=== PATIENT | female | born 1975 | race Caucasian/White ===

== ENCOUNTER 2019-06-13 17:25 | Emergency (ER) | payer OTHER, SELFPAY ==
[2019-06-13 17:30] VITALS: BP 161/95; PULSE 93; RESP 16; TEMP 36.6; O2SAT 95; BMI 75.2
--- NOTE | 2019-06-13 17:52 | EKG12_ITS ---
Test Reason : NEURO Blood Pressure : / mmHG Vent. Rate : 089 BPM Atrial Rate : 089 BPM P-R Int : 146 ms QRS Dur : 092 ms QT Int : 360 ms P-R-T Axes : 035 -11 030 degrees QTc Int : 438 ms Normal sinus rhythm Normal ECG Confirmed by TRISTIAN TOUSSAINT, KARLA ([id number]), sound editor NICKOLAS KIRKPATRICK ([id number]) on 06/18/2019 10:22:35 AM Referred By: SANDRA Confirmed By:KARLA LUBIN MD
--- NOTE | 2019-06-13 17:52 | CT_ITS ---
STUDY: CT BRAIN WITHOUT CONTRAST REASON FOR EXAM: Female, 43 years old. Stroke like symptoms. Dilated pupils. Unable to speak. RADIATION DOSAGE (If Supplied By Facility): CTDIvol = ( 44.99 ) mGy, DLP = ( 779.24 ) mGycm TECHNIQUE: Transaxial CT imaging of the brain was performed without administration of intravenous contrast material. Individualized dose optimization techniques were used for this CT. COMPARISON: No relevant priors. FINDINGS: Normal soft tissue structures. Normal calvarium. Normal size ventricles and extra-axial spaces for the patient's age. Normal white matter tracts of the cerebral hemispheres. Normal basal ganglia and thalami. Normal brainstem. Normal cerebellum. There is no intracranial hemorrhage. There are no findings of an acute ischemic infarction. Normal visualized paranasal sinuses. CT/Brain/Head without Contrast IMPRESSION: Normal unenhanced CT scan of the brain. N.B. : The above information has been verbally conveyed by Lefty Puga DO to Collin Bueno MD, on 06/13/2019 18:09:50 (ET). Electronically Signed: Lefty Puga DO at 18:12 EDT Tel [phone], Service support ,
[2019-06-13 17:56] LABS: Bedside Glucose 84 mg/dL (70-110)
[2019-06-13 18:04] VITALS: BP 157/92; PULSE 93; RESP 18; O2SAT 99
[2019-06-13 18:06] VITALS: BP 157/92; PULSE 91
[2019-06-13 18:07] LABS: Absolute Lymphocyte Count 2.39 X10^3/uL (0.83-4.51); Absolute Neutrophil Count 7.7 X10^3/uL (2.0-7.7); Basophil# 0.02 X10^3/uL; Basophil% 0.2 % (0-1); Eosinophil# 0.09 X10^3/uL; Eosinophils% 0.8 % (0-5); Hematocrit 40.9 % (37-47); Hemoglobin 13.2 g/dL (12.0-15.0); Lymphocyte # 2.39 X10^3/ul (4.0); Lymphocyte % 21.4 % (19-41); Mean Corp Hgb Conc 32.3 g/dL (32-36); Monocyte# 0.98 X10^3/uL; Monocyte% 8.8 % (0-10); NRBC Flagged by Analyzer 0 % (0-5); Neutrophil # 7.65 X10^3/uL (2.7-7.7); Neutrophil % 68.4 % (47-70); Platelet Count 394 K/mm3 (150-450); RBC Distribution Width CV 15.1 % (11.6-14.6); White Blood Count 11.2 K/mm3 (4.4-11.0)
[2019-06-13 18:08] VITALS: BMI 77.3
--- NOTE | 2019-06-13 18:26 | ED.RN ---
1815 call received from [facility] that there is na
--- NOTE | 2019-06-13 18:27 | ED.RN ---
181 [facility] phone to inform us that there is an
--- NOTE | 2019-06-13 18:28 | ED.RN ---
1815 [facility] phoned to inform staff that neurologist is on with another pt and will be delayed with this pt for approx. 15min.
[2019-06-13 18:30] VITALS: BP 156/97; PULSE 79; RESP 24; O2SAT 98
[2019-06-13] MEDS: 0.9% Normal Saline 1,000 ML 999 ML IV (18:39)
[2019-06-13 18:45] LABS: Partial Thromboplast Time 28.6 Seconds (24.1-36.2); Prothrombin Time (Protime)PT. 12.8 SECONDS (11.7-14.9)
--- NOTE | 2019-06-13 18:45 | NURSING ---
continue to wait at pt bs for [facility] md to beam in
--- NOTE | 2019-06-13 18:47 | NURSING ---
[facility] on video conference with pt
[2019-06-13 18:55] VITALS: BP 147/108; PULSE 88; RESP 20; O2SAT 99
--- NOTE | 2019-06-13 18:57 | ED.RN ---
1850 pt had an approx 60sec long episode with studdering attempting to get words out, but unable to while [facility] md on video doing nih exam. afterwords pt reports being able to hear everything and denies loss of vision.
[2019-06-13 18:59] LABS: Anion Gap 7 (5-15); BUN 12 mg/dL (7-18); BUN/Creat Ratio 16.2 RATIO (10-20); Calcium,Total 8.3 mg/dL (8.5-10.1); Chloride 107 mmol/L (98-107); Creatinine, Serum 0.74 mg/dL (0.55-1.02); EST Glomerular Filtration Rate 90 mL/min (>60); Est Glom Filt Rate - Afr Amer 109 mL/min (>60); Estimated Creatinine Clearance 94.34 ml/min; Glucose 106 mg/dL (74-106); Potassium 3.8 mmol/L (3.5-5.1); Sodium Level 140 mmol/L (136-145)
[2019-06-13 19:00] VITALS: BP 127/72; PULSE 85; RESP 18; O2SAT 97
--- NOTE | 2019-06-13 19:03 | ED.VISSUMM ---
- ER Visit Summary Date of Service: 06/13/19 Chief Complaint: Speech difficulties History of Present Illness: The patient is a 43 F with no primary care physician. She reports that she has had 3 episodes in the past 2 hours where she is unable to express herself. She states that this consists of stuttering, eyes twitching, and pupils dilating. Each of these has lasted approximately 10 seconds. She denies any other neurologic symptoms. No facial droop. No numbness or weakness. No change in her vision. No vertigo. She has never had anything like this before. No history of seizures. Physical Examination: Vitals: Stable. Afebrile. General: Well-nourished and well-developed. Head: Normocephalic atraumatic. Neck: Supple, no lymphadenopathy. No JVD. Nontender. Cardiovascular: Regular rate and rhythm. No murmurs. Respiratory: No respiratory distress. Clear to auscultation bilaterally. Abdominal: Soft, nontender, nondistended, normal bowel sounds. No guarding, rebound, or peritoneal signs. Back: Nontender. Extremities: Nontender, no edema. Skin: Normal color, no rash. Neurologic: Alert and oriented ?3. Cranial nerves II through XII are intact. Normal strength and sensation. NIH score is 0. Psych: Normal affect. Test Results: EKG is sinus at 89 with no acute changes. Troponin is negative. Coags are normal. Chem-7 shows a calcium of 8.3. CBC shows a white count 11.2. Clinical Impression(s) from Imaging Studies Brain CT 06/13/19 17:52 IMPRESSION: Normal unenhanced CT scan of the brain. N.B. : The above information has been verbally conveyed by Lefty Puga DO to Collin Bueno MD, on 06/13/2019 18:09:50 (ET). Electronically Signed: Lefty Puga DO at 18:12 EDT Tel [phone], Service support , ADDENDUM: 06/13/19 2052 IMPRESSION: Normal unenhanced CT scan of the brain. N.B. : The above information has been verbally conveyed by Lefty Puga DO to Collin Bueno MD, on 06/13/2019 18:09:50 (ET). Electronically Signed: Lefty Puga DO at 18:12 EDT Tel [phone], Service support , Emergency Department Course and Treatment: While speaking with the neurologist from [facility] the patient had 1 of these episodes. I discussed this with the neurologist afterwards. He states that it is consistent with a nonepileptic seizure. He feels that this is not from a stroke. That she can have outpatient seizure work-up including MRI and EEG. 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 The patient will be discharged with Dr. Hector's phone number. Instructed to follow-up with him as soon as possible. She does understand that she cannot drive until cleared by him. Return to the emergency department for any worsening symptoms. Disposition: To home in improved and stable condition. Impression: 1. Seizures, new onset. This note was generated with [employer] software. It may contain incorrect words, spelling, and punctuation that were not noted in review of the chart prior to signing ED Disposition - Plan for ED Patient: Disposition: Home or Assisted Living Instructions: ED, Migraine (Classical) Referrals: Yaya Hector MD [STAFF PHYSICIAN] - As soon as possible Additional Instructions: No driving until cleared by Neurology.
--- NOTE | 2019-06-13 19:20 | ED.RN ---
CALLED [facility] AT THE REQUEST OF DR FLORES, THEY WILL NOT ACCEPT THE CALL TILL FRIDAY @ [phone]
== END 2019-06-13 20:21 | disposition home or self-care (01) ==
LOC: ED 17:53
PROVIDERS: Emergency Provider Emergency Medicine
DX: R56.9 Unspecified convulsions (principal)
CPT/HCPCS: 36415; 70450; 80048; 82962; 84484; 85025; 85610; 85730; 93005; 96360; 96361; 99283; J7030; A4216

== ENCOUNTER 2019-06-14 12:10 | Emergency (ER) | payer OTHER, SELFPAY ==
[2019-06-13 18:08] VITALS: BMI 77.3
[2019-06-14 12:10] VITALS: BP 163/84; PULSE 90; RESP 16; TEMP 36.8; O2SAT 98; BMI 75.9
[2019-06-14 13:57] LABS: ALB/GLOB Ratio 0.8 RATIO (0.9-2.4); AST(SGOT) 17 U/L (15-37); Alanine Aminotransfer ALT/SGPT 26 U/L (13-56); Albumin, Serum 3.4 g/dL (3.2-5.0); Alkaline Phosphatase 80 U/L (45-117); Anion Gap 5 (5-15); BUN 8 mg/dL (7-18); BUN/Creat Ratio 10.5 RATIO (10-20); Calcium,Total 8.7 mg/dL (8.5-10.1); Chloride 106 mmol/L (98-107); Creatinine, Serum 0.76 mg/dL (0.55-1.02); EST Glomerular Filtration Rate 88 mL/min (>60); Est Glom Filt Rate - Afr Amer 106 mL/min (>60); Estimated Creatinine Clearance 91.86 ml/min; Globulin 4.5 g/dL (2.2-4.2); Glucose 84 mg/dL (74-106); Potassium 3.8 mmol/L (3.5-5.1); Protein, Total 7.9 g/dL (6.4-8.2); Sodium Level 138 mmol/L (136-145)
--- NOTE | 2019-06-14 14:58 | ED.DCSUM_ITS ---
History of Present Illness Chief Complaint: Confusion Detail of Chief Complaint: 10 seconds of inability to speak Informant: Patient Onset: Today - 899 Context: Sudden Onset Timing: Intermittent - 10 seconds of inability to speak Current Severity: - - Resolved Maximum Severity: - - Unable to quantify Worsened by: Nothing Relieved by: Nothing Associated Symptoms: No other symptoms Narrative: Patient is a 43-year-old woman who was seen yesterday. Her report was reviewed. She was evaluated by the neurologist at [facility]. She was informed that her symptoms are not consistent with a stroke. She has an appointment to be seen by a local neurologist on . This morning she had episode where she was unable to speak for 10 seconds. She has no other symptoms. Denies headache. Denies visual, ocular auditory symptoms. She denies chest pain, dyspnea, dyspnea on exertion. Denies orthopnea or PND. She denies nausea vomiting. She denies problems with swallowing. She denies problems with balance. Prior similar symptoms: Yes Recent Illness/Hospitalization: Yes - Past Medical History (1) No significant past medical history Status: Acute Past Medical History - Allergies and Home Meds Allergies/Adverse Reactions: Allergies No Known Allergies Allergy (Verified 06/14/19 12:12) Primary Care Physician: Care Physician,No Primary [Primary Care Provider] - Prior records reviewed: Yes Surgical History: noncontributory Lives: With Family Smoking Status: Never smoker Alcohol: None Drugs: None Review of Systems General: Denies: Chills, Fever, Sweats Eyes: Denies: Visual changes - bilaterally, Blurred Vision - bilaterally, Dipl opia ENT: Reports: - - States had trouble speaking.. Denies: Bilateral ear pain - Denied tinnitus, decreased hearing or ear pain, Rhinorrhea, Sore throat Cardiovascular: Denies: Chest pain, Palpitations Respiratory: Denies: Dyspnea, Cough, Dyspnea on exertion, Orthopnea, Paroxysmal nocturnal dyspnea Gastrointestinal: Denies: Abdominal pain, Nausea, Vomiting, Diarrhea, Melena, Hematochezia Genitourinary: Denies: Dysuria, Hematuria, Frequency Musculoskeletal: Denies: Myalgias, Arthralgias, Neck pain, Back pain, Swelling, Extremity Pain Skin: Denies: Rash, Wounds Neurological: Denies: Headache, Weakness, Numbness Hematologic: Denies: Easy bruising, Easy bleeding Allergy: Denies: Uticaria, Swelling of the mouth Physical Exam Vital Signs/Narrative: Vital Signs Temp Pulse Resp BP Pulse Ox 06/14/19 12:10 98.2 F 90 16 163/84 H 98 Inital Vital Signs reviewed: Yes General: Well nourished, Well developed, Obese - BMI is 75.9, No Acute Distress Head: Normocephalic, Atraumatic Eyes: Perrl, EOMI. Negative for: Pale conjunctiva, Scleral icterus ENT: Moist mucous membranes, No rhinorrhea, TM's clear, - - Funduscopic exam reveals normal cup-to-disc ratio. There is no papilledema. Neck: Supple, Nontender Cardiovascular: Regular rate, Regular rhythm, No murmurs, Normal S1, Normal S2 Respiratory: No distress, CTA bilaterally, Chest nontender Abdomen: Soft, Nontender, Nondistended, Normal bowel sounds Back: Nontender, Normal Inspection Extremities: Nontender, No edema Skin: Normal color, No rash, No Trauma. Negative for: Cyanosis, Diaphoresis, Jaundice Neurological: Alert, Oriented x3, Cranial nerves II-XII grossly intact, Normal Strength, Normal Sensation, Normal DTR, Normal Gait Psychological: Normal affect, Normal Mood Diagnostic/Tx/Re-eval Laboratory Results 06/14/19 13:30 Sodium 138 Potassium 3.8 Chloride 106 Carbon Dioxide 27.0 Anion Gap 5 BUN 8 Creatinine 0.76 Estim Creat Clear Calc 91.86 Est GFR (MDRD) Af Amer 106 Est GFR (MDRD) Non-Af 88 BUN/Creatinine Ratio 10.5 Glucose 84 Calcium 8.7 Total Bilirubin 0.50 AST 17 ALT 26 Alkaline Phosphatase 80 Total Protein 7.9 Albumin 3.4 Globulin 4.5 H Albumin/Globulin Ratio 0.8 L - Medical Decision Making Electronic panel was obtained and is unremarkable. Since patient's symptoms lasted 10 seconds she was evaluated by neurologist last evening work-up was negative no other testing was done. She was instructed to keep appointment with neurologist scheduled for . ED Disposition - Plan for ED Patient: Diagnosis: Aphasia Instructions: Confusion Referrals: Care Physician,No Primary [Primary Care Provider] -
== END 2019-06-14 15:10 | disposition home or self-care (01) ==
PROVIDERS: Emergency Provider Emergency Medicine
DX: R47.01 Aphasia (principal); E66.9 Obesity, unspecified; Z68.45 Body mass index [BMI] 70 or greater, adult
CPT/HCPCS: 80053; 99282

== ENCOUNTER 2022-06-22 10:51 | Emergency (ER) | payer OTHER, SELFPAY ==
[2022-06-22 10:51] VITALS: BP 159/92; PULSE 89; RESP 16; TEMP 36.6; O2SAT 97; BMI 77.4
--- NOTE | 2022-06-22 11:05 | EDS_ITS ---
HPI History of Present Illness Chief Complaint: Abd Pain Narrative Narrative: Patient presents with right upper quadrant abdominal pain nausea and vomiting for a few days. She was recently diagnosed with gallbladder disease on outpatient ultrasound. She has recent blood work which did not show any obstruction. I was able to review this on my chart with the patient in the room. The ultrasound showed gallbladder neck stone. She has no fever chills the pain does not radiate into her back. She has the same pain she has had in the past is just not going away. PFSH PFSH Medical History no medical history Home Medications oxycodone-acetaminophen 5 mg-325 mg tablet (Endocet) 1 tab PO Q6H PRN pain 3 days #12 tabs 06/22/22 [Rx Last Taken Unknown] Allergy/AdvReac Type Severity Reaction Status Date / Time No Known Allergies Allergy Verified 06/22/22 10:54 Social History (System 04/14/19 @ 14:34 by Claire Fay) Smoking Status: Never smoker ROS ROS ED ROS Narrative Past medical history: Recent diagnosis of gallbladder disease otherwise no other medical problems Medications: Reviewed Social history: Noncontributory Review of systems: All systems negative except as indicated General: No fever Eyes: No visual changes ENT: No upper airway congestion, normal voice Neck: No neck pain Cardiovascular: No chest pain Respiratory: No shortness of breath or cough Gastrointestinal: As in HPI Genitourinary: No dysuria Musculoskeletal: Denies myalgias no difficulty with ambulation Skin: No rash Neurological: No memory loss, confusion or any focal weakness Psych: No recent behavioral changes Hematologic: No easy bleeding or easy bruising EXAM Physical Exam Narrative Exam Narrative: Physical exam General: Patient appears relatively comfortable as I walk into the room. Head: Normocephalic, Atraumatic Eyes: Conjunctiva not pale ENT: Moist mucous membranes, I do not see any signs of dehydration Neck: Supple, Nontender, No lymphadenopathy Cardiovascular: Regular rate, Regular rhythm Respiratory: No distress, CTA bilaterally Abdomen: Soft, there is right upper quadrant tenderness to palpation. She has a negative Gauthier's. No lower abdominal pain no left-sided abdominal pain. No guarding or rebound. No pain at McBurney's Back: Nontender, Normal Inspection. Negative for: CVA tenderness Extremities: Nontender, No edema Skin: Normal color, No rash Neurological: Alert, Normal Strength, Normal Sensation Psychological: Normal affect Const Vital Signs: 06/22/22 10:51 Temperature 97.8 F Temperature Source Temporal Pulse Rate 89 Respiratory Rate 16 Blood Pressure 159/92 H Blood Pressure Mean 114 Pulse Ox 97 Oxygen Delivery Method Room Air MDM MDM MDM Narrative Medical decision making narrative: Patient has an unremarkable work-up she does have a gallbladder stone however at this time there is no white count no obstruction and she improved with analgesia. I will discharge her with analgesia she has an appointment with surgery in 2 days. If any changes she has fever chills or worsening symptoms she is to return. Lab Data Labs: Laboratory Results - last 24 hr 06/22/22 06/22/22 11:18 11:18 WBC 7.8 RBC 4.40 Hgb 13.4 Hct 41.4 MCV 94.1 MCH 30.5 MCHC 32.4 RDW Std Deviation 45.8 H RDW Coeff of Chavez 13.3 Plt Count 328 MPV 10.3 Immature Gran % (Auto) 0.300 Neut % (Auto) 71.1 H Lymph % (Auto) 19.5 Coryell % (Auto) 8.0 Eos % (Auto) 0.8 Baso % (Auto) 0.3 Absolute Neuts (auto) 5.5 Absolute Lymphs (auto) 1.51 Nucleated RBC % 0 Sodium 138 Potassium 3.8 Chloride 104 Carbon Dioxide 29.0 Anion Gap 5 BUN 9 Creatinine 0.79 Estim Creat Clear Calc 82.41 Est GFR (MDRD) Af Amer 100 Est GFR (MDRD) Non-Af 83 BUN/Creatinine Ratio 11.4 Glucose 106 Calcium 8.8 Total Bilirubin 0.50 Direct Bilirubin 0.14 AST 15 ALT 24 Alkaline Phosphatase 85 Total Protein 7.6 Albumin 3.3 Globulin 4.3 H Lipase 92 Discharge Plan Triage Chief Complaint: Abd Pain ED Provider: Aime Duval Dx/Rx/DC Orders Clinical Impression: Gallstone, Abdominal pain Instructions: What Are Gallstones, Treating Gallstones Prescriptions: New oxycodone-acetaminophen [Endocet] 5-325 mg tablet 1 tab PO Q6H PRN (Reason: pain) 3 Days Qty: 12 0RF Primary Care Provider: Arron Peralta Referrals: Zulema Abernathy MD [Med Staff - Active Staff] - (On Friday as scheduled) Arron Peralta MD [Primary Care Provider] - Disposition Disposition: Home, Self Care
[2022-06-22] MEDS: HYDROmorphone 1 MG/ML Syringe 0.5 MG IV (11:17)
[2022-06-22] MEDS: Ondansetron 4 MG/2 ML Vial IV (11:17)
[2022-06-22] MEDS: 0.9% Normal Saline 1,000 ML 1000 ML IV (11:17)
[2022-06-22 11:33] LABS: Absolute Lymphocyte Count 1.51 X10^3/uL (0.83-4.51); Absolute Neutrophil Count 5.5 X10^3/uL (2.0-7.7); Basophil# 0.02 X10^3/uL; Basophil% 0.3 % (0-1); Eosinophil# 0.06 X10^3/uL; Eosinophils% 0.8 % (0-5); Hematocrit 41.4 % (37-47); Hemoglobin 13.4 g/dL (12.0-15.0); Lymphocyte # 1.51 X10^3/ul (0.83-4.51); Lymphocyte % 19.5 % (19-41); Mean Corp Hgb Conc 32.4 g/dL (32-36); Mean Corpuscular Hgb 30.5 pg (27.0-32.0); Mean Corpuscular Volume 94.1 fL (81-99); Mean Platelet Vol. 10.3 fl (6.2-12.0); Monocyte# 0.62 X10^3/uL; NRBC Flagged by Analyzer 0 % (0-5); Neutrophil # 5.52 X10^3/uL (2.7-7.7); Neutrophil % 71.1 % (47-70); Platelet Count 328 K/mm3 (150-450); RBC Distribution Width CV 13.3 % (11.6-14.6); RBC Distribution Width SD 45.8 fl (35.1-43.9); White Blood Count 7.8 K/mm3 (4.4-11.0)
[2022-06-22 11:49] LABS: AST(SGOT) 15 U/L (15-37); Alanine Aminotransfer ALT/SGPT 24 U/L (13-56); Albumin, Serum 3.3 g/dL (3.2-5.0); Alkaline Phosphatase 85 U/L (45-117); Anion Gap 5 (5-15); BUN 9 mg/dL (7-18); BUN/Creat Ratio 11.4 RATIO (10-20); Bilirubin, Direct 0.14 mg/dL (0.00-0.30); Calcium,Total 8.8 mg/dL (8.5-10.1); Chloride 104 mmol/L (98-107); Creatinine, Serum 0.79 mg/dL (0.55-1.02); EST Glomerular Filtration Rate 83 mL/min (>60); Est Glom Filt Rate - Afr Amer 100 mL/min (>60); Estimated Creatinine Clearance 82.41 ml/min; Globulin 4.3 g/dL (2.2-4.2); Glucose 106 mg/dL (74-106); Lipase 92 U/L (73-393); Potassium 3.8 mmol/L (3.5-5.1); Protein, Total 7.6 g/dL (6.4-8.2); Sodium Level 138 mmol/L (136-145)
[2022-06-22 12:30] VITALS: BP 134/69; PULSE 72; RESP 15; O2SAT 98
== END 2022-06-22 12:30 | disposition home or self-care (01) ==
PROVIDERS: Emergency Provider Emergency Medicine; PCP Family Medicine; Visit Provider Emergency Medicine
DX: K80.20 Calculus of gallbladder without cholecystitis without obstruction (principal)
CPT/HCPCS: 80048; 80076; 83690; 85025; 96361; 96374; 96375; 99283; J7030; A4216; J2405

== ENCOUNTER 2022-11-29 08:23 | Emergency (ER) | payer OTHER, SELFPAY ==
[2022-11-29 08:24] VITALS: BP 168/100; PULSE 85; RESP 16; TEMP 36.1; O2SAT 99
--- NOTE | 2022-11-29 08:41 | US_ITS ---
STUDY: ABDOMINAL ULTRASOUND - RIGHT UPPER QUADRANT REASON FOR VISIT: Female, 47 years old PAIN TECHNIQUE: Ultrasound evaluation of the right upper quadrant was performed with real-time and static peng-scale imaging. TECHNICAL QUALITY: Adequate. COMPARISON: None. FINDINGS: Liver: The liver is enlarged and measures 18.7 cm. There is increased echogenicity consistent with fatty infiltration. The bile ducts are within normal limits. There is hepatic color flow. The direction of portal flow is hepatopetal. There is no demonstrated mass lesion. Gallbladder: Normal distended gallbladder. The gallbladder wall is mildly thickened and measures 4 mm. There is a negative sonographic Gauthier''s sign. There is no pericholecystic fluid. There is a solitary echogenic gallstone within the gallbladder. This measures 2.6 cm. Common Bile Duct (C.B.D.): The common bile duct measures 5 mm. Pancreas: There is nonvisualization of the pancreas due to overlying bowel gas. Right Kidney: Normal size of the right kidney. The right kidney measures 12 cm x 6.2 cm x 4.3 cm. Normal renal cortex. The right cortex measures 1.9 cm. There is no demonstrated renal mass or cyst. There is no right hydronephrosis. US/Gallbladder IMPRESSION: Hepatomegaly and diffuse fatty infiltration of the liver. Solitary gallstone. Electronically Signed: Hong Anthony MD at 9:47 EDT ,
--- NOTE | 2022-11-29 08:41 | ED.VIS.GI ---
HPI HPI - GI History of Present Illness Chief Complaint: Abd Pain Informant: patient Narrative Narrative: Patient is a 47-year-old female with history of seizures on Keppra as well as known gallstones presenting with right upper quadrant abdominal pain. She states been worsening over the past week. The pain is constant but waxes and wanes in intensity. She does not report any radiation of the pain. She sees a bariatric surgeon through [facility], Dr. Hopson, who was planning on taking her gallbladder out when she had her bariatric surgery. Patient is currently in the program. Patient was diagnosed with gallstones around May 2022. Patient states that since then she has lost 40 pounds and adhering to a low fat/greasy diet. She states the night it started as she had stirfry with chicken and broccoli for dinner. She denies any belching. She states she has had no change in her bowel movements. She had a bowel movement yesterday that was soft. She did call her surgeon who did call her and amoxicillin and she has been taking Zofran. Patient had 1 dose of Zofran prior to arrival but continues to have nausea. The date started she had intractable vomiting. Patient is trying to take Tylenol with no relief of her pain. Patient was seen in our ER 06/22/2022 and was treated for biliary colic at that time with no signs of acute cholecystitis. Patient states she did well with pain management with Percocet. [facility] Medical History (Updated 11/29/22 @ 11:[address] Yocasta Marr, ) Seizures Home Medications oxycodone-acetaminophen 5 mg-325 mg tablet (Endocet) 1 tab PO Q6H PRN pain 3 days #12 tabs 06/22/22 [Rx Last Taken Unknown] levetiracetam 500 mg tablet 500 mg PO BID 11/29/22 [History Last Taken Unknown] ondansetron 4 mg disintegrating tablet 4 mg PO Q6H PRN nausea and vomiting #14 tabs 11/29/22 [Rx Last Taken Unknown] oxycodone-acetaminophen 5 mg-325 mg tablet (Endocet) 1 tab PO Q6H PRN pain 3 days #12 tabs 11/29/22 [Rx Last Taken Unknown] Allergy/AdvReac Type Severity Reaction Status Date / Time No Known Allergies Allergy Verified 11/29/22 08:24 Social History Smoking Status: Never smoker ROS ROS ED Constitutional Constitutional ED: Reports chills; Denies fever(s) Cardiovascular Cardiovascular: Denies chest pain Respiratory/Chest Respiratory/Chest: Denies cough Gastrointestinal Gastrointestinal: Reports abdominal pain, nausea and vomiting; Denies constipation or diarrhea Genitourinary Genitourinary ED: Denies dysuria or hematuria Musculoskeletal Musculoskeletal: Denies arthralgias or myalgias Integumentary Denies rash Neurologic Neurologic: Denies headache(s) or weakness Psychiatric Psychiatric: Denies anxiety EXAM Physical Exam Const Vital Signs: 11/29/22 08:24 Temperature 97 F L Temperature Source Temporal Pulse Rate 85 Respiratory Rate 16 Blood Pressure 168/100 H Blood Pressure Mean 122 Pulse Ox 99 Oxygen Delivery Method Room Air Positive well nourished and well developed General Appearance ED: well developed HEENT Reports moist mucous membranes normocephalic and atraumatic Eyes PERRL and EOMs intact bilaterally Neck supple Resp normal respiratory effort and clear to auscultation bilaterally Cardio regular rate, regular rhythm and no murmurs GI non-distended GI Narrative: No clear Gauthier sign however this is limited secondary to patient's body habitus Auscultation: normoactive bowel sounds Palpation: soft and tender RLQ; Negative for guarding, rigid or rebound tenderness present Extremity full ROM Neuro Sensorium / Orientation: alert, oriented to person, oriented to place and oriented to time Motor Exam: Negative for general weakness Psych mental status grossly normal and thought process normal Skin no wounds MDM MDM MDM Narrative Medical decision making narrative: Patient is evaluated for right upper quad abdominal pain and vomiting in the setting of known gallstones. Differential includes acute cholecystitis, biliary colic and gastritis. Patient is treated with IV morphine and Zofran. Will obtain right upper quadrant ultrasound and labs to see if there findings consistent with acute cholecystitis. Patient's lab work largely normal. No signs of obstructive pathology and normal white blood cell count. Urinalysis did show 150 and occult blood but no red blood cells. Added on a CK which was normal. I do not suspect a kidney stone. Right upper quadrant ultrasound shows hepatomegaly with diffuse fatty infiltration and a solitary gallstone however no findings consistent with acute cholecystitis. The right kidney shows no hydronephrosis. I discussed with the patient surgeon who is comfortable with outpatient follow-up. Patient is also comfortable with this plan. She will continue to adhere to a low-fat diet. She is given a prescription for Percocet for further pain control outpatient as well as another prescription for Zofran. Patient does not think she needs a pain pill prior to discharge and can just pick it up from her pharmacy. Is counseled return precautions. Discharged home in stable condition. Has an appointment next with her surgeon for an EGD. Will call to be seen sooner if needed. Lab Data Attestation: I reviewed the patient's lab results. Labs: Laboratory Results - last 24 hr 11/29/22 11/29/22 11/29/22 08:50 08:50 08:50 WBC 7.4 RBC 4.24 Hgb 12.9 Hct 40.6 MCV 95.8 MCH 30.4 MCHC 31.8 L RDW Std Deviation 48.8 H RDW Coeff of Chavez 13.9 Plt Count 292 MPV 10.8 Immature Gran % (Auto) 0.300 Neut % (Auto) 73.6 H Lymph % (Auto) 18.2 L [place] % (Auto) 7.2 Eos % (Auto) 0.4 Baso % (Auto) 0.3 Absolute Neuts (auto) 5.5 Absolute Lymphs (auto) 1.35 Nucleated RBC % 0 Sodium 139 Potassium 3.8 Chloride 106 Carbon Dioxide 28.0 Anion Gap 5 BUN 9 Creatinine 0.67 Est GFR (MDRD) Af Amer 121 Est GFR (MDRD) Non-Af 100 BUN/Creatinine Ratio 13.5 Glucose 95 Calcium 8.6 Total Bilirubin 0.50 Direct Bilirubin 0.16 AST 26 ALT 32 Alkaline Phosphatase 67 Total Creatine Kinase 86 Total Protein 7.4 Albumin 3.2 Globulin 4.2 Urine Color Urine Clarity Urine pH Ur Specific [place] Urine Protein Urine Glucose (UA) Urine Ketones Urine Occult Blood Urine Nitrite Urine Bilirubin Urine Urobilinogen Ur Leukocyte Esterase Urine RBC Urine WBC Ur Squamous Epith Cells Urine Bacteria Urine Mucus Urine Test 11/29/22 09:00 WBC RBC Hgb Hct MCV MCH MCHC RDW Std Deviation RDW Coeff of [place]avez Plt Count MPV Immature Gran % (Auto) Neut % (Auto) Lymph % (Auto) [place] % (Auto) Eos % (Auto) Baso % (Auto) Absolute Neuts (auto) Absolute Lymphs (auto) Nucleated RBC % Sodium Potassium Chloride Carbon Dioxide Anion Gap BUN Creatinine Est GFR (MDRD) Af Amer Est GFR (MDRD) Non-Af BUN/Creatinine Ratio Glucose Calcium Total Bilirubin Direct Bilirubin AST ALT Alkaline Phosphatase Total Creatine Kinase Total Protein Albumin Globulin Urine Color Yellow Urine Clarity Clear Urine pH 6.0 Ur Specific [place] 1.015 Urine Protein 15 H Urine Glucose (UA) Normal Urine Ketones 15 H Urine Occult Blood 150 H Urine Nitrite Negative Urine Bilirubin Negative Urine Urobilinogen Normal Ur Leukocyte Esterase 25 H Urine RBC 0 SEEN Urine WBC 0-5 SEEN Ur Squamous Epith Cells 0-5 SEEN Urine Bacteria 1+ Urine Mucus 0 SEEN Urine Test Negative Radiography Diagnostic Testing: Clinical Impression(s) from Imaging Studies Gallbladder Ultrasound 11/29/22 08:41 IMPRESSION: Hepatomegaly and diffuse fatty infiltration of the liver. Solitary gallstone. Electronically Signed: Hong Anthony MD at 9:47 EDT , Discharge Plan Triage Chief Complaint: Abd Pain ED Provider: Yocasta Marr Dx/Rx/DC Orders Clinical Impression: Biliary colic, Gallstone, Fatty liver Instructions: ED Gallstones with Biliary Colic Prescriptions: New oxycodone-acetaminophen [Endocet] 5-325 mg tablet 1 tab PO Q6H PRN (Reason: pain) 3 Days Qty: 12 0RF ondansetron 4 mg tablet,disintegrating 4 mg PO Q6H PRN (Reason: nausea and vomiting) Qty: 14 0RF No Action oxycodone-acetaminophen [Endocet] 5-325 mg tablet 1 tab PO Q6H PRN (Reason: pain) 3 Days Qty: 12 0RF levetiracetam 500 mg tablet 500 mg PO BID Primary Care Provider: Arron Peralta Referrals: Arron Peralta MD [Primary Care Provider] - Activity Restrictions/Additional Instructions: Please follow-up with your surgeon as we discussed. If return if you have a progression or worsening of your symptoms. Call your surgeon if you think you need to be seen sooner. You should finish the antibiotics if you have any left and continue to adhere to a low-fat diet. Disposition Disposition: Home, Self Care
[2022-11-29 08:56] LABS: Absolute Lymphocyte Count 1.35 X10^3/uL (0.83-4.51); Absolute Neutrophil Count 5.5 X10^3/uL (2.0-7.7); Basophil# 0.02 X10^3/uL; Basophil% 0.3 % (0-1); Eosinophil# 0.03 X10^3/uL; Eosinophils% 0.4 % (0-5); Hematocrit 40.6 % (37-47); Hemoglobin 12.9 g/dL (12.0-15.0); Lymphocyte # 1.35 X10^3/ul (0.83-4.51); Lymphocyte % 18.2 % (19-41); Mean Corp Hgb Conc 31.8 g/dL (32-36); Mean Corpuscular Hgb 30.4 pg (27.0-32.0); Mean Corpuscular Volume 95.8 fL (81-99); Mean Platelet Vol. 10.8 fl (6.2-12.0); Monocyte# 0.53 X10^3/uL; Monocyte% 7.2 % (0-10); NRBC Flagged by Analyzer 0 % (0-5); Neutrophil # 5.45 X10^3/uL (2.7-7.7); Neutrophil % 73.6 % (47-70); Platelet Count 292 K/mm3 (150-450); RBC Distribution Width CV 13.9 % (11.6-14.6); RBC Distribution Width SD 48.8 fl (35.1-43.9); Red Blood Count 4.24 M/mm3 (4.2-5.4); White Blood Count 7.4 K/mm3 (4.4-11.0)
[2022-11-29] MEDS: morphine 8 MG/ML Syringe 6 MG IV (08:57)
[2022-11-29] MEDS: Ondansetron 4 MG/2 ML Vial IV (08:57)
[2022-11-29 09:05] LABS: Mucous, Urine 0 SEEN /hpf (<or=2+); Red Blood Cells-Urine 0 SEEN /hpf (0-5)
[2022-11-29 09:06] LABS: Color, Urine Yellow (Yellow); Glucose, Dipstick Normal (Normal); Ketone-Dipstick 15 mg/dl (Negative); Leukocyte Esterase-Dipstick 25 /ul (Negative); Nitrite-Dipstick Negative (Negative); Occult Blood-Urine 150 /ul (Negative); Protein-Dipstick 15 mg/dl (Negative); Specific Gravity, Urine 1.015 (1.002-1.030); Urine Bilirubin Dipstick Negative (Negative); Urine Clarity Clear (Clear); Urine Urobilinogen Normal (Normal)
[2022-11-29 09:11] LABS: AST(SGOT) 26 U/L (15-37); Alanine Aminotransfer ALT/SGPT 32 U/L (13-56); Albumin, Serum 3.2 g/dL (3.2-5.0); Alkaline Phosphatase 67 U/L (45-117); Anion Gap 5 (5-15); BUN 9 mg/dL (7-18); BUN/Creat Ratio 13.5 RATIO (10-20); Bilirubin, Direct 0.16 mg/dL (0.00-0.30); Calcium,Total 8.6 mg/dL (8.5-10.1); Chloride 106 mmol/L (98-107); Creatinine, Serum 0.67 mg/dL (0.55-1.02); EST Glomerular Filtration Rate 100 mL/min (>60); Est Glom Filt Rate - Afr Amer 121 mL/min (>60); Globulin 4.2 g/dL (2.2-4.2); Glucose 95 mg/dL (74-106); Potassium 3.8 mmol/L (3.5-5.1); Protein, Total 7.4 g/dL (6.4-8.2); Sodium Level 139 mmol/L (136-145)
[2022-11-29 09:15] LABS: Bacteria 1+ /hpf (None Seen); Squamous Epithelial Cells - UA 0-5 SEEN /hpf (5-10); White Blood Cells 0-5 SEEN /hpf (0-5)
[2022-11-29 09:16] LABS: Internal QC Validated? YES +Cl - CLEAR BKGD; Pregnancy, Urine Negative Negative
[2022-11-29 09:41] LABS: CPK Total, Creatine Kinase 86 U/L (26-192)
[2022-11-29 11:42] VITALS: BP 142/82; PULSE 56; RESP 14; O2SAT 98
== END 2022-11-29 11:43 | disposition home or self-care (01) ==
PROVIDERS: Emergency Provider Emergency Medicine; PCP Family Medicine; Visit Provider Emergency Medicine
DX: K80.70 Calculus of gallbladder and bile duct without cholecystitis without obstruction (principal); R16.0 Hepatomegaly, not elsewhere classified; K76.0 Fatty (change of) liver, not elsewhere classified
CPT/HCPCS: 76705; 80048; 80076; 81001; 81025; 82550; 85025; 96374; 96375; 99283; A4216; J2405

== ENCOUNTER 2025-03-05 17:31 | Emergency (ER) | payer OTHER, SELFPAY ==
[2025-03-05 17:32] VITALS: BP 173/98; PULSE 80; RESP 22; TEMP 36.6; O2SAT 100
[2025-03-05 17:45] VITALS: BMI 75.6
--- NOTE | 2025-03-05 18:05 | EKG12_ITS ---
Test Reason : DIZZINESS Blood Pressure : */* mmHG Vent. Rate : 69 BPM Atrial Rate : 69 BPM P-R Int : 152 ms QRS Dur : 96 ms QT Int : 388 ms P-R-T Axes : 39 -5 17 degrees QTcB Int : 415 ms Normal sinus rhythm Normal ECG Confirmed by TRISTIAN TOUSSAINT, KARLA ([id number]), associate editor FACUNDO TUCKER ([id number]) on 03/07/2025 11:33:17 AM Referred By: Confirmed By: KARLA LUBIN MD
--- NOTE | 2025-03-05 18:05 | CT_ITS ---
PROCEDURE: BRAIN/HEAD WITHOUT CONTRAST 03/05/2025 REASON FOR EXAM: DIZZINES TECHNIQUE: BRAIN/HEAD WITHOUT CONTRAST Coronal and Sagittal reconstruction series were provided. One or more dose reduction techniques were used (e.g., Automated exposure control, adjustment of the mA and/or kV according to patient size, use of iterative reconstruction technique. RADIATION DOSE SUMMARY: CTDlvol: 45 mGy DLP: 864 mGycm COMPARISON: CT head on 06/13/2019 FINDINGS: Brain: No acute intracranial hemorrhage, mass effect, or midline shift. Poe- white differentiation is maintained. CSF Spaces: Unremarkable Sinuses/Mastoids: Complete opacification of the left maxillary sinus with hyperostosis. Scattered opacification of the left anterior ethmoid air cells. No mastoid effusion. Bones: Unremarkable CT/Brain/Head without Contrast IMPRESSION: 1. No acute intracranial abnormality. 2. Extensive left maxillary sinus disease. Reading Location: [id number]
--- NOTE | 2025-03-05 18:06 | EX.ED.DYSGE1 ---
HPI History of Present Illness Chief Complaint: Dizziness Detail of Chief Complaint: Dizziness Informant: patient Narrative Narrative: Patient presents with dizziness that started 4 days ago. She describes intermittent episodes lasting about 15 seconds where he just feels lightheaded. She denies vertiginous symptoms. Does not seem to be positional can happen while seated or when standing. She denies recent illness. Patient has history of focal seizures 6 years ago that presented with inability to talk. She is on Keppra 500 mg p.o. twice daily. She saw nurse practitioner for her primary care physician yesterday who did blood work including CBC that was normal as well as a CMP that was normal and TSH that was normal. Her Keppra level was low and patient was not sure if her symptoms may be related to some sort of seizure activity. Patient is aware of the events that are happening and she has no twitching or shaking. She does not stare off in the space. At times she feels like there is something stuck in her throat or that she cannot breathe right. No history of anxiety or panic attacks. [facility] Medical History (Updated 03/05/25 @ 19:[address] Aron Ronquillo DO) Seizures Home Medications ?Medication ?Instructions ?Recorded ?Last Taken ?Type levetiracetam 500 mg tablet 500 mg PO BID 11/29/22 03/05/25 History lansoprazole 15 mg capsule,delayed 15 mg PO DAILY 03/05/25 03/05/25 History release (Prevacid 24Hr) lorazepam 1 mg tablet (Ativan) 1 mg PO TID PRN anxiety #10 tabs 03/05/25 Unknown Rx multivitamin (Daily Multi-Vitamin 1 tab PO DAILY 03/05/25 03/05/25 History tablet) Allergy/AdvReac Type Severity Reaction Status Date / Time No Known Allergies Allergy Verified 03/05/25 17:49 Social History Smoking Status: Never smoker ROS ROS ED Review of Systems ROS Unobtainable: other Constitutional Constitutional ED: Reports lethargy; Denies chills, fever(s), sweats or weight loss Eyes Eyes: Denies blurry vision, change in vision or diplopia ENT ENT ED: Denies rhinorrhea or sore throat Cardiovascular Cardiovascular: Denies chest pain, orthopnea or racing heartbeat Respiratory/Chest Respiratory/Chest: Reports dyspnea; Denies cough, dyspnea on exertion, orthopnea or sputum Gastrointestinal Gastrointestinal: Denies abdominal pain, diarrhea, nausea or vomiting Genitourinary Genitourinary ED: Denies dysuria, hematuria or urinary frequency Musculoskeletal Musculoskeletal: Denies arthralgias, back pain, myalgias or neck pain Integumentary Denies abscess, Abrasions or rash Neurologic Neurologic: Reports other Details: Dizziness ; Denies headache(s) or weakness Psychiatric Psychiatric: Denies anxiety, depression or suicidal thoughts Endocrine Endocrinology: Denies polydipsia, polyphagia or polyuria Hematologic/Lymphatic Hematologic/Lymphatic: Denies easy bleeding, easy bruising or lymphadenopathy Allergic/Immunologic Allergic/Immunologic ED: Denies mouth swelling, tongue swelling or urticaria EXAM Physical Exam Const Vital Signs: 03/05/25 17:32 03/05/25 18:48 03/05/25 19:42 Temperature 97.8 F Temperature Source Oral Pulse Rate 80 62 Pulse Rate [Lying] 70 Pulse Rate [Sitting (for 1 minute prior to obtaining)] 105 H Pulse Rate [Standing (for 1 minute prior to obtaining)] 75 Respiratory Rate 22 H 14 Blood Pressure 173/98 H 133/75 H Blood Pressure [Lying] 140/71 H Blood Pressure [Sitting (for 1 minute prior to obtaining)] 162/102 H Blood Pressure [Standing (for 1 minute prior to obtaining)] 168/101 H Blood Pressure Mean 123 94 Blood Pressure Mean [Lying] 94 Blood Pressure Mean [Sitting (for 1 minute prior to obtaining)] 122 Blood Pressure Mean [Standing (for 1 minute prior to obtaining)] 123 Pulse Ox 100 100 Positive well nourished and well developed General Appearance ED: well developed and NAD HEENT Reports TM's clear and moist mucous membranes normocephalic and atraumatic; Negative for trauma or tenderness Tympanic Membrane ED: Yes TM's clear Eyes PERRL and EOMs intact bilaterally General Eye ED: Negative for pale conjunctiva or scleral icterus Neck no lymphadenopathy, supple and no JVD General: Negative for tenderness Chest Wall inspection of chest normal and palpation of chest normal Chest: Negative for tenderness Resp normal respiratory effort and clear to auscultation bilaterally Effort and Inspection: Negative for respiratory distress or pain with movement Auscultation: Negative for rhonchi, wheezes or diminished lung sounds Cardio regular rate, regular rhythm, S1 normal heart sound, S2 normal heart sound and no murmurs Peripheral Pulses: pulses 2+ throughout GI normal to inspection, nondistended, normoactive bowel sounds, soft to palpation, non-tender, non-distended and no masses Back/Spine no CVA tenderness and no thoracic nor lumbar tenderness Extremity normal to inspection General Extremety ED: Negative for edema General Extremity: Negative for edema Neuro oriented x3, CN's II-XII intact bilaterally, no sensory deficits noted and gait normal Neuro Narrative: Finger-nose and heel camacho testing within normal limits, negative Romberg, negative for drift, fundi benign. Hallpike maneuver performed was negative for nystagmus and she was asymptomatic throughout. Sensorium / Orientation: awake, alert, oriented to person, oriented to place and oriented to time Motor Exam: strength 5/5 throughout and strength abnormal Psych mental status grossly normal Skin no rashes or lesions noted and no wounds MDM MDM MDM Narrative Medical decision making narrative: Patient presents with vague symptoms of lightheadedness intermittently lasting up to 15 seconds and then resolving. She denies vertiginous symptoms and has had history of vertigo in the past but states this is different. She was wondering if symptoms may be related to any type of seizure activity. My suspicion for seizure is low. I did obtain a CT scan of the brain without contrast that was unremarkable. Orthostatic vital signs were negative. I did do a troponin which was normal at less than 6 and the D-dimer which was also normal at 0.44. Orthostatic vital signs were negative. At this point etiology of her symptoms unclear. I will write her a prescription for some as needed Ativan. She is advised to follow-up with her primary care physician within next 3 to 5 days. Lab Data Attestation: I reviewed the patient's lab results. Labs: Laboratory Results - last 24 hr 03/05/25 18:23 D-Dimer Quant (PE/DVT) 0.44 Troponin T High Sens < 6 Urine Color Yellow Urine Clarity Clear Urine pH 7.0 Ur Specific [place] 1.005 Urine Protein Negative Urine Glucose (UA) Normal Urine Ketones Negative Urine Occult Blood 250 H Urine Nitrite Negative Urine Bilirubin Negative Urine Urobilinogen Normal Ur Leukocyte Esterase 25 H Urine RBC 0-5 SEEN Urine WBC 0-5 SEEN Ur Squamous Epith Cells 0-5 SEEN Urine Bacteria 0 SEEN Urine Mucus 0 SEEN Radiography Diagnostic Testing: Clinical Impression(s) from Imaging Studies Brain CT 03/05/25 18:05 IMPRESSION: 1. No acute intracranial abnormality. 2. Extensive left maxillary sinus disease. Reading Location: [facility] EK Initial EKG: Attestation: I personally reviewed and interpreted this EKG as follows: Comments: Sinus rhythm with rate of 69 bpm with no acute ST segment Discharge Plan Triage Chief Complaint: Dizziness ED Provider: Aron Ronquillo Dx/Rx/DC Orders Clinical Impression: Dizziness Instructions: ED Dizziness, Uncertain Cause Prescriptions: New lorazepam [Ativan] 1 mg tablet 1 mg PO TID PRN (Reason: anxiety) Qty: 10 0RF No Action levetiracetam 500 mg tablet 500 mg PO BID lansoprazole [Prevacid 24Hr] 15 mg capsule,delayed release(DR/EC) 15 mg PO DAILY multivitamin [Daily Multi-Vitamin] Tablet 1 tab PO DAILY Primary Care Provider: Arron Peralta Referrals: Arron Peralta MD [Primary Care Provider] - 3-5 Days Print Language: Belarusian Disposition Disposition: Home, Self Care
--- OUTSIDE RECORDS SUMMARY | 2025-03-05 18:14 | XMS RPT_ITS | CCD ---
Author Organization [facility] Care Team Providers Care Associate Project Manager Name Role Phone Arron Hairston MD Primary Care Provider [phone] Arron Hairston Primary Care Unavailable Yocasta Marr Attending Unavailable Arron Hairston Primary Care Unavailable Aime Duval Attending Unavailable Arron Hairston MD Primary Care Provider CONI PINA Attending Unavailable ARRON HAIRSTON Primary Care Unavailable CONI PINA Attending Unavailable ARRON HAIRSTON Referring Unavailable YOVANNY, ARRON Graves Primary Care Unavailable CONI PINA Attending Unavailable YOVANNY, ARRON Graves Primary Care Unavailable SANDY CARMEN Attending Unavailable ARRON HAIRSTON Referring Unavailable YOVANNY, ARRON Graevs Primary Care Unavailable KRISTI BENJAMIN Attending Unavailable YOVANNY, ARRON Graves Primary Care Unavailable ANTONIO MELGOZA Attending Unavailable ARRON HAIRSTON Referring Unavailable YOVANNY, ARRON Graves Primary Care Unavailable DEISY ALLAN Attending Unavailable ARRON HAIRSTON Referring Unavailable YOVANNY, ARRON Graves Primary Care Unavailable KRISTI BENJAMIN Attending Unavailable ARRON HAIRSTON Primary Care Unavailable SELF Referring Unavailable AYAAN CARDENAS Attending Unavailable ARRON HAIRSTON Primary Care Unavailable SANTOSH WOODS Attending Unavailable SANTOSH WOODS Referring Unavailable YOVANNY, ARRON Graves Primary Care Unavailable DEISY ALLAN Attending Unavailable YOVANNY, ARRON Graves Primary Care Unavailable DEISY ALLAN Attending Unavailable YOVANNY, ARRON Graves Primary Care Unavailable YOVANNY, ARRON Graves Primary Care Unavailable ANTONIO MELGOZA Attending Unavailable YOVANNY, ARRON Graves Referring Unavailable YOVANNY, ARRON Graves Primary Care Unavailable YOVANNY, ARRON Graves Referring Unavailable ANTONIO MELGOZA Attending Unavailable SANDY CARMEN Attending Unavailable YOVANNY, ARRON Graves Referring Unavailable YOVANNY, ARRON Graves Primary Care Unavailable SANDY CARMEN Attending Unavailable YOVANNY, ARRON Graves Referring Unavailable ARRON HAIRSTON Primary Care Unavailable SANDY CARMEN Attending Unavailable ARRON HAIRSTON Primary Care Unavailable DEISY ALLAN Attending Unavailable ARRON HAIRSTON Referring Unavailable ARRON HAIRSTON Primary Care Unavailable Arron Hairston MD Primary Care Provider Chace INSULATOR CUTTER AND FORMER.Kerry OKEEFE Unavailable Suppan INSULATOR CUTTER AND FORMER.MALDONADO, Staci Redd Unavailable Suppan INSULATOR CUTTER AND FORMER.ADJUSTO WRITER OPERATOR, Staci A Unavailable [phone] KEAGAN BLANTON Attending Unavailable SELF Referring Unavailable ARRON HAIRSTON Primary Care Unavailable ARRON HAIRSTON Referring Unavailable ARRON HAIRSTON Primary Care Unavailable KERRY MAS Attending Unavailable ARRON HAIRSTON Primary Care Unavailable Medications Current Medications Medication Drug Class(es) Dates Sig (Normalized) Sig (Original) acetaminophen 325 mg / oxyCODONE hydrochloride 5 mg oral tablet (7 sources) Opioid Agonist Start: 11-29-2022 take 1 tablet by mouth every six hours Oxycodone-Acetami nophen (Endocet) 5-325 mg tablet Active 1 TABLET PO EVERY 6 HOURS 12 3 November 29, 2022 Start: 06-22-2022 End: 07-25-2022 take 1 tablet by mouth every six hours Oxycodone-Acetaminophen (Endocet) 5-325 mg tablet Active 1 TABLET PO EVERY 6 HOURS 12 June 22, 2022 Comment on above: TAKE 1 TABLET BY MG TH EVERY 6 HOURS NEEDED FOR PAIN FOR 3 DAYS amoxicillin 875 mg / clavulanate 125 mg oral tablet (3 sources) Penicillin-class Antibacterial Start: 4 End: take 1 tablet by mouth twice daily amoxicillin-clavula iraj potassium (AUGMENTIN) 875-125 mg per tablet Indications: Acute non-recurrent sinusitis, unspecified location Take 1 tablet by mouth two times a day for 10 days. 20 tablet 06/14/2024 06/24/2024 Active Start: 11-25-2022 End: 12-02-2022 take 1 tablet by mouth every twelve hours amoxicillin-clavulanic acid (AUGMENTIN) 875-125 mg per tablet TAKE 1 TABLET BY MOUTH EVERY 12 HOURS FOR 7 DAYS 14 tablet 0 11/25/2022 12/02/2022 Active Start: 07-08-2022 End: 07-15-2022 take 1 tablet by mouth every twelve hours amoxicillin-clavulanic acid (AUGMENTIN) 875-125 mg per tablet Take 1 tablet by mouth every 12 hours for 7 days. 14 tablet 0 07/08/2022 07/15/2022 Active Comment on above: Take 1 tablet by mg th every 12 hours for 7 days. TAKE 1 TABLET BY MG TH EVERY 12 HOURS FOR 7 DAYS FA/MV,CA,IRON,MIN/LYCOPENE/L UT (MULTIVITAL ORAL) (20 sources) FA/MV,CA,IRON,[place] N/LYCOPENE /LUT (MULTIVITAL ORAL) Take by mouth once daily. Active FA/MV,CA,IRON,[place] N/LYCOPENE/LUT (MULTIVITAL ORAL) Take by mouth once daily. 0 Active FA/MV,CA,IRON,[place] N/LYCOPENE/LUT (MULTIVITAL ORAL) Take by mouth. 0 Active Comment on above: Take by mouth. Take by mouth once d aily. lansoprazole 15 mg delayed release oral capsule (20 sources) Proton Pump Inhibitor Start: 07-08-20 16 take 1 capsule by mouth once daily lansoprazole (PREVACID) 15 mg capsule Indications: Gastroesophageal reflux disease, esophagitis presence not specified Take 1 capsule by mouth once daily. 90 capsule 1 07/08/2016 Active Comment on above: Take 1 capsule by [facility] once daily. levETIRAcetam 500 mg oral tablet (20 sources) Start: 09-06-19 25 End: 01-08-20 25 take 1 tablet by mouth every twelve hours levETIRAcetam (KEPPRA) 500 mg tablet TAKE 1 TABLET BY MOUTH EVERY 12 HOURS 60 tablet 5 01/07/2025 Active Start: 09-03-2021 End: 09-05-2024 take 1 tablet by mouth every twelve hours levETIRAcetam (KEPPRA) 500 mg tablet take 1 tablet by mouth twice a day 180 tablet 1 03/08/2024 09/05/2024 Discontinued Comment on above: Take 1 tablet by mg th twice daily. TAKE 1 TABLET BY MG TH TWICE A DAY levonorgestrel 0.591994 mg/hr intrauterine system (20 sources) Progestin, Progestin-containing Intrauterine Device levonorgestrel (BROOKLYNN NA) 20 mcg/24 hours (8 yrs) 52 mg IUD 1 Each by INTRAUTERINE route. Active Comment on above: 1 Each by INTRAUTERI NE route. Completed/Discontinued Medications Medication Drug Class(es) Dates Sig (Normalized) Sig (Original) benzonatate 100 mg oral capsule (13 sources) Non-narcotic Antitussive Start: 09-01-2023 End: 01-10-2025 take 1-2 capsules by mouth three times daily as needed for cough benzonatate (TESSALON PERLES) 100 mg capsule Indications: Acute non-recurrent sinusitis, unspecified location Take 1-2 capsules by mouth three times a day as needed for cough. 40 capsule 06/14/2024 01/10/2025 Discontinued Comment on above: Take 1-2 capsules by mouth three times a day as needed for cough. cholecalciferol 1.25 mg oral capsule (20 sources) Vitamin D Start: 02-27-2023 End: 06-14-2024 take 2104-5664 [IU] by mouth once daily cholecalciferol, Vitamin D3, (VITAMIN D3) 1,250 mcg (50,000 unit) cap capsule Indications: vitamin D deficiency Take 1 capsule by mouth one time a week for 12 doses. Transition to 2,000-4,000 units of Vitamin D OTC after completing 12 weeks 12 capsule 02/27/2023 06/14/2024 Discontinued (Other) Comment on above: Take 1 capsule by mo uth one time a week for 12 doses. Transition to 2,000-4,000 units of Vitamin D OTC after completing 12 weeks 24 hr metFORMIN hydrochloride 500 mg extended release oral tablet (20 sources) Biguanide Start: 03-10-2023 End: 06-14-2024 take 3 tablets by mouth once daily at dinner metFORMIN ER (GLUCOPHAGE XR) 500 mg 24 hr tablet Take 3 tablets by mouth daily with dinner. 270 tablet 07/24/2023 06/14/2024 Discontinued (Other) Comment on above: Take 1 tablet by mg th daily with dinner. Increase to 2 tablets po daiy with dinner in 2 weeks if tolerating Take 3 tablets by mo uth daily with dinner. ondansetron 4 mg disintegrating oral tablet (20 sources) Serotonin-3 Receptor Antagonist Start: 11-22-2022 End: 04-18-2023 take 1 tablet by mouth every eight hours as needed ondansetron (ZOFRAN) 4 mg tablet Take 1 tablet by mouth every 8 hours as needed for up to 15 doses. 15 tablet 0 11/22/2022 04/18/2023 Discontinued (Other) Start: 06-17-2022 End: 06-14-2024 take 1 tablet by mouth every six hours as needed for nausea and nausea ondansetron orally disintegrating (ZOFRAN ODT) 4 mg disintegrating tablet Indications: Nausea Take 1 tablet by mouth every 6 hours as needed for nausea/vomiting. 20 tablet 1 11/25/2022 06/14/2024 Discontinued (Other) Comment on above: Take 1 tablet by mg th every 6 hours as needed for nausea/vomiting. Take 1 tablet by mg th every 8 hours as needed for up to 15 doses. 72 hr scopolamine 0.0139 mg/hr transdermal system (9 sources) Anticholinergic Start: 024 End: 025 scopolamine (TRANSDERM-SCOP) patch 1.5 mg/72 hr (delivers 1 mg over 3 days) Indications: Sea sickness, sequela Apply 1 Patch as directed every 72 hours. Apply patch to skin behind ear 4hrs prior to travel. 4 Patch 06/14/2024 01/10/2025 Discontinued semaglutide (OZEMPIC) 0.25 mg or 0.5 mg (2 mg/3 mL) pen (5 sources) Start: 023 End: 023 inject 0.25 mg by subcutaneous injection every week, then inject 0.5 mg by subcutaneous injection every week semaglutide (OZEMPIC) 0.25 mg or 0.5 mg (2 mg/3 mL) pen Inject 0.25 mg SQ once weekly x 4 weeks, then increase to 0.5 mg SQ once weekly x 4 weeks 3 mL 0 03/06/2023 03/19/2023 Discontinued Start: 03-06-2023 inject 0.25 mg by bello bcutaneous injection every week, then inject 0.5 mg by subcutaneous injection every week semaglutide (OZEMPIC) 0.25 mg or 0.5 mg (2 mg/3 mL) pen Inject 0.25 mg SQ once weekly x 4 weeks, then increase to 0.5 mg SQ once weekly x 4 weeks 3 mL 0 03/06/2023 Active Comment on above: Inject 0.25 mg SQ on ce weekly x 4 weeks, then increase to 0.5 mg SQ once weekly x 4 weeks semaglutide, weight loss, (WEGOVY) 0.25 mg/0.5 mL pen injector (13 sources) Start: 3 End: 3 inject 0.5 mL by subcutaneous injection every week semaglutide, weight loss, (WEGOVY) 0.25 mg/0.5 mL pen injector Indications: Class 3 severe obesity with body mass index (BMI) greater than or equal to 70 in adult, unspecified obesity type, unspecified whether serious comorbidity present (HCC) Inject 0.5 mL subcutaneously one time a week. 4 Each 0 04/15/2023 07/11/2023 Discontinued (Discontinued by Patient) Start: 04-15-2023 inject 0.5 mL by sub cutaneous injection every week semaglutide, weight loss, (WEGOVY) 0.25 mg/0.5 mL pen injector Indications: Class 3 severe obesity with body mass index (BMI) greater than or equal to 70 in adult, unspecified obesity type, unspecified whether serious comorbidity present (HCC) Inject 0.5 mL subcutaneously one time a week. 4 Each 0 04/15/2023 Active Comment on above: Inject 0.5 mL subcutaneously one time a week. semaglutide, weight loss, (WEGOVY) 0.5 mg/0.5 mL pen injector (13 sources) Start: 023 End: 023 inject 0.25 mg by subcutaneous injection every week semaglutide, weight loss, (WEGOVY) 0.5 mg/0.5 mL pen injector Indications: Class 3 severe obesity with body mass index (BMI) greater than or equal to 70 in adult, unspecified obesity type, unspecified whether serious comorbidity present (HCC) Inject 0.5 mL subcutaneously one time a week. To start after completione of 0.25 mg dosage course 4 Each 0 04/15/2023 07/11/2023 Discontinued (Discontinued by Patient) Start: 04-15-2023 inject 0.25 mg by bello bcutaneous injection every week semaglutide, weight loss, (WEGOVY) 0.5 mg/0.5 mL pen injector Indications: Class 3 severe obesity with body mass index (BMI) greater than or equal to 70 in adult, unspecified obesity type, unspecified whether serious comorbidity present (HCC) Inject 0.5 mL subcutaneously one time a week. To start after completione of 0.25 mg dosage course 4 Each 0 04/15/2023 Active Comment on above: Inject 0.5 mL subcutaneously one time a week. To start after completione of 0.25 mg dosage course semaglutide, weight loss, (WEGOVY) 1 mg/0.5 mL pen injector (13 sources) Start: End: inject 0.5 mg by subcutaneous injection every week semaglutide, weight loss, (WEGOVY) 1 mg/0.5 mL pen injector Indications: Class 3 severe obesity with body mass index (BMI) greater than or equal to 70 in adult, unspecified obesity type, unspecified whether serious comorbidity present (HCC) Inject 0.5 mL subcutaneously one time a week. To start after completion of 0.5 mg dosage course 4 Each 0 04/15/2023 07/11/2023 Discontinued (Discontinued by Patient) Start: 04-15-2023 inject 0.5 mg by sub cutaneous injection every week semaglutide, weight loss, (WEGOVY) 1 mg/0.5 mL pen injector Indications: Class 3 severe obesity with body mass index (BMI) greater than or equal to 70 in adult, unspecified obesity type, unspecified whether serious comorbidity present (HCC) Inject 0.5 mL subcutaneously one time a week. To start after completion of 0.5 mg dosage course 4 Each 0 04/15/2023 Active Comment on above: Inject 0.5 mL subcut aneously one time a week. To start after completion of 0.5 mg dosage course tirzepatide (MOUNJARO) 2.5 mg/0.5 mL pen injector (7 sources) Start: End: inject 2.5 mg by subcutaneous injection every week tirzepatide (MOUNJARO) 2.5 mg/0.5 mL pen injector Inject 2.5 mg subcutaneously one time a week. 3 mL 07/24/2023 06/14/2024 Discontinued (Other) Start: 07-24-2023 inject 2.5 mg by sub cutaneous injection every week tirzepatide (MOUNJARO) 2.5 mg/0.5 mL pen injector Inject 2.5 mg subcutaneously one time a week. 3 mL 07/24/2023 Active Start: 07-24-2023 inject 2.5 mg by sub cutaneous injection every week tirzepatide (MOUNJARO) 2.5 mg/0.5 mL pen injector Inject 2.5 mg subcutaneously one time a week. 3 mL 0 07/24/2023 Active Comment on above: Inject 2.5 mg subcut aneously one time a week. ursodiol 300 mg oral capsule (4 sources) Bile Acid Start: 2 End: 2 take 1 capsule by mouth once daily at mealtime ursodiol (ACTIGALL) 300 mg capsule Take 1 capsule by mouth once daily. with meals. 30 capsule 0 06/27/2022 07/25/2022 Discontinued (Course of therapy completed) Comment on above: Take 1 capsule by mo uth once daily. with meals. Problems Active Problems Problem Classification Problem Date Documented Date Episodic/Chronic Abdominal pain (7 sources) Abdominal pain; Translations: [Unspecified abdominal pain] Onset: 07-02-2022 Episodic Conditions associated with dizziness or vertigo (1 source) Lightheadedness; Translations: [Dizziness and giddiness] 03-04-2025 Episodic Epilepsy; convulsions (20 sources) Partial epilepsy with impairment of consciousness; Translations: [Localization-related (focal) (partial) symptomatic epilepsy and epileptic syndromes with simple partial seizures, not intractable, without status epilepticus] Onset: 12-13-2022 Chronic Epilepsy; convulsions (20 sources) Seizure; Translations: [Unspecified convulsions] Onset: 06-17-2022 06-17-2022 Episodic Esophageal disorders (20 sources) Gastroesophageal reflux disease without esophagitis; Translations: [Gastro-esophageal reflux disease without esophagitis] Onset: 07-25-2022 Chronic Menstrual disorders (20 sources) Irregular periods; Translations: [Irregular menstruation, unspecified] Onset: 03-08-2013 03-08-2013 Chronic Miscellaneous mental health disorders (5 sources) Psychosomatic factor in physical condition; Translations: [Psychological and behavioral factors associated with disorders or diseases classified elsewhere] Onset: 12-20-2022 Chronic Nutritional deficiencies (1 source) Vitamin D deficiency; Translations: [Vitamin D deficiency, unspecified] 06-13-2023 Chronic Other circulatory disease (2 sources) Elevated blood-pressure reading without diagnosis of hypertension; Translations: [Elevated blood-pressure reading, without diagnosis of hypertension] Episodic Other injuries and conditions due to external causes (1 source) Sea sickness; Translations: [Motion sickness, sequela] 06-14-2024 Episodic Other liver diseases (1 source) Steatosis of liver; Translations: [Fatty (change of) liver, not elsewhere classified] 11-29-2022 Chronic Other lower respiratory disease (3 sources) Snoring; Translations: [Snoring] Episodic Other nervous system disorders (2 sources) Aphasia; Translations: [Aphasia] 06-15-2019 Chronic Other nutritional; endocrine; and metabolic disorders (5 sources) Morbid obesity; Translations: [Morbid (severe) obesity due to excess calories] Chronic Other nutritional; endocrine; and metabolic disorders (4 sources) Body mass index 40+ - severely obese; Translations: [Morbid (severe) obesity due to excess calories] Onset: 06-27-2022 Chronic Other nutritional; endocrine; and metabolic disorders (20 sources) Severe obesity; Translations: [Morbid (severe) obesity due to excess calories] Onset: 06-27-2022 Chronic Other nutritional; endocrine; and metabolic disorders (3 sources) Morbid (severe) obesity due to excess calories; Translations: [Class 3 severe obesity with body mass index (BMI) greater than or equal to 70 in adult, unspecified obesity type, unspecified whether serious comorbidity present (HCC)] Onset: 07-25-2022 Chronic Other nutritional; endocrine; and metabolic disorders (2 sources) Body mass index (BMI) 70 or greater, adult; Translations: [Class 3 severe obesity with body mass index (BMI) greater than or equal to 70 in adult, unspecified obesity type, unspecified whether serious comorbidity present (HCC)] Onset: 07-25-2022 Chronic Other nutritional; endocrine; and metabolic disorders (1 source) Cholesterol level - finding; Translations: [Lipoprotein deficiency] 06-14-2024 Chronic Other screening for suspected conditions (not mental disorders or infectious disease) (9 sources) Patient encounter status; Translations: [Encounter for screening mammogram for malignant neoplasm of breast] Onset: 01-21-2025 Episodic Other skin disorders (1 source) Night sweats; Translations: [Generalized hyperhidrosis] 03-04-2025 Episodic Other upper respiratory infections (1 source) Acute sinusitis; Translations: [Acute sinusitis, unspecified] 06-14-2024 Episodic Residual codes; unclassified (4 sources) Obstructive sleep apnea syndrome; Translations: [Obstructive sleep apnea (adult) (pediatric)] 06-13-2023 Chronic Residual codes; unclassified (1 source) History of clinical finding in subject; Translations: [Personal history of other specified conditions] 03-19-2023 Episodic Unclassified (2 sources) No history of clinical finding in subject; Translations: [No significant past medical history] 06-14-2019 Unclassified (1 source) Established Patient Onset: 04-18-2023 Past or Other Problems Problem Classification Problem Date Documented Date Episodic/Chronic Biliary tract disease (20 sources) Gallstone; Translations: [Calculus of gallbladder without cholecystitis without obstruction] Onset: 06-27-2022 Episodic Other nervous system disorders (20 sources) Disturbance in speech; Translations: [Other speech disturbances] Onset: 06-17-2019 10-21-2019 Episodic Other nutritional; endocrine; and metabolic disorders (18 sources) Obesity; Translations: [Obesity, unspecified] Onset: 04-27-2009 Resolved: 06-27-2022 04-27-2009 Chronic Results Test Name Value Interpretation Reference Range Facility CBC W Auto Differential pane l (Bld)on 03-04-2025 Basophils (Bld) [#/Vol] [facility] Basophils/100 WBC (Bld) 0.3 % [facility] Differential cell count method Nom (Bld) Auto [facility] Eosinophils (Bld) [#/Vol] 0.05 10*3/uL [facility] Eosinophils/100 WBC (Bld) 0.6 % [facility] Erythrocyte distribution width (RBC) [Ratio] 13.3 % 11.5 - 15.0 % [facility] Hematocrit (Bld) [Volume fraction] 40.7 % 36.0 - 46.0 % [facility] Hemoglobin (Bld) [Mass/Vol] 13.1 g/dL 11.5 - 15.5 g/dL [facility] Immature granulocytes (Bld) [#/Vol] 0.03 10*3/[facility] Immature granulocytes/100 WBC (Bld) 0.4 % [facility] Lymphocytes (Bld) [#/Vol] 1.56 10*3/uL [facility] Lymphocytes/100 WBC (Bld) 19.5 % [facility] MCH (RBC) [Entitic mass] 30.8 pg 26.0 - 34.0 pg [facility] MCHC (RBC) [Mass/Vol] 32.2 g/dL 30.5 - 36.0 g/dL [facility] MCV (RBC) [Entitic vol] 95.5 fL 80.0 - 100.0 fL [facility] Monocytes (Bld) [#/Vol] 0.72 10*3/uL [facility] Monocytes/100 WBC (Bld) 9 % [facility] Neutrophils (Bld) [#/Vol] 5.6 10*3/uL [facility] Neutrophils/100 WBC (Bld) 70.2 % [facility] Nucleated RBC (Bld) [#/Vol] [facility] Nucleated RBC/100 WBC (Bld) [Ratio] 0 % /100 WBC [facility] Platelet mean volume (Bld) [Entitic vol] 10.5 fL 9.0 - 12.7 fL [facility] Platelets (Bld) [#/Vol] 347 10*3/uL [facility] RBC (Bld) [#/Vol] 4.26 10*6/uL 3.90 - 5.20 m/uL [facility] WBC (Bld) [#/Vol] 7.98 10*3/uL [facility] LEVETIRACETAMon 03-04-2025 levETIRAcetam [Mass/Vol] 10.9 ug/mL Low 12.0 - 46.0 ug/mL [facility] Comment on above: This test is not hermelindo table for patients receiving treatment with the drug brivaracetam (Briviact). The drug causes an interference that may lead to falsely elevated levetiracetam results. Reference ranges and high/low indicator flags are provided as general guidelines only. The treating physician must determine appropriate target levels/dosing based on the specific clinical situation. This test was developed, and its performance characteristics determined by the [facility] Department of Pathology and Laboratory Medicine. It has not been cleared or approved by the FDA. The [facility] Department of Pathology and Laboratory Medicine is regulated under CLIA as qualified to perform high-complexity testing. This test is used for clinical purposes. It should not be regarded as investigational or for research. levETIRAcetam [Mass/Vol]on 0 03-04-2025 Interpretation and review of laboratory results Abnormal [facility] AP SCREENINGon 01-21-2025 AP SCREENING * * *Final Report* * * DATE OF EXAM: Jan 21 2025 2:56PM [id number] - AP SCREENING / PROCEDURE REASON: Encounter for screening mammogram for breast cancer * * * * Physician Interpretation * * * * RESULT: [place] [address] #[id number] - MAMM SCREENING HISTORY: 49 year-old patient seen for screening. Patient is asymptomatic in both breasts. Patient states no personal history of breast cancer. The patient has a family history of breast cancer. COMPARISON STUDIES: The present examination has been compared to prior imaging studies dated 07/16/2016 (mammogram) and 04/11/2023 (mammogram). MAMMOGRAM TECHNIQUE: The study was acquired using full field digital technology and interpreted from soft copy. MAMMOGRAM FINDINGS: The breasts are almost entirely fatty. No suspicious masses, calcifications or other abnormalities are seen in either breast. There are no significant interval changes. IMPRESSION: There is no mammographic evidence of malignancy in either breast. Routine screening mammogram is recommended. Annual mammogram will be due in 1 year. BI-RADS Category 1: Negative RISK: Based on the Tyrer-Cuzick (TC) risk assessment model, this patient has a 4.5% lifetime risk of developing breast cancer, meaning they are at average risk for developing breast cancer. However, this is only an estimate based on available history provided on the patient's questionnaire. We encourage all patients to talk with their providers about these results, further recommendations for managing breast health, and appropriate supplemental screening options if the patient has dense breast tissue. Interpreting Radiologist: Radu Strickland M.D. Electronically signed on: 01/25/2025 Medical Assistant Secretary: ELHAM Transcribe Date/Time: Jan 21 2025 2:39P Dictated by: RADU STRICKLAND MD This examination was interpreted and the report reviewed and electronically signed by: RADU STRICKLAND MD on Jan 25 2025 7:15AM EST [id number] Normal [facility] CNPMarycarmen 08-08-2023 CNPN Telephone ([id number]) DEISY ALMODOVAR ([id number]) 1975 F Date Time Provider Department 08/08/23 [facility] WOODS AGGENS4 During your visit today, we recorded the following information about you: Cortez Palomino RN 08/08/2023 3:25 PM Signed Update: her insurance no longer covers bariatric surgery so she is stepping out of the program and f/u with obesity medicine Spoke with pt via phone to get her scheduled with Dr. Woods re: gallstones/gallbladder issues. Pt is good with plan and would like to schedule. Cortez Palomino RN, BSN Bariatric Mold Cleaner Bhumi Godwin MA 08/08/2023 4:18 PM Signed Left voicemail for patient to call the office to schedule an appointment. Bhumi Godwin MA Allergies As of Date: 08/08/2023 (No Known Allergies) Date Reviewed: 07/24/2023 Reviewed by: Chema Barcenas MA - Fully Assessed Reason for Visit: MDT [Other] Prescriptions as of 08/08/2023 - tirzepatide (MOUNJARO) 2.5 mg/0.5 mL pen injector Inject 2.5 mg subcutaneously one time a week. - metFORMIN ER (GLUCOPHAGE XR) 500 mg 24 hr tablet Take 3 tablets by mouth daily with dinner. - cholecalciferol, Vitamin D3, (VITAMIN D3) 1,250 mcg (50,000 unit) cap capsule Take 1 capsule by mouth one time a week for 12 doses. Transition to 2,000-4,000 units of Vitamin D OTC after completing 12 weeks - levETIRAcetam (KEPPRA) 500 mg tablet TAKE 1 TABLET BY MOUTH TWICE A DAY - ondansetron orally disintegrating (ZOFRAN ODT) 4 mg disintegrating tablet Take 1 tablet by mouth every 6 hours as needed for nausea/vomiting. - levonorgestrel (MIRENA) 20 mcg/24 hours (8 yrs) 52 mg IUD 1 Each by INTRAUTERINE route. - lansoprazole (PREVACID) 15 mg capsule Take 1 capsule by mouth once daily. - FA/MV,CA,IRON,MIN/LYCOPENE/L UT (MULTIVITAL ORAL) Take by mouth once daily. 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*12/13/2022 Class 3 severe obesity with body mass index (BM*02/21/2023 Encounter Status:Closed by CORTEZ PALOMINO on 08/08/23 [facility] 07-22-2023 [facility] Telephone (AGGENS4) DEISY ALMODOVAR ([id number]) 1975 F Date Time Provider Department 07/22/23 CONI PINA AGGENS4 During your visit today, we recorded the following information about you: Janel Cowart MA 07/22/2023 10:04 AM Signed Patient confirmed [facility] appt for 1130am virtual 07/24 Janel Cowart MA Allergies As of Date: 07/22/2023 (No Known Allergies) Date Reviewed: 07/11/2023 Reviewed by: Antonio Melgoza APRN.ADJUSTO WRITER OPERATOR - Fully Assessed Reason for Visit: Appointment [186] Prescriptions as of 07/22/2023 - metFORMIN ER (GLUCOPHAGE XR) 500 mg 24 hr tablet Take 1 tablet by mouth daily with dinner. Increase to 2 tablets po daiy with dinner in 2 weeks if tolerating - cholecalciferol, Vitamin D3, (VITAMIN D3) 1,250 mcg (50,000 unit) cap capsule Take 1 capsule by mouth one time a week for 12 doses. Transition to 2,000-4,000 units of Vitamin D OTC after completing 12 weeks - levETIRAcetam (KEPPRA) 500 mg tablet TAKE 1 TABLET BY MOUTH TWICE A DAY - ondansetron orally disintegrating (ZOFRAN ODT) 4 mg disintegrating tablet Take 1 tablet by mouth every 6 hours as needed for nausea/vomiting. - levonorgestrel (MIRENA) 20 mcg/24 hours (8 yrs) 52 mg IUD 1 Each by INTRAUTERINE route. - lansoprazole (PREVACID) 15 mg capsule Take 1 capsule by mouth once daily. - FA/MV,CA,IRON,MIN/LYCOPENE/L UT (MULTIVITAL ORAL) Take by mouth once daily. 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 At the time she didn't have any information to give me so she called her HR department to ask. When we ran her insurance 6 months ago they informed us that she did have Bariatric coverage. Her HR got back to her and she doesn't have Bariatric coverage nor will she have coverage on her new insurance. Patient is towards the end of the program but has not consented. I informed her that if its not a covered benefit then she will have two options either check out the self pay or continue with working with Obesity med. After the call I went ahead a re called her insurance and got another Rep. She informed me that she is not covered. I will send pt the self pay packet. She will call us with what she decides. Contact Rep- Gracie Ref #: [phone] She doesn't have Bariatric coverage. Rebecca Franco 09/22/2023 11:41 AM Signed Patient reached out to me via email to ask if I can run her insurance one more time to see if she has Bariatric coverage. She sent me the insurance cards. I called and ran her benefits. She DOESN'T HAVE BARIATRIC COVERAGE. SHE DOESN'T HAVE OBESITY MED COVERAGE. Insurance Verification Insurance Company: [employer] Provider Phone #: [phone] Agent: Rk Elizalde Date: 08/25/23 Call Reference #: [id number] Obesity Medicine Coverage: NO COVERAGE: NO RNY-NO SLEEVE-NO BYPASS-NO Allergies As of Date: 07/03/2023 (No Known Allergies) Date Reviewed: 06/13/2023 Reviewed by: Antonio Melgoza APRN.ADJUSTO WRITER OPERATOR - Fully Assessed Reason for Visit: Patient Update [1234] Prescriptions as of 09/22/2023 - benzonatate (TESSALON PERLES) 100 mg capsule Take 1-2 capsules by mouth three times a day as needed for cough. - tirzepatide (MOUNJARO) 2.5 mg/0.5 mL pen injector Inject 2.5 mg subcutaneously one time a week. - metFORMIN ER (GLUCOPHAGE XR) 500 mg 24 hr tablet Take 3 tablets by mouth daily with dinner. - cholecalciferol, Vitamin D3, (VITAMIN D3) 1,250 mcg (50,000 unit) cap capsule Take 1 capsule by mouth one time a week for 12 doses. Transition to 2,000-4,000 units of Vitamin D OTC after completing 12 weeks - levETIRAcetam (KEPPRA) 500 mg tablet TAKE 1 TABLET BY MOUTH TWICE A DAY - ondansetron orally disintegrating (ZOFRAN ODT) 4 mg disintegrating tablet Take 1 tablet by mouth every 6 hours as needed for nausea/vomiting. - levonorgestrel (MIRENA) 20 mcg/24 hours (8 yrs) 52 mg IUD 1 Each by INTRAUTERINE route. - lansoprazole (PREVACID) 15 mg capsule Take 1 capsule by mouth once daily. - FA/MV,CA,IRON,MIN/LYCOPENE/L UT (MULTIVITAL ORAL) Take by mouth once daily. 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 She will be changing insurance coming 08/25/23. She doesn't have any information on her new insurance yet. She stated that she will call HR to find that out and either call to find out if she has the coverage or call me back to give me the information to call to fins out. Allergies As of Date: 07/01/2023 (No Known Allergies) Date Reviewed: 06/13/2023 Reviewed by: Antonio Melgoza APRN.ADJUSTO WRITER OPERATOR - Fully Assessed Reason for Visit: Patient Update [1234] Cmt: Insurance change 08/25/23-[employer] Prescriptions as of 07/01/2023 - semaglutide, weight loss, (WEGOVY) 0.25 mg/0.5 mL pen injector Inject 0.5 mL subcutaneously one time a week. - semaglutide, weight loss, (WEGOVY) 0.5 mg/0.5 mL pen injector Inject 0.5 mL subcutaneously one time a week. To start after completione of 0.25 mg dosage course - semaglutide, weight loss, (WEGOVY) 1 mg/0.5 mL pen injector Inject 0.5 mL subcutaneously one time a week. To start after completion of 0.5 mg dosage course - metFORMIN ER (GLUCOPHAGE XR) 500 mg 24 hr tablet Take 1 tablet by mouth daily with dinner. Increase to 2 tablets po daiy with dinner in 2 weeks if tolerating - cholecalciferol, Vitamin D3, (VITAMIN D3) 1,250 mcg (50,000 unit) cap capsule Take 1 capsule by mouth one time a week for 12 doses. Transition to 2,000-4,000 units of Vitamin D OTC after completing 12 weeks - levETIRAcetam (KEPPRA) 500 mg tablet TAKE 1 TABLET BY MOUTH TWICE A DAY - ondansetron orally disintegrating (ZOFRAN ODT) 4 mg disintegrating tablet Take 1 tablet by mouth every 6 hours as needed for nausea/vomiting. - levonorgestrel (MIRENA) 20 mcg/24 hours (8 yrs) 52 mg IUD 1 Each by INTRAUTERINE route. - lansoprazole (PREVACID) 15 mg capsule Take 1 capsule by mouth once daily. - FA/MV,CA,IRON,MIN/LYCOPENE/L UT (MULTIVITAL ORAL) Take by mouth once daily. 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 No appeal started, note from 04/17 not completed. ROSEANN Campos Malini, MD 05/05/2023 11:00 AM Signed Note is completed and there is an appeal letter that is complete. Please print the appeal letter on our office letterhead--letter is located under letter tabs, today's date, along with the last 2 office visit notes of abhilash and also Dr. Woods's intial consultation. Please send this to the appeals department for patient's insurance and write EXPEDITE on fax cover sheet. Thanks, Janel Nelson 05/06/2023 8:57 AM Signed Faxed all documentation over today! Janel Cowart MA Allergies As of Date: 05/02/2023 (No Known Allergies) Date Reviewed: 04/18/2023 Reviewed by: Deisy Allan APRN.ADJUSTO WRITER OPERATOR - Fully Assessed Reason for Visit: Patient Update [1234] Prescriptions as of 05/06/2023 - semaglutide, weight loss, (WEGOVY) 0.25 mg/0.5 mL pen injector Inject 0.5 mL subcutaneously one time a week. - semaglutide, weight loss, (WEGOVY) 0.5 mg/0.5 mL pen injector Inject 0.5 mL subcutaneously one time a week. To start after completione of 0.25 mg dosage course - semaglutide, weight loss, (WEGOVY) 1 mg/0.5 mL pen injector Inject 0.5 mL subcutaneously one time a week. To start after completion of 0.5 mg dosage course - metFORMIN ER (GLUCOPHAGE XR) 500 mg 24 hr tablet Take 1 tablet by mouth daily with dinner. Increase to 2 tablets po daiy with dinner in 2 weeks if tolerating - cholecalciferol, Vitamin D3, (VITAMIN D3) 1,250 mcg (50,000 unit) cap capsule Take 1 capsule by mouth one time a week for 12 doses. Transition to 2,000-4,000 units of Vitamin D OTC after completing 12 weeks - levETIRAcetam (KEPPRA) 500 mg tablet TAKE 1 TABLET BY MOUTH TWICE A DAY - ondansetron orally disintegrating (ZOFRAN ODT) 4 mg disintegrating tablet Take 1 tablet by mouth every 6 hours as needed for nausea/vomiting. - levonorgestrel (MIRENA) 20 mcg/24 hours (8 yrs) 52 mg IUD 1 Each by INTRAUTERINE route. - lansoprazole (PREVACID) 15 mg capsule Take 1 capsule by mouth once daily. - FA/MV,CA,IRON,MIN/LYCOPENE/L UT (MULTIVITAL ORAL) Take by mouth once daily. 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 No answer , lvm AND voicemail Allergies As of Date: 03/24/2023 (No Known Allergies) Date Reviewed: 03/24/2023 Reviewed by: Antonio Melgoza APRN.ADJUSTO WRITER OPERATOR - Fully Assessed Reason for Visit: Appointment [186] Prescriptions as of 03/24/2023 - metFORMIN ER (GLUCOPHAGE XR) 500 mg 24 hr tablet Take 1 tablet by mouth daily with dinner. Increase to 2 tablets po daiy with dinner in 2 weeks if tolerating - cholecalciferol, Vitamin D3, (VITAMIN D3) 1,250 mcg (50,000 unit) cap capsule Take 1 capsule by mouth one time a week for 12 doses. Transition to 2,000-4,000 units of Vitamin D OTC after completing 12 weeks - levETIRAcetam (KEPPRA) 500 mg tablet TAKE 1 TABLET BY MOUTH TWICE A DAY - ondansetron orally disintegrating (ZOFRAN ODT) 4 mg disintegrating tablet Take 1 tablet by mouth every 6 hours as needed for nausea/vomiting. - ondansetron (ZOFRAN) 4 mg tablet Take 1 tablet by mouth every 8 hours as needed for up to 15 doses. - levonorgestrel (MIRENA) 20 mcg/24 hours (8 yrs) 52 mg IUD 1 Each by INTRAUTERINE route. - lansoprazole (PREVACID) 15 mg capsule Take 1 capsule by mouth once daily. - FA/MV,CA,IRON,MIN/LYCOPENE/L UT (MULTIVITAL ORAL) Take by mouth once daily. 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*12/13/2022 Class 3 severe obesity with body mass index (BM*02/21/2023 Encounter Status:Closed by PEDRITO-TIFFANIE HERNANDEZ on 03/24/23 [facility] ANES POSTPROC EVALon -17-2 023 ANES POSTPROC EVAL HNO ID: [id number] Author: Abelardo Cates MD Service: Anesthesiology Author Type: Physician Type: Anesthesia Postprocedure Evaluation Filed: 03/10/2023 3:37 PM Note Text: POST ANESTHESIA EVALUATION NOTE : 1975 Procedure Summary Date: 03/10/23 Room / Location: [facility] Anesthesia Start: 1312 Anesthesia Stop: 1333 Procedure: EGD DIAGNOSTIC Diagnosis: Gastroesophageal reflux disease without esophagitis Scheduled Providers: Santosh Woods MD Responsible Provider: Abelardo Cates MD Anesthesia Type: MAC ASA Status: 3 Anesthesia Type: MAC Last Vitals Vitals Value Taken Time BP 131/74 03/10/23 1349 Temp 37 ?C (98.6 ?F) 03/10/23 1333 Pulse 80 03/10/23 1349 Resp 21 03/10/23 1349 SpO2 99 % 03/10/23 1349 Post Anesthesia Patient Status Patient Evaluation: bedside. Neurological Status: aware and responsive. Pulmonary Status: breathing comfortably on supplemental oxygen Airway Control: returned to baseline unsupported. Cardiovascular Status: stable. Pain Management: clinically adequate Postoperative Hydration: acceptable. Intraoperative Events: no significant anesthesia events Post Operative Nausea/Vomiting Status: no significant post operative nausea or vomiting Recommendation: continue current plan of care. Anesthesia Observations No Documentation SIGNATURE: Abelardo Cates MD PATIENT NAME: Deisy Almodovar DATE: March 10, 2023 TIME: 3:37 PM CSN: [id number] [facility] ANES PRE-OPon 03-10-2023 ANES PRE-OP HNO ID: [id number] Author: Abelardo Cates MD Service: Anesthesiology Author Type: Physician Type: Anesthesia Preprocedure Evaluation Filed: 03/10/2023 12:21 PM Note Text: ANESTHESIOLOGY DAY OF SURGERY NOTE : 1975 Procedure Information Date/Time: 03/10/23 1300 Scheduled providers: Santosh Woods MD Procedure: EGD DIAGNOSTIC Location: [facility] Estimated body mass index is 73.72 kg/m? as calculated from the following: Height as of 03/06/23: 165.1 cm (5' 5). Weight as of 03/06/23: 200.9 kg (443 lb). 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 Tracheostomy tube not present Mallampati: II. TM distance: >3 FB. Neck ROM: full ROM without neurological symptoms. Mouth opening: adequate. Short neck: no. Thick neck: no DENTAL Dental findings: teeth intact and poor dentition. Additional exam findings: no II - ANESTHESIA PLAN ASA Score: 3 Anesthetic Plan: MAC NPO Status: adequate Beta Samir Monitoring Plan Monitoring plan: standard ASA. Post Procedure Analgesic Plan Postoperative analgesic plan: parenteral or oral opioids. Patient / Surrogate agrees to blood products: blood products not planned Potential Anesthesia issues that may suggest increased risk of complications or contraindication to planned procedure: none. Vitals Value Taken Time BP 134/81 03/10/23 1152 Pulse 77 03/10/23 1152 Resp 22 03/10/23 1152 Temp 36.9 ?C (98.5 ?F) 03/10/23 1152 SpO2 98 % 03/10/23 1152 Outpatient Medications as of 03/10/2023 Medication Sig - cholecalciferol, Vitamin D3, (VITAMIN D3) 1,250 mcg (50,000 unit) cap capsule Take 1 capsule by mouth one time a week for 12 doses. Transition to 2,000-4,000 units of Vitamin D OTC after completing 12 weeks - levETIRAcetam (KEPPRA) 500 mg tablet TAKE 1 TABLET BY MOUTH TWICE A DAY - lansoprazole (PREVACID) 15 mg capsule Take 1 capsule by mouth once daily. (Patient taking differently: Take 15 mg by mouth as needed.) - FA/MV,CA,IRON,MIN/LYCOPENE/L UT (MULTIVITAL ORAL) Take by mouth once daily. - semaglutide (OZEMPIC) 0.25 mg or 0.5 mg (2 mg/3 mL) pen Inject 0.25 mg SQ once weekly x 4 weeks, then increase to 0.5 mg SQ once weekly x 4 weeks - ondansetron orally disintegrating (ZOFRAN ODT) 4 mg disintegrating tablet Take 1 tablet by mouth every 6 hours as needed for nausea/vomiting. - ondansetron (ZOFRAN) 4 mg tablet Take 1 tablet by mouth every 8 hours as needed for up to 15 doses. - levonorgestrel (MIRENA) 20 mcg/24 hours (8 yrs) 52 mg IUD 1 Each by INTRAUTERINE route. Facility-Administered Medications as of 03/10/2023 Medication Dose Route Frequency - lactated ringers iv infusion 30 mL/hr INTRAVENOUS CONTINUOUS I have interviewed and examined the patient. I have reviewed the medical record and/or the pre-anesthesia evaluation, pertinent labs, and test results. This contains updated information obtained within 48 hours of Surgery/Procedure. SIGNATURE: Abelardo Cates MD PATIENT NAME: Deisy Almodovar DATE: March 10, 2023 TIME: 12:21 PM CSN: [id number] Normal [facility] HCG ( test) Ql (U)o n 03-10-2023 Specific gravity (U) [Rel density] 1.015 Normal 1.005-1.03 0 [facility] Comment on above: Order Comment: Speci men Type: URINE SPECIMENOrdering Facility: [facility] Address: [address] [place], [place] [id number] Result Comment: If s pecific gravity is <1.005 then results may be falsely negative. Serum HCG is recommended. Performed By: #### 2 106-3 ####[facility] LABORATORYCLIA [id number] [address] OF [facility] Specific gravity (U) [Rel density] 1.015 1.005 - 1.030 [facility] HCG Preg Ur Qlon 03-10-2023 HCG ( test) Ql (U) Negative Normal Negative [facility] Comment on above: Order Comment: Speci men Type: URINE SPECIMENOrdering Facility: [facility] Address: [address] [place], [place] [id number] Result Comment: This test is intended to aid in the early detection of . Very dilute urine samples, as indicated by a low specific gravity, may not contain computer help desk representative levels of hCG. This test detects intact hCG only. This test does not reliably detect hCG degradation products, including free-beta subunit and beta-core fragment. Therefore, this test may show reduced reactivity in urine after 8 weeks gestation. A number of conditions other than , including trophoblastic disease and certain non-trophoblastic neoplasms cause elevated levels of hCG. As with any assay employing mouse antibodies, the possibility exists for interference by human anti-mouse antibodies (HAMA) in the specimen. The test provides a presumptive diagnosis for . Performed By: #### 2 106-3 ####[facility] LABORATORYCLIA [id number] [place] [address] [place] HCG QUAL URon 03-10-2023 HCG ( test) Ql (U) Negative Negative [facility] OPERATIVE NOon 03-10-2023 OPERATIVE NO HNO ID: [id number] Author: Santosh Woods MD Service: General Surgery Author Type: Physician Type: Operative Report Filed: 03/10/2023 1:38 PM Note Text: OPERATIVE/PROCEDURE REPORT LOG ID: [id number] Surgery/Procedure Date: Incision/Procedure Start Time: 1:19 PM Incision Close/Procedure End Time: 1:25 PM Surgeon(s)/Proceduralist(s) and Leather Sponger(s): Surgeon(s) and Role: * Santosh Woods MD - Proceduralist No Additional Staff PREOPERATIVE DIAGNOSIS: 1. GERD 2. Morbid obesity POSTOPERATIVE DIAGNOSIS: 1. GERD 2. Morbid obesity COMPLICATIONS: None. Procedure(s): 1. Esophagogastroduodenoscopy (EGD) with cold forceps biopsies of the gastric antrum Anesthesia: * No anesthesia type entered * MAC by Anesthesiology without complications Operative Findings: Diagnostic EGD demonstrated small sliding hiatal hernia, approp for sleeve gastrectomy Operative Indication: Deisy Almodovar is a 47 year old female who presents for EGD as a part of the bariatric program work-up. due to GERD. We discussed the risks, benefits, alternatives, and potential complications, and the patient agreed to proceed. Procedure Details: The patient was brought to the endoscopic suite in stable condition. The preprocedural checklist was completed to the satisfaction of the entire team and verified with the patient. We had previously completed the consent process after discussing the risks and benefits of the procedure, which included, but were not limited to, the risk of hemorrhage, need for blood transfusion, and the possibility of perforation. Once she was induced by Anesthesia and appropriately sedated, the Olympus gastroscope was entered through the mouth. I was easily able to intubate the esophagus. The esophageal portion of the examination was positive for a slightly tortuous esophagus but, otherwise, was within normal limits. The Z-line was measured at 36 centimeters from the bite protector. The diaphragmatic hiatus was measured at 36-cm from the bite protector. I then entered the stomach. The patient had some gastric secretions, which were suctioned out using the gastroscope. I did retroflex the scope, which showed a normal appearing GE junction and fundus from that angle. Retroflex view showed a Hill grade 2. I then intubated the pylorus into the duodenal bulb, examining both the anterior and posterior portions of the duodenal bulb and then into the second portion of the duodenum. That part of the procedure was within normal limits. Once back in the stomach, I then performed 2 separate cold forceps biopsies in the antrum to be sent for H pylori. This was done with minimal bleeding. I ensured we had good hemostasis. Gastric insufflation was removed using suction. The gastroscope was removed through the mouth. The patient tolerated the procedure very well and was returned to recovery room in stable condition. Recommendations: Estimated Blood Loss: minimal Specimens: antrum Implantable Devices: none Drains: None Complications: None I performed the procedure independently SIGNATURE: Santosh Woods MD PATIENT NAME: Deisy Almodovar DATE: March 10, 2023 TIME: 1:36 PM PAGER/CONTACT #: [facility] SURGICAL PATHOLOGYon 023 CASE REPORT [facility] Comment on above: Order Comment: Naseem john Type: TISSUE SPECIMENOrdering Facility: [facility] Address: [address] [place] [id number] Result Comment: Surg [facility] Pathology Report Case: [id number] Authorizing Provider: Santosh Woods MD Collected: 03/10/2023 01:24 PM Ordering Location: [facility] Received: 03/11/2023 09:16 AM Pathologist: Abelardo Marcano MD Specimen: ANTRUM (STOMACH) BIOPSY Performed By: #### S ####[facility] LABORATORYCLIA [id number] [place] [address] [place] CLINICAL HISTORY GERD Normal [facility] Comment on above: Order Comment: Hoodi alvaro Type: TISSUE SPECIMENOrdering Facility: [facility] Address: [address] [place] [address] Performed By: #### S ####[facility]ORATORYCLIA [id number] [address] FINAL DIAGNOSIS Normal [facility] Comment on above: Order Comment: Speci men Type: TISSUE SPECIMENOrdering Facility: [facility] Address: [address] [place] [address] Result Comment: Shaun araya, antrum, biopsy: - No pathologic abnormalities. Performed By: #### S ####[facility]ATORYCLIA [id number] [address] FINAL PERFORMING LAB Normal [facility] Comment on above: Order Comment: Speci men Type: TISSUE SPECIMENOrdering Facility: [facility] Address: [address] [place] [address] Result Comment: Diag nostic interpretation performed at [facility], [address] [place] [address] CLIA# [id number] Pharmacist: Abelardo Marcano M.D. Performed By: #### S ####[facility]ORYCLIA [id number] [address] GROSS DESCRIPTION Normal [facility] Comment on above: Order Comment: Speci men Type: TISSUE SPECIMENOrdering Facility: [facility] Address: [address] [place] [address] Result Comment: A. A NTRUM (STOMACH) BIOPSY A. Received in formalin labeled antrum stomach biopsy is a cash soft segment of tissue measuring 0.3 x 0.2 x 0.1 cm. The specimen is totally submitted in formalin in 1 cassette. Gross examination performed at [facility], [address] [place] [address] KVB March 11, 2023 11:23 AM Performed By: #### S ####[facility]ORYCLIA [id number] [address] Lola 03-07-2023 CNPN Telephone (AGGENS4) NISHIDEISY ([id number]) 1975 F Date Time Provider Department 03/07/23 CONI PINA AGGENS4 During your visit today, we recorded the following information about you: Janel Cowart 03/07/2023 8:15 AM Signed Ozempic prior auth submitted via cover my meds Janel Cowart 03/10/2023 8:58 AM Signed Ozempic prior auth denied by patients insurance. Patient does not have type 2 diabetes so does not meet plan requirements. ROSEANN Campos Malini, MD 03/10/2023 4:09 PM Addendum Please inform patient of denial on Ozempic We are limited in med options given her history. We could try Metformin a medication we use for diabetes that can help with weight loss Most common side effects gi-loose stool/nausea Take at dinner with food Start with one tablet Can increase to 2 tablets in 2-3 weeks if tolerating Will send this in and she can start if she agrees. Thanks, Coni Calvert MD 03/10/2023 4:10 PM Signed Addended by: CONI PINA MD on: 03/10/2023 04:10 PM Modules accepted: Bhumi Ch MA 03/11/2023 9:18 AM Addendum I spoke with patient and relayed message regarding metformin. Patient states you did mention a daily injection. I believe the patient is referring Lalo. She would like to know if this is an option and if so to send in a prescription. ROSEANN Seay Ma, Sara 03/11/2023 10:07 AM Signed Patient called in showing interest in Wegovy also. She isn't sure if it is on her formulary but she had some friends telling her about it. Coni Frias Ma, MD 03/11/2023 1:10 PM Signed Recommend she check insurance coverage for Wegovy and/or Saxenda and let us know Thanks, Janel Nelson 03/11/2023 2:10 PM Signed Left message for patient advising her of message below. ROSEANN Campos Ashley K 03/18/2023 8:18 AM Signed Patient left a voicemail checking to see if a prior auth was ran on the wegovy or saxenda before she started metformin. When patient was called about denial of ozempic she was told to check with her insurance to see if they would cover either and let us know, we never heard from her if they would. I called the patient back and let her know that she is suppose to check with her insurance company to see if they will cover either of these injectables as they were not called in and we did not run a prior auth on them, the only thing called in was the metformin. ROSEANN Campos Ashley K 03/18/2023 10:51 AM Signed Patient called back, states she spoke to her insurance company. They would not give her an answer to if they cover the wegovy or saxenda. Said the doctors office can send over for one and run a prior authorization and they will either approve or deny it. Janel Cowart MA Allergies As of Date: 03/07/2023 (No Known Allergies) Date Reviewed: 03/06/2023 Reviewed by: Janel Cowatr - Fully Assessed Reason for Visit: Other [3945] Order(s):metFORMIN ER (GLUCOPHAGE XR) 500 mg 24 hr tabletTake 1 tablet by mouth daily with dinner. Increase to 2 tablets po daiy with dinner in 2 weeks if toleratingDisp: 60 tabletRfl: 2 Prescriptions as of 03/18/2023 - metFORMIN ER (GLUCOPHAGE XR) 500 mg 24 hr tablet Take 1 tablet by mouth daily with dinner. Increase to 2 tablets po daiy with dinner in 2 weeks if tolerating - semaglutide (OZEMPIC) 0.25 mg or 0.5 mg (2 mg/3 mL) pen Inject 0.25 mg SQ once weekly x 4 weeks, then increase to 0.5 mg SQ once weekly x 4 weeks - cholecalciferol, Vitamin D3, (VITAMIN D3) 1,250 mcg (50,000 unit) cap capsule Take 1 capsule by mouth one time a week for 12 doses. Transition to 2,000-4,000 units of Vitamin D OTC after completing 12 weeks - levETIRAcetam (KEPPRA) 500 mg tablet TAKE 1 TABLET BY MOUTH TWICE A DAY - ondansetron orally disintegrating (ZOFRAN ODT) 4 mg disintegrating tablet Take 1 tablet by mouth every 6 hours as needed for nausea/vomiting. - ondansetron (ZOFRAN) 4 mg tablet Take 1 tablet by mouth every 8 hours as needed for up to 15 doses. - levonorgestrel (MIRENA) 20 mcg/24 hours (8 yrs) 52 mg IUD 1 Each by INTRAUTERINE route. - lansoprazole (PREVACID) 15 mg capsule Take 1 capsule by mouth once daily. - FA/MV,CA,IRON,MIN/LYCOPENE/L UT (MULTIVITAL ORAL) Take by mouth once daily. 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 Normal [facility] CNOVon 02-27-2023 CNOV Office Visit ([facility]) DEISY ALMODOVAR ([id number]) 1975 F Date Time Provider Department 02/27/23 2:20 PM AYAAN CARDENAS AGCARDHWW During your visit today, we recorded the following information about you: Pulse Blood pressure Weight Height 68/minute 145/87 204.1 kg 1.651 m Seema Alexander MA 02/27/2023 2:22 PM Signed Patient has no cardiac complaints today. Seema Cardenas MD 02/27/2023 2:48 PM Signed Cardiology consultation at the request of Deisy Sanjana. A copy of this consultation note will be provided to the requesting physician by way of shared Medical record or letter to requesting physician via US mail. Chief Complaint: Patient presents with: New Patient Evaluation: Clearance for bariatric surgery History of Present Illness: Deisy Almodovar is a 47 year old female with history of morbid obesity, seizure disorder who was referred for preoperative clearance prior to bariatric surgery. She denies chest pain, shortness of breath, orthopnea, cough, edema, palpitations, PND, lightheadedness or syncope. PAST MEDICAL HISTORY Diagnosis Date Class 3 severe obesity with body mass index (BMI) greater than or equal to 70 in adult, unspecified obesity type, unspecified whether serious comorbidity present (HCC) Gall stones Heart burn Heel spur 2012 Morbid obesity (HCC) Seizures (HCC) 06/17/2022 PAST SURGICAL HISTORY Procedure Laterality Date NONE FAMILY HISTORY Problem Relation Age of Onset other (Hep C) Mother other (HTN) Father other (HTN) Brother Cancer Maternal Grandmother breast ca Hypertension Maternal Grandmother No Known Problems Maternal Grandfather No Known Problems Paternal Grandmother No Known Problems Paternal Grandfather Social History Tobacco Use Smoking status: Never Smokeless tobacco: Never Vaping Use Vaping Use: Never used Substance Use Topics Alcohol use: No Drug use: No Current Outpatient Medications Medication Sig cholecalciferol, Vitamin D3, (VITAMIN D3) 1,250 mcg (50,000 unit) cap capsule Take 1 capsule by mouth one time a week for 12 doses. Transition to 2,000-4,000 units of Vitamin D OTC after completing 12 weeks levETIRAcetam (KEPPRA) 500 mg tablet TAKE 1 TABLET BY MOUTH TWICE A DAY ondansetron orally disintegrating (ZOFRAN ODT) 4 mg disintegrating tablet Take 1 tablet by mouth every 6 hours as needed for nausea/vomiting. ondansetron (ZOFRAN) 4 mg tablet Take 1 tablet by mouth every 8 hours as needed for up to 15 doses. levonorgestrel (MIRENA) 20 mcg/24 hours (8 yrs) 52 mg IUD 1 Each by INTRAUTERINE route. lansoprazole (PREVACID) 15 mg capsule Take 1 capsule by mouth once daily. (Patient taking differently: Take 15 mg by mouth as needed.) FA/MV,CA,IRON,MIN/LYCOPENE/L UT (MULTIVITAL ORAL) Take by mouth once daily. No current facility-administered medications for this visit. ALLERGIES No Known Allergies Review of Systems: General: No weight loss, malaise, fevers, chills, or night sweats HEENT: Negative for epistaxis Neck: Negative for pain and significant neck swelling Respiratory: Negative for cough, shortness of breath at rest or on exertion, wheezing Cardiac: Negative history of chest pain on exertion, dyspnea on exertion, orthopnea, paroxysmal nocturnal dyspnea, lower extremity edema, presyncope, syncope, or palpitations Gastrointestinal: Negative history of abdominal pain, nausea, vomiting, constipation, diarrhea, melena, or hematochezia Urinary: Negative history of dysuria, hematuria, or frequency Peripheral vascular: No claudication Musculoskeletal: Negative for joint aches/pain, neck pain, or back pain Neurologic: Negative history of dizziness/lightheadedness, vertigo, numbness/tingling of hands or feet Hematologic: Negative for easy bruising or easy bleeding. Endocrine: Negative history of obesity Skin: Negative history of rash and itching Other: The rest of the review of systems is unremarkable and negative or non-contributory Physical Examination: BP 160/90 (BP Site: Right Arm, BP Position: Sitting, BP Cuff Size: Regular Adult) Pulse 68 Ht 5' 5 (1.651 m) Wt (!) 450 lb (204.1 kg) LMP 01/05/2015 SpO2 94% BMI 74.88 kg/m? BMI 74.88 kg/(m2) General appearance: Well appearing, alert, appears to be in no acute distress, cooperative Head: Normocephalic, atraumatic HEENT: Extraocular movements intact; mucous membranes moist; no JVD Lungs: Breath sounds equal. Clear to auscultation bilaterally, no rales, rhonchi, or wheezes Heart: RRR; normal S1/S2; no murmurs/gallops/rubs Abdomen: Abdomen soft, non-distended, non-tender. NABS Extremities: No cyanosis, clubbing or edema Skin: No rashes noted Neurologic: Grossly nonfocal Psych: Normal mood/affect Cardiac Testing and Procedures: Electrocardiogram: 02/27/2023: Normal sinus rhythm at 73 bpm. Low volt (more content not included)... Normal [facility] ECG B/O W INTERP (MED OFFICE )on 02-27-2023 [facility] XR CHEST 2V FRONTAL/LATon [facility] CNPNon 01-28-2023 MALDONADON Telephone (AGGENS4) DEISY ALMODOVAR ([id number]) 1975 F Date Time Provider Department 01/28/23 DEISY ALLAN4 During your visit today, we recorded the following information about you: Deisy Allan APRN.CNP 01/28/2023 4:22 PM Signed ----- Message from Kristi Benjamin, PhD sent at 01/28/2023 4:09 PM EDT ----- Good afternoon, I have finished Deisy's psych eval. Here's what you need! Based on the information gathered through the interview process, she appears to be psychologically stable at this time with no overt evidence of psychologic contraindications for bariatric surgery. The patient does not appear to have a major uncontrolled psychiatric disorder and appears to be able to comply with the recommended medical/surgical preoperative and postoperative treatment plans. Kristi Keller Allergies As of Date: 01/28/2023 (No Known Allergies) Date Reviewed: 01/10/2023 Reviewed by: Deisy Allan APRN.CNP - Fully Assessed Reason for Visit: Medical Clearance [1982] Cmt: Psychology Prescriptions as of 01/28/2023 - ondansetron orally disintegrating (ZOFRAN ODT) 4 mg disintegrating tablet Take 1 tablet by mouth every 6 hours as needed for nausea/vomiting. - ondansetron (ZOFRAN) 4 mg tablet Take 1 tablet by mouth every 8 hours as needed for up to 15 doses. - levonorgestrel (MIRENA) 20 mcg/24 hours (8 yrs) 52 mg IUD 1 Each by INTRAUTERINE route. - levETIRAcetam (KEPPRA) 500 mg tablet TAKE 1 TABLET BY MOUTH TWICE A DAY - lansoprazole (PREVACID) 15 mg capsule Take 1 capsule by mouth once daily. - FA/MV,CA,IRON,MIN/LYCOPENE/L UT (MULTIVITAL ORAL) Take by mouth once daily. 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 DEISY ALMODOVAR ([id number]) 1975 F Date Time Provider Department 01/24/23 8:30 AM KRISTI BENJAMIN [facility] During your visit today, we recorded the following information about you: Kristi Benjamin, PhD 01/28/2023 4:08 PM Signed Sensitive Note [facility]AT[facility] SUR[facility] EVALUATION DATE OF SERVICE: January 24, 2023 TIME OF SERVICE: [id number] BILLING CODE: Kristi Benjamin, PhD CHIEF COMPLAINT: Pre-surgical psychological evaluation DATE OF FIRST SERVICE THIS CYCLE: December 20, 2022 SESSION #: 2 The patient signed the Informed Consent for Psychological Evaluation AND Care Form, and the [facility] insurance benefits, fees for service, emergency procedures, and the limits of confidentiality that may pertain with any given case were discussed with the patient. IDENTIFYING INFORMATION: Ms. Deisy Almodovar is a 47 year old female. She was referred by Surgery. Ms. Almodovar is seeking gastric sleeve surgery for morbid obesity. Her surgeon is Dr. Woods . COLLATERAL PARTIES PRESENT: none. MOTIVATION FOR SURGERY / UNDERSTANDING OF PROCEDURE / EXPECTATIONS: Ms. Almodovar notes she is motivated for surgery by improve quality of life. The patient has a excellent understanding of the surgery, risks, and benefits. She has talked with other people who have undergone the procedure. Specific areas of understanding that should be addressed include n/a. The patient has attended a weight loss surgery support group (In a Facebook group). The patient expects to lose 250 lbs. following surgery over a few years. Other expectations include increased quality of life. Educated patient regarding expected weight loss after surgical procedure and timeline of weight loss/surgery recovery. CAPACITY TO CONSENT: Ms. Almodovar evidences the following concerns regarding capacity to consent: none noted. 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 PAST SURGICAL HISTORY PAST SURGICAL HISTORY Procedure Laterality Date NONE Past surgeries? No History of psychological complications post-surgery? No MEDICATIONS Current Outpatient Medications Medication Sig ondansetron orally disintegrating (ZOFRAN ODT) 4 mg disintegrating tablet Take 1 tablet by mouth every 6 hours as needed for nausea/vomiting. ondansetron (ZOFRAN) 4 mg tablet Take 1 tablet by mouth every 8 hours as needed for up to 15 doses. levonorgestrel (MIRENA) 20 mcg/24 hours (8 yrs) 52 mg IUD 1 Each by INTRAUTERINE route. levETIRAcetam (KEPPRA) 500 mg tablet TAKE 1 TABLET BY MOUTH TWICE A DAY lansoprazole (PREVACID) 15 mg capsule Take 1 capsule by mouth once daily. (Patient taking differently: Take 15 mg by mouth as needed.) FA/MV,CA,IRON,MIN/LYCOPENE/L UT (MULTIVITAL ORAL) Take by mouth once daily. No current facility-administered medications for this visit. ALLERGIES ALLERGIES No Known Allergies EATING/WEIGHT HISTORY: Ms. Almodovar was overweight as a child. Her weight at age 17 was approximately 220 lbs. The patient reports the following factors as contributing to weight gain: inactivity, , stress , poor eating habits, and genetic predisposition. The patient reports a family history of obesity (one brother). Current Weight: 457 (first visit) 455 (second visit) Height: 5'6 Highest adult weight: 480 BMI: 73.4 The patient has tried weight loss strategies in the past including Caloric restriction, Exercise/increased activity, Nutrisystems, Weight watchers, and Plexus (the pink drink). The most weight the patient has lost is 80 lbs. using Visalus (meal replacement shakes). The patient denies a history of laxative use. The patient denies a history of vomiting to lose weight. The patient denies a history of eating disorder(s). She has not had treatment for eating disorders in the past. LIFESTYLE Patient reports eating three meals/day, with two snacks. She reported having three meals on approximately seven days. Breakfast: protein shake Lunch: Nutrisystem meal Dinner: chicken or hamburger, salads, will eat another Nutrisystem meal if dinner is high calories/low protein Snacks: tends to be fruit or Nutrisystem snacks, pretzels, pop (more content not included)... Normal [facility] Lola 12-26-2022 MALDONADO Telephone (AGCARDPOB ) DEISY ALMODOVAR ([id number]) 1975 F Date Time Provider Department 12/26/22 AG CARD AGCARDPOB During your visit today, we recorded the following information about you: Barry Tiwari Chu 12/26/2022 9:22 AM Signed Cardiac clearance received for bariatric surgery, date TBD. Form scanned in for new pt jorge l on 02/27 w/ Dr. Cardenas at [facility]. Barry Karie Chu December 26, 2022 9:21 AM Allergies As of Date: 12/26/2022 (No Known Allergies) Date Reviewed: 12/13/2022 Reviewed by: Lesly Rios MA - Fully Assessed Reason for Visit: Cardiac Clearance [4105] Prescriptions as of 12/26/2022 - ondansetron orally disintegrating (ZOFRAN ODT) 4 mg disintegrating tablet Take 1 tablet by mouth every 6 hours as needed for nausea/vomiting. - ondansetron (ZOFRAN) 4 mg tablet Take 1 tablet by mouth every 8 hours as needed for up to 15 doses. - levonorgestrel (MIRENA) 20 mcg/24 hours (8 yrs) 52 mg IUD 1 Each by INTRAUTERINE route. - levETIRAcetam (KEPPRA) 500 mg tablet TAKE 1 TABLET BY MOUTH TWICE A DAY - lansoprazole (PREVACID) 15 mg capsule Take 1 capsule by mouth once daily. - FA/MV,CA,IRON,MIN/LYCOPENE/L UT (MULTIVITAL ORAL) Take by mouth once daily. 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 Patient scheduled for first available which was with Soni on 03/06/2023. Bhumi Godwin MA Allergies As of Date: 12/25/2022 (No Known Allergies) Date Reviewed: 12/13/2022 Reviewed by: Lesly Rios MA - Fully Assessed Reason for Visit: Appointment [186] Prescriptions as of 12/25/2022 - ondansetron orally disintegrating (ZOFRAN ODT) 4 mg disintegrating tablet Take 1 tablet by mouth every 6 hours as needed for nausea/vomiting. - ondansetron (ZOFRAN) 4 mg tablet Take 1 tablet by mouth every 8 hours as needed for up to 15 doses. - levonorgestrel (MIRENA) 20 mcg/24 hours (8 yrs) 52 mg IUD 1 Each by INTRAUTERINE route. - levETIRAcetam (KEPPRA) 500 mg tablet TAKE 1 TABLET BY MOUTH TWICE A DAY - lansoprazole (PREVACID) 15 mg capsule Take 1 capsule by mouth once daily. - FA/MV,CA,IRON,MIN/LYCOPENE/L UT (MULTIVITAL ORAL) Take by mouth once daily. 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 Ronald Chowdhury RN December 25, 2022 2:09 PM Bhumi Godwin MA 06/25/2023 1:56 PM Signed Pulmonary clearance faxed to Dr. Kovacs at [phone]. ROSEANN Seay Ma, Sara 06/26/2023 1:36 PM Signed We received pulmonary clearance and it is scanned in for review. Deisy Collazo Ma, APRN.CNP 06/26/2023 2:07 PM Signed Reviewed, low risk Deisy Allan APRN.MALDONADO Allergies As of Date: 12/25/2022 (No Known Allergies) Date Reviewed: 12/13/2022 Reviewed by: Lesly Rios MA - Fully Assessed Reason for Visit: Medical Clearance [1982] Prescriptions as of 06/26/2023 - semaglutide, weight loss, (WEGOVY) 0.25 mg/0.5 mL pen injector Inject 0.5 mL subcutaneously one time a week. - semaglutide, weight loss, (WEGOVY) 0.5 mg/0.5 mL pen injector Inject 0.5 mL subcutaneously one time a week. To start after completione of 0.25 mg dosage course - semaglutide, weight loss, (WEGOVY) 1 mg/0.5 mL pen injector Inject 0.5 mL subcutaneously one time a week. To start after completion of 0.5 mg dosage course - metFORMIN ER (GLUCOPHAGE XR) 500 mg 24 hr tablet Take 1 tablet by mouth daily with dinner. Increase to 2 tablets po daiy with dinner in 2 weeks if tolerating - cholecalciferol, Vitamin D3, (VITAMIN D3) 1,250 mcg (50,000 unit) cap capsule Take 1 capsule by mouth one time a week for 12 doses. Transition to 2,000-4,000 units of Vitamin D OTC after completing 12 weeks - levETIRAcetam (KEPPRA) 500 mg tablet TAKE 1 TABLET BY MOUTH TWICE A DAY - ondansetron orally disintegrating (ZOFRAN ODT) 4 mg disintegrating tablet Take 1 tablet by mouth every 6 hours as needed for nausea/vomiting. - levonorgestrel (MIRENA) 20 mcg/24 hours (8 yrs) 52 mg IUD 1 Each by INTRAUTERINE route. - lansoprazole (PREVACID) 15 mg capsule Take 1 capsule by mouth once daily. - FA/MV,CA,IRON,MIN/LYCOPENE/L UT (MULTIVITAL ORAL) Take by mouth once daily. 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 During phone call PT explain she was advised she needed to have clearance sent over to Cardio office appt w/ prior before appt on 02/27. PT gave fax number [phone]. FWD request to Agueda BOOKER. Allergies As of Date: 12/25/2022 (No Known Allergies) Date Reviewed: 12/13/2022 Reviewed by: Lesly Rios MA - Fully Assessed Reason for Visit: Appointment [186] Prescriptions as of 12/25/2022 - ondansetron orally disintegrating (ZOFRAN ODT) 4 mg disintegrating tablet Take 1 tablet by mouth every 6 hours as needed for nausea/vomiting. - ondansetron (ZOFRAN) 4 mg tablet Take 1 tablet by mouth every 8 hours as needed for up to 15 doses. - levonorgestrel (MIRENA) 20 mcg/24 hours (8 yrs) 52 mg IUD 1 Each by INTRAUTERINE route. - levETIRAcetam (KEPPRA) 500 mg tablet TAKE 1 TABLET BY MOUTH TWICE A DAY - lansoprazole (PREVACID) 15 mg capsule Take 1 capsule by mouth once daily. - FA/MV,CA,IRON,MIN/LYCOPENE/L UT (MULTIVITAL ORAL) Take by mouth once daily. 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*12/13/2022 Encounter Status:Closed by MELISSA THORNE on 12/25/22 [facility] CNOVon 12-20-2022 CNOV Office Visit (AGPC ) DEISY ALMODOVAR ([id number]) 1975 F Date Time Provider Department 12/20/22 10:00 AM KRISTI BENJAMIN [facility] During your visit today, we recorded the following information about you: Kristi Benjamin, PhD 12/20/2022 10:55 AM Signed Sensitive Note [facility] SURG[facility]HAVIOR[facility] HE[facility] EVALUATION DATE OF SERVICE: December 20, 2022 TIME OF SERVICE: 5824-3904 CPT CODE: 37339 Psychiatric diagnostic evaluation BILLING CODE: Kristi Benjamin, PhD CHIEF COMPLAINT: Pre-surgical psychological evaluation DATE OF FIRST SERVICE THIS CYCLE: December 20, 2022 SESSION #: 1 The patient signed the Informed Consent for Psychological Evaluation AND Care Form, and the behavioral health care insurance benefits, fees for service, emergency procedures, and the limits of confidentiality that may pertain with any given case were discussed with the patient. IDENTIFYING INFORMATION: Ms. Deisy Almodovar is a 47 year old female. She was referred by Surgery. Ms. Almodovar is seeking gastric sleeve surgery for morbid obesity. Her surgeon is Dr. Woods . COLLATERAL PARTIES PRESENT: none. MOTIVATION FOR SURGERY / UNDERSTANDING OF PROCEDURE / EXPECTATIONS: Ms. Almodovar notes she is motivated for surgery by improve quality of life. The patient has a excellent understanding of the surgery, risks, and benefits. She has talked with other people who have undergone the procedure. Specific areas of understanding that should be addressed include n/a. The patient has attended a weight loss surgery support group (In a Facebook group). The patient expects to lose 250 lbs. following surgery over a few years. Other expectations include increased quality of life. Educated patient regarding expected weight loss after surgical procedure and timeline of weight loss/surgery recovery. CAPACITY TO CONSENT: Ms. Almodovar evidences the following concerns regarding capacity to consent: none noted. 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 PAST SURGICAL HISTORY Procedure Laterality Date NONE Past surgeries? No History of psychological complications post-surgery? No MEDICATIONS Current Outpatient Medications Medication Sig ondansetron orally disintegrating (ZOFRAN ODT) 4 mg disintegrating tablet Take 1 tablet by mouth every 6 hours as needed for nausea/vomiting. ondansetron (ZOFRAN) 4 mg tablet Take 1 tablet by mouth every 8 hours as needed for up to 15 doses. levonorgestrel (MIRENA) 20 mcg/24 hours (8 yrs) 52 mg IUD 1 Each by INTRAUTERINE route. levETIRAcetam (KEPPRA) 500 mg tablet TAKE 1 TABLET BY MOUTH TWICE A DAY lansoprazole (PREVACID) 15 mg capsule Take 1 capsule by mouth once daily. (Patient taking differently: Take 15 mg by mouth as needed.) FA/MV,CA,IRON,MIN/LYCOPENE/L UT (MULTIVITAL ORAL) Take by mouth once daily. No current facility-administered medications for this visit. ALLERGIES No Known Allergies EATING/WEIGHT HISTORY: Ms. Almodovar was overweight as a child. Her weight at age 17 was approximately 220 lbs. The patient reports the following factors as contributing to weight gain: inactivity, , stress , poor eating habits, and genetic predisposition. The patient reports a family history of obesity (one brother). Current Weight: 457 Highest adult weight: 480 The patient has tried weight loss strategies in the past including Caloric restriction, Exercise/increased activity, Nutrisystems, Weight watchers, and Plexus (the pink drink). The most weight the patient has lost is 80 lbs. using Visalus (meal replacement shakes). The patient denies a history of laxative use. The patient denies a history of vomiting to lose weight. The patient denies a history of eating disorder(s). She has not had treatment for eating disorders in the past. LIFESTYLE Patient reports eating three meals/day, with two snacks. She reported having three meals on approximately seven days. Breakfast: protein shake Lunch: Nutrisystem meal Dinner: chicken or hamburger, salads, will eat another Nutrisystem meal if dinner is high calories/low protein Snacks: tends to be fruit or Nutrisystem snacks, pretzels, popcorn Is semi-consistently keeping (more content not included)... Normal [facility] CNPMarycarmen [facility]20[facility] DEISY ALMODOVAR ([id number]) 1975 F Date Time Provider Department 12/16/22 ARIELLA SCHAFFER AGGENS4 During your visit today, we recorded the following information about you: Meilssa Thorne 12/16/2022 9:19 AM Signed Pt Lvm about upcoming appt w/ Ariella. PT request to do this as VV appt do to timeframe and work conflict. Called back Pt no answer LVM to zac appt to better date/time or alternative option to coming into office prior before appt for weight check. Allergies As of Date: 12/16/2022 (No Known Allergies) Date Reviewed: 12/13/2022 Reviewed by: Lesly Rios MA - Fully Assessed Reason for Visit: Patient Question [1677] Prescriptions as of 12/16/2022 - ondansetron orally disintegrating (ZOFRAN ODT) 4 mg disintegrating tablet Take 1 tablet by mouth every 6 hours as needed for nausea/vomiting. - ondansetron (ZOFRAN) 4 mg tablet Take 1 tablet by mouth every 8 hours as needed for up to 15 doses. - levonorgestrel (MIRENA) 20 mcg/24 hours (8 yrs) 52 mg IUD 1 Each by INTRAUTERINE route. - levETIRAcetam (KEPPRA) 500 mg tablet TAKE 1 TABLET BY MOUTH TWICE A DAY - lansoprazole (PREVACID) 15 mg capsule Take 1 capsule by mouth once daily. - FA/MV,CA,IRON,MIN/LYCOPENE/L UT (MULTIVITAL ORAL) Take by mouth once daily. 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 Marr on 11-29-2022 Lymphocytes Auto (Unsp spec) [#/Vol] 1.35 10*3/uL 0.83-4.51 [facility] Basic Metabolic Profile (BMP )on 11-29-2022 BUN/CRE 13.5 RATIO Normal 06-13 [facility] Comment on above: Performed By: #### L 500.3400, L501.2450, L500.2500, L100.0100 #### [facility] [address] [place], [address] CA,Total 8.6 mg/dL Normal 8.5-10.1 [facility] Comment on above: Performed By: #### L 500.3400, L501.2450, L500.2500, L100.0100 #### [facility] [address] [place], [address] Chloride [Moles/Vol] 106 mmol/L Normal 98-107 [facility] Comment on above: Performed By: #### L 500.3400, L501.2450, L500.2500, L100.0100 #### [facility] [address] [place], [address] CO2 [Moles/Vol] 28.0 mmol/L Normal 21.0-32.0 [facility] Comment on above: Performed By: #### L 500.3400, L501.2450, L500.2500, L100.0100 #### [facility] [address] [place], [address] Creatinine [Mass/Vol] 0.67 mg/dL Normal 0.55-1.02 [facility] Comment on above: Result Comment: The validity of the calculated GFR GFRAA in patients over 70 years has not been determined. Clinical correlation is essential. Performed By: #### L 500.3400, L501.2450, L500.2500, L100.0100 #### [facility] [address] [place], [address] EST GFR - AA 121 mL/min Normal >60 [facility] Comment on above: Result Comment: Afri can Jamaican GFR Calc Performed By: #### L 500.3400, L501.2450, L500.2500, L100.0100 #### [facility] [address] [place], [address] GAP 5 Normal 5-15 [facility] Comment on above: Performed By: #### L 500.3400, L501.2450, L500.2500, L100.0100 #### [facility] [address] [place], [address] GFR/1.73 sq M.predicted among non-blacks MDRD (S/P/Bld) [Vol rate/Area] 100 mL/min/{1.73_m2} Normal >60 [facility] Comment on above: Result Comment: Non- GFR Calc Performed By: #### L 500.3400, L501.2450, L500.2500, L100.0100 #### [facility] [address] [place], [address] Glucose [Mass/Vol] 95 mg/dL Normal 74-106 [facility] Comment on above: Performed By: #### L 500.3400, L501.2450, L500.2500, L100.0100 #### [facility] [address] [place], [address] Potassium [Moles/Vol] 3.8 mmol/L Normal 3.5-5.1 [facility] Comment on above: Result Comment: Slig ht Hemolysis, Result may be falsely increased. Performed By: #### L 500.3400, L501.2450, L500.2500, L100.0100 #### [facility] [address] [place], [address] Sodium [Moles/Vol] 139 mmol/L Normal 136-145 [facility] Comment on above: Performed By: #### L 500.3400, L501.2450, L500.2500, L100.0100 #### [facility] [address] [place], [address] Urea nitrogen [Mass/Vol] 9 mg/dL Normal 7-18 [facility] Comment on above: Performed By: #### L 500.3400, L501.2450, L500.2500, L100.0100 #### [facility] [address] [place], [address] Basophil percentageOrdered B y: Dr. Marr on 11-29-2022 Basophil percentage 0-5 SEEN /hpf 0-5 [facility] Basophils/100 WBC (Bld) 0.3 % 0-1 [facility] Bilirubin [Mass/Vol] 0.50 mg/dL 0.20-1.00 [facility] Comment on above: For patients on eltr ombopag therapy, use of Dimension Soper TBIL is not recommended. Chloride [Moles/Vol] 106 mmol/L 98-107 [facility] Eosinophils/100 WBC (Bld) 0.4 % 0-5 [facility] Glucose [Mass/Vol] 95 mg/dL 74-106 [facility] Neutrophils (Bld) [#/Vol] 5.5 10*3/uL 2.0-7.7 [facility] Neutrophils/100 WBC (Bld) 73.6 % 47-70 [facility] Potassium [Moles/Vol] 3.8 mmol/L 3.5-5.1 [facility] Comment on above: Slight Hemolysis, Re sult may be falsely increased. Protein [Mass/Vol] 7.4 g/dL 6.4-8.2 [facility] Sodium [Moles/Vol] 139 mmol/L 136-145 [facility] WBC (Bld) [#/Vol] 7.4 10*3/uL 4.4-11.0 [facility] Bilirubin Test strip Ql (U)O rdered By: Dr. Marr on 11-29-2022 Bilirubin Ql (U) Negative Negative [facility] Blood erythrocytes count (nu mber/volume)Ordered By: Dr. Marr on 11-29-2022 RBC (Bld) [#/Vol] 4.24 10*6/uL 4.2-5.4 [facility] Blood hemoglobin measurement (mass/volume)Ordered By: Dr. Marr on 11-29-2022 Hemoglobin (Bld) [Mass/Vol] 12.9 g/dL 12.0-15.0 [facility] Blood lymphocytes/100 leukoc ytesOrdered By: Dr. Marr on 11-29-2022 Lymphocytes/100 WBC (Bld) 18.2 % 19-41 [facility] Blood monocytes/100 leukocyt esOrdered By: Dr. Marr on 11-29-2022 Monocytes/100 WBC (Bld) 7.2 % 0-10 [facility] Blood platelet mean volumeOr dered By: Dr. Marr on 11-29-2022 Platelet mean volume (Bld) [Entitic vol] 10.8 fL 6.2-12.0 [facility] CBC W/Diff, Automatedon Absolute Lymph 1.35 X10 3/uL Normal 0.83-4.51 [facility] Comment on above: Performed By: #### L 500.3400, L100.0100, L500.2500 #### [facility] [address] [place], [address] Absolute Neut 5.5 X10 3/uL Normal 2.0-7.7 [facility] Comment on above: Performed By: #### L 500.3400, L100.0100, L500.2500 #### [facility] [address] [place], [address] Basophils/100 WBC (Bld) 0.3 % Normal 0-1 [facility] Comment on above: Performed By: #### L 500.3400, L100.0100, L500.2500 #### [facility] [address] [place], [address] Eosinophils/100 WBC (Bld) 0.4 % Normal 0-5 [facility] Comment on above: Performed By: #### L 500.3400, L100.0100, L500.2500 #### [facility] [address] [place], [address] Erythrocyte distribution width (RBC) [Ratio] 13.9 % Normal 11.6-14.6 [facility] Comment on above: Performed By: #### L 500.3400, L100.0100, L500.2500 #### [facility] [address] [place], [address] Hematocrit (Bld) [Volume fraction] 40.6 % Normal 37-47 [facility] Comment on above: Performed By: #### L 500.3400, L100.0100, L500.2500 #### [facility] [address] [place], [address] Hemoglobin (Bld) [Mass/Vol] 12.9 g/dL Normal 12.0-15.0 [facility] Comment on above: Performed By: #### L 500.3400, L100.0100, L500.2500 #### [facility] [address] [place], [address] IG% 0.300 Normal 0.0-0.9 [facility] Comment on above: Result Comment: IG% - Immature Granulocytes (promyelocytes, myelocytes and metamyelocytes) > 1% indicates that a LEFT SHIFT is Present. Performed By: #### L 500.3400, L100.0100, L500.2500 #### [facility] [address] [place], [address] Lymphocytes/100 WBC (Bld) 18.2 % Low 19-41 [facility] Comment on above: Performed By: #### L 500.3400, L100.0100, L500.2500 #### [facility] [address] [place], [address] MCH (RBC) [Entitic mass] 30.4 pg Normal 27.0-32.0 [facility] Comment on above: Performed By: #### L 500.3400, L100.0100, L500.2500 #### [facility] [address] [place], [address] MCHC (RBC) [Mass/Vol] 31.8 g/dL Low 32-36 [facility] Comment on above: Performed By: #### L 500.3400, L100.0100, L500.2500 #### [facility] [address] [place], [address] MCV (RBC) [Entitic vol] 95.8 fL Normal 81-99 [facility] Comment on above: Performed By: #### L 500.3400, L100.0100, L500.2500 #### [facility] [address] [place], [address] Monocytes/100 WBC (Bld) 7.2 % Normal 0-10 [facility] Comment on above: Performed By: #### L 500.3400, L100.0100, L500.2500 #### [facility] [address] [place], [address] Neutrophils/100 WBC (Bld) 73.6 % High 47-70 [facility] Comment on above: Performed By: #### L 500.3400, L100.0100, L500.2500 #### [facility] [address] [place], [address] Nucleated RBC (Bld) [#/Vol] 0 10*3/uL Normal 0-5 [facility] Comment on above: Performed By: #### L 500.3400, L100.0100, L500.2500 #### [facility] [address] [place], [address] Platelet mean volume (Bld) [Entitic vol] 10.8 fL Normal 6.2-12.0 [facility] Comment on above: Performed By: #### L 500.3400, L100.0100, L500.2500 #### [facility] [address] [place], [address] Platelets (Bld) [#/Vol] 292 10*3/uL Normal 150-450 [facility] Comment on above: Performed By: #### L 500.3400, L100.0100, L500.2500 #### [facility] [address] [place], [address] RBC (Bld) [#/Vol] 4.24 10*6/uL Normal 4.2-5.4 [facility] Comment on above: Performed By: #### L 500.3400, L100.0100, L500.2500 #### [facility] [address] [place], [address] RDW SD 48.8 fl High 35.1-43.9 [facility] Comment on above: Performed By: #### L 500.3400, L100.0100, L500.2500 #### [facility] [address] [place], [address] WBC (Bld) [#/Vol] 7.4 10*3/uL Normal 4.4-11.0 [facility] Comment on above: Performed By: #### L 500.3400, L100.0100, L500.2500 #### [facility] [address] [place], [address] CPK Total, Creatine Kinaseon 11-29-2022 CPK TOTAL 86 U/L Normal 26-192 [facility] Comment on above: Performed By: #### L 500.3400, L501.2450, L500.2500, L100.0100 #### [facility] [address] [place], [address] Determination of erythrocyte mean corpuscular volume (MCV)Ordered By: Dr. Marr on 11-29-2022 MCV (RBC) [Entitic vol] 95.8 fL 81-99 [facility] Direct bilirubinOrdered By: Dr. Marr on 11-29-2022 Bilirubin.direct [Mass/Vol] 0.16 mg/dL 0.00-0.30 [facility] Emergency Department Summary on 11-29-2022 Emergency Department Summary [facility] Medical Records Department [address] [place] [address] Emergency Department Summary 11/29/22 MR#: [id number] Acct: [id number] Name: DEISY ALMODOVAR Rep #: [id number] : 1975 47 From: Yocasta Marr DO PCP: Dr. Arron Hairston MD Status:REG ER Location: ED HPI HPI - GI History of Present Illness Chief Complaint: Abd Pain Informant: patient Narrative Narrative: Patient is a 47-year-old female with history of seizures on Keppra as well as known gallstones presenting with right upper quadrant abdominal pain. She states been worsening over the past week. The pain is constant but waxes and wanes in intensity. She does not report any radiation of the pain. She sees a bariatric surgeon through [facility], Dr. Woods, who was planning on taking her gallbladder out when she had her bariatric surgery. Patient is currently in the program. Patient was diagnosed with gallstones around May 2022. Patient states that since then she has lost 40 pounds and adhering to a low fat/greasy diet. She states the night it started as she had stirfry with chicken and broccoli for dinner. She denies any belching. She states she has had no change in her bowel movements. She had a bowel movement yesterday that was soft. She did call her surgeon who did call her and amoxicillin and she has been taking Zofran. Patient had 1 dose of Zofran prior to arrival but continues to have nausea. The date started she had intractable vomiting. Patient is trying to take Tylenol with no relief of her pain. Patient was seen in our ER 06/22/2022 and was treated for biliary colic at that time with no signs of acute cholecystitis. Patient states she did well with pain management with Percocet. [facility] Medical History (Updated 11/29/22 @ 11:[address] Yocasta Marr DO) Seizures Home Medications oxycodone-acetaminophen 5 mg-325 mg tablet (Endocet) 1 tab PO Q6H PRN pain 3 days #12 tabs 06/22/22 [Rx Last Taken Unknown] levetiracetam 500 mg tablet 500 mg PO BID 11/29/22 [History Last Taken Unknown] ondansetron 4 mg disintegrating tablet 4 mg PO Q6H PRN nausea and vomiting #14 tabs 11/29/22 [Rx Last Taken Unknown] oxycodone-acetaminophen 5 mg-325 mg tablet (Endocet) 1 tab PO Q6H PRN pain 3 days #12 tabs 11/29/22 [Rx Last Taken Unknown] Allergy/AdvReac Type Severity Reaction Status Date / Time No Known Allergies Allergy Verified 11/29/22 08:24 Social History Smoking Status: Never smoker ROS ROS ED Constitutional Constitutional ED: Reports chills; Denies fever(s) Cardiovascular Cardiovascular: Denies chest pain Respiratory/Chest Respiratory/Chest: Denies cough Gastrointestinal Gastrointestinal: Reports abdominal pain, nausea and vomiting; Denies constipation or diarrhea Genitourinary Genitourinary ED: Denies dysuria or hematuria Musculoskeletal Musculoskeletal: Denies arthralgias or myalgias Integumentary Denies rash Neurologic Neurologic: Denies headache(s) or weakness Psychiatric Psychiatric: Denies anxiety EXAM Physical Exam Const Vital Signs: 11/29/22 08:24 Temperature 97 F L Temperature Source Temporal Pulse Rate 85 Respiratory Rate 16 Blood Pressure 168/100 H Blood Pressure Mean 122 Pulse Ox 99 Oxygen Delivery Method Room Air Positive well nourished and well developed General Appearance ED: well developed HEENT Reports moist mucous membranes normocephalic and atraumatic Eyes PERRL and EOMs intact bilaterally Neck supple Resp normal respiratory effort and clear to auscultation bilaterally Cardio regular rate, regular rhythm and no murmurs GI non-distended GI Narrative: No clear Gauthier sign however this is limited secondary to patient's body habitus Auscultation: normoactive bowel sounds Palpation: soft and tender RLQ; Negative for guarding, rigid or rebound tenderness present Extremity full ROM Neuro Sensorium / Orientation: alert, oriented to person, oriented to place and oriented to time Motor Exam: Negative for general weakness Psych mental status grossly normal and thought process normal Skin no wounds MDM MDM MDM Narrative Medical decision making narrative: Patient is evaluated for right upper quad abdominal pain and vomiting in the setting of known gallstones. Differential includes acute cholecystitis, biliary colic and gastritis. Patient is treated with IV morphine and Zofran. Will obtain right upper quadrant ultrasound and labs to see if there findings consistent with acute cholecystitis. Patient's lab work largely normal. No signs of obstructive pathology and normal white blood cell count. Urinalysis did show 150 and occult blood but no red blood cells. Added on a CK which was normal. I do not suspect a kid (more content not included)... Normal [facility] Gallbladderon 11-29-2022 Gallbladder [facility] [address] [place] [address] Gallbladder MR#: [id number] Acct: [id number] Name: DEISY ALMODOVAR Rep #: [id number] : 1975 F 47 From: Hong hamilton MD PCP: Dr. Arron Hairston MD Status: REG ER Study: Gallbladder Date of Exam: 11/29/22 Exam# [id number] Ordering Dr: Yocasta Marr DO STUDY: ABDOMINAL ULTRASOUND - RIGHT UPPER QUADRANT REASON FOR VISIT: Female, 47 years old PAIN TECHNIQUE: Ultrasound evaluation of the right upper quadrant was performed with real-time and static peng-scale imaging. TECHNICAL QUALITY: Adequate. COMPARISON: None. FINDINGS: Liver: The liver is enlarged and measures 18.7 cm. There is increased echogenicity consistent with fatty infiltration. The bile ducts are within normal limits. There is hepatic color flow. The direction of portal flow is hepatopetal. There is no demonstrated mass lesion. Gallbladder: Normal distended gallbladder. The gallbladder wall is mildly thickened and measures 4 mm. There is a negative sonographic Gauthier''s sign. There is no pericholecystic fluid. There is a solitary echogenic gallstone within the gallbladder. This measures 2.6 cm. Common Bile Duct (C.B.D.): The common bile duct measures 5 mm. Pancreas: There is nonvisualization of the pancreas due to overlying bowel gas. Right Kidney: Normal size of the right kidney. The right kidney measures 12 cm x 6.2 cm x 4.3 cm. Normal renal cortex. The right cortex measures 1.9 cm. There is no demonstrated renal mass or cyst. There is no right hydronephrosis. US/Gallbladder IMPRESSION: Hepatomegaly and diffuse fatty infiltration of the liver. Solitary gallstone. Electronically Signed: Hong Anthony MD at 9:47 EDT , CC: Dr. Yocasta Marr DO; Dr. Arron Hairston MD Medical Assistant Secretary: Signed Normal [facility] Hematocrit Auto (Bld) [Volum e fraction]Ordered By: Dr. Marr on 11-29-2022 Hematocrit (Bld) [Volume fraction] 40.6 % 37-47 [facility] Ketones Test strip Ql (U)Ord ered By: Dr. Marr on 11-29-2022 Ketones Ql (U) 15 mg/dl Negative [facility] Laboratory - Chemistry and C hemistry - challengeOrdered By: Dr. Marr on 11-29-2022 HCG ( test) Ql (U) Negative [facility] Comment on above: Very dilute urine sp ecimens, as indicated by a low specificgravity, may not contain computer help desk representative levels of hCG. If is still suspected, a first morning urinespecimen should be collected 48 hours later and tested. ALP [Catalytic activity/Vol] 67 U/L 45-117 [facility] ALT [Catalytic activity/Vol] 32 U/L 13-56 [facility] CK [Catalytic activity/Vol] 86 U/L 26-192 [facility] CO2 [Moles/Vol] 28.0 mmol/L 21.0-32.0 [facility] Globulin (S) [Mass/Vol] 4.2 g/dL 2.2-4.2 [facility] Urea nitrogen/Creatinine [Mass ratio] 13.5 mg/mg 10-20 [facility] Laboratory - Hematology and Cell countsOrdered By: Dr. Marr on 11-29-2022 Erythrocyte distribution width (RBC) [Entitic vol] 48.8 fL 35.1-43.9 [facility] Erythrocyte distribution width (RBC) [Ratio] 13.9 % 11.6-14.6 [facility] Immature granulocytes/100 WBC (Bld) 0.300 % 0.0-0.9 [facility] Comment on above: IG% - Immature Granu locytes (promyelocytes, myelocytes and metamyelocytes) > 1% indicates that a LEFT SHIFT is Present. MCH (RBC) [Entitic mass] 30.4 pg 27.0-32.0 [facility] Nucleated RBC/100 WBC (Bld) [Ratio] 0 % 0-5 [facility] Liver Profileon 11-29-2022 Albumin [Mass/Vol] 3.2 g/dL Normal 3.2-5.0 [facility] Comment on above: Performed By: #### L 500.3400, L501.2450, L500.2500, L100.0100 #### [facility] Laboratory [address] [place], [address] ALK P 67 U/L Normal 45-117 [facility] Comment on above: Performed By: #### L 500.3400, L501.2450, L500.2500, L100.0100 #### [facility] Laboratory [address] [place], [address] ALT [Catalytic activity/Vol] 32 U/L Normal 13-56 [facility] Comment on above: Performed By: #### L 500.3400, L501.2450, L500.2500, L100.0100 #### [facility] Laboratory [address] [place], [address] AST [Catalytic activity/Vol] 26 U/L Normal 15-37 [facility] Comment on above: Result Comment: Slig ht Hemolysis, Result may be falsely increased. Performed By: #### L 500.3400, L501.2450, L500.2500, L100.0100 #### [facility] Laboratory [address] [place], [address] Bilirubin [Mass/Vol] 0.50 mg/dL Normal 0.20-1.00 [facility] Comment on above: Result Comment: For patients on eltrombopag therapy, use of Dimension Soper TBIL is not recommended. Performed By: #### L 500.3400, L501.2450, L500.2500, L100.0100 #### [facility] [address] [place], [address] Bilirubin.direct [Mass/Vol] 0.16 mg/dL Normal 0.00-0.30 [facility] Comment on above: Performed By: #### L 500.3400, L501.2450, L500.2500, L100.0100 #### [facility] [address] [place], [address] Globulin (S) [Mass/Vol] 4.2 g/dL Normal 2.2-4.2 [facility] Comment on above: Performed By: #### L 500.3400, L501.2450, L500.2500, L100.0100 #### [facility] [address] [place], [address] T PROT 7.4 g/dL Normal 6.4-8.2 [facility] Comment on above: Performed By: #### L 500.3400, L501.2450, L500.2500, L100.0100 #### [facility] [address] [place], [address] MCHC Auto (RBC) [Mass/Vol]Or dered By: Dr. Marr on 11-29-2022 MCHC (RBC) [Mass/Vol] 31.8 g/dL 32-36 [facility] Mucus LM Ql (Urine sed)Order ed By: Dr. Marr on 11-29-2022 Mucus Ql (Urine sed) 0 SEEN /hpf [facility] Nitrite Test strip Ql (U)Ord ered By: Dr. Marr on 11-29-2022 Nitrite Ql (U) Negative Negative [facility] No Panel InformationOrdered By: Dr. Marr on 11-29-2022 Estimated GFR (MDRD) Amer 121 mL/min >60 [facility] Comment on above: GFR Calc Estimated GFR (MDRD) Non-Af Amer 100 mL/min >60 [facility] Comment on above: Non- GFR Calc Platelets bldOrdered By: Dr. Marr on 11-29-2022 Platelets (Bld) [#/Vol] 292 10*3/uL 150-450 [facility] ,Urineon 11-29-2022 Beta HCG ( test) Ql (U) Negative Normal [facility] Comment on above: Order Comment: COLLE CTOR TO SPECIFY Result Comment: Very dilute urine specimens, as indicated by a low specific gravity, may not contain computer help desk representative levels of hCG. If is still suspected, a first morning urine specimen should be collected 48 hours later and tested. Performed By: #### L 400.0001, L400.7600 #### [facility] Laboratory [address] [place], [address] Protein Test strip Ql (U)Ord ered By: Dr. Marr on 11-29-2022 Protein Ql (U) 15 mg/dl Negative [facility] Serum or plasma albumin lakesha urement (mass/volume)Ordered By: Dr. Marr on 11-29-2022 Albumin [Mass/Vol] 3.2 g/dL 3.2-5.0 [facility] Serum or plasma calcium lakesha urement (mass/volume)Ordered By: Dr. Marr on 11-29-2022 Calcium [Mass/Vol] 8.6 mg/dL 8.5-10.1 [facility] Serum or plasma creatinine m easurement (mass/volume)Ordered By: Dr. Marr on 11-29-2022 Creatinine [Mass/Vol] 0.67 mg/dL 0.55-1.02 [facility] Comment on above: The validity of the calculated GFR & GFRAA in patients over 70 years has not been determined. Clinical correlation is essential. Serum or plasma urea nitroge n measurement (mass/volume)Ordered By: Dr. Marr on 11-29-2022 Urea nitrogen [Mass/Vol] 9 mg/dL 7-18 [facility] Squamous epithelial cells de tection in urine sediment by light microscopyOrdered By: Dr. Marr on 11-29-2022 Epithelial cells.squamous LM Ql (Urine sed) 0-5 SEEN /hpf 5-10 [facility] Thin prep Papanicolaou smear with manual screeningOrdered By: Dr. Marr on 11-29-2022 Thin prep Papanicolaou smear with manual screening 26 U/L 15-37 [facility] Comment on above: Slight Hemolysis, Re sult may be falsely increased. Thin prep Papanicolaou smear with manual screening 5 5-15 [facility] Urinalysis, Completeon 11-29 BACTERIA 1+ /hpf Normal None Seen [facility] Comment on above: Order Comment: DEBORAH CTOR TO SPECIFY Performed By: #### L 400.0001, L400.7600 #### [facility] Laboratory [address] [place], [address] EPI,SQUAMOUS 0-5 SEEN Normal 5-10 [facility] Comment on above: Order Comment: DEBORAH CTOR TO SPECIFY Performed By: #### L 400.0001, L400.7600 #### [facility] Laboratory [address] [place], [address] WBC 0-5 SEEN Normal 0-5 [facility] Comment on above: Order Comment: DEBORAH CTOR TO SPECIFY Performed By: #### L 400.0001, L400.7600 #### [facility] [address] [place], [address] Mucus Ql (Urine sed) 0 SEEN Normal [facility] Comment on above: Order Comment: DEBORAH CTOR TO SPECIFY Performed By: #### L 400.0001, L400.7600 #### [facility] [address] [place], [address] RBC 0 SEEN Normal 0-5 [facility] Comment on above: Order Comment: DEBORAH CTOR TO SPECIFY Performed By: #### L 400.0001, L400.7600 #### [facility] [address] [place], [address] Urine blood detectionOrdered By: Dr. Marr on 11-29-2022 RBC Ql (U) 150 /ul Negative [facility] RBC Ql (U) 0 SEEN /hpf 0-5 [facility] Urine clarityOrdered By: Dr. Marr on 11-29-2022 Clarity (U) Clear Clear [facility] Urine color determinationOrd ered By: Dr. Marr on 11-29-2022 Color (U) Yellow Yellow [facility] Urine glucose detectionOrder ed By: Dr. aMrr on 11-29-2022 Glucose Ql (U) Normal mg/dl Normal [facility] Urine leukocyte esterase det ection by dipstickOrdered By: Dr. Marr on 11-29-2022 Leukocyte esterase Test strip Ql (U) 25 /ul Negative [facility] Urine pHOrdered By: Dr. Yuki sarmiento on 11-29-2022 pH (U) 6.0 [pH] 5.0 - 8.0 [facility] Urine sediment bacteria coun t by microscopy (number/high power field)Ordered By: Dr. Marr on 11-29-2022 Bacteria LM.HPF (Urine sed) [#/Area] 1 /[HPF] None Seen [facility] Urine specific gravity measu rementOrdered By: Dr. Marr on 11-29-2022 Specific gravity (U) [Rel density] 1.015 1.002-1.03 0 [facility] Urobilinogen Auto test strip Ql (U)Ordered By: Dr. Marr on 11-29-2022 Urobilinogen Ql (U) Normal mg/dl Normal [facility] Telephone (AGGENS4) DEISY ALMODOVAR ([id number]) 1975 F Date Time Provider Department 11/22/22 SANTOSH WOODS During your visit today, we recorded the following information about you: Bhumi Godwin MA 11/22/2022 11:59 AM Signed Phone call from patient stating that she is having another gallbladder flare up. She complains of vomiting and pain. She is requesting an antibiotic and medication for nausea to be sent to [facility] in [place]. ROSEANN Seay MA 11/25/2022 4:37 PM Signed Left voicemail to inform patient of this. ROSEANN Seay MD You 7 hours ago (9:05 AM) SM Ok I sent those into her pharmacy. Allergies As of Date: 11/22/2022 (No Known Allergies) Date Reviewed: 09/19/2022 Reviewed by: Deisy Allan APRN.ADJUSTO WRITER OPERATOR - Fully Assessed Reason for Visit: Gallbladder flare up [Other] Prescriptions as of 11/25/2022 - amoxicillin-clavulanic acid (AUGMENTIN) 875-125 mg per tablet TAKE 1 TABLET BY MOUTH EVERY 12 HOURS FOR 7 DAYS - ondansetron orally disintegrating (ZOFRAN ODT) 4 mg disintegrating tablet Take 1 tablet by mouth every 6 hours as needed for nausea/vomiting. - ondansetron (ZOFRAN) 4 mg tablet Take 1 tablet by mouth every 8 hours as needed for up to 15 doses. - levonorgestrel (MIRENA) 20 mcg/24 hours (8 yrs) 52 mg IUD 1 Each by INTRAUTERINE route. - levETIRAcetam (KEPPRA) 500 mg tablet TAKE 1 TABLET BY MOUTH TWICE A DAY - lansoprazole (PREVACID) 15 mg capsule Take 1 capsule by mouth once daily. - FA/MV,CA,IRON,MIN/LYCOPENE/L UT (MULTIVITAL ORAL) Take by mouth once daily. 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 Seizures (HCC) [R56.9] 06/17/2022 Class 3 severe obesity with body mass index (BM*06/27/2022 Gallstones and inflammation of gallbladder with*06/27/2022 Gastroesophageal reflux disease without esophag*07/25/2022 Encounter Status:Closed by BHUMI GODWIN on 11/25/22 [facility] 09-27-2022 CNPN Telephone (AGGENS4) DEISY ALMODOVAR ([id number]) 1975 F Date Time Provider Department 09/27/22 SANTOSH WOODS AGGENS4 During your visit today, we recorded the following information about you: Bhumi Godwin MA 09/27/2022 2:11 PM Signed Left voicemail for patient to call the office to schedule EGD with Dr. Woods. ROSEANN Seay MA 10/10/2022 4:23 PM Signed Left voicemail for patient to call the office to schedule EGD. ROSEANN Seay MA 10/31/2022 1:52 PM Signed Patient scheduled for EGD at [place] on 12/06/2022 @ 12:00 pm. Prep/instructions given verbally. Awaiting completion of EGD instruction sheet for that location. Once completed I will send to the patient. ROSEANN Seay MA 10/31/2022 4:34 PM Signed Prep/instructions sent to patient via [employer]. ROSEANN Seay MA 11/08/2022 3:48 PM Signed Rescheduled patient from 12/06 @ 12:00 in [place] to 12/06 at 1:00 in [place]. [employer] chat sent to endo to update schedule. [employer] message sent to patient with updated time and location. ROSEANN Seay 12/02/2022 2:27 PM Signed PT LVM requesting to zac her EGD. Bhumi Godwin MA 12/04/2022 9:20 AM Signed Left voicemail for patient to call the office to reschedule EGD. ROSEANN Seay MA 12/06/2022 12:18 PM Signed Left another voicemail for patient to call the office to reschedule EGD. ROSEANN Seayher ROSEANN Godwin 12/09/2022 12:54 PM Signed Left voicemail for patient to call the office to schedule EGD. ROSEANN Seay MA 12/19/2022 8:30 AM Signed Spoke with patient and rescheduled EGD to 02/14/2023 @ 1:00 pm. Prep/instructions sent to the patient via [employer]. ROSEANN Seay MA 02/11/2023 1:45 PM Signed Patient called into the office stating that she needs to reschedule her EGD. She is now scheduled for 03/03/2023 @ 1:30 pm. Prep/instructions given verbally and sent to patient via [employer]. Epic chat sent to endo to update schedule. ROSEANN Seay MA 02/11/2023 2:10 PM Signed Patient called back in and states the 10th will no longer work for her. She has been rescheduled to 03/10/2023 @ 1:00 pm. Updated info sent via [employer] and endo notified. Bhumi Godwin MA Allergies As of Date: 09/27/2022 (No Known Allergies) Date Reviewed: 09/19/2022 Reviewed by: Deisy Allan APRN.ADJUSTO WRITER OPERATOR - Fully Assessed Reason for Visit: Appointment [186] Cmt: EGD Prescriptions as of 02/11/2023 - ondansetron orally disintegrating (ZOFRAN ODT) 4 mg disintegrating tablet Take 1 tablet by mouth every 6 hours as needed for nausea/vomiting. - ondansetron (ZOFRAN) 4 mg tablet Take 1 tablet by mouth every 8 hours as needed for up to 15 doses. - levonorgestrel (MIRENA) 20 mcg/24 hours (8 yrs) 52 mg IUD 1 Each by INTRAUTERINE route. - levETIRAcetam (KEPPRA) 500 mg tablet TAKE 1 TABLET BY MOUTH TWICE A DAY - lansoprazole (PREVACID) 15 mg capsule Take 1 capsule by mouth once daily. - FA/MV,CA,IRON,MIN/LYCOPENE/L UT (MULTIVITAL ORAL) Take by mouth once daily. 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 Seizures (HCC) [R56.9] 06/17/2022 Class 3 severe obesity with body mass index (BM*06/27/2022 Gallstones and inflammation of gallbladder with*06/27/2022 Gastroesophageal reflux disease without esophag*07/25/2022 Encounter Status:Closed by BHUMI GODWIN on 10/31/22 Normal [facility] Absolute lymphocyte counton 06-22-2022 Lymphocytes Auto (Unsp spec) [#/Vol] 1.51 10*3/uL 0.83-4.51 [facility] Work Phone: Basic Metabolic Profile (BMP )on 06-22-2022 BUN/CRE 11.4 RATIO Normal - [facility] Comment on above: Performed By: #### L 500.3400, L501.2450, L500.2500, L100.0100 #### [facility] Laboratory [address] [place], [address] CA,Total 8.8 mg/dL Normal 8.5-10.1 [facility] Comment on above: Performed By: #### L 500.3400, L501.2450, L500.2500, L100.0100 #### [facility] [address] [place], [address] Chloride [Moles/Vol] 104 mmol/L Normal 98-107 [facility] Comment on above: Performed By: #### L 500.3400, L501.2450, L500.2500, L100.0100 #### [facility] [address] [place], [address] CO2 [Moles/Vol] 29.0 mmol/L Normal 21.0-32.0 [facility] Comment on above: Performed By: #### L 500.3400, L501.2450, L500.2500, L100.0100 #### [facility] [address] [place], [address] Creatinine [Mass/Vol] 0.79 mg/dL Normal 0.55-1.02 [facility] Comment on above: Result Comment: The validity of the calculated GFR GFRAA in patients over 70 years has not been determined. Clinical correlation is essential. Performed By: #### L 500.3400, L501.2450, L500.2500, L100.0100 #### [facility] [address] [place], [address] ECRCL 82.41 ml/min Normal [facility] Comment on above: Performed By: #### L 500.3400, L501.2450, L500.2500, L100.0100 #### [facility] [address] [place], [address] EST GFR - AA 100 mL/min Normal >60 [facility] Comment on above: Result Comment: Afri can Jamaican GFR Calc Performed By: #### L 500.3400, L501.2450, L500.2500, L100.0100 #### [facility] [address] [place], [address] GAP 5 Normal 5-15 [facility] Comment on above: Performed By: #### L 500.3400, L501.2450, L500.2500, L100.0100 #### [facility] [address] [place], [address] GFR/1.73 sq M.predicted among non-blacks MDRD (S/P/Bld) [Vol rate/Area] 83 mL/min/{1.73_m2} Normal >60 [facility] Comment on above: Result Comment: Non- GFR Calc Performed By: #### L 500.3400, L501.2450, L500.2500, L100.0100 #### [facility] [address] [place], [address] Glucose [Mass/Vol] 106 mg/dL Normal 74-106 [facility] Comment on above: Result Comment: Fast ing Glucose result from 100 to 125 mg/dL suggests IMPAIRED HOMEOSTASIS per A.D.A. criteria. Performed By: #### L 500.3400, L501.2450, L500.2500, L100.0100 #### [facility] [address] [place], [address] Potassium [Moles/Vol] 3.8 mmol/L Normal 3.5-5.1 [facility] Comment on above: Performed By: #### L 500.3400, L501.2450, L500.2500, L100.0100 #### [facility] [address] [place], [address] Sodium [Moles/Vol] 138 mmol/L Normal 136-145 [facility] Comment on above: Performed By: #### L 500.3400, L501.2450, L500.2500, L100.0100 #### [facility] [address] [place], [address] Urea nitrogen [Mass/Vol] 9 mg/dL Normal 7-18 [facility] Comment on above: Performed By: #### L 500.3400, L501.2450, L500.2500, L100.0100 #### [facility] [address] [place], [address] Basophil percentageon 2021 Basophils/100 WBC (Bld) 0.3 % 0-1 [facility] Work Phone: Bilirubin [Mass/Vol] 0.50 mg/dL 0.20-1.00 [facility] Work Phone: Comment on above: For patients on eltr ombopag therapy, use of Dimension Soper TBIL is not recommended. Chloride [Moles/Vol] 104 mmol/L 98-107 [facility] Work Phone: Eosinophils/100 WBC (Bld) 0.8 % 0-5 [facility] Work Phone: Glucose [Mass/Vol] 106 mg/dL 74-106 [facility] Work Phone: Comment on above: Fasting Glucose resu lt from 100 to 125 mg/dL suggests IMPAIRED HOMEOSTASIS per A.D.A. criteria. Neutrophils (Bld) [#/Vol] 5.5 10*3/uL 2.0-7.7 [facility] Work Phone: Neutrophils/100 WBC (Bld) 71.1 % 47-70 [facility] Work Phone: Potassium [Moles/Vol] 3.8 mmol/L 3.5-5.1 [facility] Work Phone: Protein [Mass/Vol] 7.6 g/dL 6.4-8.2 [facility] Work Phone: Sodium [Moles/Vol] 138 mmol/L 136-145 [facility] Work Phone: WBC (Bld) [#/Vol] 7.8 10*3/uL 4.4-11.0 [facility] Work Phone: Blood erythrocytes count (nu mber/volume)on 06-22-2022 RBC (Bld) [#/Vol] 4.40 10*6/uL 4.2-5.4 [facility] Work Phone: Blood hemoglobin measurement (mass/volume)on 06-22-2022 Hemoglobin (Bld) [Mass/Vol] 13.4 g/dL 12.0-15.0 [facility] Work Phone: Blood lymphocytes/100 leukoc yteson 06-22-2022 Lymphocytes/100 WBC (Bld) 19.5 % 19-41 [facility] Work Phone: Blood monocytes/100 leukocyt eson 10-29-2022 Monocytes/100 WBC (Bld) 8.0 % 0-10 [facility] Work Phone: Blood platelet mean volumeon 06-22-2022 Platelet mean volume (Bld) [Entitic vol] 10.3 fL 6.2-12.0 [facility] Work Phone: CBC W/Diff, Automatedon - Absolute Lymph 1.51 X10 3/uL Normal 0.83-4.51 [facility] Comment on above: Performed By: #### L 500.3400, L501.2450, L500.2500, L100.0100 #### [facility] [address] [place], [address] Absolute Neut 5.5 X10 3/uL Normal 2.0-7.7 [facility] Comment on above: Performed By: #### L 500.3400, L501.2450, L500.2500, L100.0100 #### [facility] [address] [place], [address] Basophils/100 WBC (Bld) 0.3 % Normal 0-1 [facility] Comment on above: Performed By: #### L 500.3400, L501.2450, L500.2500, L100.0100 #### [facility] [address] [place], [address] Eosinophils/100 WBC (Bld) 0.8 % Normal 0-5 [facility] Comment on above: Performed By: #### L 500.3400, L501.2450, L500.2500, L100.0100 #### [facility] [address] [place], [address] Erythrocyte distribution width (RBC) [Ratio] 13.3 % Normal 11.6-14.6 [facility] Comment on above: Performed By: #### L 500.3400, L501.2450, L500.2500, L100.0100 #### [facility] [address] [place], [address] Hematocrit (Bld) [Volume fraction] 41.4 % Normal 37-47 [facility] Comment on above: Performed By: #### L 500.3400, L501.2450, L500.2500, L100.0100 #### [facility] [address] [place], [address] Hemoglobin (Bld) [Mass/Vol] 13.4 g/dL Normal 12.0-15.0 [facility] Comment on above: Performed By: #### L 500.3400, L501.2450, L500.2500, L100.0100 #### [facility] [address] [place], [address] IG% 0.300 Normal 0.0-0.9 [facility] Comment on above: Result Comment: IG% - Immature Granulocytes (promyelocytes, myelocytes and metamyelocytes) > 1% indicates that a LEFT SHIFT is Present. Performed By: #### L 500.3400, L501.2450, L500.2500, L100.0100 #### [facility] [address] [facility] [place], [address] Lymphocytes/100 WBC (Bld) 19.5 % Normal 19-41 [facility] Comment on above: Performed By: #### L 500.3400, L501.2450, L500.2500, L100.0100 #### [facility] [address] [place], [address] MCH (RBC) [Entitic mass] 30.5 pg Normal 27.0-32.0 [facility] Comment on above: Performed By: #### L 500.3400, L501.2450, L500.2500, L100.0100 #### [facility] [address] [place], [address] MCHC (RBC) [Mass/Vol] 32.4 g/dL Normal 32-36 [facility] Comment on above: Performed By: #### L 500.3400, L501.2450, L500.2500, L100.0100 #### [facility] [address] [place], [address] MCV (RBC) [Entitic vol] 94.1 fL Normal 81-99 [facility] Comment on above: Performed By: #### L 500.3400, L501.2450, L500.2500, L100.0100 #### [facility] [address] [place], [address] Monocytes/100 WBC (Bld) 8.0 % Normal 0-10 [facility] Comment on above: Performed By: #### L 500.3400, L501.2450, L500.2500, L100.0100 #### [facility] [address] [place], [address] Neutrophils/100 WBC (Bld) 71.1 % High 47-70 [facility] Comment on above: Performed By: #### L 500.3400, L501.2450, L500.2500, L100.0100 #### [facility] [address] [place], [address] Nucleated RBC (Bld) [#/Vol] 0 10*3/uL Normal 0-5 [facility] Comment on above: Performed By: #### L 500.3400, L501.2450, L500.2500, L100.0100 #### [facility] [address] [place], [address] Platelet mean volume (Bld) [Entitic vol] 10.3 fL Normal 6.2-12.0 [facility] Comment on above: Performed By: #### L 500.3400, L501.2450, L500.2500, L100.0100 #### [facility] [address] [place], [address] Platelets (Bld) [#/Vol] 328 10*3/uL Normal 150-450 [facility] Comment on above: Performed By: #### L 500.3400, L501.2450, L500.2500, L100.0100 #### [facility] [address] [place], [address] RBC (Bld) [#/Vol] 4.40 10*6/uL Normal 4.2-5.4 [facility] Comment on above: Performed By: #### L 500.3400, L501.2450, L500.2500, L100.0100 #### [facility] [address] [place], [address] RDW SD 45.8 fl High 35.1-43.9 [facility] Comment on above: Performed By: #### L 500.3400, L501.2450, L500.2500, L100.0100 #### [facility] [address] [place], [address] WBC (Bld) [#/Vol] 7.8 10*3/uL Normal 4.4-11.0 [facility] Comment on above: Performed By: #### L 500.3400, L501.2450, L500.2500, L100.0100 #### [facility] [address] [place], [address] Determination of erythrocyte mean corpuscular volume (MCV)on 06-22-2022 MCV (RBC) [Entitic vol] 94.1 fL 81-99 [facility] Work Phone: Direct bilirubinon 2 Bilirubin.direct [Mass/Vol] 0.14 mg/dL 0.00-0.30 [facility] Work Phone: Emergency Department Summary on 06-22-2022 Emergency Department Summary [facility] Medical Records Department [address] [place] [address] Emergency Department Summary 06/22/22 MR#: [id number] Acct: [id number] Name: DEISY ALMODOVAR Rep #: [id number] : 1975 46 From: Aime Duval MD PCP: Dr. Arron Hairston MD Status:REG ER Location: ED HPI History of Present Illness Chief Complaint: Abd Pain Narrative Narrative: Patient presents with right upper quadrant abdominal pain nausea and vomiting for a few days. She was recently diagnosed with gallbladder disease on outpatient ultrasound. She has recent blood work which did not show any obstruction. I was able to review this on my chart with the patient in the room. The ultrasound showed gallbladder neck stone. She has no fever chills the pain does not radiate into her back. She has the same pain she has had in the past is just not going away. PFSH PFSH Medical History no medical history Home Medications oxycodone-acetaminophen 5 mg-325 mg tablet (Endocet) 1 tab PO Q6H PRN pain 3 days #12 tabs 06/22/22 [Rx Last Taken Unknown] Allergy/AdvReac Type Severity Reaction Status Date / Time No Known Allergies Allergy Verified 06/22/22 10:54 Social History (System 04/14/19 @ 14:34 by Agueda Fay) Smoking Status: Never smoker ROS ROS ED ROS Narrative Past medical history: Recent diagnosis of gallbladder disease otherwise no other medical problems Medications: Reviewed Social history: Noncontributory Review of systems: All systems negative except as indicated General: No fever Eyes: No visual changes ENT: No upper airway congestion, normal voice Neck: No neck pain Cardiovascular: No chest pain Respiratory: No shortness of breath or cough Gastrointestinal: As in HPI Genitourinary: No dysuria Musculoskeletal: Denies myalgias no difficulty with ambulation Skin: No rash Neurological: No memory loss, confusion or any focal weakness Psych: No recent behavioral changes Hematologic: No easy bleeding or easy bruising EXAM Physical Exam Narrative Exam Narrative: Physical exam General: Patient appears relatively comfortable as I walk into the room. Head: Normocephalic, Atraumatic Eyes: Conjunctiva not pale ENT: Moist mucous membranes, I do not see any signs of dehydration Neck: Supple, Nontender, No lymphadenopathy Cardiovascular: Regular rate, Regular rhythm Respiratory: No distress, CTA bilaterally Abdomen: Soft, there is right upper quadrant tenderness to palpation. She has a negative Gauthier's. No lower abdominal pain no left-sided abdominal pain. No guarding or rebound. No pain at McBurney's Back: Nontender, Normal Inspection. Negative for: CVA tenderness Extremities: Nontender, No edema Skin: Normal color, No rash Neurological: Alert, Normal Strength, Normal Sensation Psychological: Normal affect Const Vital Signs: 06/22/22 10:51 Temperature 97.8 F Temperature Source Temporal Pulse Rate 89 Respiratory Rate 16 Blood Pressure 159/92 H Blood Pressure Mean 114 Pulse Ox 97 Oxygen Delivery Method Room Air MDM MDM MDM Narrative Medical decision making narrative: Patient has an unremarkable work-up she does have a gallbladder stone however at this time there is no white count no obstruction and she improved with analgesia. I will discharge her with analgesia she has an appointment with surgery in 2 days. If any changes she has fever chills or worsening symptoms she is to return. Lab Data Labs: Laboratory Results - last 24 hr 06/22/22 06/22/22 11:18 11:18 WBC 7.8 RBC 4.40 Hgb 13.4 Hct 41.4 MCV 94.1 MCH 30.5 MCHC 32.4 RDW Std Deviation 45.8 H RDW Coeff of Chavez 13.3 Plt Count 328 MPV 10.3 Immature Gran % (Auto) 0.300 Neut % (Auto) 71.1 H Lymph % (Auto) 19.5 Gates % (Auto) 8.0 Eos % (Auto) 0.8 Baso % (Auto) 0.3 Absolute Neuts (auto) 5.5 Absolute Lymphs (auto) 1.51 Nucleated RBC % 0 Sodium 138 Potassium 3.8 Chloride 104 Carbon Dioxide 29.0 Anion Gap 5 BUN 9 Creatinine 0.79 Estim Creat Clear Calc 82.41 Est GFR (MDRD) Af Amer 100 Est GFR (MDRD) Non-Af 83 BUN/Creatinine Ratio 11.4 Glucose 106 Calcium 8.8 Total Bilirubin 0.50 Direct Bilirubin 0.14 AST 15 ALT 24 Alkaline Phosphatase 85 Total Protein 7.6 Albumin 3.3 Globulin 4.3 H Lipase 92 Discharge Plan Triage Chief Complaint: Abd Pain ED Provider: Aime Duval Dx/Rx/DC Orders Clinical Impression: Gallstone, Abdominal pain Instructions: What Are Gallstones, Treating Gallstones Prescriptions: New oxycodone-acetaminophen [Endocet] 5-325 mg tablet 1 tab PO Q6H PRN (Reason: pain) 3 Days Qty: 12 0RF Primary Care Provider: Arron Hairston Referrals: Zulema Abernathy MD [Med (more content not included)... Normal [facility] Hematocrit Auto (Bld) [Volum e fraction]on 06-22-2022 Hematocrit (Bld) [Volume fraction] 41.4 % 37-47 [facility] Work Phone: [phone] Laboratory - Chemistry and C hemistry - challengeon 06-22-2022 ALP [Catalytic activity/Vol] 85 U/L 45-117 [facility] Work Phone: ALT [Catalytic activity/Vol] 24 U/L 13-56 [facility] Work Phone: CO2 [Moles/Vol] 29.0 mmol/L 21.0-32.0 [facility] Work Phone: [phone] Globulin (S) [Mass/Vol] 4.3 g/dL 2.2-4.2 [facility] Work Phone: Lipase [Catalytic activity/Vol] 92 U/L 73-393 [facility] Work Phone: Urea nitrogen/Creatinine [Mass ratio] 11.4 mg/mg 10-20 [facility] Work Phone: Laboratory - Hematology and Cell countson 06-22-2022 Erythrocyte distribution width (RBC) [Entitic vol] 45.8 fL 35.1-43.9 [facility] Work Phone: Erythrocyte distribution width (RBC) [Ratio] 13.3 % 11.6-14.6 [facility] Work Phone: Immature granulocytes/100 WBC (Bld) 0.300 % 0.0-0.9 [facility] Work Phone: [phone] Comment on above: IG% - Immature Granu locytes (promyelocytes, myelocytes and metamyelocytes) > 1% indicates that a LEFT SHIFT is Present. MCH (RBC) [Entitic mass] 30.5 pg 27.0-32.0 [facility] Work Phone: Nucleated RBC/100 WBC (Bld) [Ratio] 0 % 0-5 [facility] Work Phone: Lipaseon 06-22-2022 Lipase [Catalytic activity/Vol] 92 U/L Normal 73-393 [facility] Comment on above: Performed By: #### L 500.3400, L501.2450, L500.2500, L100.0100 #### [facility] [address] [place], [address] Liver Profileon 06-22-2022 Albumin [Mass/Vol] 3.3 g/dL Normal 3.2-5.0 [facility] Comment on above: Performed By: #### L 500.3400, L501.2450, L500.2500, L100.0100 #### [facility] [address] [place], [address] ALK P 85 U/L Normal 45-117 [facility] Comment on above: Performed By: #### L 500.3400, L501.2450, L500.2500, L100.0100 #### [facility] [address] [place], [address] ALT [Catalytic activity/Vol] 24 U/L Normal 13-56 [facility] Comment on above: Performed By: #### L 500.3400, L501.2450, L500.2500, L100.0100 #### [facility] [address] [place], [address] AST [Catalytic activity/Vol] 15 U/L Normal 15-37 [facility] Comment on above: Performed By: #### L 500.3400, L501.2450, L500.2500, L100.0100 #### [facility] [address] [place], [address] Bilirubin [Mass/Vol] 0.50 mg/dL Normal 0.20-1.00 [facility] Comment on above: Result Comment: For patients on eltrombopag therapy, use of Dimension Soper TBIL is not recommended. Performed By: #### L 500.3400, L501.2450, L500.2500, L100.0100 #### [facility] [address] [place], [address] Bilirubin.direct [Mass/Vol] 0.14 mg/dL Normal 0.00-0.30 [facility] Comment on above: Performed By: #### L 500.3400, L501.2450, L500.2500, L100.0100 #### [facility] [address] [place], [address] Globulin (S) [Mass/Vol] 4.3 g/dL High 2.2-4.2 [facility] Comment on above: Performed By: #### L 500.3400, L501.2450, L500.2500, L100.0100 #### [facility] [address] [place], [address] T PROT 7.6 g/dL Normal 6.4-8.2 [facility] Comment on above: Performed By: #### L 500.3400, L501.2450, L500.2500, L100.0100 #### [facility] [address] [place], [address] MCHC Auto (RBC) [Mass/Vol]on 06-22-2022 MCHC (RBC) [Mass/Vol] 32.4 g/dL 32-36 [facility] Work Phone: No Panel Informationon 06-22 Estimated Creatinine Clearance Calc 82.41 ml/min [facility] Work Phone: Estimated GFR (MDRD) Amer 100 mL/min >60 [facility] Work Phone: Comment on above: GFR Calc Estimated GFR (MDRD) Non-Af Amer 83 mL/min >60 [facility] Work Phone: Comment on above: Non- GFR Calc Platelets bldon 06-22-2022 Platelets (Bld) [#/Vol] 328 10*3/uL 150-450 [facility] Work Phone: Serum or plasma albumin lakesha urement (mass/volume)on 06-22-2022 Albumin [Mass/Vol] 3.3 g/dL 3.2-5.0 [facility] Work Phone: Serum or plasma calcium lakesha urement (mass/volume)on 06-22-2022 Calcium [Mass/Vol] 8.8 mg/dL 8.5-10.1 [facility] Work Phone: Serum or plasma creatinine m easurement (mass/volume)on 06-22-2022 Creatinine [Mass/Vol] 0.79 mg/dL 0.55-1.02 [facility] Work Phone: Comment on above: The validity of the calculated GFR & GFRAA in patients over 70 years has not been determined. Clinical correlation is essential. Serum or plasma urea nitroge n measurement (mass/volume)on 06-22-2022 Urea nitrogen [Mass/Vol] 9 mg/dL 7-18 [facility] Work Phone: Thin prep Papanicolaou smear with manual screeningon 06-22-2022 Thin prep Papanicolaou smear with manual screening 15 U/L 15-37 [facility] Work Phone: Thin prep Papanicolaou smear with manual screening 5 5-15 [facility] Work Phone: No Panel Informationon 06-21 [facility] CNOVon 07-07-2019 CNOV Office Visit (RMRIHL ) DEISY ALMODOVAR ([id number]) 1975 F Date Time Provider Department 07/07/19 1:00 PM MRI [facility] During your visit today, we recorded the following information about you: Lc Mcmanus Tech 07/07/2019 1:18 PM Signed Radiology Service Progress Note DATE OF SERVICE: July 07, 2019 TIME: 1:17 PM PATIENT IDENTITY VERIFICATION COMPLETED USING TWO (2) STANDARD IDENTIFIERS: Name and Date of confirmed by patient verbally. PATIENT GENDER DATA: Female. status: : No status: NO. PATIENT RELEVANT IMPLANT DATA REVIEWED: Yes ALLERGIES: Reviewed and unchanged CONTRAST ALLERGY: NO. EXAM: MRI - CONTRAST TYPE: GROUP II PERIPHERAL IV DATA: Ambulatory: A peripheral IV was started in the Right with a Butterfly: 23 gauge. 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 #:[id number] -[facility] MRA BRAIN WO IVCON [[id number]] Order #: [id number]. #:[id number] -[facility] Prescriptions as of 07/07/2019 Sig: LANSOPRAZOLE 15 MG CAPSULE,DE* Take 1 capsule by mouth once * LEVONORGESTREL 20 MCG/24 HOUR* Inserted in office MULTIVITAL ORAL Take by mouth. 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 Intracranial 3D [id number] MRA. 3D maximum intensity projection images were created, reviewed and archived . MR Contrast: Dotarem MR Contrast Volume (ml): 20 MR Contrast Route of Administration: IV MQ: [id number]_4 COMPARISON: None. RESULT: BRAIN: Acute Change: There is no evidence of restricted diffusion to suggest an acute infarct. Hemorrhage: No evidence of prior parenchymal hemorrhage on the gradient echo images. Mass Lesion/ Mass Effect: No evidence of an intracranial mass or extra-axial fluid collection. No significant mass effect. Chronic Change: The white matter is within normal limits of signal intensity for age. Parenchyma: No significant volume loss for age. No abnormal enhancement following contrast administration. The brain parenchyma is otherwise within normal limits of signal intensity and morphology. Ventricles: Normal caliber and morphology. Skull Base: Hypothalamic and pituitary region are grossly normal. Craniocervical junction is normal. No significant marrow replacement process. Vasculature: Major intracranial arterial structures, and dural venous sinuses show typical flow void, suggesting patency by spin echo criteria. Other: The visualized paranasal sinuses and mastoid air cells are clear. The orbits and extracranial soft tissues are unremarkable. INTRACRANIAL MRA: MRA evaluation of the intracranial vessels demonstrates no areas of significant narrowing within either the anterior or posterior circulation. No evidence of aneurysm or any other vascular abnormality is seen. IMPRESSION: Normal MRI of the brain without and with contrast. Normal intracranial MRA. Transcribed Using Voice Recognition Transcribe Date/Time: Jul 07 2019 2:29P Dictated by: RENAE OVIEDO MD This examination was interpreted and the report reviewed and electronically signed by: RENAE OVIEDO MD on Jul 07 2019 2:43PM EST [id number] Normal [facility] MRI BRAIN WO/W IVCONon 07-07 MRI BRAIN WO/W IVCON * * *Final Report* * * DATE OF EXAM: Jul 07 2019 2:11PM [facility] 0295 - MRI BRAIN WO/W IVCON / PROCEDURE REASON: Aphasia * * * * Physician Interpretation * * * * RESULT: EXAMINATION: MRA BRAIN WO IVCON, MRI BRAIN WO/W IVCON CLINICAL HISTORY: Aphasia TECHNIQUE: Routine noncontrast MRI brain protocol without and with contrast including diffusion images. Intracranial 3D [id number] MRA. 3D maximum intensity projection images were created, reviewed and archived . MR Contrast: Dotarem MR Contrast Volume (ml): 20 MR Contrast Route of Administration: IV MQ: MRAB_4 COMPARISON: None. RESULT: BRAIN: Acute Change: There is no evidence of restricted diffusion to suggest an acute infarct. Hemorrhage: No evidence of prior parenchymal hemorrhage on the gradient echo images. Mass Lesion/ Mass Effect: No evidence of an intracranial mass or extra-axial fluid collection. No significant mass effect. Chronic Change: The white matter is within normal limits of signal intensity for age. Parenchyma: No significant volume loss for age. No abnormal enhancement following contrast administration. The brain parenchyma is otherwise within normal limits of signal intensity and morphology. Ventricles: Normal caliber and morphology. Skull Base: Hypothalamic and pituitary region are grossly normal. Craniocervical junction is normal. No significant marrow replacement process. Vasculature: Major intracranial arterial structures, and dural venous sinuses show typical flow void, suggesting patency by spin echo criteria. Other: The visualized paranasal sinuses and mastoid air cells are clear. The orbits and extracranial soft tissues are unremarkable. INTRACRANIAL MRA: MRA evaluation of the intracranial vessels demonstrates no areas of significant narrowing within either the anterior or posterior circulation. No evidence of aneurysm or any other vascular abnormality is seen. IMPRESSION: Normal MRI of the brain without and with contrast. Normal intracranial MRA. Transcribed Using Voice Recognition Transcribe Date/Time: Jul 07 2019 2:29P Dictated by: RENAE OVIEDO MD This examination was interpreted and the report reviewed and electronically signed by: RENAE OVIEDO MD on Jul 07 2019 2:43PM EST [id number] [facility] PROGRESSon 07-07-2019 PROGRESS HNO ID: [id number] Author: Lc Mcmanus (Tech) Service: ? Author Type: Branch Operation Evaluation Manager Type: Progress Notes Filed: 07/07/2019 1:18 PM Note Text: Radiology Service Progress Note DATE OF SERVICE: July 07, 2019 TIME: 1:17 PM PATIENT IDENTITY VERIFICATION COMPLETED USING TWO (2) STANDARD IDENTIFIERS: Name and Date of confirmed by patient verbally. PATIENT GENDER DATA: Female. status: : No status: NO. PATIENT RELEVANT IMPLANT DATA REVIEWED: Yes ALLERGIES: Reviewed and unchanged CONTRAST ALLERGY: NO. EXAM: MRI - CONTRAST TYPE: GROUP II PERIPHERAL IV DATA: Ambulatory: A peripheral IV was started in the Right with a Butterfly: 23 gauge. RADIOLOGY DEPARTMENT: MR; Exam(s) Completed: Head: Routine Brain and mra head SIGNATURE: Lc Mcmanus PATIENT NAME: Deisy Almodovar DATE: July 07, 2019 TIME: 1:17 PM [facility] Vital Signs Date Time Vital Sign Value Performing Clinician Facility 03-04-2025 11:36-0400 Diastolic blood pressure 87 mm[Hg] Kerry Mas INSULATOR CUTTER AND FORMER.ADJUSTO WRITER OPERATOR Work Phone: [facility] Comment on above: DARWIN BP 03-04-2025 11:36-0400 Heart rate 78 /min Kerry Mas INSULATOR CUTTER AND FORMER.ADJUSTO WRITER OPERATOR Work Phone: [facility] 03-04-2025 11:36-0400 Systolic blood pressure 143 mm[Hg] Kerry Mas INSULATOR CUTTER AND FORMER.ADJUSTO WRITER OPERATOR Work Phone: [facility] Comment on above: DARWIN BP 03-04-2025 10:37-0400 Respiratory rate 16 /min Kerry Mas INSULATOR CUTTER AND FORMER.ADJUSTO WRITER OPERATOR Work Phone: [facility] 03-04-2025 10:37-0400 SaO2% (BldA) [Mass fraction] 99 % Kerry Mas INSULATOR CUTTER AND FORMER.ADJUSTO WRITER OPERATOR Work Phone: [facility] 07-24-2023 11:31-0500 Body weight 190.51 kg Coni Pina MD Work Phone: [facility] 07-11-2023 13:14-0500 Body height 167.6 cm Antonio Melgoza INSULATOR CUTTER AND FORMER.ADJUSTO WRITER OPERATOR Work Phone: [facility] 07-11-2023 13:14-0500 Body weight 192.78 kg Antonio Melgoza INSULATOR CUTTER AND FORMER.ADJUSTO WRITER OPERATOR Work Phone: [facility] 06-13-2023 13:40-0400 Body height 167.6 cm Antonio Kishore INSULATOR CUTTER AND FORMER.ADJUSTO WRITER OPERATOR Work Phone: [facility] 06-13-2023 13:40-0400 Body weight 195.05 kg Antonio Kishore INSULATOR CUTTER AND FORMER.ADJUSTO WRITER OPERATOR Work Phone: [facility] 05-23-2023 11:35-0400 Body height 167.6 cm Deisy Gromovsky INSULATOR CUTTER AND FORMER.ADJUSTO WRITER OPERATOR Work Phone: [facility] 05-23-2023 11:35-0400 Body weight 195.05 kg Deisy Gromovsky INSULATOR CUTTER AND FORMER.ADJUSTO WRITER OPERATOR Work Phone: [facility] 04-17-2023 13:00-0400 Body weight 198.68 kg Coni Pina MD Work Phone: [facility] 03-24-2023 08:13-0400 Body weight 200.94 kg Antonio Kishore INSULATOR CUTTER AND FORMER.ADJUSTO WRITER OPERATOR Work Phone: [facility] 03-19-2023 14:40-0400 Body height 167.6 cm Reggie Rudick DO Work Phone: [facility] 03-19-2023 14:40-0400 Body temperature 98.71 [degF] Reggie Rudick DO Work Phone: [facility] 03-19-2023 14:40-0400 Body weight 202.99 kg Reggie Rudick DO Work Phone: [facility] 03-19-2023 14:40-0400 Diastolic blood pressure 89 mm[Hg] Reggie Rudick DO Work Phone: [facility] 03-19-2023 14:40-0400 Heart rate 91 /min Reggie Rudick DO Work Phone: [facility] 03-19-2023 14:40-0400 Respiratory rate 18 /min Reggie Rudick DO Work Phone: [facility] 03-19-2023 14:40-0400 SaO2% (BldA) [Mass fraction] 97 % Reggie Rudick DO Work Phone: [facility] 03-19-2023 14:40-0400 Systolic blood pressure 129 mm[Hg] Reggie Kovacs DO Work Phone: [facility] 03-10-2023 13:49-0400 Diastolic blood pressure 74 mm[Hg] Santosh Woods MD Work Phone: [facility] 03-10-2023 13:49-0400 Heart rate 80 /min Santosh Woods MD Work Phone: [facility] 03-10-2023 13:49-0400 Respiratory rate 21 /min Santosh Woods MD Work Phone: [facility] 03-10-2023 13:49-0400 SaO2% (BldA) [Mass fraction] 99 % Santosh Woods MD Work Phone: [facility] 03-10-2023 13:49-0400 Systolic blood pressure 131 mm[Hg] Santosh Woods MD Work Phone: [facility] 03-10-2023 13:33-0400 Body temperature 98.6 [degF] Santosh Woods MD Work Phone: [facility] 03-06-2023 10:42-0400 Body height 165.1 cm Coni Pina MD Work Phone: [facility] 03-06-2023 10:42-0400 Body weight 200.94 kg Coni Pina MD Work Phone: [facility] 02-27-2023 14:41-0400 Diastolic blood pressure 87 mm[Hg] Ayaan Cardenas MD Work Phone: [facility] 02-27-2023 14:41-0400 Systolic blood pressure 145 mm[Hg] Ayaan Cardenas MD Work Phone: [facility] 02-27-2023 14:16-0400 Body height 165.1 cm Ayaan Cardenas MD Work Phone: [facility] 02-27-2023 14:16-0400 Body weight 204.12 kg Ayaan Cardenas MD Work Phone: [facility] 02-27-2023 14:16-0400 Heart rate 68 /min Ayaan Cardenas MD Work Phone: [facility] 02-27-2023 14:16-0400 SaO2% (BldA) [Mass fraction] 94 % Ayaan Cardenas MD Work Phone: [facility] 02-21-2023 09:44-0400 Body height 165.1 cm Deisy Gromovsky INSULATOR CUTTER AND FORMER.ADJUSTO WRITER OPERATOR Work Phone: [facility] 02-21-2023 09:44-0400 Body weight 201.85 kg Deisy Gromovsky INSULATOR CUTTER AND FORMER.ADJUSTO WRITER OPERATOR Work Phone: [facility] 12-19-2022 08:14-0400 Body height 165.[address] Work Phone: [facility] 12-19-2022 08:14-0400 Body weight 203.[address] Work Phone: [facility] 12-13-2022 12:23-0400 Body height 165.1 cm Keagan Blanton MD Work Phone: [facility] 12-13-2022 12:23-0400 Body temperature 97 [degF] Keagan Blanton MD Work Phone: [facility] 12-13-2022 12:23-0400 Body weight 205.48 kg Keagan Blanton MD Work Phone: [facility] 12-13-2022 12:23-0400 Diastolic blood pressure 83 mm[Hg] Keagan Blanton MD Work Phone: [facility] 12-13-2022 12:23-0400 Heart rate 65 /min Keagan Blanton MD Work Phone: [facility] 12-13-2022 12:23-0400 Respiratory rate 14 /min Keagan Blanton MD Work Phone: [facility] 12-13-2022 12:23-0400 SaO2% (BldA) [Mass fraction] 100 % Keagan Blanton MD Work Phone: [facility] 12-13-2022 12:23-0400 Systolic blood pressure 132 mm[Hg] Keagan Blanton MD Work Phone: [facility] 11-29-2022 11:42-0400 Diastolic blood pressure 82 mm[Hg] [facility] 11-29-2022 11:42-0400 Heart rate 56 /min [facility] 11-29-2022 11:42-0400 Respiratory rate 14 /min [facility] 11-29-2022 11:42-0400 SaO2% (BldA) [Mass fraction] 98 % [facility] 11-29-2022 11:42-0400 Systolic blood pressure 142 mm[Hg] [facility] 11-29-2022 08:24-0400 Body height 167.64 cm [facility] 11-29-2022 08:24-0400 Body temperature 97 [degF] [facility] 11-08-2022 09:33-0400 Body height 165.[address] Work Phone: [facility] 11-08-2022 09:33-0400 Body weight 205.[address] Work Phone: [facility] 10-18-2022 12:18-0500 Body height 165.[address] Work Phone: [facility] 10-18-2022 12:18-0500 Body weight 206.[address] Work Phone: [facility] 09-19-2022 10:40-0500 Body height 165.1 cm Diesy Gromovsky INSULATOR CUTTER AND FORMER.ADJUSTO WRITER OPERATOR Work Phone: [facility] 09-19-2022 10:40-0500 Body weight 209.56 kg Deisy Gromovsky INSULATOR CUTTER AND FORMER.ADJUSTO WRITER OPERATOR Work Phone: [facility] 09-02-2022 11:33-0500 Body height 165.[address] Work Phone: [facility] 09-02-2022 11:33-0500 Body weight 211.[address] Work Phone: [facility] 07-25-2022 09:36-0500 Body height 165.1 cm Santosh Woods MD Work Phone: [facility] 07-25-2022 09:36-0500 Body weight 213.83 kg Santosh Woods MD Work Phone: [facility] 07-25-2022 09:36-0500 Diastolic blood pressure 90 mm[Hg] Santosh Woods MD Work Phone: [facility] 07-25-2022 09:36-0500 Heart rate 89 /min Santosh Woods MD Work Phone: [facility] 07-25-2022 09:36-0500 Systolic blood pressure 143 mm[Hg] Santosh Woods MD Work Phone: [facility] 06-27-2022 09:12-0400 Body height 165.1 cm Santosh Woods MD Work Phone: [facility] 06-27-2022 09:12-0400 Body weight 219.27 kg Santosh Woods MD Work Phone: [facility] 06-27-2022 09:12-0400 Diastolic blood pressure 87 mm[Hg] Santosh Woods MD Work Phone: [facility] 06-27-2022 09:12-0400 Heart rate 82 /min Santosh Woods MD Work Phone: [facility] 06-27-2022 09:12-0400 Systolic blood pressure 151 mm[Hg] Santosh Woods MD Work Phone: [facility] 06-24-2022 09:47-0400 Body height 165.1 cm Zulema Abernathy MD Work Phone: [facility] 06-24-2022 09:47-0400 Body temperature 98.1 [degF] Zulema Abernathy MD Work Phone: [facility] 06-24-2022 09:47-0400 Body weight 217.73 kg Zulema Abernathy MD Work Phone: [facility] 06-24-2022 09:47-0400 Diastolic blood pressure 78 mm[Hg] Zulema Abernathy MD Work Phone: [facility] 06-24-2022 09:47-0400 Heart rate 127 /min Zulema Abernathy MD Work Phone: [facility] 06-24-2022 09:47-0400 SaO2% (BldA) [Mass fraction] 97 % Zulema Abernathy MD Work Phone: [facility] 06-24-2022 09:47-0400 Systolic blood pressure 126 mm[Hg] Zulema Abernathy MD Work Phone: [facility] 06-22-2022 12:30-0400 Diastolic blood pressure 69 mm[Hg] [facility] Work Phone: 06-22-2022 12:30-0400 Heart rate 72 /min [facility] Work Phone: 06-22-2022 12:30-0400 Respiratory rate 15 /min [facility] Work Phone: 06-22-2022 12:30-0400 SaO2% (BldA) [Mass fraction] 98 % [facility] Work Phone: 06-22-2022 12:30-0400 Systolic blood pressure 134 mm[Hg] [facility] Work Phone: 06-22-2022 10:51-0400 Body height 167.64 cm [facility] Work Phone: 06-22-2022 10:51-0400 Body mass index (BMI) [Ratio] 77.4 kg/m2 [facility] Work Phone: 06-22-2022 10:51-0400 Body temperature 97.8 [degF] [facility] Work Phone: 06-22-2022 10:51-0400 Body weight 217.72 kg [facility] Work Phone: Encounters Encounter Date Encounter Type Care Provider Facility Start: 03-04-2025 End: 03-04-2025 Office outpatient visit 15 minutes Kerry Ozielkia DASH Work Phone: [facility] Comment on above: Elevated blood press ure reading without diagnosis of hypertension (Primary Dx); Screening for lipid disorders; Night sweats; Lightheadedness; Medication monitoring encounter; Seizures (HCC) Start: 03-02-2025 End: 03-02-2025 ambulatory Nurse Intm/Famp Triage [facility] Work Phone: Nurse Phone Triage Comment on above: Dizziness Start: 03-02-2025 End: 03-02-2025 Telephone encounter Arron Hairston MD Work Phone: [address] [place] [address] Comment on above: Orders Start: 01-21-2025 ambulatory ARRON HAIRSTON Facility :[facility] Start: 01-21-2025 End: 01-21-2025 Subsequent hospital visit by physician Screen Mammo [facility] Mammogram Start: 01-10-2025 End: 01-10-2025 Telemedicine consultation with patient Keagan Blanton MD Work Phone: Neurology Start: 01-10-2025 End: 01-10-2025 ambulatory Keagan Blanton MD Work Phone: Neurology Comment on above: Seizure (HCC) (Prima ry Dx) Start: 01-06-2025 End: 01-07-2025 Refill Keagan Blanton MD Work Phone: [facility] Comment on above: Med Change Request Start: 11-12-2024 End: 11-12-2024 Refill Keagan Blanton MD Work Phone: [facility] Comment on above: Med Change Request Start: 11-11-2024 End: 11-12-2024 Refill Keagan Blanton MD Work Phone: [facility] Comment on above: Refill Request Start: 11-01-2024 End: 11-01-2024 Refill Keagan Blanton MD Work Phone: [facility] Comment on above: Med Change Request Start: 10-03-2024 End: 10-04-2024 Refill Keagan Blanton MD Work Phone: [facility] Comment on above: Med Change Request Start: 09-06-2024 End: 09-06-2024 Refill Keagan Blanton MD Work Phone: Neurology Comment on above: Refill Request Start: 09-05-2024 End: 09-06-2024 Refill Keagan Blanton MD Work Phone: [facility] Comment on above: Refill Request Start: 06-14-2024 End: 06-14-2024 ambulatory Kerry Mas APRN.ADJUSTO WRITER OPERATOR Work Phone: [facility] Comment on above: Acute non-recurrent sinusitis, unspecified location (Primary Dx); Low HDL (under 40); Gastroesophageal reflux disease without esophagitis; Class 3 severe obesity due to excess calories without serious comorbidity with body mass index (BMI) of 60.0 to 69.9 in adult (HCC); Sea sickness, sequela Start: 06-14-2024 End: 06-14-2024 Telemedicine consultation with patient Kerry Mas APRN.ADJUSTO WRITER OPERATOR Work Phone: [facility] Start: 05-19-2024 End: 05-24-2024 ambulatory Arron Hairston MD Work Phone: Internal Medicine [place] [id number] Start: 03-05-2024 Refill Keagan Blanton MD Work Phone: Neurology Comment on above: Refill Request Start: 10-13-2023 E-mail encounter fro m caregiver Coni Pina MD Work Phone: [facility] Start: 10-13-2023 Patient encounter procedure Coni Pina MD Work Phone: [facility] General Surgery Comment on above: Appointment Cancella tion Request Start: 08-08-2023 Telephone encounter Santosh leyva MD Work Phone: [facility] Comment on above: MDT Start: 07-24-2023 Refill Coni Woodard Work Phone: [facility] Comment on above: Med Change Request Start: 07-24-2023 End: 07-24-2023 ambulatory CONI PINA Facility:[id number] Start: 07-24-2023 End: 07-24-2023 ambulatory Coni Pina MD Work Phone: [facility] Comment on above: Class 3 severe obesi ty due to excess calories with serious comorbidity and body mass index (BMI) of 60.0 to 69.9 in adult (HCC) (Primary Dx); LIDYA (obstructive sleep apnea); Gastroesophageal reflux disease without esophagitis Start: 07-24-2023 End: 07-24-2023 Telemedicine consultation with patient Coni Pina MD Work Phone: [facility] Start: 07-22-2023 Telephone encounter Coni saunders MD Work Phone: [facility] Comment on above: Appointment Start: 07-11-2023 End: 07-11-2023 ambulatory ARRON HAIRSTON Facility:[facility] Start: 07-11-2023 End: 07-11-2023 ambulatory Antonio Melgoza APRN.ADJUSTO WRITER OPERATOR Work Phone: [facility] Comment on above: Class 3 severe obesi ty due to excess calories with serious comorbidity and body mass index (BMI) of 60.0 to 69.9 in adult (HCC) (Primary Dx); LIDYA (obstructive sleep apnea) Start: 07-11-2023 End: 07-11-2023 Telemedicine consultation with patient Antonio Melgoza APRN.ADJUSTO WRITER OPERATOR Work Phone: [facility] Start: 07-03-2023 Telephone encounter Santosh leyva MD Work Phone: [facility] Comment on above: Patient Update Start: 07-01-2023 Telephone encounter Santosh leyva MD Work Phone: [facility] Comment on above: Patient Update (Insu talia change 08/25/23-[employer]) Start: 06-19-2023 Orders Only [facility] Rud[facility] DO [facility] Start: 06-13-2023 End: 06-13-2023 ambulatory ARRON HAIRSTON [facility] Start: 06-13-2023 End: 06-13-2023 ambulatory Antonio Melgoza ADJUSTO WRITER OPERATOR Work Phone: [facility] Comment on above: Class 3 severe obesi ty due to excess calories with serious comorbidity and body mass index (BMI) of 60.0 to 69.9 in adult (HCC) (Primary Dx); Vitamin D deficiency; LIDYA (obstructive sleep apnea) Start: 06-13-2023 End: 06-13-2023 Telemedicine consultation with patient Antonio Melgoza ERMA.ADJUSTO WRITER OPERATOR Work Phone: [facility] Start: 06-12-2023 Telephone encounter Reggie lam DO Work Phone: Pulmonary Comment on above: Results Start: 06-04-2023 ambulatory Reggie Kovacs DO Work Phone: Pulmonary Comment on above: sleep study results Start: 06-04-2023 E-mail encounter tanna m caregiver Reggie Kovacs DO Work Phone: [facility] Start: 05-23-2023 End: 05-23-2023 ambulatory Deisy Allan APRN.ADJUSTO WRITER OPERATOR Work Phone: [facility] Comment on above: Class 3 severe obesi ty with body mass index (BMI) greater than or equal to 70 in adult, unspecified obesity type, unspecified whether serious comorbidity present (HCC) (Primary Dx); Gastroesophageal reflux disease without esophagitis; Snoring Start: 05-23-2023 End: 05-23-2023 Telemedicine consultation with patient Deisy Allan APRN.ADJUSTO WRITER OPERATOR Work Phone: [facility] Start: 05-19-2023 Chart abstracting Reggie Kovacs DO Work Phone: [facility] Comment on above: Polysomnogram Start: 04-18-2023 End: 04-18-2023 ambulatory DEISY ALLAN [facility] Start: 04-17-2023 End: 04-17-2023 ambulatory CONI PINA Facility:[id number] Start: 04-17-2023 End: 04-17-2023 ambulatory Coni Pina MD Work Phone: [facility] Comment on above: Class 3 severe obesi ty with body mass index (BMI) greater than or equal to 70 in adult, unspecified obesity type, unspecified whether serious comorbidity present (HCC) (Primary Dx); Gallstones and inflammation of gallbladder without obstruction; Gastroesophageal reflux disease without esophagitis Start: 04-17-2023 End: 04-17-2023 Telemedicine consultation with patient Coni Pina MD Work Phone: [facility] Start: 04-15-2023 Refill Coni Pina M D Work Phone: [facility] Comment on above: Med Change Request Start: 04-14-2023 Documentation procedure Mammog janett Coordinator [facility] Start: 04-14-2023 Letter encounter Mammography Coordinator [facility] Department Start: 04-11-2023 Refill Conikelley Pina M D Work Phone: [facility] Comment on above: Refill Request Start: 04-11-2023 End: 04-11-2023 Subsequent hospital visit by physician Screen Mammo [facility] Comment on above: Encounter for screen ing mammogram for breast cancer [Z12.31] Start: 03-26-2023 Telephone encounter Reggie lam DO Work Phone: Pulmonary Comment on above: FYI-No Action Needed Start: 03-24-2023 Telephone encounter Antonio Melgoza APRN.ADJUSTO WRITER OPERATOR Work Phone: [facility] Comment on above: Appointment Start: 03-24-2023 End: 03-24-2023 ambulatory Antonio Melgoza APRN.CNP Work Phone: [facility] Comment on above: Class 3 severe obesi ty with body mass index (BMI) greater than or equal to 70 in adult, unspecified obesity type, unspecified whether serious comorbidity present (HCC) (Primary Dx); Gastroesophageal reflux disease without esophagitis; Snoring Start: 03-24-2023 End: 03-24-2023 Telemedicine consultation with patient Antonio Kishore EKTA Work Phone: [facility] Start: 03-19-2023 End: 03-19-2023 Patient encounter procedure Reggie Kovacs DO Work Phone: Pulmonary Comment on above: Morbid obesity (HCC) (Primary Dx); History of seizure Start: 03-10-2023 ambulatory SANTOSH WOODS Facility: [facility] Start: 03-10-2023 End: 03-10-2023 Subsequent hospital visit by physician Santosh Woods MD Work Phone: [facility] Comment on above: Gastroesophageal ref lux disease without esophagitis [K21.9] Start: 03-07-2023 Refill Coni Woodard Work Phone: [facility] Comment on above: Med Change Request Start: 03-07-2023 Telephone encounter Coni saunders MD Work Phone: [facility] Comment on above: Other Start: 03-06-2023 End: 03-06-2023 ambulatory Coni Pina MD Work Phone: [facility] Comment on above: Class 3 severe obesi ty with body mass index (BMI) greater than or equal to 70 in adult, unspecified obesity type, unspecified whether serious comorbidity present (HCC) (Primary Dx); Gallstones and inflammation of gallbladder without obstruction; Seizures (HCC); Gastroesophageal reflux disease without esophagitis Start: 03-06-2023 End: 03-06-2023 Telemedicine consultation with patient Coni Pina MD Work Phone: [facility] Start: 02-27-2023 Encounter for preprocedural cardiovascular examination AYAAN CARDENAS [facility] Start: 02-27-2023 End: 02-27-2023 Patient encounter status Ayaan Cardenas MD Work Phone: [facility] [place] Start: 02-27-2023 End: 02-27-2023 Orders Only Antonio Melgoza APRN.ADJUSTO WRITER OPERATOR Work Phone: [facility] Comment on above: Pre-operative cardio vascular examination (Primary Dx); Elevated blood pressure reading without diagnosis of hypertension Class 3 severe obesi ty with body mass index (BMI) greater than or equal to 70 in adult, unspecified obesity type, unspecified whether serious comorbidity present (HCC) (Primary Dx) Start: 02-26-2023 End: 02-26-2023 Subsequent hospital visit by physician Xr [facility] Dora Stuart Work Phone: Radiology Comment on above: Class 3 severe obesi ty with body mass index (BMI) greater than or equal to 70 in adult, unspecified obesity type, unspecified whether serious comorbidity present (HCC) [E66.01, Z68.45] Start: 02-21-2023 End: 02-21-2023 ambulatory DEISY ALLAN Facility:[facility] Start: 02-21-2023 End: 02-21-2023 ambulatory Deisy Allan APRN.ADJUSTO WRITER OPERATOR Work Phone: [facility] Comment on above: Class 3 severe obesi ty with body mass index (BMI) greater than or equal to 70 in adult, unspecified obesity type, unspecified whether serious comorbidity present (HCC) (Primary Dx); Gallstones and inflammation of gallbladder without obstruction; Seizures (HCC); Gastroesophageal reflux disease without esophagitis Start: 02-21-2023 End: 02-21-2023 Telemedicine consultation with patient Deisy Allan APRN.ADJUSTO WRITER OPERATOR Work Phone: [facility] Start: 01-28-2023 Telephone encounter Deisy liu APRN.ADJUSTO WRITER OPERATOR Work Phone: [facility] Comment on above: Medical Clearance (P sychology ) Start: 01-24-2023 End: 01-24-2023 ambulatory KRISTI BENJAMIN Facility:[facility] Start: 01-24-2023 End: 01-24-2023 Patient encounter procedure Kristi Benjamin PhD Work Phone: [facility] Comment on above: Morbid obesity (HCC) [E66.01 (ICD-10-CM)] (Primary Dx); Psychological factor affecting physical condition [F54 (ICD-10-CM)] Start: 01-15-2023 End: 01-15-2023 ambulatory SANDY CARMEN Facility:[facility] Start: 01-10-2023 End: 01-10-2023 ambulatory DEISY ALLAN Facility:[facility] Start: 12-26-2022 Telephone encounter Ag Card Work Phone: [facility] Comment on above: Cardiac Clearance Start: 12-25-2022 Telephone encounter Deisy liu INSULATOR CUTTER AND FORMER.ADJUSTO WRITER OPERATOR Work Phone: [facility] Comment on above: Appointment Start: 12-20-2022 End: 12-20-2022 ambulatory KRISTI BENJAMIN Facility:[facility] Start: 12-20-2022 End: 12-20-2022 Patient encounter procedure Kristi Benjamin PhD Work Phone: [facility] Comment on above: Psychological factor affecting physical condition [F54 (ICD-10-CM)] (Primary Dx); Morbid obesity (HCC) [E66.01 (ICD-10-CM)]; Eating disorder, unspecified type [F50.9 (ICD-10-CM)] Start: 12-19-2022 End: 12-19-[address] Work Phone: [facility] Comment on above: Class 3 severe obesi ty with body mass index (BMI) greater than or equal to 70 in adult, unspecified obesity type, unspecified whether serious comorbidity present (HCC) (Primary Dx) Start: 12-19-2022 End: 12-19-2022 Telemedicine consultation with patient Sandy Carmen RD Work Phone: [facility] Start: 12-16-2022 Telephone encounter Ariella hall RD Work Phone: [facility] Comment on above: Patient Question Start: 12-13-2022 End: 12-13-2022 Patient encounter procedure Keagan Blanton MD Work Phone: [facility] Comment on above: 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); Seizure (HCC); Spells of speech arrest Start: 11-29-2022 End: 11-29-2022 Emergency department patient visit Arron Hairston Facility:[facility] Start: 11-29-2022 End: 11-29-2022 Emergency department patient visit [facility]-Emergency Department Start: 11-28-2022 Orders Only Deisy porter APRN.ADJUSTO WRITER OPERATOR Work Phone: [facility] Comment on above: Class 3 severe obesi ty with body mass index (BMI) greater than or equal to 70 in adult, unspecified obesity type, unspecified whether serious comorbidity present (HCC) (Primary Dx) Start: 11-22-2022 Orders Only Deysi Turcios MD Work Phone: [facility] Comment on above: Gallbladder flare up Start: 11-08-2022 End: 11-08-[address] Work Phone: [facility] Comment on above: Class 3 severe obesi ty with body mass index (BMI) greater than or equal to 70 in adult, unspecified obesity type, unspecified whether serious comorbidity present (HCC) (Primary Dx) Start: 11-08-2022 End: 11-08-2022 Telemedicine consultation with patient Sandy Carmen RD Work Phone: [facility] Start: 10-18-2022 End: 10-18-2022 ambulatory SANDY CARMEN Facility:[facility] Start: 10-18-2022 End: 10-18-[address] Work Phone: [facility] Comment on above: Class 3 severe obesi ty with body mass index (BMI) greater than or equal to 70 in adult, unspecified obesity type, unspecified whether serious comorbidity present (HCC) (Primary Dx) Start: 10-18-2022 End: 10-18-2022 Telemedicine consultation with patient Sandy Carmen RD Work Phone: [facility] Start: 09-27-2022 Telephone encounter Santosh leyva MD Work Phone: [facility] Comment on above: Appointment (EGD) Start: 09-20-2022 Telephone encounter Keagan Blanton MD Work Phone: Neurology Comment on above: Forms Start: 09-19-2022 Telephone encounter Deisy liu INSULATOR CUTTER AND FORMER.ADJUSTO WRITER OPERATOR Work Phone: [facility] Comment on above: Medical Clearance Start: 09-19-2022 End: 09-19-2022 ambulatory Deisy Allan INSULATOR CUTTER AND FORMER.ADJUSTO WRITER OPERATOR Work Phone: [facility] Comment on above: Class 3 severe obesi ty with body mass index (BMI) greater than or equal to 70 in adult, unspecified obesity type, unspecified whether serious comorbidity present (HCC) (Primary Dx); Snoring; Seizures (HCC) Start: 09-19-2022 End: 09-19-2022 Telemedicine consultation with patient Deisy Karie Allan APRN.ADJUSTO WRITER OPERATOR Work Phone: [facility] Start: 09-02-2022 End: 09-02-[address] Work Phone: [facility] Start: 08-28-2022 Telephone encounter Deisy liu INSULATOR CUTTER AND FORMER.ADJUSTO WRITER OPERATOR Work Phone: [facility] Comment on above: Appointment Start: 07-25-2022 End: 07-25-2022 Patient encounter procedure Santosh Woods MD Work Phone: [facility] Comment on above: Class 3 severe obesi ty with body mass index (BMI) greater than or equal to 70 in adult, unspecified obesity type, unspecified whether serious comorbidity present (HCC) (Primary Dx); Seizures (HCC); Gallstones and inflammation of gallbladder without obstruction; Gastroesophageal reflux disease without esophagitis Start: 07-19-2022 Refill Santosh Woods MD Work Phone: [facility] Comment on above: Refill Request Start: 07-08-2022 Telephone encounter Santosh leyva MD Work Phone: [facility] Comment on above: Patient Update Start: 06-27-2022 End: 06-27-2022 Patient encounter procedure Santosh Woods MD Work Phone: [facility] Comment on above: Obesity, Class III, BMI >= 40 (Primary Dx); Gallstones and inflammation of gallbladder without obstruction Start: 06-24-2022 End: 06-24-2022 Patient encounter procedure Zulema Abernathy MD Work Phone: General Surgery Comment on above: Right upper quadrant abdominal pain; Calculus of gallbladder without cholecystitis without obstruction; Morbid obesity (HCC) Start: 06-22-2022 End: 06-22-2022 Emergency department patient visit Arron Hairston Facility:[facility] Start: 06-22-2022 End: 06-22-2022 Emergency department patient visit [facility]-Emergency Department Start: 06-21-2022 Telephone encounter Kerry adam APRN.ADJUSTO WRITER OPERATOR Work Phone: [facility] [place] Comment on above: Results Start: 06-21-2022 End: 06-21-2022 Subsequent hospital visit by physician [facility] [place] [facility] Work Phone: Radiology Comment on above: Right upper quadrant abdominal pain [R10.11] Start: 05-16-2022 Refill Keagan Blanton MD Work Phone: Neurology Comment on above: Refill Request Start: 02-20-2022 ambulatory Arron Hairston MD Work Phone: Internal Medicine [facility] [place] Procedures Date Procedure Procedure Detail Performing Clinician Start: 07-24-2023 Follow-up visit Follow Up CONI PINA Start: 04-11-2023 End: 04-11-2023 Mammography Bulk Order Provider Start: 03-10-2023 Urine test visual color cmprsn arturo Mckeon INSULATOR CUTTER AND FORMER.ADJUSTO WRITER OPERATOR Work Phone: Start: 02-27-2023 Ecg routine ecg w/le ast 12 lds w/i&r Ayaan M Ronald MD Work Phone: Start: 02-26-2023 Radiologic exam ches t 2 views Deisy Allan INSULATOR CUTTER AND FORMER.ADJUSTO WRITER OPERATOR Work Phone: Start: 02-26-2023 Lipid 1996 panel - S shellie or Plasma Reggie Kovacs Work Phone: Start: 11-29-2022 US scan of gallbladder Start: 06-21-2022 Us abdominal real ti me w/image limited Kerry Mas INSULATOR CUTTER AND FORMER.ADJUSTO WRITER OPERATOR Work Phone: Start: 09-15-2019 Adult depression scr eening assessment Arron Hairston MD Work Phone: Start: 07-16-2016 Mammography Arron Galicia MD Work Phone: Plan of Treatment Date Care Activity Detail Author Start: 02-27-2028 Lipid 1996 panel - Serum or Plasma Lipid Screening [facility] Start: 02-27-2028 Lipid panel Lipid Screening [facility] Start: 02-27-2028 LIPID SCREEN LIPID SCREEN [facility] Start: 06-17-2027 LIPID SCREEN LIPID SCREEN [facility] Start: 07-08-2026 Urine microalbumin profile [facility] Start: 02-26-2026 DIABETES SCREEN DIABETES SCREEN [facility] Start: 02-26-2026 Diabetes Screening Diabetes Screening [facility] Start: 01-21-2026 Screening for malignant neoplasm of breast Mammogram Screening [facility] Start: 08-12-2025 End: 08-12-2025 Patient encounter procedure 08/12/2025 8:40 AM EST Office Visit [facility] [address] [place] [id number] Arron Hairston MD [address] [place] [id number] Annual [facility] Comment on above: Annual Start: 07-25-2025 End: 10-24-2025 CBC W Auto Differential panel - Blood COMPLETE BLOOD COUNT AND DIFFERENTIAL Lab Routine Seizures (HCC) Expected: 07/25/2025, Expires: 10/24/2025 [facility] Comment on above: Expected: 07/25/2025, Expires: Start: 07-25-2025 End: 10-24-2025 Cobalamin (Vitamin B12) [Mass/volume] in Serum or Plasma VITAMIN B12 Lab Routine Medication monitoring encounter Expected: 07/25/2025, Expires: 10/24/2025 [facility] Comment on above: Expected: 07/25/2025, Expires: Start: 07-25-2025 End: 10-24-2025 Comprehensive metabolic 2000 panel - Serum or Plasma COMPREHENSIVE METABOLIC PANEL Lab Routine Seizures (HCC) Expected: 07/25/2025, Expires: 10/24/2025 [facility] Comment on above: Expected: 07/25/2025, Expires: Start: 07-25-2025 End: 10-24-2025 Folate [Mass/volume] in Serum or Plasma FOLATE, SERUM Lab Routine Medication monitoring encounter Expected: 07/25/2025, Expires: 10/24/2025 [facility] Comment on above: Expected: 07/25/2025, Expires: Start: 07-25-2025 End: 10-24-2025 levETIRAcetam [Mass/volume] in Serum or Plasma LEVETIRACETAM Lab Routine Seizures (HCC) Expected: 07/25/2025, Expires: 10/24/2025 [facility] Comment on above: Expected: 07/25/2025, Expires: Start: 07-25-2025 End: 10-24-2025 Lipid 1996 panel - Serum or Plasma LIPID PANEL, FASTING Lab Routine Screening, lipid Expected: 07/25/2025, Expires: 10/24/2025 [facility] Work Phone: Comment on above: Expected: 07/25/2025, Expires: Start: 06-17-2025 DIABETES SCREEN DIABETES SCREEN [facility] Start: 06-14-2025 Hepatitis C screening Hepatitis C Screening [facility] Comment on above: Postponed from 1992 (Declined at t his time) Start: 06-14-2025 HIV screening HIV Screening [facility] Comment on above: Postponed from 1992 (Declined at t his time) Start: 04-25-2025 Influenza vaccination [facility] Start: 03-11-2025 End: 03-11-2025 Patient encounter procedure 03/11/2025 9:20 AM EDT Office Visit [facility] [address] [place] [address] Kerry Mas APRN.ADJUSTO WRITER OPERATOR [address] [place] [address] 1 week follow up [facility] [place] Comment on above: 1 week follow up Start: 03-04-2025 End: 10-26-2025 Cobalamin (Vitamin B12) [Mass/volume] in Serum or Plasma [facility] Comment on above: Expected: 03/04/2025, Expires: Start: 03-04-2025 End: 06-03-2025 Comprehensive metabolic 2000 panel - Serum or Plasma [facility] Work Phone: Comment on above: Expected: 03/04/2025, Expires: Start: 03-04-2025 End: 06-03-2025 Ferritin [Mass/volume] in Serum or Plasma [facility] Comment on above: Expected: 03/04/2025, Expires: Start: 03-04-2025 End: 10-26-2025 Folate [Mass/volume] in Serum or Plasma [facility] Comment on above: Expected: 03/04/2025, Expires: Start: 03-04-2025 End: 06-03-2025 Iron and Iron binding capacity panel - Serum or Plasma [facility] Comment on above: Expected: 03/04/2025, Expires: Start: 03-04-2025 End: 06-03-2025 LIPID PANEL, NONFASTING [facility] Comment on above: Expected: 03/04/2025, Expires: Start: 03-04-2025 End: 06-03-2025 Thyrotropin [Units/volume] in Serum or Plasma [facility] Comment on above: Expected: 03/04/2025, Expires: Start: 03-04-2025 End: 03-04-2025 Patient encounter procedure 03/04/2025 10:40 AM EDT Office Visit [facility] [place] [address] [place] [address] Kerry Mas APRN.ADJUSTO WRITER OPERATOR [address] [facility] [place] [address] Episodes of dizziness [facility] [place] Comment on above: Episodes of dizziness Start: 02-21-2025 End: 02-21-2025 Patient encounter procedure 02/21/2025 5:00 PM EDT Office Visit [facility] [address] [place] [address] Arron Hairston MD [address] [place] [address] Annual [facility] [place] Comment on above: Annual Start: 01-21-2025 End: 01-21-2025 Patient encounter procedure 01/21/2025 2:50 PM EDT Appointment Mammogram [address] [place] [address] Mammogram Start: 01-10-2025 End: 01-10-2025 Follow-up encounter 01/10/2025 2:00 PM EDT [facility] Neurology [address] [place] [address] Keagan Blanton MD [address] [place] [address] follow up, r/s from 12/10-left vm w/new date/time Neurology Comment on above: follow up, r/s from 12/10-left vm w/new d ate/time Start: 12-10-2024 End: 12-10-2024 Follow-up encounter 12/10/2024 12:30 PM EDT [facility] [address] [place] [address] Keagan Blanton MD [address] [place] [address] follow up [facility] Comment on above: follow up Start: 2024 Pneumococcal Vaccine: 50+ (1 of 1 - PCV) Pneumococcal Vaccine: 50+ (1 of 1 - PCV) [facility] Start: 2024 Shingrix Vaccine (1 of 2) Shingrix Vaccine (1 of 2) [facility] Start: 11-05-2024 End: 11-05-2024 Patient encounter procedure 11/05/2024 1:00 PM EDT Office Visit Family [facility] [place] [address] [place], [place] [id number] Arron Hairston MD [address] [facility] [place], [place] [phone] Annual [facility] Comment on above: Annual Start: 09-15-2024 End: 09-15-2024 Patient encounter procedure 09/15/2024 8:00 AM EST Office Visit Family [facility] [place] [address] [place], [place] [id number] Arron Hairston MD [address] [facility] [place] [address] Annual [facility] Comment on above: Annual Start: 07-19-2024 End: 07-19-2024 Patient encounter procedure 07/19/2024 6:20 PM EST Office Visit Family [facility] [place] [address] [place] [address] Arron Hairston MD [address] [facility] [place] [phone] Annual [facility] Comment on above: Annual Start: 06-14-2024 End: 09-13-2024 CBC W Auto Differential panel - Blood COMPLETE BLOOD COUNT AND DIFFERENTIAL Lab Routine Class 3 severe obesity due to excess calories without serious comorbidity with body mass index (BMI) of 60.0 to 69.9 in adult (HCC) Expected: 06/14/2024, Expires: 09/13/2024 [facility] Comment on above: Expected: 06/14/2024, Expires: Start: 06-14-2024 End: 09-13-2024 Comprehensive metabolic 2000 panel - Serum or Plasma COMPREHENSIVE METABOLIC PANEL Lab Routine Class 3 severe obesity due to excess calories without serious comorbidity with body mass index (BMI) of 60.0 to 69.9 in adult ([facility]) Expected: 06/14/2024, Expires: 09/13/2024 [facility] Comment on above: Expected: 06/14/2024, Expires: Start: 06-14-2024 End: 09-13-2024 Hemoglobin A1c in Blood HEMOGLOBIN A1C Lab Routine Class 3 severe obesity due to excess calories without serious comorbidity with body mass index (BMI) of 60.0 to 69.9 in adult ([facility]) Expected: 06/14/2024, Expires: 09/13/2024 [facility] Comment on above: Expected: 06/14/2024, Expires: Start: 06-14-2024 End: 09-13-2024 Lipid 1996 panel - Serum or Plasma LIPID PANEL BASIC Lab Routine Low HDL (under 40) Expected: 06/14/2024, Expires: 09/13/2024 [facility] Work Phone: Comment on above: Expected: 06/14/2024, Expires: Start: 06-14-2024 End: 09-13-2024 Magnesium [Mass/volume] in Serum or Plasma MAGNESIUM Lab Routine Gastroesophageal reflux disease without esophagitis Expected: 06/14/2024, Expires: 09/13/2024 [facility] Comment on above: Expected: 06/14/2024, Expires: Start: 04-25-2024 Covid-19 Vaccine () Covid-19 Vaccine () [facility] Start: 04-25-2024 [facility] Start: 04-11-2024 Mammography [facility] Start: 04-11-2024 Screening for malignant neoplasm of breast Mammogram Screening [facility] Start: 12-14-2023 End: 12-14-2023 EPIL EEG ROUTINE EPIL EEG ROUTINE NEUROLOGY Routine Seizure (HCC) Expected: 12/14/2023, Expires: 12/14/2023 [facility] Work Phone: Comment on above: Expected: 12/14/2023, Expires: 4 Start: 08-25-2023 Behavioral Health Screening Behavioral Health Screening [facility] Start: 08-25-2023 Depression Assessment Depression Assessment [facility] Start: 06-13-2023 End: 09-12-2023 25-hydroxyvitamin D3 [Mass/volume] in Serum or Plasma VITAMIN D 25 HYDROXY Lab Routine Vitamin D deficiency Expected: 06/13/2023, Expires: 09/12/2023 [facility] Work Phone: Comment on above: Expected: 06/13/2023, Expires: Start: 04-25-2023 Covid-19 Vaccine () Covid-19 Vaccine () [facility] Start: 04-25-2023 Influenza vaccination [facility] Start: 03-30-2023 End: 05-30-2023 25-hydroxyvitamin D3 [Mass/volume] in Serum or Plasma VITAMIN D 25 HYDROXY Lab Routine Class 3 severe obesity with body mass index (BMI) greater than or equal to 70 in adult, unspecified obesity type, unspecified whether serious comorbidity present (HCC) Expected: 03/30/2023, Expires: 05/30/2023 [facility] Work Phone: Comment on above: Expected: 03/30/2023, Expires: Start: 03-30-2023 End: 05-30-2023 Zinc [Mass/volume] in Serum or Plasma ZINC BLD Lab Routine Class 3 severe obesity with body mass index (BMI) greater than or equal to 70 in adult, unspecified obesity type, unspecified whether serious comorbidity present (HCC) Expected: 03/30/2023, Expires: 05/30/2023 [facility] Work Phone: Comment on above: Expected: 03/30/2023, Expires: Start: 02-21-2023 End: 04-23-2023 25-hydroxyvitamin D3 [Mass/volume] in Serum or Plasma VITAMIN D 25 HYDROXY Lab Routine Class 3 severe obesity with body mass index (BMI) greater than or equal to 70 in adult, unspecified obesity type, unspecified whether serious comorbidity present (HCC) Expected: 02/21/2023, Expires: 04/23/2023 [facility] Work Phone: Comment on above: Expected: 02/21/2023, Expires: Start: 02-21-2023 End: 04-23-2023 CBC panel - Blood by Automated count CBC Lab Routine Class 3 severe obesity with body mass index (BMI) greater than or equal to 70 in adult, unspecified obesity type, unspecified whether serious comorbidity present (HCC) Expected: 02/21/2023, Expires: 04/23/2023 [facility] Work Phone: Comment on above: Expected: 02/21/2023, Expires: Start: 02-21-2023 End: 04-23-2023 Cobalamin (Vitamin B12) [Mass/volume] in Serum or Plasma VITAMIN B12 BLOOD Lab Routine Class 3 severe obesity with body mass index (BMI) greater than or equal to 70 in adult, unspecified obesity type, unspecified whether serious comorbidity present (HCC) Expected: 02/21/2023, Expires: 04/23/2023 [facility] Work Phone: Comment on above: Expected: 02/21/2023, Expires: Start: 02-21-2023 End: 04-23-2023 Comprehensive metabolic 2000 panel - Serum or Plasma COMP METABOLIC PANEL Lab Routine Class 3 severe obesity with body mass index (BMI) greater than or equal to 70 in adult, unspecified obesity type, unspecified whether serious comorbidity present (HCC) Expected: 02/21/2023, Expires: 04/23/2023 [facility] Work Phone: Comment on above: Expected: 02/21/2023, Expires: Start: 02-21-2023 End: 04-23-2023 Ferritin [Mass/volume] in Serum or Plasma FERRITIN BLD Lab Routine Class 3 severe obesity with body mass index (BMI) greater than or equal to 70 in adult, unspecified obesity type, unspecified whether serious comorbidity present (HCC) Expected: 02/21/2023, Expires: 04/23/2023 [facility] Work Phone: Comment on above: Expected: 02/21/2023, Expires: Start: 02-21-2023 End: 04-23-2023 Folate [Mass/volume] in Serum or Plasma FOLATE SERUM Lab Routine Class 3 severe obesity with body mass index (BMI) greater than or equal to 70 in adult, unspecified obesity type, unspecified whether serious comorbidity present (HCC) Expected: 02/21/2023, Expires: 04/23/2023 [facility] Work Phone: Comment on above: Expected: 02/21/2023, Expires: Start: 02-21-2023 End: 04-23-2023 Hemoglobin A1c in Blood HGB A1C Lab Routine Class 3 severe obesity with body mass index (BMI) greater than or equal to 70 in adult, unspecified obesity type, unspecified whether serious comorbidity present (HCC) Expected: 02/21/2023, Expires: 04/23/2023 [facility] Work Phone: Comment on above: Expected: 02/21/2023, Expires: Start: 02-21-2023 End: 04-23-2023 Iron and Iron binding capacity panel - Serum or Plasma IRON + TIBC Lab Routine Class 3 severe obesity with body mass index (BMI) greater than or equal to 70 in adult, unspecified obesity type, unspecified whether serious comorbidity present (HCC) Expected: 02/21/2023, Expires: 04/23/2023 [facility] Work Phone: Comment on above: Expected: 02/21/2023, Expires: Start: 02-21-2023 End: 04-23-2023 Lipid 1996 panel - Serum or Plasma LIPID PANEL BASIC Lab Routine Class 3 severe obesity with body mass index (BMI) greater than or equal to 70 in adult, unspecified obesity type, unspecified whether serious comorbidity present (HCC) Expected: 02/21/2023, Expires: 04/23/2023 [facility] Work Phone: Comment on above: Expected: 02/21/2023, Expires: Start: 02-21-2023 End: 04-23-2023 NICOTINE & METAB, UR NICOTINE & METAB, UR Lab Routine Class 3 severe obesity with body mass index (BMI) greater than or equal to 70 in adult, unspecified obesity type, unspecified whether serious comorbidity present (HCC) Expected: 02/21/2023, Expires: 04/23/2023 [facility] Work Phone: Comment on above: Expected: 02/21/2023, Expires: 3 Start: 02-21-2023 End: 04-23-2023 Parathyrin.intact [Mass/volume] in Serum or Plasma PTH INTACT BLD Lab Routine Class 3 severe obesity with body mass index (BMI) greater than or equal to 70 in adult, unspecified obesity type, unspecified whether serious comorbidity present (HCC) Expected: 02/21/2023, Expires: 04/23/2023 [facility] Work Phone: Comment on above: Expected: 02/21/2023, Expires: Start: 02-21-2023 End: 04-23-2023 Retinol [Mass/volume] in Serum or Plasma VITAMIN A/RETINOL Lab Routine Class 3 severe obesity with body mass index (BMI) greater than or equal to 70 in adult, unspecified obesity type, unspecified whether serious comorbidity present (HCC) Expected: 02/21/2023, Expires: 04/23/2023 [facility] Work Phone: Comment on above: Expected: 02/21/2023, Expires: 3 Start: 02-21-2023 End: 04-23-2023 Thyrotropin [Units/volume] in Serum or Plasma TSH BLD Lab Routine Class 3 severe obesity with body mass index (BMI) greater than or equal to 70 in adult, unspecified obesity type, unspecified whether serious comorbidity present (HCC) Expected: 02/21/2023, Expires: 04/23/2023 [facility] Work Phone: Comment on above: Expected: 02/21/2023, Expires: 3 Start: 02-21-2023 End: 04-23-2023 TOX SCREEN ROUT UR TOX SCREEN ROUT UR Lab Routine Class 3 severe obesity with body mass index (BMI) greater than or equal to 70 in adult, unspecified obesity type, unspecified whether serious comorbidity present (HCC) Expected: 02/21/2023, Expires: 04/23/2023 [facility] Work Phone: Comment on above: Expected: 02/21/2023, Expires: Start: 02-21-2023 End: 04-23-2023 VITAMIN B1 (THIAMINE), WHOLE BLOOD VITAMIN B1 (THIAMINE), WHOLE BLOOD Lab Routine Class 3 severe obesity with body mass index (BMI) greater than or equal to 70 in adult, unspecified obesity type, unspecified whether serious comorbidity present (HCC) Expected: 02/21/2023, Expires: 04/23/2023 [facility] Work Phone: Comment on above: Expected: 02/21/2023, Expires: Start: 02-21-2023 End: 04-23-2023 Zinc [Mass/volume] in Serum or Plasma ZINC BLD Lab Routine Class 3 severe obesity with body mass index (BMI) greater than or equal to 70 in adult, unspecified obesity type, unspecified whether serious comorbidity present (HCC) Expected: 02/21/2023, Expires: 04/23/2023 [facility] Work Phone: Comment on above: Expected: 02/21/2023, Expires: Start: 11-28-2022 End: 01-28-2023 25-hydroxyvitamin D3 [Mass/volume] in Serum or Plasma VITAMIN D 25 HYDROXY Lab Routine Class 3 severe obesity with body mass index (BMI) greater than or equal to 70 in adult, unspecified obesity type, unspecified whether serious comorbidity present (HCC) Expected: 11/28/2022, Expires: 01/28/2023 [facility] Work Phone: Comment on above: Expected: 11/28/2022, Expires: 3 Start: 11-28-2022 End: 01-28-2023 CBC panel - Blood by Automated count CBC Lab Routine Class 3 severe obesity with body mass index (BMI) greater than or equal to 70 in adult, unspecified obesity type, unspecified whether serious comorbidity present (HCC) Expected: 11/28/2022, Expires: 01/28/2023 [facility] Work Phone: Comment on above: Expected: 11/28/2022, Expires: Start: 11-28-2022 End: 01-28-2023 Cobalamin (Vitamin B12) [Mass/volume] in Serum or Plasma VITAMIN B12 BLOOD Lab Routine Class 3 severe obesity with body mass index (BMI) greater than or equal to 70 in adult, unspecified obesity type, unspecified whether serious comorbidity present (HCC) Expected: 11/28/2022, Expires: 01/28/2023 [facility] Work Phone: Comment on above: Expected: 11/28/2022, Expires: Start: 11-28-2022 End: 01-28-2023 Comprehensive metabolic 2000 panel - Serum or Plasma COMP METABOLIC PANEL Lab Routine Class 3 severe obesity with body mass index (BMI) greater than or equal to 70 in adult, unspecified obesity type, unspecified whether serious comorbidity present (HCC) Expected: 11/28/2022, Expires: 01/28/2023 [facility] Work Phone: Comment on above: Expected: 11/28/2022, Expires: Start: 11-28-2022 End: 01-28-2023 Ferritin [Mass/volume] in Serum or Plasma FERRITIN BLD Lab Routine Class 3 severe obesity with body mass index (BMI) greater than or equal to 70 in adult, unspecified obesity type, unspecified whether serious comorbidity present (HCC) Expected: 11/28/2022, Expires: 01/28/2023 [facility] Work Phone: Comment on above: Expected: 11/28/2022, Expires: 3 Start: 11-28-2022 End: 01-28-2023 Folate [Mass/volume] in Serum or Plasma FOLATE SERUM Lab Routine Class 3 severe obesity with body mass index (BMI) greater than or equal to 70 in adult, unspecified obesity type, unspecified whether serious comorbidity present (HCC) Expected: 11/28/2022, Expires: 01/28/2023 [facility] Work Phone: Comment on above: Expected: 11/28/2022, Expires: Start: 11-28-2022 End: 01-28-2023 Hemoglobin A1c in Blood HGB A1C Lab Routine Class 3 severe obesity with body mass index (BMI) greater than or equal to 70 in adult, unspecified obesity type, unspecified whether serious comorbidity present (HCC) Expected: 11/28/2022, Expires: 01/28/2023 [facility] Work Phone: Comment on above: Expected: 11/28/2022, Expires: Start: 11-28-2022 End: 01-28-2023 Iron and Iron binding capacity panel - Serum or Plasma IRON + TIBC Lab Routine Class 3 severe obesity with body mass index (BMI) greater than or equal to 70 in adult, unspecified obesity type, unspecified whether serious comorbidity present (HCC) Expected: 11/28/2022, Expires: 01/28/2023 [facility] Work Phone: Comment on above: Expected: 11/28/2022, Expires: Start: 11-28-2022 End: 01-28-2023 Lipid 1996 panel - Serum or Plasma LIPID PANEL BASIC Lab Routine Class 3 severe obesity with body mass index (BMI) greater than or equal to 70 in adult, unspecified obesity type, unspecified whether serious comorbidity present (HCC) Expected: 11/28/2022, Expires: 01/28/2023 [facility] Work Phone: Comment on above: Expected: 11/28/2022, Expires: Start: 11-28-2022 End: 01-28-2023 NICOTINE & METAB, UR NICOTINE & METAB, UR Lab Routine Class 3 severe obesity with body mass index (BMI) greater than or equal to 70 in adult, unspecified obesity type, unspecified whether serious comorbidity present (HCC) Expected: 11/28/2022, Expires: 01/28/2023 [facility] Work Phone: Comment on above: Expected: 11/28/2022, Expires: 3 Start: 11-28-2022 End: 01-28-2023 Parathyrin.intact [Mass/volume] in Serum or Plasma PTH INTACT BLD Lab Routine Class 3 severe obesity with body mass index (BMI) greater than or equal to 70 in adult, unspecified obesity type, unspecified whether serious comorbidity present (HCC) Expected: 11/28/2022, Expires: 01/28/2023 [facility] Work Phone: Comment on above: Expected: 11/28/2022, Expires: 3 Start: 11-28-2022 End: 01-28-2023 Thyrotropin [Units/volume] in Serum or Plasma TSH BLD Lab Routine Class 3 severe obesity with body mass index (BMI) greater than or equal to 70 in adult, unspecified obesity type, unspecified whether serious comorbidity present (HCC) Expected: 11/28/2022, Expires: 01/28/2023 [facility] Work Phone: Comment on above: Expected: 11/28/2022, Expires: 3 Start: 11-28-2022 End: 01-28-2023 TOX SCREEN ROUT UR TOX SCREEN ROUT UR Lab Routine Class 3 severe obesity with body mass index (BMI) greater than or equal to 70 in adult, unspecified obesity type, unspecified whether serious comorbidity present (HCC) Expected: 11/28/2022, Expires: 01/28/2023 [facility] Work Phone: Comment on above: Expected: 11/28/2022, Expires: 3 Start: 11-28-2022 End: 01-28-2023 VITAMIN B1 (THIAMINE), WHOLE BLOOD VITAMIN B1 (THIAMINE), WHOLE BLOOD Lab Routine Class 3 severe obesity with body mass index (BMI) greater than or equal to 70 in adult, unspecified obesity type, unspecified whether serious comorbidity present (HCC) Expected: 11/28/2022, Expires: 01/28/2023 [facility] Work Phone: Comment on above: Expected: 11/28/2022, Expires: 3 Start: 08-25-2022 DEPRESSION ASSESSMENT DEPRESSION ASSESSMENT [facility] Start: 07-24-2022 End: 09-23-2022 25-hydroxyvitamin D3 [Mass/volume] in Serum or Plasma VITAMIN D 25 HYDROXY Lab Routine Class 3 severe obesity with body mass index (BMI) greater than or equal to 70 in adult, unspecified obesity type, unspecified whether serious comorbidity present (HCC) Expected: 07/24/2022, Expires: 09/23/2022 [facility] Work Phone: Comment on above: Expected: 07/24/2022, Expires: 3 Start: 07-24-2022 End: 09-23-2022 CBC panel - Blood by Automated count CBC Lab Routine Class 3 severe obesity with body mass index (BMI) greater than or equal to 70 in adult, unspecified obesity type, unspecified whether serious comorbidity present (HCC) Expected: 07/24/2022, Expires: 09/23/2022 [facility] Work Phone: Comment on above: Expected: 07/24/2022, Expires: 3 Start: 07-24-2022 End: 09-23-2022 Cobalamin (Vitamin B12) [Mass/volume] in Serum or Plasma VITAMIN B12 BLOOD Lab Routine Class 3 severe obesity with body mass index (BMI) greater than or equal to 70 in adult, unspecified obesity type, unspecified whether serious comorbidity present (HCC) Expected: 07/24/2022, Expires: 09/23/2022 [facility] Work Phone: Comment on above: Expected: 07/24/2022, Expires: 3 Start: 07-24-2022 End: 09-23-2022 Comprehensive metabolic 2000 panel - Serum or Plasma COMP METABOLIC PANEL Lab Routine Class 3 severe obesity with body mass index (BMI) greater than or equal to 70 in adult, unspecified obesity type, unspecified whether serious comorbidity present (HCC) Expected: 07/24/2022, Expires: 09/23/2022 [facility] Work Phone: Comment on above: Expected: 07/24/2022, Expires: 3 Start: 07-24-2022 End: 09-23-2022 Ferritin [Mass/volume] in Serum or Plasma FERRITIN BLD Lab Routine Class 3 severe obesity with body mass index (BMI) greater than or equal to 70 in adult, unspecified obesity type, unspecified whether serious comorbidity present (HCC) Expected: 07/24/2022, Expires: 09/23/2022 [facility] Work Phone: Comment on above: Expected: 07/24/2022, Expires: 3 Start: 07-24-2022 End: 09-23-2022 Folate [Mass/volume] in Serum or Plasma FOLATE SERUM Lab Routine Class 3 severe obesity with body mass index (BMI) greater than or equal to 70 in adult, unspecified obesity type, unspecified whether serious comorbidity present (HCC) Expected: 07/24/2022, Expires: 09/23/2022 [facility] Work Phone: Comment on above: Expected: 07/24/2022, Expires: 3 Start: 07-24-2022 End: 09-23-2022 Hemoglobin A1c in Blood HGB A1C Lab Routine Class 3 severe obesity with body mass index (BMI) greater than or equal to 70 in adult, unspecified obesity type, unspecified whether serious comorbidity present (HCC) Expected: 07/24/2022, Expires: 09/23/2022 [facility] Work Phone: Comment on above: Expected: 07/24/2022, Expires: 3 Start: 07-24-2022 End: 09-23-2022 Iron and Iron binding capacity panel - Serum or Plasma IRON + TIBC Lab Routine Class 3 severe obesity with body mass index (BMI) greater than or equal to 70 in adult, unspecified obesity type, unspecified whether serious comorbidity present (HCC) Expected: 07/24/2022, Expires: 09/23/2022 [facility] Work Phone: Comment on above: Expected: 07/24/2022, Expires: 3 Start: 07-24-2022 End: 09-23-2022 Lipid 1996 panel - Serum or Plasma LIPID PANEL BASIC Lab Routine Class 3 severe obesity with body mass index (BMI) greater than or equal to 70 in adult, unspecified obesity type, unspecified whether serious comorbidity present (HCC) Expected: 07/24/2022, Expires: 09/23/2022 [facility] Work Phone: Comment on above: Expected: 07/24/2022, Expires: 3 Start: 07-24-2022 End: 09-23-2022 NICOTINE & METAB, UR NICOTINE & METAB, UR Lab Routine Class 3 severe obesity with body mass index (BMI) greater than or equal to 70 in adult, unspecified obesity type, unspecified whether serious comorbidity present (HCC) Expected: 07/24/2022, Expires: 09/23/2022 [facility] Work Phone: Comment on above: Expected: 07/24/2022, Expires: 3 Start: 07-24-2022 End: 09-23-2022 Parathyrin.intact [Mass/volume] in Serum or Plasma PTH INTACT BLD Lab Routine Class 3 severe obesity with body mass index (BMI) greater than or equal to 70 in adult, unspecified obesity type, unspecified whether serious comorbidity present (HCC) Expected: 07/24/2022, Expires: 09/23/2022 [facility] Work Phone: Comment on above: Expected: 07/24/2022, Expires: 3 Start: 07-24-2022 End: 09-23-2022 Thyrotropin [Units/volume] in Serum or Plasma TSH BLD Lab Routine Class 3 severe obesity with body mass index (BMI) greater than or equal to 70 in adult, unspecified obesity type, unspecified whether serious comorbidity present (HCC) Expected: 07/24/2022, Expires: 09/23/2022 [facility] Work Phone: Comment on above: Expected: 07/24/2022, Expires: 3 Start: 07-24-2022 End: 09-23-2022 TOX SCREEN ROUT UR TOX SCREEN ROUT UR Lab Routine Class 3 severe obesity with body mass index (BMI) greater than or equal to 70 in adult, unspecified obesity type, unspecified whether serious comorbidity present (HCC) Expected: 07/24/2022, Expires: 09/23/2022 [facility] Work Phone: Comment on above: Expected: 07/24/2022, Expires: 3 Start: 07-24-2022 End: 09-23-2022 VITAMIN B1 (THIAMINE), WHOLE BLOOD VITAMIN B1 (THIAMINE), WHOLE BLOOD Lab Routine Class 3 severe obesity with body mass index (BMI) greater than or equal to 70 in adult, unspecified obesity type, unspecified whether serious comorbidity present (HCC) Expected: 07/24/2022, Expires: 09/23/2022 [facility] Work Phone: Comment on above: Expected: 07/24/2022, Expires: 3 Start: 04-25-2022 Influenza vaccination [facility] Start: 08-25-2021 DEPRESSION ASSESSMENT DEPRESSION ASSESSMENT [facility] Start: 07-05-2021 LIPID SCREEN LIPID SCREEN [facility] Start: 09-15-2020 Adult depression screening assessment DEPRESSION SCREENING [facility] Start: 05-25-2020 HPV TESTING HPV TESTING [facility] Start: 05-25-2020 PAP TESTING PAP TESTING [facility] Start: 05-25-2020 Screening for malignant neoplasm of cervix [facility] Start: 11-10-2019 COLOGUARD (FIT-DNA) COLOGUARD (FIT-DNA) [facility] Start: 11-10-2019 Colonoscopy COLONOSCOPY [facility] Start: 11-10-2019 COLORECTAL CANCER SCREENING COLORECTAL CANCER SCREENING [facility] Start: 11-10-[address] COLONOGRAPHY [facility] Start: 11-10-2019 DIABETES SCREEN DIABETES SCREEN [facility] Start: 11-10-2019 FECAL OCCULT BLOOD FECAL OCCULT BLOOD [facility] Start: 11-10-2019 Screening for malignant neoplasm of colon [facility] Start: 11-10-2019 SIGMOIDOSCOPY SIGMOIDOSCOPY [facility] Start: 07-16-2017 Mammography MAMMOGRAM [facility] Start: 1993 Hepatitis B Vaccine (1 of 3 - 19+ 3-dose series) Hepatitis B Vaccine (1 of 3 - 19+ 3-dose series) [facility] Start: 1992 Anxiety Screening Anxiety Screening [facility] Start: 1992 Depression Screening Depression Screening [facility] Start: 1992 HEPATITIS C SCREENING HEPATITIS C SCREENING [facility] Start: 1992 Hepatitis C screening Hepatitis C Screening [facility] Start: 1992 HIV SCREENING HIV SCREENING [facility] Start: 1992 HIV screening HIV Screening [facility] Start: 11-10-1979 COVID-19 VACCINE (#1) COVID-19 VACCINE (#1) [facility] Start: 05-12-1975 COVID-19 VACCINE (#1) COVID-19 VACCINE (#1) [facility] Start: 1974 HEPATITIS B (1 of 3 - 3-dose series) HEPATITIS B (1 of 3 - 3-dose series) [facility] Start: 1974 Hepatitis B Vaccine (1 of 3 - 3-dose series) Hepatitis B Vaccine (1 of 3 - 3-dose series) [facility] End: 06-18-2025 DBT Breast - bilateral screening AP SCREENING W [facility] Radiology Routine Encounter for screening mammogram for breast cancer 1 Occurrences starting 05/19/2024 until 06/18/2025 [facility] Work Phone: Comment on above: 1 Occurrences starting 05/19/2024 until 06/18/2025 End: 01-10-2026 EPIL EEG LONG EPIL EEG LONG NEUROLOGY Routine Seizure (HCC) 1 Occurrences starting 01/10/2025 until 01/10/2026 [facility] Work Phone: Comment on above: 1 Occurrences starting 01/10/2025 until 01/10/2026 End: 01-21-2025 MG Breast Screening [facility] Work Phone: Comment on above: ONCE for 1 Occurrences starting 01/22/20 until 01/21/2025 End: 07-17-2024 PAP TITRATION PSG (CPAP, BIPAP, ASV) PAP TITRATION PSG (CPAP, BIPAP, ASV) Procedures Routine LIDYA (obstructive sleep apnea) Morbid obesity (HCC) 1 Occurrences starting 06/18/2023 until 07/17/2024 [facility] Work Phone: Comment on above: 1 Occurrences starting 06/18/2023 until 07/17/[address] [facility] Work Phone: Patient referral [facility] Work Phone: End: 03-18-2024 Polysomnogram POLYSOMNOGRAM (PSG) Procedures Routine Morbid obesity (HCC) History of seizure 1 Occurrences starting 03/19/2023 until 03/18/2024 [facility] Work Phone: Comment on above: 1 Occurrences starting 03/19/2023 until 03/18/2024 End: 08-23-2023 Radiologic exam chest 2 views XR CHEST 2V FRONTAL/LAT Radiology Routine Class 3 severe obesity with body mass index (BMI) greater than or equal to 70 in adult, unspecified obesity type, unspecified whether serious comorbidity present (HCC) 1 Occurrences starting 07/24/2022 until 08/23/2023 [facility] Work Phone: Comment on above: 1 Occurrences starting 07/24/2022 until 08/23/2023 End: 03-22-2023 Screening mammography bi 2-view breast inc cad AP SCREENING Radiology Routine Encounter for screening mammogram for breast cancer 1 Occurrences starting 02/20/2022 until 03/22/2023 [facility] Work Phone: Comment on above: 1 Occurrences starting 02/20/2022 until 03/22/2023 SURGICAL PATHOLOGY SURGICAL PATH OLOGY Lab Routine Gastroesophageal reflux disease without esophagitis Release Upon Ordering for 1 Occurrences starting 03/10/2023 [facility] Work Phone: Comment on above: Release Upon Ordering for 1 Occurrences starting 03/10/2023 [facility] Immunizations Immunization Date Immunization Notes Care Provider Hermelindo ambrocio 06-28-2021 influenza, seasonal, injectable, preservative free Kristi Benjamin PhD Work Phone: [facility] 06-28-2021 influenza virus vacc ine, unspecified formulation Reggie Kovacs DO Work Phone: [facility] 06-29-2020 influenza, injectabl e, quadrivalent, preservative free Sandy Carmen RD Work Phone: [facility] 08-28-2019 Influenza, injectabl e, Madin Milagros Canine Kidney, quadrivalent with preservative Sandy Carmen RD Work Phone: [facility] 07-08-2016 influenza, injectabl e, quadrivalent, contains preservative Arron Hairston MD Work Phone: [facility] 07-08-2016 tetanus toxoid, redu bess diphtheria toxoid, and acellular pertussis vaccine, adsorbed Arron Hairston MD Work Phone: [facility] 06-16-2009 influenza virus vacc ine, whole virus Sandy Carmen RD Work Phone: [facility] Payers Date Payer Category Payer Private Health Insurance [id number] 2022 Self-pay [id number] 2018 Private Health Insurance [employer]ET[employer] A ETNA CHOICE POS II [id number] 2018-Present [phone] [address] [place] [address] POS [id number] 2018 Private Health Insurance [id number] 2018 Private Health Insurance [id number] Unknown MED [facility]/ BENEFIT SERV [id number] Unknown [id number] Unknown [id number] Social History Date Type Detail Facility Start: 12-10-2013 Tobacco smoking stat us NHIS Never smoked tobacco [facility] Start: 10-21-2019 End: 03-04-2025 Alcohol intake Current non-drinker of alcohol (finding) [facility] Start: 10-21-2019 History SDOH Alcohol Frequency 1 [facility] Start: 10-21-2019 History SDOH Alcohol Std Drinks 98 [facility] Start: 10-21-2019 History SDOH Social Connections Phone 5 [facility] Start: 10-21-2019 History SDOH Social Connections Adventism 3 [facility] Start: 10-21-2019 History SDOH Physica l Activity DPW 2 [facility] Start: 10-21-2019 History SDOH Financial 4 [facility] Start: 10-20-2019 Education 12 [facility] Start: 1975 Sex Assigned At Not on file [facility] Start: 12-10-2013 Tobacco use and exposure Smoke less tobacco non-user [facility] Work Phone: Start: 06-22-2022 End: 11-29-2022 Tobacco smoking status NHIS Unknown if ever smoked [facility] Start: 06-14-[address] [facility] Start: 06-14-[address] [facility] Start: 1975 Sex Assigned At Female W [facility] Start: 06-14-2022 End: 12-13-2022 Exposure to SARS-CoV-2 (event) Not sure [facility] Start: 10-20-2019 End: 01-10-2023 History of Social function [facility] Start: 10-20-2019 End: 01-10-2023 Social connection and isolation panel [facility] Do you belong to any clubs or organizations such as advent groups, unions, fraternal or athletic groups, or school groups? Yes [facility] Are you now , , , , never or living with a partner? [facility] How often to you hav e a drink containing alcohol? Never [facility] How many standard dr inks containing alcohol do you have on a typical day? Patient refused [facility] How hard is it for y ou to pay for the very basics like food, housing, medical care, and heating Not very hard [facility] Do you feel stress - tense, restless, nervous, or anxious, or unable to sleep at night because your mind is troubled all the time - these days [OSQ] Only a little [facility] (I/We) worried viktor er (my/our) food would run out before (I/we) got money to buy more. Never true [facility] Has the [employer], or [employer] threatened to shut off services in your home in past 12Mo No [facility] Are you now , , , , never or living with a partner? Living with partner [facility] Do you feel stress - tense, restless, nervous, or anxious, or unable to sleep at night because your mind is troubled all the time - these days [OSQ] Not at all [facility] NEGATED: Highlighted row [facility] Goals Date Patient Goal Desired Activity /State Personal health goal Personal health goal Personal health goal Functional Status Date Assessment Result Facility 10-06-2014 Are you deaf, or do you have serious difficulty hearing No 10/06/2014 10:09 AM Cher Ling, ADE No [facility] 10-06-2014 Are you blind, or do you have serious difficulty seeing, even when wearing glasses No 10/06/2014 10:09 AM Cher Ling, ADE No [facility] 10-06-2014 Do you have serious difficulty walking or climbing stairs No 10/06/2014 10:09 AM Cher Ling, ADE No [facility] 10-06-2014 Do you have difficul ty dressing or bathing No 10/06/2014 10:09 AM Cher Ling, ADE No [facility] 10-06-2014 Because of a physica l, mental, or emotional condition, do you have difficulty doing errands alone such as visiting a physician's office or shopping No 10/06/2014 10:09 AM Cher Ling RN No [facility] Mental Status Date Assessment Result Facility 10-06-2014 Because of a physica l, mental, or emotional condition, do you have serious difficulty concentrating, remembering, or making decisions No 10/06/2014 10:09 AM Cher Ling RN No [facility] Clinical Notes 04-27-2009 to 03-04-2025 Patient InstructionsKerry aMs APRN.CNP - 03/04/2025 11:06 AM EDTTelephone Encounter - Arron Hairston MD - 03/02/2025 4:58 PM EDTTelephone Encounter - Magalie Vann - 03/02/2025 1:23 PM EDT Note Date & Type Note Facility 03-04-2025 Instructions Kerry Mas APRN.CNP - 03/04/2025 11:57 AM EDT Follow up in a week Monitor BP at home and bring it with you Labs documented in this encounter [facility] 03-04-2025 History of Present illness Narrative This is a 49 year old female who presents today with: Patient presents with: Acute Visit: Intermittent episodes of dizziness; night sweats, periods of elevated blood pressure, itchy skin HISTORY OF PRESENT ILLNESS: Deisy Almodovar is a 49 year old female with the past medical history of seizures, heart burn, and obesity presents with Acute Visit: Intermittent episodes of dizziness; night sweats, periods of elevated blood pressure, itchy skin Lightheadedness, hot flashes, and anxiety. Pt suspects she is probably going thorough post menopause. Once a while pt describes dizziness as light headedness, it comes suddenly and it fades away, last for few seconds. Does not cause any other symptoms. Denies sob, palpitation, chest pain, cold sweats, and sick to stomach. HTN -Pt's BP is elevated at this visit -Pt states she checked at home last night and was normal 126/76, and this morning it was 140/84. -Began checking BP after she started experiencing all these symptoms -Diet is not well controlled, does not follow heart healthy or sodium restrictions diet -walks for 3 days a week, 25 minutes Post menopause Likely - Lightheadedness, hot flashes, anxiety, itchy, and sweating at night -Previously pt have used a patch for motion sickness and that helped, could get it from the OTC PAST MEDICAL HISTORY: PAST MEDICAL HISTORY Diagnosis Date Class 3 severe obesity with body mass index (BMI) greater than or equal to 70 in adult, unspecified obesity type, unspecified whether serious comorbidity present (HCC) Gall stones Heart burn Heel spur 2008, 2012 Morbid obesity (HCC) Seizures (HCC) 06/17/2022 PAST SURGICAL HISTORY Procedure Laterality Date NONE ALLERGIES Patient has no known allergies. MEDICATIONS Current Outpatient Medications Medication Sig levETIRAcetam (KEPPRA) 500 mg tablet TAKE 1 TABLET BY MOUTH EVERY 12 HOURS levonorgestrel (MIRENA) 20 mcg/24 hours (8 yrs) 52 mg IUD 1 Each by INTRAUTERINE route. lansoprazole (PREVACID) 15 mg capsule Take 1 capsule by mouth once daily. (Patient taking differently: Take 15 mg by mouth as needed.) FA/MV,CA,IRON,MIN/LYCOPENE/LUT (MULTIVITAL ORAL) Take by mouth once daily. No current facility-administered medications for this visit. FAMILY HISTORY Problem Relation Age of Onset other (Hep C) Mother other (HTN) Father other (HTN) Brother Cancer Maternal Grandmother breast ca Hypertension Maternal Grandmother No Known Problems Maternal Grandfather No Known Problems Paternal Grandmother No Known Problems Paternal Grandfather Social History Tobacco Use Smoking status: Never Smokeless tobacco: Never Vaping Use Vaping status: Never Used Substance Use Topics Alcohol use: No Drug use: No REVIEW OF SYSTEMS PAIN ASSESSMENT: Negative for pain, history of chronic pain, or current treatment for a chronic pain condition. GENERAL: No weight loss, malaise or fevers RESPIRATORY: Negative for cough, hemoptysis, wheezing, COPD, dyspnea or shortness of breath CARDIOVASCULAR: Negative for chest pain, leg swelling, hypertension, CHF or palpitations GI: No nausea, vomiting, or diarrhea PSYCH: Negative for sleep disturbance, mood disorder and recent psychosocial stressors All other reviewed and negative other than HPI. EXAM: BP 143/87 Pulse 78 Resp 16 LMP 01/05/2015 SpO2 99% PHYSICAL EXAM: General Appearance: Well appearing, alert, in no acute distress, well-hydrated, well nourished.. Skin: Skin color, texture, turgor normal, no suspicious rashes or lesions. Lungs: Lungs clear to auscultation. No wheezing, rhonchi, rales.. Heart: RRR without murmur, gallop, or rubs. No ectopy. Abdomen: Normal abdominal exam, Abdomen soft, non-tender. Bowel sounds normal. No masses, organomegaly. Neurologic: Gait normal. Sensation grossly intact. ASSESSMENT/PLAN: 1. Elevated blood pressure reading without diagnosis of hypertension - ICD9: 796.2, ICD10: R03.0 (primary diagnosis) - Encouraged dietary sodium restriction/DASH diet - Recommend home blood pressure monitoring, to bring results in on next visit - Goal of BP <130/80 - COMPLETE BLOOD COUNT AND DIFFERENTIAL - COMPREHENSIVE METABOLIC PANEL - pt will be back in a week to recheck BP - Depending on the BP reading may want to prescribed medications if BP is elevated 2. Screening for lipid disorders - ICD9: V77.91, ICD10: Z13.220 - LIPID PANEL, NONFASTING 3. Night sweats - ICD9: 780.8, ICD10: R61 -thyroid lab work ordered -most likely/ suspected post menopause symptoms 4. Lightheadedness - ICD9: 780.4, ICD10: R42 - PT states most likely due to post menopause phase -Pt denies other symptoms such as sob, palpitation, chest pain, cold sweats during lightheadedness phase, and sick to stomach. -Educated on the importance of hydration, slow position changes - Eating meal regularly Stay well hydrated. May be related to elevated BP -- recheck in 1-2 weeks. Discussed treatment plan and patient voices understanding. Patient's questions answered appropriately. Medications and potential side effects were discussed and patient voices understanding. Return to the office as scheduled or as needed for worsening/no improvement. Kerry Mas APRN.MALDONADO The patient indicates understanding of these issues and agrees with the plan. documented in this encounter [facility] 03-02-2025 Telephone encounter Note Labs placed to be done starting 07/25 [facility] 03-02-2025 Miscellaneous Notes Labs placed to be done starting 07/25 She isn't scheduled until Jul. Patient is requesting if could put in orders for yearly routine lab work so she can get it done before her appointment with him in July. Please advise, thank you documented in this encounter [facility] 03-02-2025 Telephone encounter Note Patient call in for dizziness off and on x 2 days. Patient unsure of the cause. Patient states that she feel lightheaded every once in awhile. Nurse Triage assessment completed with protocol recommending for disposition of See PCP in 3 days. Patient scheduled to see Kerry 03/04/2025. Care advice reviewed with patient, patient stated understanding. Patient advised to contact office or seek evaluation in urgent care or ER if symptoms persist or gets worse. Reason for Disposition [1] MILD dizziness (e.g., walking normally) AND [2] has NOT been evaluated by doctor (or ENTERTAINMENT CENTRE MANAGER/PA) for this (Exception: Dizziness caused by heat exposure, sudden standing, or poor fluid intake.) Answer Assessment - Initial Assessment Questions 1. DESCRIPTION: Patient states that she feels lightheaded every once in while 2. LIGHTHEADED: Lightheaded 3. VERTIGO: Denies 4. SEVERITY: Patient is able to walk; slightly dizzy off and on 5. ONSET: Has been going off and on for a couple of days 6. AGGRAVATING FACTORS: Nothing Makes it Worse 7. HEART RATE: Patient states that heart rate was 68 the other day when she took BP 8. CAUSE: Patient has been trying to drinking more water since she thought that maybe cause it. Unsure of what might be causing dizziness. 9. RECURRENT SYMPTOM: Denies 10. OTHER SYMPTOMS: Denies other symptoms Protocols used: Dizziness - [id number] [facility] 03-02-2025 Miscellaneous Notes Patient call in for dizziness off and on x 2 days. Patient unsure of the cause. Patient states that she feel lightheaded every once in awhile. Nurse Triage assessment completed with protocol recommending for disposition of See PCP in 3 days. Patient scheduled to see Kerry 03/04/2025. Care advice reviewed with patient, patient stated understanding. Patient advised to contact office or seek evaluation in urgent care or ER if symptoms persist or gets worse. Reason for Disposition [1] MILD dizziness (e.g., walking normally) AND [2] has NOT been evaluated by doctor (or ENTERTAINMENT CENTRE MANAGER/PA) for this (Exception: Dizziness caused by heat exposure, sudden standing, or poor fluid intake.) Answer Assessment - Initial Assessment Questions 1. DESCRIPTION: Patient states that she feels lightheaded every once in while 2. LIGHTHEADED: Lightheaded 3. VERTIGO: Denies 4. SEVERITY: Patient is able to walk; slightly dizzy off and on 5. ONSET: Has been going off and on for a couple of days 6. AGGRAVATING FACTORS: Nothing Makes it Worse 7. HEART RATE: Patient states that heart rate was 68 the other day when she took BP 8. CAUSE: Patient has been trying to drinking more water since she thought that maybe cause it. Unsure of what might be causing dizziness. 9. RECURRENT SYMPTOM: Denies 10. OTHER SYMPTOMS: Denies other symptoms Protocols used: Dizziness - [id number] documented in this encounter [facility] 03-02-2025 Telephone encounter Note She isn't scheduled until Jul. [facility] 03-02-2025 Telephone encounter Note Patient is requesting if could put in orders for yearly routine lab work so she can get it done before her appointment with him in July. Please advise, thank you [facility] 01-21-2025 History of Present illness Narrative Radiology Service Progress Note PATIENT NAME: Deisy Almodovar DATE OF SERVICE: January 21, 2025 TIME: 3:16 PM PATIENT IDENTITY VERIFICATION COMPLETED USING TWO (2) IDENTIFIERS: Name and Date of confirmed by patient verbally. FALL SCREENING: Has the patient had 2 falls in the last year or 1 fall with injury or currently using an Ambulatory Assistive Device (Walker, Cane, Wheelchair, Crutches, etc.)? No PATIENT GENDER DATA: Assigned female at . status: : No status: NO. PATIENT RELEVANT IMPLANT DATA REVIEWED: Not Applicable PATIENT PRESENTS WITH AN IMPLANTABLE OR ATTACHED WATER TENDER: No RADIOLOGY DEPARTMENT: Mammography PERIPHERAL IV DATA: Not applicable SIGNED BY: Ricardo Power January 21, 2025 3:16 PM documented in this encounter [facility] 01-21-2025 Note HNO ID: [id number] Author: KHURRAM BUTLER Mammo Tech Service: ? Author Type: Technologist Type: Progress Notes Filed: 01/21/2025 15:16 Note Text: Radiology Service Progress Note PATIENT NAME: Deisy Almodovar DATE OF SERVICE: January 21, 2025 TIME: 3:16 PM PATIENT IDENTITY VERIFICATION COMPLETED USING TWO (2) IDENTIFIERS: Name and Date of confirmed by patient verbally. FALL SCREENING: Has the patient had 2 falls in the last year or 1 fall with injury or currently using an Ambulatory Assistive Device (Walker, Cane, Wheelchair, Crutches, etc.)? No PATIENT GENDER DATA: Assigned female at . status: : No status: NO. PATIENT RELEVANT IMPLANT DATA REVIEWED: Not Applicable PATIENT PRESENTS WITH AN IMPLANTABLE OR ATTACHED WATER TENDER: No RADIOLOGY DEPARTMENT: Mammography PERIPHERAL IV DATA: Not applicable SIGNED BY: Ricardo Power January 21, 2025 3:16 PM [facility] 01-10-2025 Note HNO ID: [id number] Author: KEAGAN BLANTON MD Service: ? Author Type: Physician Type: Progress Notes Filed: 01/10/2025 14:19 Note Text: [facility] Follow Up / Established Virtual Visit I have communicated my name and active licensure. The patient's identity and physical location were verified at the time of this visit. Either the patient or their legal computer help desk representative has been informed of the risks and benefits of -- and alternatives to -- treatment through a remote evaluation and consents to proceed with the evaluation remotely. Individuals who were included in, or assisted with the encounter were: Deisy Montemayor Randylyla Keagan Blanton MD Chief Complaint/Issues: Deisy Almodovar is a 49 year old right handed female with medical history of morbid obesity, episodes of expressive aphasia who is seen for episodes of expressive aphasia suspected of seizure. Most Recent Neurological Assessment and Plan: Last Filed Values Date of Most Recent Assessment and Plan 12/13/22 Specialty General Neurology Assessment Deisy Almodovar is a 47 year old right handed female with medical history of morbid obesity, episodes of expressive aphasia who is here for episodes of expressive aphasia. --Spells of asphasia: MRI brain reportedly normal but the bilateral mesial temporal/hepocampal region appeared to have abnormal FLAIR signal (?MTS) which is in line with EEG report cortical dysfunction in both temporal region. This may be epileptogenic. She was started on Keppra 500 mg twice daily. She has been doing well since. I don't think these are TIAs. Plan --It's ok to have the surgery from neurology standpoint. Try to continue keppra during the surgery and after. --I will see you in a year. We will do EEG before the appointment. If you are doing well, and EEG is normal, we can consider to reduce keppra. HPI/Interval History: Subjective She reports that on 06/13/2019, she was going to a baby shower and was sitting in the car. She reports that all of a sudden, she could not talk and this lasted about ten seconds. An hour later, she was trying to say goodbye and could not form the words. This second episode lasted about ten to fifteen seconds. She went to the emergency room in [facility]. While in the ED, she had another episode lasting a minute of not being able to form words. She had a fourth episode lasting over a minute while on the teleprompter with a neurologist from [facility]. She reports that her comprehension was intact but that she could not form words. Her partner saw one episode which last for a minute or so. He tried to call her name. She said she heard it but couldn't answer. When she snapped out of it, she did not have post ictal confusion. She woke up the next morning and was talking on the phone with her brother at 9 am and had another episode of speech difficulty lasting ten seconds. She did not have weakness, numbness, dizziness, headache , vision loss, or seizure activity. No loss of consciousness, tongue biting or urinary incontinence. MRI brain/MRA 07/07/2019: normal. CUS 06/23/2019: WNL EEG 06/18/2019 This EEG shows evidence for a cortical dysfunction in the left and right temporal regions. No definite epileptiform discharges or EEG seizures were seen during this recording. Due to the concern of seizures, she was put on keppra. No more episodes since May 2019. No side effect from Keppra. Deisy reports no recurrence of speech difficulties since her last visit. She is currently taking Keppra and does not experience any side effects. She confirms that during previous episodes, she remained conscious but was unable to speak. She does not endorse any loss of consciousness during these episodes. 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 She expresses concern about the potential impact on her ability to work if Keppra is reduced, as it would require her to stop driving. She mentions a family history of similar speech difficulties, noting that her grandmother experienced frequent episodes of being unable to speak. She plans to retire in five years and is considering medication adjustments at that time. She has a scheduled appointment with her primary care physician at the end of next month. Neurological: (-) seizures, (-) speech difficulty, (-) loss of consciousness, (-) sedation Psychiatric: (-) irritability Objective Last menstrual period 01/05/2015. Mental Status: Awake, alert, visually attentive. Oriented to person, place, situation, and time. Good insight, judgement, fund of knowledge, short term, immediate, and remote memory, attention span/concentration. Language: Speech and language were clear without dysarthria or aphasia. Good fluency, comprehension, and repetition. Cranial Nerves: No cranial nerve deficit Motor: no focal weakness # Seizure (HCC) (R56.9) MRI (more content not included)... [facility] 01-10-2025 History of Present illness Narrative Images from the original note were not included. [facility] Follow Up / Established Virtual Visit I have communicated my name and active licensure. The patient's identity and physical location were verified at the time of this visit. Either the patient or their legal computer help desk representative has been informed of the risks and benefits of -- and alternatives to -- treatment through a remote evaluation and consents to proceed with the evaluation remotely. Individuals who were included in, or assisted with the encounter were: Deisy Albina Nishi Blanton MD Chief Complaint/Issues: Deisy Almodovar is a 49 year old right handed female with medical history of morbid obesity, episodes of expressive aphasia who is seen for episodes of expressive aphasia suspected of seizure. Most Recent Neurological Assessment and Plan: Last Filed Values Date of Most Recent Assessment and Plan 12/13/22 Specialty General Neurology Assessment Deisy Almodovar is a 47 year old right handed female with medical history of morbid obesity, episodes of expressive aphasia who is here for episodes of expressive aphasia. --Spells of asphasia: MRI brain reportedly normal but the bilateral mesial temporal/hepocampal region appeared to have abnormal FLAIR signal (?MTS) which is in line with EEG report cortical dysfunction in both temporal region. This may be epileptogenic. She was started on Keppra 500 mg twice daily. She has been doing well since. I don't think these are TIAs. Plan --It's ok to have the surgery from neurology standpoint. Try to continue keppra during the surgery and after. --I will see you in a year. We will do EEG before the appointment. If you are doing well, and EEG is normal, we can consider to reduce keppra. HPI/Interval History: Subjective She reports that on 06/13/2019, she was going to a baby shower and was sitting in the car. She reports that all of a sudden, she could not talk and this lasted about ten seconds. An hour later, she was trying to say goodbye and could not form the words. This second episode lasted about ten to fifteen seconds. She went to the emergency room in [facility]. While in the ED, she had another episode lasting a minute of not being able to form words. She had a fourth episode lasting over a minute while on the teleprompter with a neurologist from [facility]. She reports that her comprehension was intact but that she could not form words. Her partner saw one episode which last for a minute or so. He tried to call her name. She said she heard it but couldn't answer. When she snapped out of it, she did not have post ictal confusion. She woke up the next morning and was talking on the phone with her brother at 9 am and had another episode of speech difficulty lasting ten seconds. She did not have weakness, numbness, dizziness, headache , vision loss, or seizure activity. No loss of consciousness, tongue biting or urinary incontinence. MRI brain/MRA 07/07/2019: normal. CUS 06/23/2019: WNL EEG 06/18/2019 This EEG shows evidence for a cortical dysfunction in the left and right temporal regions. No definite epileptiform discharges or EEG seizures were seen during this recording. Due to the concern of seizures, she was put on keppra. No more episodes since May 2019. No side effect from Keppra. Deisy reports no recurrence of speech difficulties since her last visit. She is currently taking Keppra and does not experience any side effects. She confirms that during previous episodes, she remained conscious but was unable to speak. She does not endorse any loss of consciousness during these episodes. 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 She expresses concern about the potential impact on her ability to work if Keppra is reduced, as it would require her to stop driving. She mentions a family history of similar speech difficulties, noting that her grandmother experienced frequent episodes of being unable to speak. She plans to retire in five years and is considering medication adjustments at that time. She has a scheduled appointment with her primary care physician at the end of next month. Neurological: (-) seizures, (-) speech difficulty, (-) loss of consciousness, (-) sedation Psychiatric: (-) irritability Objective Last menstrual period 01/05/2015. Mental Status: Awake, alert, visually attentive. Oriented to person, place, situation, and time. Good insight, judgement, fund of knowledge, short term, immediate, and remote memory, attention span/concentration. Language: Speech and language were clear without dysarthria or aphasia. Good fluency, comprehension, and repetition. Cranial Nerves: No cranial nerve deficit Motor: no focal weakness # Seizure (HCC) (R56.9) MRI brain reportedly normal but the bilateral mesial temporal/hepocampal region appeared to have abnormal FLAIR signal (?MTS) which is in line with EEG report cortical dysfunction in both temporal region. This may be epileptogenic. She was started on Keppra 500 mg twice daily. She has been doing well since. I don't think these are TIAs. No recent episodes of aphasia. Currently on Keppra with no reported side effects. Seizure tendency may have a familial component, as patient's grandmother experienced similar episodes. - Continue Keppra as prescribed. - Ordered a 4-hour EEG to be performed within the next 6 months to determine the risk of tapering off keppra. - Advised patient to attempt sleep deprivation the night before the EEG to enhance diagnostic yield. - Follow-up in one year to reassess condition and medication regimen. Attestation Recording using [employer] software for draft documentation of the visit was discussed with the patient/authorized computer help desk representative; all questions welcomed and answered. Patient/authorized computer help desk representative agreed to proceed Data Review Objective Current Outpatient Medications Medication Sig levETIRAcetam (KEPPRA) 500 mg tablet TAKE 1 TABLET BY MOUTH EVERY 12 HOURS benzonatate (TESSALON PERLES) 100 mg capsule Take 1-2 capsules by mouth three times a day as needed for cough. scopolamine (TRANSDERM-SCOP) patch 1.5 mg/72 hr (delivers 1 mg over 3 days) Apply 1 Patch as directed every 72 hours. Apply patch to skin behind ear 4hrs prior to travel. levonorgestrel (MIRENA) 20 mcg/24 hours (8 yrs) 52 mg IUD 1 Each by INTRAUTERINE route. lansoprazole (PREVACID) 15 mg capsule Take 1 capsule by mouth once daily. (Patient taking differently: Take 15 mg by mouth as needed.) FA/MV,CA,IRON,MIN/LYCOPENE/LUT (MULTIVITAL ORAL) Take by mouth once daily. No current facility-administered medications for this visit. 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) Class 3 Severe Obesity With Body Mass Index (Bmi) Greater Than Or Equal to 70 in Adult, Unspecified Obesity Type, Unspecified Whether Serious Comorbidity Present PAST MEDICAL HISTORY Diagnosis Date Class 3 severe obesity with body mass index (BMI) greater than or equal to 70 in adult, unspecified obesity type, unspecified whether serious comorbidity present (HCC) Gall stones Heart burn Heel spur 2012 Morbid obesity (HCC) Seizures (HCC) 06/17/2022 PAST SURGICAL HISTORY Procedure Laterality Date NONE Social History Tobacco Use Smoking status: Never Smokeless tobacco: Never Vaping Use Vaping status: Never Used Substance Use Topics Alcohol use: No Drug use: No FAMILY HISTORY Problem Relation Age of Onset other (Hep C) Mother other (HTN) Father other (HTN) Brother Cancer Maternal Grandmother breast ca Hypertension Maternal Grandmother No Known Problems Maternal Grandfather No Known Problems Paternal Grandmother No Known Problems Paternal Grandfather Review of Systems Lab and Test Review: Results for orders placed or performed during the hospital encounter of 03/10/23 HCG QUAL UR Result Value Ref Range HCG Qualitative, Urine Negative Negative Specific [place], Ur 1.015 1.005 - 1.030 SURGICAL PATHOLOGY Result Value Ref Range Case Report Surgical Pathology Report Case: [id number] Authorizing Provider: Santosh Woods MD Collected: 03/10/2023 01:24 PM Ordering Location: [facility] Received: 03/11/2023 09:16 AM Pathologist: Abelardo Marcano MD Specimen: ANTRUM (STOMACH) BIOPSY FINAL DIAGNOSIS A. Stomach, antrum, biopsy: - No pathologic abnormalities. Gross Description A. ANTRUM (STOMACH) BIOPSY A. Received in formalin labeled antrum stomach biopsy is a cash soft segment of tissue measuring 0.3 x 0.2 x 0.1 cm. The specimen is totally submitted in formalin in 1 cassette. Gross examination performed at [facility], [address] [place] [address] KVB March 11, 2023 11:23 AM Clinical History GERD Performing Lab Diagnostic interpretation performed at [facility], [address] [place] [address] CLIA# [id number] Pharmacist: Abelardo Marcano M.D. Outside Data/Labs: Subjective Patient-Entered Data: 01/10/25 - PHQ-2 Score: 0 PHQ-9 Score: 0 GENERAL NEUROLOGY SCORES 08/30/2023 06/14/2024 01/03/2025 PROMIS 10 Health, in general Good Good Good Quality of life, in general Very good Good Good Physical health, in general Fair Good Good Mental health, in general Very good Very good Good Social activities satisfaction Very good Very good Good Performing ADL's Mostly Mostly Mostly Social role satisfaction Very good Very good Good Pain, on average 0 - No Pain 1 1 Fatigue, on average Mild Mild Mild Emotional problems Rarely Rarely Rarely PHYSICAL Score 47.7 (Good) 47.7 (Good) 47.7 (Good) MENTAL Score 53.3 (Very Good) 50.8 (Very Good) 45.8 (Good) 06/14/2024 06/14/2024 01/03/2025 Depression Screening PHQ-2 Score 0 0 PHQ-9 Score 1 0 SHERRI-2 Total Score 0 SHERRI-7 Total Score 0 06/17/2019 12/13/2022 01/03/2025 SLEEP APNEA SCORE Probability of moderate-severe sleep apnea (%) SAPS V1 74.96 (Recommend sleep study) Probability of moderate-severe sleep apnea (%) SAPS V2 57 (Recommend sleep study) 50 (Recommend sleep study) Proxy-reported 06/17/2019 AVERAGE SLEEP 24 HOURS Average sleep last 24 hrs 7 Proxy-reported 06/17/2019 12/13/2022 PROMIS CAT Sleep Disturbance PROMIS Sleep Disturbance T-Score 44 (within normal limits) 46 (within normal limits) PROMIS Sleep Disturbance Percentile 66 Proxy-reported I spent a total of 30 minutes on the date of the service which included preparing to see the patient, [id number] patient care, completing clinical documentation, obtaining and/or reviewing separately obtained history, performing a medically appropriate examination, counseling and educating the patient/family/caregiver, ordering medications, tests, or procedures, independently interpreting results (not separately reported), communicating results to the patient/family/caregiver, and care coordination (not separately reported). Keagan Blanton MD 01/03/2025 PROMIS Global Health Physical Health Summary Physical health: Good Everyday physical activity, ability: Mostly Fatigue: Mild Pain level: 1 General health: Good Social activities/roles, ability: Good Physical Health T-Score 47.7 (Good) Physical Health Percentile 41 PROMIS Global Health Mental Health Summary Quality of life: Good Mental health (mood,thinking): Good Social satisfaction: Good Emotional problems (anxious,depressed): Rarely Mental Health T-Score 45.8 (Good) Mental Health Percentile 34 PHQ-9 Score: 0(Minimal Depression) PHQ-9 Self-Harm: Not at all NEURO-QOL Cognitive Function T-Score 67(Within Normal Limits) PROMIS Physical Function T-Score 45(Within Normal Limits) PROMIS Physical Function Percentile 31 Percentiles provide an indication of how a patient's score ranks in relation to the [place] general population. > 31st percentile is within normal limits or better *< 31st percentile is at least SD worse than population, which may be clinically relevant < 16th percentile is at least 1 SD worse than population and warrants attention 01/03/2025 Sleep Apnea Probability Snores loudly: No Tired, fatigued or sleepy in daytime: No Stops breathing or choking/gasping during sleep: No High blood pressure: No Sleep Apnea Probability Score: 50 (Recommend sleep study) documented in this encounter [facility] 01-07-2025 Telephone encounter Note Patient last seen 12/15. Must keep 01/10 appt for continued refills. [facility] Work Phone: 01-07-2025 Miscellaneous Notes Patient last seen 12/15. Must keep 01/10 appt for continued refills. Call from pharmacy requesting refill. Requested Prescriptions Pending Prescriptions Disp Refills levETIRAcetam (KEPPRA) 500 mg tablet [Pharmacy Med Name: LEVETIRACETAM 500 MG TABLET] 60 tablet 1 Sig: TAKE 1 TABLET BY MOUTH EVERY 12 HOURS Patient last seen 12/13/2022 Future visit scheduled 01/10/2025 Isa Cardenas documented in this encounter [facility] 01-07-2025 Telephone encounter Note Call from pharmacy requesting refill. Requested Prescriptions Pending Prescriptions Disp Refills levETIRAcetam (KEPPRA) 500 mg tablet [Pharmacy Med Name: LEVETIRACETAM 500 MG TABLET] 60 tablet 1 Sig: TAKE 1 TABLET BY MOUTH EVERY 12 HOURS Patient last seen 12/13/2022 Future visit scheduled 01/10/2025 Isa Cardenas [facility] 11-12-2024 Telephone encounter Note Patient needs to come to 5/19 appointment before 90 day rx can be addressed. Refill provided until next appointment. [facility] Work Phone: 11-12-2024 Miscellaneous Notes Patient needs to come to 5/19 appointment before 90 day rx can be addressed. Refill provided until next appointment. Pt requesting 90 day supply Patient requesting refills as follows: Requested Prescriptions Pending Prescriptions Disp Refills levETIRAcetam (KEPPRA) 500 mg tablet [Pharmacy Med Name: LEVETIRACETAM 500 MG TABLET] 180 tablet 1 Sig: TAKE 1 TABLET BY MOUTH EVERY 12 HOURS Please review and advise. Precious Price documented in this encounter [facility] 11-12-2024 Telephone encounter Note Pt requesting 90 day supply Patient requesting refills as follows: Requested Prescriptions Pending Prescriptions Disp Refills levETIRAcetam (KEPPRA) 500 mg tablet [Pharmacy Med Name: LEVETIRACETAM 500 MG TABLET] 180 tablet 1 Sig: TAKE 1 TABLET BY MOUTH EVERY 12 HOURS Please review and advise. Precious Price [facility] 11-12-2024 Telephone encounter Note Call from patient requesting refill. Requested Prescriptions Pending Prescriptions Disp Refills levETIRAcetam (KEPPRA) 500 mg tablet 60 tablet 1 Sig: Take 1 tablet by mouth every 12 hours. Patient last seen 12/13/2022 Future Visit: 01/10/2025 Isa Cardenas [facility] 11-12-2024 Miscellaneous Notes Call from patient requesting refill. Requested Prescriptions Pending Prescriptions Disp Refills levETIRAcetam (KEPPRA) 500 mg tablet 60 tablet 1 Sig: Take 1 tablet by mouth every 12 hours. Patient last seen 12/13/2022 Future Visit: 01/10/2025 Isa Cardenas documented in this encounter [facility] 11-01-2024 Note Addended by: TATIANA BLANTON on: 11/01/2024 03:02 PM Modules accepted: Orders [facility] 11-01-2024 Miscellaneous Notes Addended by: KEAGAN BLANTON on: 11/01/2024 03:02 PM Modules accepted: Orders Physician: Dr Blanton Call from pharmacy requesting refill. Please E-Scribe Last OV: 12/13/22 with Man Future OV: 12/10/24 with Man Requested Prescriptions Pending Prescriptions Disp Refills levETIRAcetam (KEPPRA) 500 mg tablet [Pharmacy Med Name: LEVETIRACETAM 500 MG TABLET] 180 tablet 1 Sig: TAKE 1 TABLET BY MOUTH EVERY 12 HOURS Pharmacy Name: [facility] Pharmacy Phone #: [phone] Sintia García documented in this encounter [facility] 11-01-2024 Telephone encounter Note Physician: Dr Blanton Call from pharmacy requesting refill. Please E-Scribe Last OV: 12/13/22 with Man Future OV: 12/10/24 with Man Requested Prescriptions Pending Prescriptions Disp Refills levETIRAcetam (KEPPRA) 500 mg tablet [Pharmacy Med Name: LEVETIRACETAM 500 MG TABLET] 180 tablet 1 Sig: TAKE 1 TABLET BY MOUTH EVERY 12 HOURS Pharmacy Name: [facility] Pharmacy Phone #: [phone] Sintia García [facility] 10-04-2024 Telephone encounter Note Duplicate request [facility] 10-04-2024 Miscellaneous Notes Duplicate request documented in this encounter [facility] 09-06-2024 Telephone encounter Note This is currently being addressed in another encounter. [facility] Work Phone: 09-06-2024 Miscellaneous Notes This is currently being addressed in another encounter. Call from patient requesting refill. Requested Prescriptions Pending Prescriptions Disp Refills levETIRAcetam (KEPPRA) 500 mg tablet 180 tablet 1 Sig: Take 1 tablet by mouth every 12 hours. Patient last seen 12-13-22 next appt: 12-10-24 Jaqueline Pascal documented in this encounter [facility] 09-06-2024 Telephone encounter Note Call from patient requesting refill. Requested Prescriptions Pending Prescriptions Disp Refills levETIRAcetam (KEPPRA) 500 mg tablet 180 tablet 1 Sig: Take 1 tablet by mouth every 12 hours. Patient last seen 12-13-22 next appt: 12-10-24 Jaqueline Pascal [facility] 09-06-2024 Telephone encounter Note Patient notified again, as was also 02/2024 to schedule follow up. Last seen 12/13/2022. [facility] Work Phone: 09-06-2024 Miscellaneous Notes Patient notified again, as was also 02/2024 to schedule follow up. Last seen 12/13/2022. documented in this encounter [facility] 06-14-2024 Note HNO ID: [id number] Author: KERRY MAS APRN.ADJUSTO WRITER OPERATOR Service: ? Author Type: Nurse Practitioner Type: Progress Notes Filed: 06/14/2024 19:07 Note Text: Chief Complaint Patient presents with: Telemedicine I have communicated my name and active licensure. The patient's identity and physical location were verified at the time of this visit. Either the patient or their legal computer help desk representative has been informed of the risks and benefits of -- and alternatives to -- treatment through a remote evaluation and consents to proceed with the evaluation remotely. Video was used for evaluation of this patient. Patient is aware of limitations of performing the visit without a face to face visit in the office setting and agrees. Patient agrees to the visit: Yes Patient Location: [facility] Deisy Almodovar is a 48 year old female who is contacted today for a virtual visit This is an established patient of Arron Hairston MD Reports: Refers that she has ongoing URI symptoms. Tested + for covid two weeks ago. Refers now feels like she has a sinus infection. + congestion. Ears feel stuffy. No longer has a sore throat. + headache. Pressure between eyes. Clearing throat. Nagging cough -- non-productive. No fevers/chills at present. No n/v/d. She is taking coricidin, tylenol, and robitussin. Past medical history, appointments, medications, allergies reviewed 06/14/2024 Previous Medical History PAST MEDICAL HISTORY Diagnosis Date Class 3 severe obesity with body mass index (BMI) greater than or equal to 70 in adult, unspecified obesity type, unspecified whether serious comorbidity present (HCC) Gall stones Heart burn Heel spur 2012 Morbid obesity (HCC) Seizures (HCC) 06/17/2022 Previous Surgical History PAST SURGICAL HISTORY Procedure Laterality Date NONE Family History FAMILY HISTORY Problem Relation Age of Onset other (Hep C) Mother other (HTN) Father other (HTN) Brother Cancer Maternal Grandmother breast ca Hypertension Maternal Grandmother No Known Problems Maternal Grandfather No Known Problems Paternal Grandmother No Known Problems Paternal Grandfather Patient Allergies ALLERGIES No Known Allergies Current Medications Current Outpatient Medications on File Prior to Visit Medication Sig levETIRAcetam (KEPPRA) 500 mg tablet take 1 tablet by mouth twice a day benzonatate (TESSALON PERLES) 100 mg capsule Take 1-2 capsules by mouth three times a day as needed for cough. tirzepatide (MOUNJARO) 2.5 mg/0.5 mL pen injector Inject 2.5 mg subcutaneously one time a week. metFORMIN ER (GLUCOPHAGE XR) 500 mg 24 hr tablet Take 3 tablets by mouth daily with dinner. cholecalciferol, Vitamin D3, (VITAMIN D3) 1,250 mcg (50,000 unit) cap capsule Take 1 capsule by mouth one time a week for 12 doses. Transition to 2,000-4,000 units of Vitamin D OTC after completing 12 weeks ondansetron orally disintegrating (ZOFRAN ODT) 4 mg disintegrating tablet Take 1 tablet by mouth every 6 hours as needed for nausea/vomiting. levonorgestrel (MIRENA) 20 mcg/24 hours (8 yrs) 52 mg IUD 1 Each by INTRAUTERINE route. lansoprazole (PREVACID) 15 mg capsule Take 1 capsule by mouth once daily. (Patient taking differently: Take 15 mg by mouth as needed.) FA/MV,CA,IRON,MIN/LYCOPENE/LUT (MULTIVITAL ORAL) Take by mouth once daily. No current facility-administered medications on file prior to visit. Social History Social History Tobacco Use Smoking status: Never Smokeless tobacco: Never Vaping Use Vaping status: Never Used Substance Use Topics Alcohol use: No Drug use: No EXAM: [facility] 01/05/2015 Limited exam as visit was completed over the virtual platform. Virtual visit completed using video, limited exam completed. Patient sounds or appears ill: No General Appearance: Well appearing, alert, in no acute distress, well-hydrated, well nourished. Skin: Skin color normal Head: Normocephalic. No facial swelling or redness. EENT: Eyes nonreddened. No discharge. External ears nonreddened and no swelling. Neck: No mass or lesions. No swelling. FROM Patient is unable to speak in complete sentences: No Patient has labored breathing: No. Patient is audibly coughing: No Psych: Attitude - cooperative, easily engaged in conversation Affect - Euthymic, normal mood Mental status: Alert. Speech is clear and fluent with good repetition, comprehension Appearance - Normal hygiene and grooming appropriate Coordination: No abnormal or extraneous movements. Gait/Stance: Posture is normal. Health Maintenance List Depression Screening Never done Anxiety Screening Never done Hepatitis C Screening Never done HIV Screening Never done Hepatitis B Vaccine(1 of 3 - 19+ 3-dose series) Never done Colorectal Cancer Screening Never done Cervical Cancer Screening due on 05/25/2020 Mammogram Screening due on 04/11/2024 Influenza Vaccine(1) due on (more content not included)... [facility] 06-14-2024 History of Present illness Narrative Chief Complaint Patient presents with: Telemedicine I have communicated my name and active licensure. The patient's identity and physical location were verified at the time of this visit. Either the patient or their legal computer help desk representative has been informed of the risks and benefits of -- and alternatives to -- treatment through a remote evaluation and consents to proceed with the evaluation remotely. Video was used for evaluation of this patient. Patient is aware of limitations of performing the visit without a face to face visit in the office setting and agrees. Patient agrees to the visit: Yes Patient Location: [facility] Almodovar is a 48 year old female who is contacted today for a virtual visit This is an established patient of Arron Hairston MD Reports: Refers that she has ongoing URI symptoms. Tested + for covid two weeks ago. Refers now feels like she has a sinus infection. + congestion. Ears feel stuffy. No longer has a sore throat. + headache. Pressure between eyes. Clearing throat. Nagging cough -- non-productive. No fevers/chills at present. No n/v/d. She is taking coricidin, tylenol, and robitussin. Past medical history, appointments, medications, allergies reviewed 06/14/2024 Previous Medical History PAST MEDICAL HISTORY Diagnosis Date Class 3 severe obesity with body mass index (BMI) greater than or equal to 70 in adult, unspecified obesity type, unspecified whether serious comorbidity present (HCC) Gall stones Heart burn Heel spur 2012 Morbid obesity (HCC) Seizures (HCC) 06/17/2022 Previous Surgical History PAST SURGICAL HISTORY Procedure Laterality Date NONE Family History FAMILY HISTORY Problem Relation Age of Onset other (Hep C) Mother other (HTN) Father other (HTN) Brother Cancer Maternal Grandmother breast ca Hypertension Maternal Grandmother No Known Problems Maternal Grandfather No Known Problems Paternal Grandmother No Known Problems Paternal Grandfather Patient Allergies ALLERGIES No Known Allergies Current Medications Current Outpatient Medications on File Prior to Visit Medication Sig levETIRAcetam (KEPPRA) 500 mg tablet take 1 tablet by mouth twice a day benzonatate (TESSALON PERLES) 100 mg capsule Take 1-2 capsules by mouth three times a day as needed for cough. tirzepatide (MOUNJARO) 2.5 mg/0.5 mL pen injector Inject 2.5 mg subcutaneously one time a week. metFORMIN ER (GLUCOPHAGE XR) 500 mg 24 hr tablet Take 3 tablets by mouth daily with dinner. cholecalciferol, Vitamin D3, (VITAMIN D3) 1,250 mcg (50,000 unit) cap capsule Take 1 capsule by mouth one time a week for 12 doses. Transition to 2,000-4,000 units of Vitamin D OTC after completing 12 weeks ondansetron orally disintegrating (ZOFRAN ODT) 4 mg disintegrating tablet Take 1 tablet by mouth every 6 hours as needed for nausea/vomiting. levonorgestrel (MIRENA) 20 mcg/24 hours (8 yrs) 52 mg IUD 1 Each by INTRAUTERINE route. lansoprazole (PREVACID) 15 mg capsule Take 1 capsule by mouth once daily. (Patient taking differently: Take 15 mg by mouth as needed.) FA/MV,CA,IRON,MIN/LYCOPENE/LUT (MULTIVITAL ORAL) Take by mouth once daily. No current facility-administered medications on file prior to visit. Social History Social History Tobacco Use Smoking status: Never Smokeless tobacco: Never Vaping Use Vaping status: Never Used Substance Use Topics Alcohol use: No Drug use: No EXAM: [facility] 01/05/2015 Limited exam as visit was completed over the virtual platform. Virtual visit completed using video, limited exam completed. Patient sounds or appears ill: No General Appearance: Well appearing, alert, in no acute distress, well-hydrated, well nourished. Skin: Skin color normal Head: Normocephalic. No facial swelling or redness. EENT: Eyes nonreddened. No discharge. External ears nonreddened and no swelling. Neck: No mass or lesions. No swelling. FROM Patient is unable to speak in complete sentences: No Patient has labored breathing: No. Patient is audibly coughing: No Psych: Attitude - cooperative, easily engaged in conversation Affect - Euthymic, normal mood Mental status: Alert. Speech is clear and fluent with good repetition, comprehension Appearance - Normal hygiene and grooming appropriate Coordination: No abnormal or extraneous movements. Gait/Stance: Posture is normal. Health Maintenance List Depression Screening Never done Anxiety Screening Never done Hepatitis C Screening Never done HIV Screening Never done Hepatitis B Vaccine(1 of 3 - 19+ 3-dose series) Never done Colorectal Cancer Screening Never done Cervical Cancer Screening due on 05/25/2020 Mammogram Screening due on 04/11/2024 Influenza Vaccine(1) due on 04/25/2024 Covid-19 Vaccine(1 - season) Never done Diabetes Screening due on 02/26/2026 DTaP,Tdap,Td Vaccine(2 - Td or Tdap) due on 07/08/2026 Lipid Screening due on 02/27/2028 Data reviewed Last 5 Encounter BP Readings: Date: BP: 03/19/2023 129/89 03/10/2023 121/102 03/10/2023 131/74 02/27/2023 145/87 12/13/2022 132/83 BMI Readings from Last 5 Encounters: 07/24/23 : 67.79 kg/m 07/11/23 : 68.60 kg/m 06/13/23 : 69.40 kg/m 05/23/23 : 69.40 kg/m 04/18/23 : 70.70 kg/m Last 5 Encounter Wt Readings: Date: Wt: 07/24/2023 190.5 kg (420 lb) 07/11/2023 192.8 kg (425 lb) 06/13/2023 195 kg (430 lb) 05/23/2023 195 kg (430 lb) 04/18/2023 198.7 kg (438 lb) Medication and allergy list reviewed, reconciled and updated 06/14/2024 ASSESSMENT/PLAN: 1. Acute non-recurrent sinusitis, unspecified location - ICD9: 461.9, ICD10: J01.90 (primary diagnosis) - Will begin treatment with Augmentin 875 mg PO BID for 10 days - The patient should also be given OTC cough and cold meds as needed for the first 5-7 days of treatment. - Supportive care with plenty of fluids, rest, and analgesia prn. - Follow up in one week if symptoms persist or worsen. - AMOXICILLIN 875 MG-POTASSIUM CLAVULANATE 125 MG TABLET - BENZONATATE 100 MG CAPSULE 2. Low HDL (under 40) - ICD9: 272.5, ICD10: E78.6 - Control undetermined, due for labs - LIPID PANEL BASIC 3. Gastroesophageal reflux disease without esophagitis - ICD9: 530.81, ICD10: K21.9 Uses prevacid a few times per week. - MAGNESIUM 4. Class 3 severe obesity due to excess calories without serious comorbidity with body mass index (BMI) of 60.0 to 69.9 in adult (HCC) - ICD9: 278.01, V85.44, ICD10: E66.813, E66.01, Z68.44 - HEMOGLOBIN A1C - COMPLETE BLOOD COUNT AND DIFFERENTIAL - COMPREHENSIVE METABOLIC PANEL 5. Sea sickness, sequela - ICD9: 909.4, ICD10: T75.3XXS - SCOPOLAMINE 1 MG OVER 3 DAYS TRANSDERMAL PATCH Discussed treatment plan and patient voices understanding. Patient's questions answered appropriately. Medications and potential side effects were discussed and patient voices understanding. Return to the office as scheduled or as needed for worsening/no improvement. Kerry Mas APRN.ADJUSTO WRITER OPERATOR documented in this encounter [facility] 05-19-2024 Note Patient Outreach (IN [facility]) ---- DEISY ALMODOVAR ([id number]) 1975 F Date Time Provider Department 05/19/24 ARRON HAIRSTON During your visit today, we recorded the following information about you: Allergies As of Date: 05/19/2024 (No Known Allergies) Date Reviewed: 07/24/2023 Reviewed by: Chema Barcenas MA - Fully Assessed Visit Diagnosis:Encounter for screening mammogram for breast cancer [Z12.31] Order(s):AP YANG [[id number]] Order #: [id number] FUTURE Prescriptions as of 05/24/2024 - levETIRAcetam (KEPPRA) 500 mg tablet take 1 tablet by mouth twice a day - benzonatate (TESSALON PERLES) 100 mg capsule Take 1-2 capsules by mouth three times a day as needed for cough. - tirzepatide (MOUNJARO) 2.5 mg/0.5 mL pen injector Inject 2.5 mg subcutaneously one time a week. - metFORMIN ER (GLUCOPHAGE XR) 500 mg 24 hr tablet Take 3 tablets by mouth daily with dinner. - cholecalciferol, Vitamin D3, (VITAMIN D3) 1,250 mcg (50,000 unit) cap capsule Take 1 capsule by mouth one time a week for 12 doses. Transition to 2,000-4,000 units of Vitamin D OTC after completing 12 weeks - ondansetron orally disintegrating (ZOFRAN ODT) 4 mg disintegrating tablet Take 1 tablet by mouth every 6 hours as needed for nausea/vomiting. - levonorgestrel (MIRENA) 20 mcg/24 hours (8 yrs) 52 mg IUD 1 Each by INTRAUTERINE route. - lansoprazole (PREVACID) 15 mg capsule Take 1 capsule by mouth once daily. - FA/MV,CA,IRON,MIN/LYCOPENE/LUT (MULTIVITAL ORAL) Take by mouth once daily. 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 Last seen 11/2022 [facility] Work Phone: 03-08-2024 Miscellaneous Notes Patient notified via [employer] to schedule follow up visit. Last seen 11/2022 Physician: Dr Blanton Call from pharmacy requesting refill. Please E-Scribe Last OV: 12/13/22 with Man Future OV: none with Man Requested Prescriptions Pending Prescriptions Disp Refills levETIRAcetam (KEPPRA) 500 mg tablet [Pharmacy Med Name: LEVETIRACETAM 500 MG TABLET] 180 tablet 3 Sig: take 1 tablet by mouth twice a day Pharmacy Name: [facility] Phone #: [phone] Sintia García documented in this encounter [facility] 03-08-2024 Telephone encounter Note Physician: Dr Blanton Call from pharmacy requesting refill. Please E-Scribe Last OV: 12/13/22 with Man Future OV: none with Man Requested Prescriptions Pending Prescriptions Disp Refills levETIRAcetam (KEPPRA) 500 mg tablet [Pharmacy Med Name: LEVETIRACETAM 500 MG TABLET] 180 tablet 3 Sig: take 1 tablet by mouth twice a day Pharmacy Name: [facility] Phone #: [phone] Sintia García [facility] 08-08-2023 Miscellaneous Notes Left voicemail for patient to call the office to schedule an appointment. Bhumi Godwin MA Update: her insurance no longer covers bariatric surgery so she is stepping out of the program and f/u with obesity medicine Spoke with pt via phone to get her scheduled with Dr. Woods re: gallstones/gallbladder issues. Pt is good with plan and would like to schedule. Cortez Palomino RN, BSN Bariatric [employer]er documented in this encounter [facility] 07-24-2023 History of Present illness Narrative Images from the original note were not included. Coni Pina MD [facility] [address], [address] [facility] - Fourth Floor [place] [address] Deisy Almodovar is a 47 year old female with has a past medical history of Class 3 severe obesity with body mass index (BMI) greater than or equal to 70 in adult, unspecified obesity type, unspecified whether serious comorbidity present (HCC), Gall stones, Heart burn, Heel spur (2008, 2012), Morbid obesity (HCC), and Seizures (HCC) (06/17/2022). of obesity here today for a follow up on her weight loss efforts. She is currently taking the prescription weight loss medication Metformin Concerns: Getting new insurance Beg of year will be getting [employer] Pt reports nothing bariatric is covered on current insurance or next insurance Current weight 420 lb Taking Metformin 2 tablets in the morning No diarrhea She is continuing with diet changes: yes -Main focus of dietary changes: doing well with protein She is continuing with exercise changes: -Exercise routine: Goal weight: Review of weight loss medication side effects Any GI upset? no Changes to blood pressure? no Visual Changes: no -- Patient reports some suppression of her appetite and increase in satiety since starting the medication Diet: Breakfast Snacks Lunch Dinner snacks Satiety Satiation Cravings Sleep: Stress: Smoking/Alcohol - Exercise Freq: Barriers: Work-related activity: Sedentary ROS VITALS: Wt (!) 190.5 kg (420 lb) LMP 01/05/2015 BMI 67.79 kg/m , Body mass index is 67.79 kg/m . Physical Exam Constitutional:. --no issues with communication HEENT: Normocephalic and atraumatic. Eyes: Conjunctiva appear normal. No scleral icterus. Hearing: Is grossly intact. Neck: Range of motion appears normal. Thyroid: appears symmetric and not enlarged. Pulmonary/Chest: Effort normal. Psychiatric: Mood, memory, affect and judgment normal. Neurological: alert and oriented to person, place, and time. Impression and Plan: ASSESSMENT/PLAN: 1. Class 3 severe obesity due to excess calories with serious comorbidity and body mass index (BMI) of 60.0 to 69.9 in adult (HCC) - ICD9: 278.01, V85.44, ICD10: E66.01, Z68.44 (primary diagnosis) Last 2 Encounter Wt Readings: Date: Wt: 07/24/2023 190.5 kg (420 lb) 07/11/2023 192.8 kg (425 lb) Pt unable to follow through with bariatric surgery program due to insurance not covering Continue metformin Continue with optimizing dietary modification We will try for Ronni Jones topamax --she is on Keppra for seizures Previously Ozempic and Wegovy denied. Zepbound option if not cost prohibitve with discount card 2. LIDYA (obstructive sleep apnea) - ICD9: 327.23, ICD10: G47.33 Continue current management Treatment of obesity beneficial 3. Gastroesophageal reflux disease without esophagitis - ICD9: 530.81, ICD10: K21.9 Continue current management Treatment of obesity beneficial Coni Pina MD She is doing well otherwise, continues lifestyle modification. She remains motivated to lose weight. Reviewed principles of energy metabolism, caloric intake and expenditure, and rationale for treatment program. Also reinforced need for reduced calorie, low fat diet and increased physical activity. Coni Pina MD Some elements were copied from my last note, which have been updated where appropriate, and all reflect current medical decision making from TODAY I spent a total of 30 minutes on the date of the service which included preparing to see the patient, completing clinical documentation, obtaining and/or reviewing separately obtained history, performing a medically appropriate examination, counseling and educating the patient/family/caregiver, ordering medications, tests, or procedures,independently interpreting results (not separately reported), communicating results to the patient/family/caregiver and care coordination (not separately reported). documented in this encounter [facility] 07-22-2023 Miscellaneous Notes Patient confirmed mercy appt for 1130am virtual 07/24 Janle Cowart MA documented in this encounter [facility] 11-17-2023 Note HNO ID: [id number] Author: Antonio Melgoza APRN.MALDONADO Service: ? Author Type: Nurse Practitioner Type: Progress Notes Filed: 07/11/2023 2:45 PM Note Text: BARIATRIC SURGERY CLINIC FOLLOW UP NOTE DISTANCE HEALTH VISIT This Team Access Model visit is a virtual encounter. It required patient-provider interaction for the medical decision making as documented below. Consent was obtained to complete today's distance health visit. I have communicated my name and active licensure. The patient's identity and physical location were verified at the time of this visit. Either the patient or their legal computer help desk representative has been informed of the risks and benefits of -- and alternatives to -- treatment through a remote evaluation and consents to proceed with the evaluation remotely. HPI: Deisy Almodovar a 47 year old female presents for medically supervised weight loss treatment of her obesity related co morbidities. This individual presents for month 13 of 6 required visits. Deisy Almodovar weight has decreased since first visit in the program. Recently, Deisy had found out that her insurance does not cover bariatric surgery even though she has finished the program here. Her new insurance that goes into effect in August also does not cover bariatric surgery, unfortunately. So she will continue to follow-up with obesity medicine. She is also waiting on an estimate of surgery for self-pay. She reports still being consistent with nutrition recommendations. Encouraged her to keep up with this as she has lost significant weight in this program. Obesity medicine recently tried to prescribe Wegovy, but insurance does not cover this. Denies recent illnesses, hospitalizations, and medication changes. Denies constipation, diarrhea, abd pain, and reflux symptoms. She is going on a cruise with her family in July - she inquired about scopolamine patches and I recommended she follow-up with her primary care about getting a prescription. HISTORY REVIEWED (electronic chart updated): - medical history - medications - allergies PAST MEDICAL HISTORY Diagnosis Date Class 3 severe obesity with body mass index (BMI) greater than or equal to 70 in adult, unspecified obesity type, unspecified whether serious comorbidity present (HCC) Gall stones Heart burn Heel spur 2012 Morbid obesity (HCC) Seizures (HCC) 06/17/2022 Social: Social History Tobacco Use Smoking status: Never Smokeless tobacco: Never Vaping Use Vaping Use: Never used Substance Use Topics Alcohol use: No Drug use: No Medications: Current Outpatient Medications Medication Sig metFORMIN ER (GLUCOPHAGE XR) 500 mg 24 hr tablet Take 1 tablet by mouth daily with dinner. Increase to 2 tablets po daiy with dinner in 2 weeks if tolerating cholecalciferol, Vitamin D3, (VITAMIN D3) 1,250 mcg (50,000 unit) cap capsule Take 1 capsule by mouth one time a week for 12 doses. Transition to 2,000-4,000 units of Vitamin D OTC after completing 12 weeks levETIRAcetam (KEPPRA) 500 mg tablet TAKE 1 TABLET BY MOUTH TWICE A DAY ondansetron orally disintegrating (ZOFRAN ODT) 4 mg disintegrating tablet Take 1 tablet by mouth every 6 hours as needed for nausea/vomiting. levonorgestrel (MIRENA) 20 mcg/24 hours (8 yrs) 52 mg IUD 1 Each by INTRAUTERINE route. lansoprazole (PREVACID) 15 mg capsule Take 1 capsule by mouth once daily. (Patient taking differently: Take 15 mg by mouth as needed.) FA/MV,CA,IRON,MIN/LYCOPENE/LUT (MULTIVITAL ORAL) Take by mouth once daily. No current facility-administered medications for this visit. REVIEW OF SYSTEMS General: No fatigue or fevers HEENT: Negative for frequent or significant headaches, No changes in hearing or vision, no nose bleeds or other nasal problems PAP Therapy: Using it nightly. GI:No nausea, vomiting, or diarrhea and No heartburn or reflux symptoms Muskuloskeletal: Negative for joint pain or swelling, back pain or muscle pain Skin: Negative for lesions, rash, and itching Psych: Negative for sleep disturbance, mood disorder and recent psychosocial stressors PHYSICAL EXAMINATION Wt 192.8 kg (425 lb) BMI 68.6 kg/m2 Ht 167.6 cm (5' 6) BMI 68.6 kg/m2 GENERAL APPEARANCE: Pleasant, interacts appropriately and in no apparent distress. Appropriately groomed, happy, smiling, and interactive SKIN: Skin of normal texture, temperature without rashes/lesions/ulcerations. LUNGS: unlabored on room air negative findings: normal respiratory rate no cough NEURO/PSYCH: Oriented to person, place, time; appropriate insight and judgement. Appropriate affect. Diagnostic Tests Reviewed for Today's Visit No new labs The plan of treatment for Deisy Almodovar is Further Work-up: Required monthly visit: 13 of 6 months EGD: small sliding hiatal hernia, approp for sleeve gastrectomy Upper GI: none RUQ US: Mildly hydropic gallbladder with a large gallstone at the (more content not included)... [facility] 07-11-2023 History of Present illness Narrative BARIATRIC SURGERY CLINIC FOLLOW UP NOTE DISTANCE HEALTH VISIT This Team Access Model visit is a virtual encounter. It required patient-provider interaction for the medical decision making as documented below. Consent was obtained to complete today's distance health visit. I have communicated my name and active licensure. The patient's identity and physical location were verified at the time of this visit. Either the patient or their legal computer help desk representative has been informed of the risks and benefits of -- and alternatives to -- treatment through a remote evaluation and consents to proceed with the evaluation remotely. HPI: Deisy Almodovar a 47 year old female presents for medically supervised weight loss treatment of her obesity related co morbidities. This individual presents for month 13 of 6 required visits. Deisy Almodovar weight has decreased since first visit in the program. Recently, Deisy had found out that her insurance does not cover bariatric surgery even though she has finished the program here. Her new insurance that goes into effect in August also does not cover bariatric surgery, unfortunately. So she will continue to follow-up with obesity medicine. She is also waiting on an estimate of surgery for self-pay. She reports still being consistent with nutrition recommendations. Encouraged her to keep up with this as she has lost significant weight in this program. Obesity medicine recently tried to prescribe Wegovy, but insurance does not cover this. Denies recent illnesses, hospitalizations, and medication changes. Denies constipation, diarrhea, abd pain, and reflux symptoms. She is going on a cruise with her family in July - she inquired about scopolamine patches and I recommended she follow-up with her primary care about getting a prescription. HISTORY REVIEWED (electronic chart updated): - medical history - medications - allergies PAST MEDICAL HISTORY Diagnosis Date Class 3 severe obesity with body mass index (BMI) greater than or equal to 70 in adult, unspecified obesity type, unspecified whether serious comorbidity present (HCC) Gall stones Heart burn Heel spur 2012 Morbid obesity (HCC) Seizures (HCC) 06/17/2022 Social: Social History Tobacco Use Smoking status: Never Smokeless tobacco: Never Vaping Use Vaping Use: Never used Substance Use Topics Alcohol use: No Drug use: No Medications: Current Outpatient Medications Medication Sig metFORMIN ER (GLUCOPHAGE XR) 500 mg 24 hr tablet Take 1 tablet by mouth daily with dinner. Increase to 2 tablets po daiy with dinner in 2 weeks if tolerating cholecalciferol, Vitamin D3, (VITAMIN D3) 1,250 mcg (50,000 unit) cap capsule Take 1 capsule by mouth one time a week for 12 doses. Transition to 2,000-4,000 units of Vitamin D OTC after completing 12 weeks levETIRAcetam (KEPPRA) 500 mg tablet TAKE 1 TABLET BY MOUTH TWICE A DAY ondansetron orally disintegrating (ZOFRAN ODT) 4 mg disintegrating tablet Take 1 tablet by mouth every 6 hours as needed for nausea/vomiting. levonorgestrel (MIRENA) 20 mcg/24 hours (8 yrs) 52 mg IUD 1 Each by INTRAUTERINE route. lansoprazole (PREVACID) 15 mg capsule Take 1 capsule by mouth once daily. (Patient taking differently: Take 15 mg by mouth as needed.) FA/MV,CA,IRON,MIN/LYCOPENE/LUT (MULTIVITAL ORAL) Take by mouth once daily. No current facility-administered medications for this visit. REVIEW OF SYSTEMS General: No fatigue or fevers HEENT: Negative for frequent or significant headaches, No changes in hearing or vision, no nose bleeds or other nasal problems PAP Therapy: Using it nightly. GI:No nausea, vomiting, or diarrhea and No heartburn or reflux symptoms Muskuloskeletal: Negative for joint pain or swelling, back pain or muscle pain Skin: Negative for lesions, rash, and itching Psych: Negative for sleep disturbance, mood disorder and recent psychosocial stressors PHYSICAL EXAMINATION Wt 192.8 kg (425 lb) BMI 68.6 kg/m2 Ht 167.6 cm (5' 6) BMI 68.6 kg/m2 GENERAL APPEARANCE: Pleasant, interacts appropriately and in no apparent distress. Appropriately groomed, happy, smiling, and interactive SKIN: Skin of normal texture, temperature without rashes/lesions/ulcerations. LUNGS: unlabored on room air negative findings: normal respiratory rate no cough NEURO/PSYCH: Oriented to person, place, time; appropriate insight and judgement. Appropriate affect. Diagnostic Tests Reviewed for Today's Visit No new labs The plan of treatment for Deisy Almodovar is Further Work-up: Required monthly visit: 13 of 6 months EGD: small sliding hiatal hernia, approp for sleeve gastrectomy Upper GI: none RUQ US: Mildly hydropic gallbladder with a large gallstone at the gallbladder neck which is not cleared in the decubitus position. There is suspected trace sludge and mild circumferential wall thickening. Negative biliary dilatation. No hepatosplenomegaly. No focal mass. Sleep Study: done, LIDYA CXR: WNL EKG: NSR H Pylori: negative Labs: complete - low vit D & zinc (addressed) Nicotine use <12 months: NA, ordered per insurance - negative Tox screen: ordered per insurance - negative Antiplatelet/anticoagulants: No Immunosuppressive therapy: No Estrogen therapy: No, IUD Evaluations Psychology: cleared 01/28 Nutrition: cleared 01/15 Education class: ongoing Clearances: -Cardiac (low risk, OV 02/27) -Sleep (low risk; scanned in) -Neurology (cleared; OV 12/13) -PCP Risk Calculator: VTE Risk: BMI > 60 ISS score: not diabetic Adverse Event score: TBD Post-op Medications: Extended Lovenox: Yes BMI > 60 Actigall: Not needed, known cholelithiasis H2 samir/PPI: Currently on PPI Total time in direct patient contact = 10 minutes. Greater than 50% of the time was spent in counseling and/or coordination of care. This note was generated using voice recognition technology and may contain grammatical errors. ASSESSMENT/PLAN: 1. Class 3 severe obesity due to excess calories with serious comorbidity and body mass index (BMI) of 60.0 to 69.9 in adult (HCC) - ICD9: 278.01, V85.44, ICD10: E66.01, Z68.44 (primary diagnosis) Weight decreasing - Behavioral and pharmacological intervention , - Medical nutrition therapy with dietitian, and - Psychology - Nutrition Counseling Practice these: - Eat 3 meals daily--can use approved/recommended protein shake as 1 meal replacement (should be <200 calories, 20-30g protein, <5g added sugar) - Keep a food journal 5-7x/week (consider [employer] or [employer] jorge l) and demonstrate meeting protein goal (60-90g protein for females, 70-105g protein for males)- Lean meats, fish, low fat dairy - cottage cheese, Dutch yogurt, light yogurt, cheese, ricotta cheese, nuts, peanut butter, beans/legumes. Eat protein first at all meals. and 64oz of caffeine-free, carbonation-free fluids at least 5 days per week - engage in formal, planned exercise 5x/week for 30 minutes of cardiovascular activity OR 150+ minutes of cardiovascular activity per week - eliminate all caffeine, carbonation, alcohol and sugar-containing beverages from diet --consider sugar-free drink mixes, water, decaf coffee and tea - Separate eating and drinking by 30 minutes - Chew your food 20-30x per bite - Sip beverages slowly--no guzzling or gulping 2. LIDYA (obstructive sleep apnea) - ICD9: 327.23, ICD10: G47.33 -She was recently cleared by pulmonology. Continue using CPAP nightly. All testing and clearances obtained. Unfortunately, her insurance just informed her that they do not cover bariatric surgery. She will continue seeing obesity medicine at this time. Antonio Melgoza APRN.CNP Medical Decision Making: Problems: Moderate: 2+ stable chronic illnesses Data: Unique source(s) for external note(s) reviewed: 1 Unique test result(s) reviewed: 1 Medical Decision Making Level: 3 - Low documented in this encounter [facility] 07-03-2023 Miscellaneous Notes Patient called in because she is having a change in her work insurance and need to know if she would be covered. At the time she didn't have any information to give me so she called her HR department to ask. When we ran her insurance 6 months ago they informed us that she did have Bariatric coverage. Her HR got back to her and she doesn't have Bariatric coverage nor will she have coverage on her new insurance. Patient is towards the end of the program but has not consented. I informed her that if its not a covered benefit then she will have two options either check out the self pay or continue with working with Obesity med. After the call I went ahead a re called her insurance and got another Rep. She informed me that she is not covered. I will send pt the self pay packet. She will call us with what she decides. Contact Rep- Gracie Ref #: [phone] She doesn't have Bariatric coverage. documented in this encounter [facility] 07-01-2023 Miscellaneous Notes Pt called concerned that her Baraitric surgery will not be covered. She will be changing insurance coming 08/25/23. She doesn't have any information on her new insurance yet. She stated that she will call HR to find that out and either call to find out if she has the coverage or call me back to give me the information to call to fins out. documented in this encounter [facility] 06-19-2023 Note HNO ID: [id number] Author: Reggie Kovacs, DO Service: ? Author Type: Physician Type: Progress Notes Filed: 06/19/2023 5:18 PM Note Text: Ms. Almodovar's PAP titration has been canceled. The patient has mild obstructive sleep apnea and CPAP and PAP titration will not be covered by her insurance. There is no evidence of significant oxygen desaturation or excessive daytime sleepiness that would qualify her. I did discuss this with the patient. She is understanding and agreeable. She is stable to proceed with bariatric surgery from a pulmonary and sleep medicine standpoint. She will need to be monitored closely in the perioperative period for obstructive and partial obstructive events. VANESSA Demarco D.O., [facility], [facility] June 19, 2023 5:18 PM [facility] 06-19-2023 History of Present illness Narrative Ms. Almodovar's PAP titration has been canceled. The patient has mild obstructive sleep apnea and CPAP and PAP titration will not be covered by her insurance. There is no evidence of significant oxygen desaturation or excessive daytime sleepiness that would qualify her. I did discuss this with the patient. She is understanding and agreeable. She is stable to proceed with bariatric surgery from a pulmonary and sleep medicine standpoint. She will need to be monitored closely in the perioperative period for obstructive and partial obstructive events. Reggie Kovacs D.O., VANESSA, [facility], FAA June 19, 2023 5:18 PM documented in this encounter [facility] 06-13-2023 Note HNO ID: [id number] Author: Antonio Melgoza APRN.MALDONADO Service: ? Author Type: Nurse Practitioner Type: Progress Notes Filed: 06/13/2023 2:44 PM Note Text: BARIATRIC SURGERY CLINIC FOLLOW UP NOTE DISTANCE HEALTH VISIT This Team Access Model visit is a virtual encounter. It required patient-provider interaction for the medical decision making as documented below. Consent was obtained to complete today's distance health visit. I have communicated my name and active licensure. The patient's identity and physical location were verified at the time of this visit. Either the patient or their legal computer help desk representative has been informed of the risks and benefits of -- and alternatives to -- treatment through a remote evaluation and consents to proceed with the evaluation remotely. HPI: Deisy Almodovar a 47 year old female presents for medically supervised weight loss treatment of her obesity related co morbidities. This individual presents for month 12 of 6 required visits. Deisy Almodovar weight has decreased since first visit in the program. She is still doing well with nutrition recommendations and consistently hitting fluid and protein goals. She just came back from a brief trip from [place] and admits to not being totally compliant with diet while there but since being back has been back on track and has not gained any weight. For exercise, she is walking 1 mile every day weather outside around the treadmill. Denies recent illnesses, hospitalizations, and medication changes. Denies constipation, diarrhea, abd pain, and reflux symptoms. Recently had PSG done showing LIDYA. She has not heard from pulmonology yet so I recommended her to reach out to them for next steps. We went over with the next steps in the bariatric program would look like. She would like to get surgery done after her cruise in July. HISTORY REVIEWED (electronic chart updated): - medical history - medications - allergies PAST MEDICAL HISTORY Diagnosis Date Class 3 severe obesity with body mass index (BMI) greater than or equal to 70 in adult, unspecified obesity type, unspecified whether serious comorbidity present (HCC) Gall stones Heart burn Heel spur 2012 Morbid obesity (HCC) Seizures (HCC) 06/17/2022 Social: Social History Tobacco Use Smoking status: Never Smokeless tobacco: Never Vaping Use Vaping Use: Never used Substance Use Topics Alcohol use: No Drug use: No Medications: Current Outpatient Medications Medication Sig semaglutide, weight loss, (WEGOVY) 0.25 mg/0.5 mL pen injector Inject 0.5 mL subcutaneously one time a week. semaglutide, weight loss, (WEGOVY) 0.5 mg/0.5 mL pen injector Inject 0.5 mL subcutaneously one time a week. To start after completione of 0.25 mg dosage course semaglutide, weight loss, (WEGOVY) 1 mg/0.5 mL pen injector Inject 0.5 mL subcutaneously one time a week. To start after completion of 0.5 mg dosage course metFORMIN ER (GLUCOPHAGE XR) 500 mg 24 hr tablet Take 1 tablet by mouth daily with dinner. Increase to 2 tablets po daiy with dinner in 2 weeks if tolerating levETIRAcetam (KEPPRA) 500 mg tablet TAKE 1 TABLET BY MOUTH TWICE A DAY ondansetron orally disintegrating (ZOFRAN ODT) 4 mg disintegrating tablet Take 1 tablet by mouth every 6 hours as needed for nausea/vomiting. levonorgestrel (MIRENA) 20 mcg/24 hours (8 yrs) 52 mg IUD 1 Each by INTRAUTERINE route. lansoprazole (PREVACID) 15 mg capsule Take 1 capsule by mouth once daily. (Patient taking differently: Take 15 mg by mouth as needed.) FA/MV,CA,IRON,MIN/LYCOPENE/LUT (MULTIVITAL ORAL) Take by mouth once daily. cholecalciferol, Vitamin D3, (VITAMIN D3) 1,250 mcg (50,000 unit) cap capsule Take 1 capsule by mouth one time a week for 12 doses. Transition to 2,000-4,000 units of Vitamin D OTC after completing 12 weeks No current facility-administered medications for this visit. REVIEW OF SYSTEMS General: No fatigue or fevers HEENT: Negative for frequent or significant headaches, No changes in hearing or vision, no nose bleeds or other nasal problems PAP Therapy: PSG done GI:No nausea, vomiting, or diarrhea and No heartburn or reflux symptoms Muskuloskeletal: Negative for joint pain or swelling, back pain or muscle pain Skin: Negative for lesions, rash, and itching Psych: Negative for sleep disturbance, mood disorder and recent psychosocial stressors PHYSICAL EXAMINATION Wt 195 kg (430 lb) BMI 69.4 kg/m2 Ht 167.6 cm (5' 6) BMI 69.4 kg/m2 GENERAL APPEARANCE: Pleasant, interacts appropriately and in no apparent distress. Appropriately groomed, happy, smiling, and interactive SKIN: Skin of normal texture, temperature without rashes/lesions/ulcerations. LUNGS: unlabored on room air negative findings: normal respiratory rate no cough NEURO/PSYCH: Oriented to person, place, time; appropriate insight and judgement. Appropriate affect. Diagnostic Test (more content not included)... [facility] 06-13-2023 History of Present illness Narrative BARIATRIC SURGERY CLINIC FOLLOW UP NOTE DISTANCE HEALTH VISIT This Team Access Model visit is a virtual encounter. It required patient-provider interaction for the medical decision making as documented below. Consent was obtained to complete today's distance health visit. I have communicated my name and active licensure. The patient's identity and physical location were verified at the time of this visit. Either the patient or their legal computer help desk representative has been informed of the risks and benefits of -- and alternatives to -- treatment through a remote evaluation and consents to proceed with the evaluation remotely. HPI: Deisy Almodovar a 47 year old female presents for medically supervised weight loss treatment of her obesity related co morbidities. This individual presents for month 12 of 6 required visits. Deisy Almodovar weight has decreased since first visit in the program. She is still doing well with nutrition recommendations and consistently hitting fluid and protein goals. She just came back from a brief trip from [place] and admits to not being totally compliant with diet while there but since being back has been back on track and has not gained any weight. For exercise, she is walking 1 mile every day weather outside around the treadmill. Denies recent illnesses, hospitalizations, and medication changes. Denies constipation, diarrhea, abd pain, and reflux symptoms. Recently had PSG done showing LIDYA. She has not heard from pulmonology yet so I recommended her to reach out to them for next steps. We went over with the next steps in the bariatric program would look like. She would like to get surgery done after her cruise in July. HISTORY REVIEWED (electronic chart updated): - medical history - medications - allergies PAST MEDICAL HISTORY Diagnosis Date Class 3 severe obesity with body mass index (BMI) greater than or equal to 70 in adult, unspecified obesity type, unspecified whether serious comorbidity present (HCC) Gall stones Heart burn Heel spur 2012 Morbid obesity (HCC) Seizures (HCC) 06/17/2022 Social: Social History Tobacco Use Smoking status: Never Smokeless tobacco: Never Vaping Use Vaping Use: Never used Substance Use Topics Alcohol use: No Drug use: No Medications: Current Outpatient Medications Medication Sig semaglutide, weight loss, (WEGOVY) 0.25 mg/0.5 mL pen injector Inject 0.5 mL subcutaneously one time a week. semaglutide, weight loss, (WEGOVY) 0.5 mg/0.5 mL pen injector Inject 0.5 mL subcutaneously one time a week. To start after completione of 0.25 mg dosage course semaglutide, weight loss, (WEGOVY) 1 mg/0.5 mL pen injector Inject 0.5 mL subcutaneously one time a week. To start after completion of 0.5 mg dosage course metFORMIN ER (GLUCOPHAGE XR) 500 mg 24 hr tablet Take 1 tablet by mouth daily with dinner. Increase to 2 tablets po daiy with dinner in 2 weeks if tolerating levETIRAcetam (KEPPRA) 500 mg tablet TAKE 1 TABLET BY MOUTH TWICE A DAY ondansetron orally disintegrating (ZOFRAN ODT) 4 mg disintegrating tablet Take 1 tablet by mouth every 6 hours as needed for nausea/vomiting. levonorgestrel (MIRENA) 20 mcg/24 hours (8 yrs) 52 mg IUD 1 Each by INTRAUTERINE route. lansoprazole (PREVACID) 15 mg capsule Take 1 capsule by mouth once daily. (Patient taking differently: Take 15 mg by mouth as needed.) FA/MV,CA,IRON,MIN/LYCOPENE/LUT (MULTIVITAL ORAL) Take by mouth once daily. cholecalciferol, Vitamin D3, (VITAMIN D3) 1,250 mcg (50,000 unit) cap capsule Take 1 capsule by mouth one time a week for 12 doses. Transition to 2,000-4,000 units of Vitamin D OTC after completing 12 weeks No current facility-administered medications for this visit. REVIEW OF SYSTEMS General: No fatigue or fevers HEENT: Negative for frequent or significant headaches, No changes in hearing or vision, no nose bleeds or other nasal problems PAP Therapy: PSG done GI:No nausea, vomiting, or diarrhea and No heartburn or reflux symptoms Muskuloskeletal: Negative for joint pain or swelling, back pain or muscle pain Skin: Negative for lesions, rash, and itching Psych: Negative for sleep disturbance, mood disorder and recent psychosocial stressors PHYSICAL EXAMINATION Wt 195 kg (430 lb) BMI 69.4 kg/m2 Ht 167.6 cm (5' 6) BMI 69.4 kg/m2 GENERAL APPEARANCE: Pleasant, interacts appropriately and in no apparent distress. Appropriately groomed, happy, smiling, and interactive SKIN: Skin of normal texture, temperature without rashes/lesions/ulcerations. LUNGS: unlabored on room air negative findings: normal respiratory rate no cough NEURO/PSYCH: Oriented to person, place, time; appropriate insight and judgement. Appropriate affect. Diagnostic Tests Reviewed for Today's Visit Most recent labs The plan of treatment for Deisy Almodovar is Further Work-up: Required monthly visit: 12 of 6 months EGD: small sliding hiatal hernia, approp for sleeve gastrectomy Upper GI: none RUQ US: Mildly hydropic gallbladder with a large gallstone at the gallbladder neck which is not cleared in the decubitus position. There is suspected trace sludge and mild circumferential wall thickening. Negative biliary dilatation. No hepatosplenomegaly. No focal mass. Sleep Study: done, LIDYA CXR: WNL EKG: NSR H Pylori: negative Labs: complete - low vit D & zinc (addressed) Nicotine use <12 months: NA, ordered per insurance - negative Tox screen: ordered per insurance - negative Antiplatelet/anticoagulants: No Immunosuppressive therapy: No Estrogen therapy: No, IUD Evaluations Psychology: cleared 01/28 Nutrition: cleared 01/15 Education class: ongoing Clearances: -Cardiac (low risk, OV 02/27) -Sleep (PSG done, awaiting further rec from pulm) -Neurology (cleared; OV 12/13) -PCP Risk Calculator: VTE Risk: BMI > 60 ISS score: not diabetic Adverse Event score: TBD Post-op Medications: Extended Lovenox: Yes BMI > 60 Actigall: Not needed, known cholelithiasis H2 samir/PPI: Currently on PPI Total time in direct patient contact = 10 minutes. Greater than 50% of the time was spent in counseling and/or coordination of care. This note was generated using voice recognition technology and may contain grammatical errors. ASSESSMENT/PLAN: 1. Class 3 severe obesity due to excess calories with serious comorbidity and body mass index (BMI) of 60.0 to 69.9 in adult (HCC) - ICD9: 278.01, V85.44, ICD10: E66.01, Z68.44 (primary diagnosis) Weight decreasing - Behavioral and pharmacological intervention , - Medical nutrition therapy with dietitian, and - Psychology - Nutrition Counseling Practice these: - Eat 3 meals daily--can use approved/recommended protein shake as 1 meal replacement (should be <200 calories, 20-30g protein, <5g added sugar) - Keep a food journal 5-7x/week (consider [employer] or [employer]orge [employer]) and demonstrate meeting protein goal (60-90g protein for females, 70-105g protein for males)- Lean meats, fish, low fat dairy - cottage cheese, Dutch yogurt, light yogurt, cheese, ricotta cheese, nuts, peanut butter, beans/legumes. Eat protein first at all meals. and 64oz of caffeine-free, carbonation-free fluids at least 5 days per week - engage in formal, planned exercise 5x/week for 30 minutes of cardiovascular activity OR 150+ minutes of cardiovascular activity per week - eliminate all caffeine, carbonation, alcohol and sugar-containing beverages from diet --consider sugar-free drink mixes, water, decaf coffee and tea - Separate eating and drinking by 30 minutes - Chew your food 20-30x per bite - Sip beverages slowly--no guzzling or gulping 2. Vitamin D deficiency - ICD9: 268.9, ICD10: E55.9 -Completed prior high-dose vitamin D treatment. - VITAMIN D 25 HYDROXY 3. LIDYA (obstructive sleep apnea) - ICD9: 327.23, ICD10: G47.33 -Shown on recent PSG. Encouraged her to reach out to pulmonology for next steps. All testing complete. All clearances obtained except for pulmonology. PSG is done, awaiting further recommendation from pulmonology. Follow-up with [facility] in 4 weeks. Antonio Melgoza APRN.MALDONADO Medical Decision Making: Problems: Low: Stable chronic illness Data: Unique source(s) for external note(s) reviewed: 1 Unique test result(s) reviewed: 1 Unique test(s) ordered: 1 Medical Decision Making Level: 3 - Low documented in this encounter [facility] 06-12-2023 Miscellaneous Notes Per insurance guidelines, if the patient's AHI is under 15 they must have a secondary diagnosis, such as, EDS, insomnia, impaired cognition, ischemic heart disease or hypertension. Mary FRANKLIN She has super morbid obesity and is being contemplated to go under general anesthesia for bariatric surgery. She should be a perioperative risk on those grounds. Patient's PSG results in chart for review, AHI= 7.1 Patient will need a secondary diagnosis to qualify for CPAP and based on her chart notes she is asymptomatic. Please advise. Mary FRANKLIN documented in this encounter [facility] 05-23-2023 Note HNO ID: [id number] Author: Deisy Allan APRN.CNP Service: ? Author Type: Nurse Practitioner Type: Progress Notes Filed: 05/23/2023 1:12 PM Note Text: BARIATRIC SURGERY CLINIC FOLLOW UP NOTE DISTANCE HEALTH VISIT This Team Access Model visit is a virtual encounter. It required patient-provider interaction for the medical decision making as documented below. Consent was obtained to complete today's distance health visit. I have communicated my name and active licensure. The patient's identity and physical location were verified at the time of this visit. Either the patient or their legal computer help desk representative has been informed of the risks and benefits of -- and alternatives to -- treatment through a remote evaluation and consents to proceed with the evaluation remotely. HPI: Deisy Almodovar a 47 year old female for presents for medically supervised weight loss treatment of her obesity related co morbidities. This individual presents for month 11 of 6 required visits completed as a virtual telephone encounter Deisy Almodovar weight calculation has decreased. She continues to keep a food journal daily, she is tracking fluid and protein. She has been exercising regularly by going for walks. She was started on metformin per obesity medicine and has found this beneficial in decreasing her appetite. Denies recent illnesses, hospitalizations, ED visits. Denies worsening acid reflux symptoms. Denies right upper quadrant pain, nausea, vomiting, fevers, chills. She completed in lab PSG per sleep medicine last week, results are still in process. HISTORY REVIEWED (electronic chart updated): - medical history - medications - allergies PAST MEDICAL HISTORY Diagnosis Date Class 3 severe obesity with body mass index (BMI) greater than or equal to 70 in adult, unspecified obesity type, unspecified whether serious comorbidity present (HCC) Gall stones Heart burn Heel spur 2008, 2012 Morbid obesity (HCC) Seizures (HCC) 06/17/2022 Social: Social History Tobacco Use Smoking status: Never Smokeless tobacco: Never Vaping Use Vaping Use: Never used Substance Use Topics Alcohol use: No Drug use: No Medications: Current Outpatient Medications Medication Sig semaglutide, weight loss, (WEGOVY) 0.25 mg/0.5 mL pen injector Inject 0.5 mL subcutaneously one time a week. semaglutide, weight loss, (WEGOVY) 0.5 mg/0.5 mL pen injector Inject 0.5 mL subcutaneously one time a week. To start after completione of 0.25 mg dosage course semaglutide, weight loss, (WEGOVY) 1 mg/0.5 mL pen injector Inject 0.5 mL subcutaneously one time a week. To start after completion of 0.5 mg dosage course metFORMIN ER (GLUCOPHAGE XR) 500 mg 24 hr tablet Take 1 tablet by mouth daily with dinner. Increase to 2 tablets po daiy with dinner in 2 weeks if tolerating cholecalciferol, Vitamin D3, (VITAMIN D3) 1,250 mcg (50,000 unit) cap capsule Take 1 capsule by mouth one time a week for 12 doses. Transition to 2,000-4,000 units of Vitamin D OTC after completing 12 weeks levETIRAcetam (KEPPRA) 500 mg tablet TAKE 1 TABLET BY MOUTH TWICE A DAY ondansetron orally disintegrating (ZOFRAN ODT) 4 mg disintegrating tablet Take 1 tablet by mouth every 6 hours as needed for nausea/vomiting. levonorgestrel (MIRENA) 20 mcg/24 hours (8 yrs) 52 mg IUD 1 Each by INTRAUTERINE route. lansoprazole (PREVACID) 15 mg capsule Take 1 capsule by mouth once daily. (Patient taking differently: Take 15 mg by mouth as needed.) FA/MV,CA,IRON,MIN/LYCOPENE/LUT (MULTIVITAL ORAL) Take by mouth once daily. No current facility-administered medications for this visit. REVIEW OF SYSTEMS General: No fatigue or fevers HEENT: Negative for frequent or significant headaches, No changes in hearing or vision, no nose bleeds or other nasal problems PAP Therapy: TBD GI:No nausea, vomiting, or diarrhea and No heartburn or reflux symptoms Muskuloskeletal: Negative for joint pain or swelling, back pain or muscle pain Skin: Negative for lesions, rash, and itching Psych: Negative for sleep disturbance, mood disorder and recent psychosocial stressors PHYSICAL EXAMINATION Wt 195 kg (430 lb) BMI 69.4 kg/m2 Ht 167.6 cm (5' 6) BMI 69.4 kg/m2 GENERAL APPEARANCE: Pleasant, interacts appropriately and in no apparent distress. Appropriately groomed, happy, smiling, and interactive SKIN: Skin of normal texture, temperature without rashes/lesions/ulcerations. LUNGS: unlabored on room air negative findings: normal respiratory rate no cough NEURO/PSYCH: Oriented to person, place, time; appropriate insight and judgement. Appropriate affect. Diagnostic Tests Reviewed for Today's Visit Most recent lab and imaging results The plan of treatment for Deisy Almodovar is Further Work-up: Required monthly visit: 11 of 6 months EGD: small sliding hiatal hernia, approp for sleeve gastrectomy Upper GI: none RUQ US (more content not included)... [facility] 05-23-2023 History of Present illness Narrative BARIATRIC SURGERY CLINIC FOLLOW UP NOTE DISTANCE HEALTH VISIT This Team Access Model visit is a virtual encounter. It required patient-provider interaction for the medical decision making as documented below. Consent was obtained to complete today's distance health visit. I have communicated my name and active licensure. The patient's identity and physical location were verified at the time of this visit. Either the patient or their legal computer help desk representative has been informed of the risks and benefits of -- and alternatives to -- treatment through a remote evaluation and consents to proceed with the evaluation remotely. HPI: Deisy Almodovar a 47 year old female for presents for medically supervised weight loss treatment of her obesity related co morbidities. This individual presents for month 11 of 6 required visits completed as a virtual telephone encounter Deisy Almodovar weight calculation has decreased. She continues to keep a food journal daily, she is tracking fluid and protein. She has been exercising regularly by going for walks. She was started on metformin per obesity medicine and has found this beneficial in decreasing her appetite. Denies recent illnesses, hospitalizations, ED visits. Denies worsening acid reflux symptoms. Denies right upper quadrant pain, nausea, vomiting, fevers, chills. She completed in lab PSG per sleep medicine last week, results are still in process. HISTORY REVIEWED (electronic chart updated): - medical history - medications - allergies PAST MEDICAL HISTORY Diagnosis Date Class 3 severe obesity with body mass index (BMI) greater than or equal to 70 in adult, unspecified obesity type, unspecified whether serious comorbidity present (HCC) Gall stones Heart burn Heel spur 2008, 2012 Morbid obesity (HCC) Seizures (HCC) 06/17/2022 Social: Social History Tobacco Use Smoking status: Never Smokeless tobacco: Never Vaping Use Vaping Use: Never used Substance Use Topics Alcohol use: No Drug use: No Medications: Current Outpatient Medications Medication Sig semaglutide, weight loss, (WEGOVY) 0.25 mg/0.5 mL pen injector Inject 0.5 mL subcutaneously one time a week. semaglutide, weight loss, (WEGOVY) 0.5 mg/0.5 mL pen injector Inject 0.5 mL subcutaneously one time a week. To start after completione of 0.25 mg dosage course semaglutide, weight loss, (WEGOVY) 1 mg/0.5 mL pen injector Inject 0.5 mL subcutaneously one time a week. To start after completion of 0.5 mg dosage course metFORMIN ER (GLUCOPHAGE XR) 500 mg 24 hr tablet Take 1 tablet by mouth daily with dinner. Increase to 2 tablets po daiy with dinner in 2 weeks if tolerating cholecalciferol, Vitamin D3, (VITAMIN D3) 1,250 mcg (50,000 unit) cap capsule Take 1 capsule by mouth one time a week for 12 doses. Transition to 2,000-4,000 units of Vitamin D OTC after completing 12 weeks levETIRAcetam (KEPPRA) 500 mg tablet TAKE 1 TABLET BY MOUTH TWICE A DAY ondansetron orally disintegrating (ZOFRAN ODT) 4 mg disintegrating tablet Take 1 tablet by mouth every 6 hours as needed for nausea/vomiting. levonorgestrel (MIRENA) 20 mcg/24 hours (8 yrs) 52 mg IUD 1 Each by INTRAUTERINE route. lansoprazole (PREVACID) 15 mg capsule Take 1 capsule by mouth once daily. (Patient taking differently: Take 15 mg by mouth as needed.) FA/MV,CA,IRON,MIN/LYCOPENE/LUT (MULTIVITAL ORAL) Take by mouth once daily. No current facility-administered medications for this visit. REVIEW OF SYSTEMS General: No fatigue or fevers HEENT: Negative for frequent or significant headaches, No changes in hearing or vision, no nose bleeds or other nasal problems PAP Therapy: TBD GI:No nausea, vomiting, or diarrhea and No heartburn or reflux symptoms Muskuloskeletal: Negative for joint pain or swelling, back pain or muscle pain Skin: Negative for lesions, rash, and itching Psych: Negative for sleep disturbance, mood disorder and recent psychosocial stressors PHYSICAL EXAMINATION Wt 195 kg (430 lb) BMI 69.4 kg/m2 Ht 167.6 cm (5' 6) BMI 69.4 kg/m2 GENERAL APPEARANCE: Pleasant, interacts appropriately and in no apparent distress. Appropriately groomed, happy, smiling, and interactive SKIN: Skin of normal texture, temperature without rashes/lesions/ulcerations. LUNGS: unlabored on room air negative findings: normal respiratory rate no cough NEURO/PSYCH: Oriented to person, place, time; appropriate insight and judgement. Appropriate affect. Diagnostic Tests Reviewed for Today's Visit Most recent lab and imaging results The plan of treatment for Deisy Almodovar is Further Work-up: Required monthly visit: 6 months EGD: small sliding hiatal hernia, approp for sleeve gastrectomy Upper GI: none RUQ US: Mildly hydropic gallbladder with a large gallstone at the gallbladder neck which is not cleared in the decubitus position. There is suspected trace sludge and mild circumferential wall thickening. Negative biliary dilatation. No hepatosplenomegaly. No focal mass Sleep Study: Stop-Bang=3, referral to sleep medicine CXR: WNL EKG:per cardiac clearance - referral placed H Pylori: negative Labs: complete - low vit D & zinc (addressed) Nicotine use <12 months: NA, ordered per insurance - negative Tox screen: ordered per insurance - negative Antiplatelet/anticoagulants: No Immunosuppressive therapy: No Estrogen therapy: No, IUD Evaluations Psychology: cleared 01/28 Nutrition: cleared Education class: ongoing Clearances: -Cardiac (low risk, OV 02/27) -Sleep (needs PSG done) -Neurology (cleared; OV 12/13) -PCP Risk Calculator: VTE Risk: BMI > 60 ISS score: not diabetic Adverse Event score: TBD Post-op Medications: Extended Lovenox: Yes BMI > 60 Actigall: Not needed, known cholelithiasis H2 samir/PPI: Currently on PPI ASSESSMENT/PLAN: 1. Class 3 severe obesity with body mass index (BMI) greater than or equal to 70 in adult, unspecified obesity type, unspecified whether serious comorbidity present (HCC) - ICD9: 278.01, V85.45, ICD10: E66.01, Z68.45 (primary diagnosis) Weight decreasing - Behavioral intervention and - Medical nutrition therapy with dietitian - Nutrition Counseling Practice these: - Eat 3 meals daily--can use approved/recommended protein shake as 1 meal replacement (should be <200 calories, 20-30g protein, <5g added sugar) - Keep a food journal 5-7x/week (consider [employer] or [employer]orge [employer]) and demonstrate meeting protein goal (60-90g protein for females, 70-105g protein for males)- Lean meats, fish, low fat dairy - cottage cheese, Dutch yogurt, light yogurt, cheese, ricotta cheese, nuts, peanut butter, beans/legumes. Eat protein first at all meals. and 64oz of caffeine-free, carbonation-free fluids at least 5 days per week - engage in formal, planned exercise 5x/week for 30 minutes of cardiovascular activity OR 150+ minutes of cardiovascular activity per week - eliminate all caffeine, carbonation, alcohol and sugar-containing beverages from diet --consider sugar-free drink mixes, water, decaf coffee and tea - Separate eating and drinking by 30 minutes - Chew your food 20-30x per bite - Sip beverages slowly--no guzzling or gulping 2. Gastroesophageal reflux disease without esophagitis - ICD9: 530.81, ICD10: K21.9 - Discussed lifestyle modifications including losing weight, limiting caffeine, no meals three hours before sleep, and head of bed elevation - continue PPI 3. Snoring - ICD9: 786.09, ICD10: R06.83 - Completed in lab PSG per sleep medicine last week, results are in process - She is aware that she will need to have CPAP and begin using it prior to consenting for surgery All testing is complete. Still needs to obtain CPAP (if warranted) and clearance from sleep medicine. Follow-up with [facility] next month to review status of this. If she obtains CPAP in the meantime and begins using it, she can come back to consent with surgeon. Deisy Allan APRN.ADJUSTO WRITER OPERATOR Total time in direct patient contact = 10 min. Greater than 50% of the time was spent in counseling and/or coordination of care. This note was generated using voice recognition technology and may contain grammatical errors. Medical Decision Making: Problems: Moderate: 2+ stable chronic illnesses Data: Assessment requiring an independent historian(s) Medical Decision Making Level: 3 - Low documented in this encounter [facility] 05-19-2023 Note HNO ID: [id number] Author: Arron Michaud Jr., MD Service: ? Author Type: Physician Type: Progress Notes Filed: 05/19/2023 4:33 PM Note Text: May 19, 2023 An order has been received for Polysomnogram (PSG) from Dr. Kovacs, an OMD (), a C. OMDs with and without [facility]. Visit prep complete. Order and documentation available in [facility] either under procedure or scanned document tabs. Comments :Yes, Patient complains of nocturia. The sleep study is scheduled for 05/20/2023. Insurance: Payor: AETNA / Plan: AETNA POS / Product Type: POS / Payer/Plan Subscr Sex Relation Sub. Ins. ID Effective Group Num 1. AETNA - AETNA* FANNY ALMODOVAR* 1975 Female Self [id number] [birth year] [address] [place] Booth[place] 2022 Standing PSG Orders signed in the last 90 days None Future PSG Orders signed in the last 90 days Ordered Auth. provider POLYSOMNOGRAM (PSG) [[id number]] 03/19/23 Reggie Kovacs DO Assoc. diagnoses: Morbid obesity (HCC) [E66.01], History of seizure [Z87.898] Q: Indications - Select All That Apply: A: Obstructive sleep apnea (snoring, tiredness/fatigue/daytime sleepiness, behavior disturbance, craniofacial abnormality, tonsil hypertrophy) A2: Obstructive sleep apnea Q: STOP-BANG conditions - Select All That Apply: A: BMI > 35 kg/m2 Q: Comorbidities: A: NONE Q: Is the patient non-ambulatory or will they be accompanied by a caregiver?: A: No Q: Current use of supplemental oxygen during sleep period?: A: No Q: Add supplemental oxygen if needed per sleep lab policy?: A: Yes Q: Is this a repeat Sleep Study?: A: No Comment: Nocturnal polysomnogram with end-tidal or transcutaneous CO2 monitoring. [facility] sleep laboratory. All Prior Sleep Studies (past 365 days) Some values may be hidden. Unless noted otherwise, only the newest values recorded on each date are displayed. Sleep Studies CONSULT TO SLEEP MEDICINE - ADULT Future Expected: Expires: POLYSOMNOGRAM (PSG) Future Expected: Expires: 03/18/24 BMI Readings from Last 2 Encounters: 04/18/23 : 70.70 kg/m? 04/17/23 : 70.70 kg/m? PAST MEDICAL HISTORY Diagnosis Date Class 3 severe obesity with body mass index (BMI) greater than or equal to 70 in adult, unspecified obesity type, unspecified whether serious comorbidity present (HCC) Gall stones Heart burn Heel spur 2012 Morbid obesity (HCC) Seizures (HCC) 06/17/2022 The medical record was reviewed to determine if the proposed sleep study conforms to the AASM Practice Parameters for the Indications for Polysomnography and Related Procedures, or if the sleep study is indicated for other reasons. Indications for study: LIDYA suspected with comorbid medical or sleep disorders: Neurologic diseases including neuromuscular disease or stroke Morbid obesity (BMI>40 kg/m2) Sleep study to be performed: Polysomnogram Special instructions: Target REM/supine sleep Add EtCO2 or Transcutaneous CO2 if available [facility] Staff Note: I have read the above protocol, edited as needed, and agree to the plan. Arron Michaud MD 4:33 PM, 05/19/2023 [facility] 05-19-2023 History of Present illness Narrative May 19, 2023 An order has been received for Polysomnogram (PSG) from Dr. Kovacs, an OMD (), a C. OMDs with and without [facility]. Visit prep complete. Order and documentation available in [facility] either under procedure or scanned document tabs. Comments :Yes, Patient complains of nocturia. The sleep study is scheduled for 05/20/2023. Insurance: Payor: AETNA / Plan: AETNA POS / Product Type: POS / Payer/Plan Subscr Sex Relation Sub. Ins. ID Effective Group Num 1. AETNA - AETNA* NISHIFANNY* 1975 Female Self [id number] [birth year] [address] [place] 2022 Standing PSG Orders signed in the last 90 days None Future PSG Orders signed in the last 90 days Ordered Auth. provider POLYSOMNOGRAM (PSG) [[id number]] 03/19/23 Reggie Kovacs DO Assoc. diagnoses: Morbid obesity (HCC) [E66.01], History of seizure [Z87.898] Q: Indications - Select All That Apply: A: Obstructive sleep apnea (snoring, tiredness/fatigue/daytime sleepiness, behavior disturbance, craniofacial abnormality, tonsil hypertrophy) A2: Obstructive sleep apnea Q: STOP-BANG conditions - Select All That Apply: A: BMI > 35 kg/m2 Q: Comorbidities: A: NONE Q: Is the patient non-ambulatory or will they be accompanied by a caregiver?: A: No Q: Current use of supplemental oxygen during sleep period?: A: No Q: Add supplemental oxygen if needed per sleep lab policy?: A: Yes Q: Is this a repeat Sleep Study?: A: No Comment: Nocturnal polysomnogram with end-tidal or transcutaneous CO2 monitoring. [facility] sleep laboratory. All Prior Sleep Studies (past 365 days) Some values may be hidden. Unless noted otherwise, only the newest values recorded on each date are displayed. Sleep Studies CONSULT TO SLEEP MEDICINE - ADULT Future Expected: Expires: POLYSOMNOGRAM (PSG) Future Expected: Expires: 03/18/24 BMI Readings from Last 2 Encounters: 04/18/23 : 70.70 kg/m 04/17/23 : 70.70 kg/m PAST MEDICAL HISTORY Diagnosis Date Class 3 severe obesity with body mass index (BMI) greater than or equal to 70 in adult, unspecified obesity type, unspecified whether serious comorbidity present (HCC) Gall stones Heart burn Heel spur 2012 Morbid obesity (HCC) Seizures (HCC) 06/17/2022 The medical record was reviewed to determine if the proposed sleep study conforms to the AASM Practice Parameters for the Indications for Polysomnography and Related Procedures, or if the sleep study is indicated for other reasons. Indications for study: LIDYA suspected with comorbid medical or sleep disorders: Neurologic diseases including neuromuscular disease or stroke Morbid obesity (BMI>40 kg/m2) Sleep study to be performed: Polysomnogram Special instructions: Target REM/supine sleep Add EtCO2 or Transcutaneous CO2 if available [place] [facility] Staff Note: I have read the above protocol, edited as needed, and agree to the plan. Arron Michaud MD 4:33 PM, 05/19/2023 documented in this encounter [facility] 04-18-2023 Note HNO ID: [id number] Author: Deisy Allan APRN.ADJUSTO WRITER OPERATOR Service: ? Author Type: Nurse Practitioner Type: Progress Notes Filed: 04/18/2023 10:08 AM Note Text: BARIATRIC SURGERY CLINIC FOLLOW UP NOTE DISTANCE HEALTH VISIT This Team Access Model visit is a virtual encounter. It required patient-provider interaction for the medical decision making as documented below. Consent was obtained to complete today's distance health visit. I have communicated my name and active licensure. The patient's identity and physical location were verified at the time of this visit. Either the patient or their legal computer help desk representative has been informed of the risks and benefits of -- and alternatives to -- treatment through a remote evaluation and consents to proceed with the evaluation remotely. HPI: Deisy Almodovar a 47 year old female for presents for medically supervised weight loss treatment of her obesity related co morbidities. This individual presents for month 10 of 6 required visits completed as a virtual telephone encounter Deisy Almodovar weight calculation has decreased. She continues to do well with nutrition recommendations-she is keeping a food journal daily, meeting fluid and protein goals, and exercising regularly. Denies recent illnesses, hospitalizations, ED visits. She has PSG scheduled at the end of April per sleep medicine. HISTORY REVIEWED (electronic chart updated): - medical history - medications - allergies PAST MEDICAL HISTORY Diagnosis Date Class 3 severe obesity with body mass index (BMI) greater than or equal to 70 in adult, unspecified obesity type, unspecified whether serious comorbidity present (HCC) Gall stones Heart burn Heel spur 2012 Morbid obesity (HCC) Seizures (HCC) 06/17/2022 Social: Social History Tobacco Use Smoking status: Never Smokeless tobacco: Never Vaping Use Vaping Use: Never used Substance Use Topics Alcohol use: No Drug use: No Medications: Current Outpatient Medications Medication Sig semaglutide, weight loss, (WEGOVY) 0.25 mg/0.5 mL pen injector Inject 0.5 mL subcutaneously one time a week. semaglutide, weight loss, (WEGOVY) 0.5 mg/0.5 mL pen injector Inject 0.5 mL subcutaneously one time a week. To start after completione of 0.25 mg dosage course semaglutide, weight loss, (WEGOVY) 1 mg/0.5 mL pen injector Inject 0.5 mL subcutaneously one time a week. To start after completion of 0.5 mg dosage course metFORMIN ER (GLUCOPHAGE XR) 500 mg 24 hr tablet Take 1 tablet by mouth daily with dinner. Increase to 2 tablets po daiy with dinner in 2 weeks if tolerating cholecalciferol, Vitamin D3, (VITAMIN D3) 1,250 mcg (50,000 unit) cap capsule Take 1 capsule by mouth one time a week for 12 doses. Transition to 2,000-4,000 units of Vitamin D OTC after completing 12 weeks levETIRAcetam (KEPPRA) 500 mg tablet TAKE 1 TABLET BY MOUTH TWICE A DAY ondansetron orally disintegrating (ZOFRAN ODT) 4 mg disintegrating tablet Take 1 tablet by mouth every 6 hours as needed for nausea/vomiting. levonorgestrel (MIRENA) 20 mcg/24 hours (8 yrs) 52 mg IUD 1 Each by INTRAUTERINE route. lansoprazole (PREVACID) 15 mg capsule Take 1 capsule by mouth once daily. (Patient taking differently: Take 15 mg by mouth as needed.) FA/MV,CA,IRON,MIN/LYCOPENE/LUT (MULTIVITAL ORAL) Take by mouth once daily. No current facility-administered medications for this visit. REVIEW OF SYSTEMS General: No fatigue or fevers HEENT: Negative for frequent or significant headaches, No changes in hearing or vision, no nose bleeds or other nasal problems PAP Therapy: TBD GI:No nausea, vomiting, or diarrhea and No heartburn or reflux symptoms Muskuloskeletal: Negative for joint pain or swelling, back pain or muscle pain Skin: Negative for lesions, rash, and itching Psych: Negative for sleep disturbance, mood disorder and recent psychosocial stressors PHYSICAL EXAMINATION Wt 198.7 kg (438 lb) BMI 70.7 kg/m2 Ht 167.6 cm (5' 6) BMI 70.7 kg/m2 GENERAL APPEARANCE: Pleasant, interacts appropriately and in no apparent distress. Appropriately groomed, happy, smiling, and interactive SKIN: Skin of normal texture, temperature without rashes/lesions/ulcerations. LUNGS: unlabored on room air negative findings: normal respiratory rate no cough NEURO/PSYCH: Oriented to person, place, time; appropriate insight and judgement. Appropriate affect. Diagnostic Tests Reviewed for Today's Visit Most recent lab and imaging results The plan of treatment for Deisy Almodovar is Further Work-up: Required monthly visit: 10 of 6 months EGD: small sliding hiatal hernia, approp for sleeve gastrectomy Upper GI: none RUQ US: Mildly hydropic gallbladder with a large gallstone at the gallbladder neck which is not cleared in the decubitus position. There is suspected trace sludge and mild circumferential wall thickening. Negative biliar (more content not included)... [facility] 04-17-2023 Note HNO ID: [id number] Author: Coni Pina MD Service: ? Author Type: Physician Type: Progress Notes Filed: 05/05/2023 9:21 AM Note Text: Coni Pina MD [facility] [address], [address] [facility] - Fourth Floor [place] [address] This Team Access Model visit is a virtual video visit due to COVID -19 Pandemic . It required patient-provider interaction for the medical decision making as documented below. Consent was obtained to complete today's distance health visit. Deisy Almodovar is a 47 year old female with has a past medical history of Class 3 severe obesity with body mass index (BMI) greater than or equal to 70 in adult, unspecified obesity type, unspecified whether serious comorbidity present (HCC), Gall stones, Heart burn, Heel spur (2008, 2012), Morbid obesity (HCC), and Seizures (HCC) (06/17/2022). of obesity here today for a follow up on her weight loss efforts. She is currently taking the prescription weight loss medication Metformin Concerns: Doing ok Wegovy was denied by her [employer] reported as a plan exclusion We will file an appeal Doing ok on Metformin, forgetting to take it She is continuing with diet changes: yes ok Still using baritastic jorge l -Main focus of dietary changes: protein still good at least 60 grams protein/day She is continuing with exercise changes: yes -Exercise routine: walking Goal weight: 400 lb prior to surgery Review of weight loss medication side effects Any GI upset? no Changes to blood pressure? no Visual Changes: no -- Patient reports suppression of her appetite and increase in satiety since starting the medication Diet: No changes since last time Breakfast Snacks Lunch Dinner snacks Satiety Satiation Cravings Sleep: Stress: Smoking/Alcohol - Exercise Freq: Barriers: Work-related activity: Sedentary ROS VITALS: LMP 01/05/2015 , There is no height or weight on file to calculate BMI. Physical Exam Constitutional:. --no issues with communication HEENT: Normocephalic and atraumatic. Eyes: Conjunctiva appear normal. No scleral icterus. Hearing: Is grossly intact. Neck: Range of motion appears normal. Thyroid: appears symmetric and not enlarged. Pulmonary/Chest: Effort normal. Psychiatric: Mood, memory, affect and judgment normal. Neurological: alert and oriented to person, place, and time. Impression and Plan: ASSESSMENT/PLAN: 1. Class 3 severe obesity with body mass index (BMI) greater than or equal to 70 in adult, unspecified obesity type, unspecified whether serious comorbidity present (HCC) - ICD9: 278.01, V85.45, ICD10: E66.01, Z68.45 (primary diagnosis) Weight decreasing Her weight needs to come down closer to 400 pounds prior to being optimized for right bariatric surgery A prescription for Wegovy was placed at the last appointment however her insurance has denied this We will plan to complete an appeal for this decision Continue Metformin Continue aggressive dietary modifications 2. Gallstones and inflammation of gallbladder without obstruction - ICD9: 574.00, ICD10: K80.00 3. Gastroesophageal reflux disease without esophagitis - ICD9: 530.81, ICD10: K21.9 Weight loss will be beneficial Coni Pina MD She is doing well otherwise, continues lifestyle modification. She remains motivated to lose weight. Reviewed principles of energy metabolism, caloric intake and expenditure, and rationale for treatment program. Also reinforced need for reduced calorie, low fat diet and increased physical activity. Coni Pina MD Some elements were copied from my last note, which have been updated where appropriate, and all reflect current medical decision making from TODAY I spent a total of 30 minutes on the date of the service which included preparing to see the patient, completing clinical documentation, obtaining and/or reviewing separately obtained history, performing a medically appropriate examination, counseling and educating the patient/family/caregiver, ordering medications, tests, or procedures,independently interpreting results (not separately reported), communicating results to the patient/family/caregiver and care coordination (not separately reported). [facility] 04-17-2023 History of Present illness Narrative Images from the original note were not included. Coni Pina MD [address], [facility] [address] [facility] - Fourth Floor [place] [address] This Team Access Model visit is a virtual video visit due to COVID -19 Pandemic . It required patient-provider interaction for the medical decision making as documented below. Consent was obtained to complete today's distance health visit. Deisy Almodovar is a 47 year old female with has a past medical history of Class 3 severe obesity with body mass index (BMI) greater than or equal to 70 in adult, unspecified obesity type, unspecified whether serious comorbidity present (HCC), Gall stones, Heart burn, Heel spur (2008, 2012), Morbid obesity (HCC), and Seizures (HCC) (06/17/2022). of obesity here today for a follow up on her weight loss efforts. She is currently taking the prescription weight loss medication Metformin Concerns: Doing ok Wegovy was denied by her [employer]), reported as a plan exclusion We will file an appeal Doing ok on Metformin, forgetting to take it She is continuing with diet changes: yes ok Still using [employer] jorge l -Main focus of dietary changes: protein still good at least 60 grams protein/day She is continuing with exercise changes: yes -Exercise routine: walking Goal weight: 400 lb prior to surgery Review of weight loss medication side effects Any GI upset? no Changes to blood pressure? no Visual Changes: no -- Patient reports suppression of her appetite and increase in satiety since starting the medication Diet: No changes since last time Breakfast Snacks Lunch Dinner snacks Satiety Satiation Cravings Sleep: Stress: Smoking/Alcohol - Exercise Freq: Barriers: Work-related activity: Sedentary ROS VITALS: LMP 01/05/2015 , There is no height or weight on file to calculate BMI. Physical Exam Constitutional:. --no issues with communication HEENT: Normocephalic and atraumatic. Eyes: Conjunctiva appear normal. No scleral icterus. Hearing: Is grossly intact. Neck: Range of motion appears normal. Thyroid: appears symmetric and not enlarged. Pulmonary/Chest: Effort normal. Psychiatric: Mood, memory, affect and judgment normal. Neurological: alert and oriented to person, place, and time. Impression and Plan: ASSESSMENT/PLAN: 1. Class 3 severe obesity with body mass index (BMI) greater than or equal to 70 in adult, unspecified obesity type, unspecified whether serious comorbidity present (HCC) - ICD9: 278.01, V85.45, ICD10: E66.01, Z68.45 (primary diagnosis) Weight decreasing Her weight needs to come down closer to 400 pounds prior to being optimized for right bariatric surgery A prescription for Wegovy was placed at the last appointment however her insurance has denied this We will plan to complete an appeal for this decision Continue Metformin Continue aggressive dietary modifications 2. Gallstones and inflammation of gallbladder without obstruction - ICD9: 574.00, ICD10: K80.00 3. Gastroesophageal reflux disease without esophagitis - ICD9: 530.81, ICD10: K21.9 Weight loss will be beneficial Coni Pina MD She is doing well otherwise, continues lifestyle modification. She remains motivated to lose weight. Reviewed principles of energy metabolism, caloric intake and expenditure, and rationale for treatment program. Also reinforced need for reduced calorie, low fat diet and increased physical activity. Coni Pina MD Some elements were copied from my last note, which have been updated where appropriate, and all reflect current medical decision making from TODAY I spent a total of 30 minutes on the date of the service which included preparing to see the patient, completing clinical documentation, obtaining and/or reviewing separately obtained history, performing a medically appropriate examination, counseling and educating the patient/family/caregiver, ordering medications, tests, or procedures,independently interpreting results (not separately reported), communicating results to the patient/family/caregiver and care coordination (not separately reported). documented in this encounter [facility] 04-14-2023 Miscellaneous Notes April 14, 2023 PID: [id number] Deisy Almodovar [address] [place] [address] Dear Ms. Almodovar, We are pleased to inform you that the results of your recent breast imaging exam on 04/11/2023 are normal. Early detection of cancer is very important. We also understand recommendations regarding breast cancer screening are controversial. Please discuss with your primary care provider which strategy is best for you and whether a mammogram is right for you. Your imaging studies and report will be kept on file at [facility] as part of your permanent medical record and are available for your continuing care. Thank you for allowing us to help in meeting your health care needs. Sincerely, Dr. Lazaro Interpreting Radiologist [facility] (Normal over 40) documented in this encounter [facility] 04-11-2023 History of Present illness Narrative Radiology Service Progress Note PATIENT NAME: Deisy Almodovar DATE OF SERVICE: April 11, 2023 TIME: 8:15 AM PATIENT IDENTITY VERIFICATION COMPLETED USING TWO (2) IDENTIFIERS: Name and Date of confirmed by patient verbally. FALL SCREENING: Has the patient had 2 falls in the last year or 1 fall with injury or currently using an Ambulatory Assistive Device (Walker, Cane, Wheelchair, Crutches, etc.)? No PATIENT GENDER DATA: Female. status: : No status: NO. PATIENT RELEVANT IMPLANT DATA REVIEWED: Yes RADIOLOGY DEPARTMENT: Mammography PERIPHERAL IV DATA: Not applicable SIGNED BY: RT John(R) April 11, 2023 8:15 AM documented in this encounter [facility] 03-26-2023 Miscellaneous Notes Order for PSG faxed to [facility] documented in this encounter [facility] 03-24-2023 Note HNO ID: [id number] Author: Antonio Melgoza APRN.ADJUSTO WRITER OPERATOR Service: ? Author Type: Nurse Practitioner Type: Progress Notes Filed: 03/24/2023 8:21 AM Note Text: BARIATRIC SURGERY CLINIC FOLLOW UP NOTE DISTANCE HEALTH VISIT This Team Access Model visit is a virtual encounter. It required patient-provider interaction for the medical decision making as documented below. Consent was obtained to complete today's distance health visit. I have communicated my name and active licensure. The patient's identity and physical location were verified at the time of this visit. Either the patient or their legal computer help desk representative has been informed of the risks and benefits of -- and alternatives to -- treatment through a remote evaluation and consents to proceed with the evaluation remotely. HPI: Deisy Almodovar a 47 year old female for presents for medically supervised weight loss treatment of her obesity related co morbidities. This individual presents for month 9 of 6 required visits. Deisy Almodovar weight has decreased by 40 lb since first visit in the program, and has decreased by 2 lb since last visit. She reports doing very well with nutrition recommendations. Getting at least 64 ounces of fluids and 80 g protein daily. For exercise, she uses the treadmill and stationary bike every day. Denies recent illnesses, hospitalizations, and medication changes. Denies constipation, diarrhea, abd pain, and reflux symptoms. She has recently been cleared by cardiology. Sleep medicine recommended a PSG, they will contact her to schedule. HISTORY REVIEWED (electronic chart updated): - medical history - medications - allergies PAST MEDICAL HISTORY Diagnosis Date Class 3 severe obesity with body mass index (BMI) greater than or equal to 70 in adult, unspecified obesity type, unspecified whether serious comorbidity present (HCC) Gall stones Heart burn Heel spur 2008, 2012 Morbid obesity (HCC) Seizures (HCC) 06/17/2022 Social: Social History Tobacco Use Smoking status: Never Smokeless tobacco: Never Vaping Use Vaping Use: Never used Substance Use Topics Alcohol use: No Drug use: No Medications: Current Outpatient Medications Medication Sig metFORMIN ER (GLUCOPHAGE XR) 500 mg 24 hr tablet Take 1 tablet by mouth daily with dinner. Increase to 2 tablets po daiy with dinner in 2 weeks if tolerating cholecalciferol, Vitamin D3, (VITAMIN D3) 1,250 mcg (50,000 unit) cap capsule Take 1 capsule by mouth one time a week for 12 doses. Transition to 2,000-4,000 units of Vitamin D OTC after completing 12 weeks levETIRAcetam (KEPPRA) 500 mg tablet TAKE 1 TABLET BY MOUTH TWICE A DAY ondansetron orally disintegrating (ZOFRAN ODT) 4 mg disintegrating tablet Take 1 tablet by mouth every 6 hours as needed for nausea/vomiting. ondansetron (ZOFRAN) 4 mg tablet Take 1 tablet by mouth every 8 hours as needed for up to 15 doses. levonorgestrel (MIRENA) 20 mcg/24 hours (8 yrs) 52 mg IUD 1 Each by INTRAUTERINE route. lansoprazole (PREVACID) 15 mg capsule Take 1 capsule by mouth once daily. (Patient taking differently: Take 15 mg by mouth as needed.) FA/MV,CA,IRON,MIN/LYCOPENE/LUT (MULTIVITAL ORAL) Take by mouth once daily. No current facility-administered medications for this visit. REVIEW OF SYSTEMS General: No fatigue or fevers HEENT: Negative for frequent or significant headaches, No changes in hearing or vision, no nose bleeds or other nasal problems PAP Therapy: PSG needed GI:No nausea, vomiting, or diarrhea and No heartburn or reflux symptoms Muskuloskeletal: Negative for joint pain or swelling, back pain or muscle pain Skin: Negative for lesions, rash, and itching Psych: Negative for sleep disturbance, mood disorder and recent psychosocial stressors PHYSICAL EXAMINATION Wt (!) 200.9 kg (443 lb) LMP 01/05/2015 BMI 71.50 kg/m? GENERAL APPEARANCE: Pleasant, interacts appropriately and in no apparent distress. Appropriately groomed, happy, smiling, and interactive SKIN: Skin of normal texture, temperature without rashes/lesions/ulcerations. LUNGS: unlabored on room air negative findings: normal respiratory rate no cough NEURO/PSYCH: Oriented to person, place, time; appropriate insight and judgement. Appropriate affect. Diagnostic Tests Reviewed for Today's Visit No new labs The plan of treatment for Deisy Almodovar is Further Work-up: Required monthly visit: 9 of 6 months EGD: small sliding hiatal hernia, approp for sleeve gastrectomy Upper GI: none RUQ US: Mildly hydropic gallbladder with a large gallstone at the gallbladder neck which is not cleared in the decubitus position. There is suspected trace sludge and mild circumferential wall thickening. Negative biliary dilatation. No hepatosplenomegaly. No focal mass Sleep Study: Stop-Bang=3, referral to sleep medicine CXR: WNL EKG:per cardiac clearance - referral placed H Pylori: negati (more content not included)... [facility] 03-24-2023 Miscellaneous Notes Return in about 4 weeks (around 04/21/2023) 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 No answer , lvm & voicemail documented in this encounter [facility] 03-24-2023 History of Present illness Narrative BARIATRIC SURGERY CLINIC FOLLOW UP NOTE DISTANCE HEALTH VISIT This Team Access Model visit is a virtual encounter. It required patient-provider interaction for the medical decision making as documented below. Consent was obtained to complete today's distance health visit. I have communicated my name and active licensure. The patient's identity and physical location were verified at the time of this visit. Either the patient or their legal computer help desk representative has been informed of the risks and benefits of -- and alternatives to -- treatment through a remote evaluation and consents to proceed with the evaluation remotely. HPI: Deisy Almodovar a 47 year old female for presents for medically supervised weight loss treatment of her obesity related co morbidities. This individual presents for month 9 of 6 required visits. Deisy Almodovar weight has decreased by 40 lb since first visit in the program, and has decreased by 2 lb since last visit. She reports doing very well with nutrition recommendations. Getting at least 64 ounces of fluids and 80 g protein daily. For exercise, she uses the treadmill and stationary bike every day. Denies recent illnesses, hospitalizations, and medication changes. Denies constipation, diarrhea, abd pain, and reflux symptoms. She has recently been cleared by cardiology. Sleep medicine recommended a PSG, they will contact her to schedule. HISTORY REVIEWED (electronic chart updated): - medical history - medications - allergies PAST MEDICAL HISTORY Diagnosis Date Class 3 severe obesity with body mass index (BMI) greater than or equal to 70 in adult, unspecified obesity type, unspecified whether serious comorbidity present (HCC) Gall stones Heart burn Heel spur 2012 Morbid obesity (HCC) Seizures (HCC) 06/17/2022 Social: Social History Tobacco Use Smoking status: Never Smokeless tobacco: Never Vaping Use Vaping Use: Never used Substance Use Topics Alcohol use: No Drug use: No Medications: Current Outpatient Medications Medication Sig metFORMIN ER (GLUCOPHAGE XR) 500 mg 24 hr tablet Take 1 tablet by mouth daily with dinner. Increase to 2 tablets po daiy with dinner in 2 weeks if tolerating cholecalciferol, Vitamin D3, (VITAMIN D3) 1,250 mcg (50,000 unit) cap capsule Take 1 capsule by mouth one time a week for 12 doses. Transition to 2,000-4,000 units of Vitamin D OTC after completing 12 weeks levETIRAcetam (KEPPRA) 500 mg tablet TAKE 1 TABLET BY MOUTH TWICE A DAY ondansetron orally disintegrating (ZOFRAN ODT) 4 mg disintegrating tablet Take 1 tablet by mouth every 6 hours as needed for nausea/vomiting. ondansetron (ZOFRAN) 4 mg tablet Take 1 tablet by mouth every 8 hours as needed for up to 15 doses. levonorgestrel (MIRENA) 20 mcg/24 hours (8 yrs) 52 mg IUD 1 Each by INTRAUTERINE route. lansoprazole (PREVACID) 15 mg capsule Take 1 capsule by mouth once daily. (Patient taking differently: Take 15 mg by mouth as needed.) FA/MV,CA,IRON,MIN/LYCOPENE/LUT (MULTIVITAL ORAL) Take by mouth once daily. No current facility-administered medications for this visit. REVIEW OF SYSTEMS General: No fatigue or fevers HEENT: Negative for frequent or significant headaches, No changes in hearing or vision, no nose bleeds or other nasal problems PAP Therapy: PSG needed GI:No nausea, vomiting, or diarrhea and No heartburn or reflux symptoms Muskuloskeletal: Negative for joint pain or swelling, back pain or muscle pain Skin: Negative for lesions, rash, and itching Psych: Negative for sleep disturbance, mood disorder and recent psychosocial stressors PHYSICAL EXAMINATION Wt (!) 200.9 kg (443 lb) LMP 01/05/2015 BMI 71.50 kg/m GENERAL APPEARANCE: Pleasant, interacts appropriately and in no apparent distress. Appropriately groomed, happy, smiling, and interactive SKIN: Skin of normal texture, temperature without rashes/lesions/ulcerations. LUNGS: unlabored on room air negative findings: normal respiratory rate no cough NEURO/PSYCH: Oriented to person, place, time; appropriate insight and judgement. Appropriate affect. Diagnostic Tests Reviewed for Today's Visit No new labs The plan of treatment for Deisy Almodovar is Further Work-up: Required monthly visit: 9 of 6 months EGD: small sliding hiatal hernia, approp for sleeve gastrectomy Upper GI: none RUQ US: Mildly hydropic gallbladder with a large gallstone at the gallbladder neck which is not cleared in the decubitus position. There is suspected trace sludge and mild circumferential wall thickening. Negative biliary dilatation. No hepatosplenomegaly. No focal mass Sleep Study: Stop-Bang=3, referral to sleep medicine CXR: WNL EKG:per cardiac clearance - referral placed H Pylori: negative Labs: complete - low vit D & zinc (addressed) Nicotine use <12 months: NA, ordered per insurance - negative Tox screen: ordered per insurance - negative Antiplatelet/anticoagulants: No Immunosuppressive therapy: No Estrogen therapy: No, IUD Evaluations Psychology: cleared 01/28 Nutrition: cleared Education class: ongoing Clearances: -Cardiac (low risk, OV 02/27) -Sleep (needs PSG done) -Neurology (cleared; OV 12/13) -PCP Risk Calculator: VTE Risk: BMI > 60 ISS score: not diabetic Adverse Event score: TBD Post-op Medications: Extended Lovenox: Yes BMI > 60 Actigall: Not needed, known cholelithiasis H2 samir/PPI: Currently on PPI ASSESSMENT/PLAN: 1. Class 3 severe obesity with body mass index (BMI) greater than or equal to 70 in adult, unspecified obesity type, unspecified whether serious comorbidity present (HCC) - ICD9: 278.01, V85.45, ICD10: E66.01, Z68.45 (primary diagnosis) -Dietary surveillance - Nutrition Counseling Practice these: - Eat 3 meals daily--can use approved/recommended protein shake as 1 meal replacement (should be <200 calories, 20-30g protein, <5g added sugar) - Keep a food journal 5-7x/week (consider [employer] or [employer] jorge l) and demonstrate meeting protein goal (60-90g protein for females, 70-105g protein for males)- Lean meats, fish, low fat dairy - cottage cheese, Dutch yogurt, light yogurt, cheese, ricotta cheese, nuts, peanut butter, beans/legumes. Eat protein first at all meals. and 64oz of caffeine-free, carbonation-free fluids at least 5 days per week - engage in formal, planned exercise 5x/week for 30 minutes of cardiovascular activity OR 150+ minutes of cardiovascular activity per week - eliminate all caffeine, carbonation, alcohol and sugar-containing beverages from diet --consider sugar-free drink mixes, water, decaf coffee and tea - Separate eating and drinking by 30 minutes - Chew your food 20-30x per bite - Sip beverages slowly--no guzzling or gulping 2. Gastroesophageal reflux disease without esophagitis - ICD9: 530.81, ICD10: K21.9 -Well managed with Prevacid 3. Snoring - ICD9: 786.09, ICD10: R06.83 -Previously saw sleep medicine -They are recommending PSG All testing is complete. She has psychology, nutrition, cardiology, and neurology clearance. She still needs sleep medicine clearance - needs to schedule PSG. Follow-up with ENTERTAINMENT CENTRE MANAGER in 4 weeks. Total time in direct patient contact = 10 min. Greater than 50% of the time was spent in counseling and/or coordination of care. This note was generated using voice recognition technology and may contain grammatical errors. Antonio Melgoza APRN.CNP Medical Decision Making: Problems: Low: Stable chronic illness Data: Unique source(s) for external note(s) reviewed: 1 Unique test result(s) reviewed: 1 Assessment requiring an independent historian(s) Medical Decision Making Level: 3 - Low documented in this encounter [facility] 03-19-2023 Instructions Reggie Kovacs DO - 03/19/2023 3:18 PM EDT Return for follow-up in 3 months We will schedule nocturnal polysomnogram at [facility] sleep laboratory. Transcutaneous or end-tidal CO2 monitoring Continue attempts at weight loss, exercise, and conditioning Recommend adequate sleep hygiene and maintenance of a regular sleep/wake schedule. Recommend keeping your bedroom dark, quiet, and at a comfortable temperature, 68 to 70 degrees. No eating in bed, reading, cell phones or television. 2-week sleep diary CC Dr. Hairston, Dr. Woods, Dr. Blanton documented in this encounter [facility] 03-19-2023 History of Present illness Narrative Images from the original note were not included. Deisy Almodovar [id number] March 19, [address] Woods for an opinion regarding obstructive sleep apnea. My final recommendations will be communicated back to the requesting physician by way of shared Medical record or letter to requesting physician via US mail. This patient is a 47 year old White female presenting for evaluation of preoperative assessment, sleep medicine evaluation Deisy is a pleasant 47-year-old morbidly obese woman who is being evaluated by the bariatric surgery department for possible robotic sleeve gastrectomy in the near future. She states she is going on a cruise in July and does not know whether she is going to get her surgery done before then. she denies snoring. she denies snorting arousals. she denies excessive daytime sleepiness. she denies witnessed apneas. she denies daytime naps. she denies morning cephalgia. she denies to dry mouth upon awakening from a night's sleep. she feels refreshed upon awakening from a nights sleep. admits to dreams denies .hypnogognic, hypnopompic hallucinations. she denies to nightmares she denies to sleep paralysis. she denies cataplexy. she denies somnambulism. she denies to somniloquy, she denies bruxism she denies acting out dreams she denies nocturnal eating. Bedtime 10:30, Wake time 5:30. Takes 15- 30 mins to fall asleep. she admits to GERD in past. Cut out fatty foods-better she denies nasal congestion. she denies being a restless sleeper. she denies symptoms compatible with restless legs syndrome. she denies nocturnal leg cramps. she admits to nocturia rarely, once /week she no arousals from sleep. she denies Caffeine use- Coffee/tea/pop. she denies Alcohol use. she denies Tobacco use. Weight loss 40 lbs over last 8 months No family history of sleep related breathing problems No pets No recent travel No paroxysmal noctunal dyspnea Patient has a history of seizure disorder with expressive aphasia episodes in the past. She takes Keppra. She has been seen and cleared for surgery by neurology. [place] Sleepiness Scale score 1 Neck circumference 15-1/4 inches PAST MEDICAL HISTORY Diagnosis Date Class 3 severe obesity with body mass index (BMI) greater than or equal to 70 in adult, unspecified obesity type, unspecified whether serious comorbidity present (HCC) Gall stones Heart burn Heel spur 2012 Morbid obesity (HCC) Seizures (HCC) 06/17/2022 PAST SURGICAL HISTORY Procedure Laterality Date NONE FAMILY HISTORY Problem Relation Age of Onset other (Hep C) Mother other (HTN) Father other (HTN) Brother Cancer Maternal Grandmother breast ca Hypertension Maternal Grandmother No Known Problems Maternal Grandfather No Known Problems Paternal Grandmother No Known Problems Paternal Grandfather Social History Tobacco Use Smoking status: Never Smokeless tobacco: Never Vaping Use Vaping Use: Never used Substance Use Topics Alcohol use: No Drug use: No Ambulatory, see vaccine HX, 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 Transition to 2,000-4,000 units of Vitamin D OTC after completing 12 weeks levETIRAcetam (KEPPRA) 500 mg tablet TAKE 1 TABLET BY MOUTH TWICE A DAY levonorgestrel (MIRENA) 20 mcg/24 hours (8 yrs) 52 mg IUD 1 Each by INTRAUTERINE route. lansoprazole (PREVACID) 15 mg capsule Take 1 capsule by mouth once daily. (Patient taking differently: Take 15 mg by mouth as needed.) FA/MV,CA,IRON,MIN/LYCOPENE/LUT (MULTIVITAL ORAL) Take by mouth once daily. metFORMIN ER (GLUCOPHAGE XR) 500 mg 24 hr tablet Take 1 tablet by mouth daily with dinner. Increase to 2 tablets po daiy with dinner in 2 weeks if tolerating ondansetron orally disintegrating (ZOFRAN ODT) 4 mg disintegrating tablet Take 1 tablet by mouth every 6 hours as needed for nausea/vomiting. ondansetron (ZOFRAN) 4 mg tablet Take 1 tablet by mouth every 8 hours as needed for up to 15 doses. ALLERGIES: ALLERGIES No Known Allergies REVIEW OF SYSTEMS GENERAL: Weight loss states she has lost about 40 pounds over the last 8 months HEENT: Negative for frequent or significant headaches, No changes in hearing or vision, no nose bleeds or other nasal problems. Wears hearing aids NECK: Negative for lumps, goiter, pain and significant neck swelling RESPIRATORY: Negative for cough, hemoptysis, wheezing, COPD, dyspnea or shortness of breath CARDIOVASCULAR: Negative for chest pain, leg swelling, hypertension, CHF or palpitations GI: No nausea, vomiting, or diarrhea : No history of dysuria, frequency or incontinence MUSCULOSKELETAL: Negative for joint pain or swelling, back pain or muscle pain SKIN: Negative for lesions, rash, and itching PSYCH: See HPI HEMATOLOGY/LYMPHOLOGY: Negative for prolonged bleeding, bruising easily or swollen nodes ENDOCRINE: Negative for cold or heat intolerance, polyuria, polydipsia and goiter NEURO: No history of headaches, syncope, paralysis, or tremors. Follows with neurology. History of seizures in the past with expressive aphasia. Takes Keppra. The remainder of the ROS was negative or as per documentation. OBJECTIVE PHYSICAL EXAMINATION: VITAL SIGNS: BP 129/89 Pulse 91 Temp 98.7 Resp 18 Ht 5' 6 (1.68m) Wt 447 lb 8 oz (203.0kg) SpO2 97% LMP 01/05/2015 BMI 72.26 kg/(m^2). PHYSICAL EXAMINATION: General: Patient awake and alert in no acute distress. Head: Normocephalic, no masses, lesions, tenderness or abnormalities Eyes: Anicteric sclera. Pupils are equally round and reactive to light. Extraocular movements are intact. Ears: TM's intact Nose:normal mucosa without ulceration Oropharynx: Lips, mucosa, and tongue normal, teeth and gums normal, oropharynx normal Oralpharynx mallampati score 3. Grade 1 tonsillar tissue Neck: Supple, no adenopathy; thyroid symmetric, normal size, no bruits Lungs: Lungs clear to auscultation. No wheezing, rhonchi, rales Heart: RRR without murmur, gallop, or rubs. No ectopy Abdomen: Abdomen soft, non-tender. Bowel sounds normal. No masses, organomegaly Extremities: nonpitting pretibial edema noted. No cyanosis, clubbing, or bruits. Peripheral pulses intact Neuro: Patient awake, alert, oriented x 3. Moves all extremities. No focal signs. LAST LAB RESULTS: No results found for this basename: inr:1,ptsec:1 Glucose (mg/dL) Date Value 02/26/2023 89 07/05/2016 75 Potassium (mmol/L) Date Value 02/26/2023 4.1 07/05/2016 4.2 Sodium (mmol/L) Date Value 02/26/2023 139 07/05/2016 141 Chloride (mmol/L) Date Value 02/26/2023 105 07/05/2016 102 CO2 (mmol/L) Date Value 02/26/2023 21 07/05/2016 24 Creatinine (mg/dL) Date Value 02/26/2023 0.63 07/05/2016 0.70 BUN (mg/dL) Date Value 02/26/2023 14 07/05/2016 12 Anion Gap (mmol/L) Date Value 02/26/2023 13 07/05/2016 15 Calcium (mg/dL) Date Value 07/05/2016 8.5 Calcium, Total (mg/dL) Date Value 02/26/2023 8.6 Protein, Total (g/dL) Date Value 02/26/2023 7.2 07/05/2016 7.2 Albumin (g/dL) Date Value 02/26/2023 3.9 07/05/2016 3.7 Bilirubin, Total (mg/dL) Date Value 02/26/2023 0.5 07/05/2016 0.4 Alkaline Phosphatase (U/L) Date Value 02/26/2023 79 07/05/2016 77 AST (U/L) Date Value 02/26/2023 21 07/05/2016 22 ALT (U/L) Date Value 02/26/2023 20 07/05/2016 20 Glucose Date Value Ref Range Status 02/26/2023 89 74 - 99 mg/dL Final Comment: The [place] [employer] (ADA) provides guidance for cutoff values for fasting glucose and random glucose. The ADA defines fasting as no caloric intake for at least 8 hours. Fasting plasma glucose results between 100 to 125 mg/dL indicate increased risk for diabetes (prediabetes). Fasting plasma glucose results greater than or equal to 126 mg/dL meet the criteria for diagnosis of diabetes. In the absence of unequivocal hyperglycemia, results should be confirmed by repeat testing. In a patient with classic symptoms of hyperglycemia or hyperglycemic crisis, random plasma glucose results greater than or equal to 200 mg/dL meet the criteria for diagnosis of diabetes. Reference: Standards of Medical Care in Diabetes 2016, [place] [employer]. Diabetes Care. 2016.39(Suppl 1). DATA: Diagnostic tests reviewed for today's visit, films/specimens were personally reviewed by me: PA and lateral chest x-ray 02/26/2023 No acute radiographic abnormality ARISCAT pre op risk Age x ?50 years old (0 points) 51 to 80 years old (3 points) >80 years old (16 points) Preoperative oxygen saturation x ?96% (0 points) 91 to 95% (8 points) ?90% (24 points) Other clinical risk factors [] Respiratory infection in the last month (17 points) [] Preoperative anemia with hemoglobin ?10 g/dL (11 points) [] Emergency surgery (8 points) Surgical incision x Upper abdominal (15 points) Intrathoracic (24 points) Duration of surgery x ?2 hours (0 points) 2 to 3 hours (16 points) >3 hours (23 points) Total criteria point count: ARISCAT risk index interpretation 0 to 25 points: Low risk: 1.6% pulmonary complication rate 26 to 44 points: Intermediate risk: 13.3% pulmonary complication rate 45 to 123 points: High risk: 42.1% pulmonary complication rate 15 Medications reviewed Education provided today regarding the stated disease states Impressions: 1. Morbid obesity (HCC) - ICD9: 278.01, ICD10: E66.01 (primary diagnosis) Weight decreasing - Behavioral intervention - POLYSOMNOGRAM (PSG) 2. History of seizure - ICD9: V13.89, ICD10: Z87.898 Follows with neurology. On Keppra. - POLYSOMNOGRAM (PSG) Reggie Kovacs DO Plan: Return for follow-up in 3 months We will schedule nocturnal polysomnogram at [facility] sleep laboratory. Transcutaneous or end-tidal CO2 monitoring Continue attempts at weight loss, exercise, and conditioning Recommend adequate sleep hygiene and maintenance of a regular sleep/wake schedule. Recommend keeping your bedroom dark, quiet, and at a comfortable temperature, 68 to 70 degrees. No eating in bed, reading, cell phones or television. 2-week sleep diary Patient stable from a pulmonary and sleep medicine standpoint for upcoming surgery. Await results of nocturnal polysomnogram CC Dr. Hairston, Dr. Woods, Dr. Blanton Some documentation from previous note was copied and pasted, documentation has been reviewed and edited as necessary for today's visit. Electronically Signed: Reggie Kovacs DO, FACOI, FCCP, FAASM March 19, 2023 documented in this encounter [facility] 03-19-2023 Nurse Note [place] 03/19/2023 Sitting and reading 0 - Never Watching TV 0 - Never Sitting/inactive in public place 0 - Never Car for an hour without break 0 - Never Lying down for rest (afternoon) 1 - Slight Chance Sitting and talking to someone 0 - Never Sitting quietly after lunch (no alcohol) 0 - Never In car, stopped in traffic 0 - Never documented in this encounter [facility] 03-10-2023 Note HNO ID: [id number] Author: MARCIA Alfredo Service: Anesthesiology Author Type: Physician Leather Sponger Type: Progress Notes Filed: 03/10/2023 11:58 AM Note Text: HANDP done 02/27/[address] Cardenas. [facility] 03-10-2023 History of Present illness Narrative H&P done 02/27/[address] Cardenas. documented in this encounter [facility] 03-10-2023 Surgical operation note OPERATIVE/PROCEDURE REPORT LOG ID: [id number] Surgery/Procedure Date: Incision/Procedure Start Time: 1:19 PM Incision Close/Procedure End Time: 1:25 PM Surgeon(s)/Proceduralist(s) and Leather Sponger(s): Surgeon(s) and Role: * Santosh Woods MD - Proceduralist No Additional Staff PREOPERATIVE DIAGNOSIS: 1. GERD 2. Morbid obesity POSTOPERATIVE DIAGNOSIS: 1. GERD 2. Morbid obesity COMPLICATIONS: None. Procedure(s): 1. Esophagogastroduodenoscopy (EGD) with cold forceps biopsies of the gastric antrum Anesthesia: * No anesthesia type entered * MAC by Anesthesiology without complications Operative Findings: Diagnostic EGD demonstrated small sliding hiatal hernia, approp for sleeve gastrectomy Operative Indication: Deisy Almodovar is a 47 year old female who presents for EGD as a part of the bariatric program work-up. due to GERD. We discussed the risks, benefits, alternatives, and potential complications, and the patient agreed to proceed. Procedure Details: The patient was brought to the endoscopic suite in stable condition. The preprocedural checklist was completed to the satisfaction of the entire team and verified with the patient. We had previously completed the consent process after discussing the risks and benefits of the procedure, which included, but were not limited to, the risk of hemorrhage, need for blood transfusion, and the possibility of perforation. Once she was induced by Anesthesia and appropriately sedated, the Olympus gastroscope was entered through the mouth. I was easily able to intubate the esophagus. The esophageal portion of the examination was positive for a slightly tortuous esophagus but, otherwise, was within normal limits. The Z-line was measured at 36 centimeters from the bite protector. The diaphragmatic hiatus was measured at 36-cm from the bite protector. I then entered the stomach. The patient had some gastric secretions, which were suctioned out using the gastroscope. I did retroflex the scope, which showed a normal appearing GE junction and fundus from that angle. Retroflex view showed a Hill grade 2. I then intubated the pylorus into the duodenal bulb, examining both the anterior and posterior portions of the duodenal bulb and then into the second portion of the duodenum. That part of the procedure was within normal limits. Once back in the stomach, I then performed 2 separate cold forceps biopsies in the antrum to be sent for H pylori. This was done with minimal bleeding. I ensured we had good hemostasis. Gastric insufflation was removed using suction. The gastroscope was removed through the mouth. The patient tolerated the procedure very well and was returned to recovery room in stable condition. Recommendations: Estimated Blood Loss: minimal Specimens: antrum Implantable Devices: none Drains: None Complications: None I performed the procedure independently SIGNATURE: Santosh Woods MD PATIENT NAME: Deisy Almodovar DATE: March 10, 2023 TIME: 1:36 PM PAGER/CONTACT #: documented in this encounter [facility] 03-07-2023 Miscellaneous Notes PA SUBMITTED VIA COVER MY MEDS documented in this encounter [facility] 03-07-2023 Miscellaneous Notes Ozempic prior auth submitted via cover my meds documented in this encounter [facility] 03-06-2023 Note HNO ID: [id number] Author: Coni Pina MD Service: ? Author Type: Physician Type: Progress Notes Filed: 03/10/2023 4:19 PM Note Text: Coni Pina MD [facility] [address] [facility], [address] [facility] - Fourth Floor [place] [address] This Team Access Model visit is a virtual video visit due to COVID -19 Pandemic . It required patient-provider interaction for the medical decision making as documented below. Consent was obtained to complete today's distance health visit. Patient presents with: New Patient Cc: referred for additional weight loss SUBJECTIVE/HPI: Deisy Almodovar is a 47 year old female with PMX of obesity who presents on March 06, 2023 for medical evaluation of non surgical weight loss. She is currently in the surgical problem Referred for additional weight loss prior to surgery She has struggled with her weight for most of her life Gained 80 lb during was on bed rest Weight really became more challenging after this Goal weight: 200 lb Previous treatments include tried everything [employer] Nutrisystem--lost 80 lb, but then lost interest Eating healthier now but just not seeing movement on the scale 60-90 grams protein/day Always start day with protein shake Still doing Nutrisystem Lifestyle Factors: Diet: Do you think that you have a healthy diet? Yes. Currently healthy after working with surg tech Overall characterization of present diet: How have you tried to lose weight in the past? yes. What worked? See above Routine Breakfast: protein shake Snacks: Lunch:nutrisystem Snack: banana or yogurt Dinner: Friday late, around 7:30 Other days around 5 cook at home Uses air fryer a lot Chicken breast Salad More vegetables and side salads into dinner Drinking only water Cut out diet coke Cut out one cup of coffee Snack: Bedtime Sleeps: 5:30 am Wake up:10:30 She doesn't really feel hungry or having cravings Exercise: Do you exercise ? Yes and exercise bike and treadmill nearly every day 20 mins Are you able to walk up a flight of stairs or a small hill? If no, why not? Patient's functional capacity is The composite complication rate of , unstable angina, [place], DVT, PE, renal failure, and stroke occurred in 16.6% of severely obese patients whose peak oxygen consumption was < 15.8 mL/kg/min but in only 2.8% of those whose cardiorespiratory fitness was >/= 15.8 mL/kg/min. By convention, 1 MET is considered equivalent to the consumption of 3.5 ml O2?kg-1?min-1 (or 3.5 ml of oxygen per kilogram of body mass per minute) and is roughly equivalent to the expenditure of 1 kcal per kilogram of body weight per hour. Sleep: Duration: > 6 hours:Yes Sleep apnea screen: has appt with Pulm in couple weeks to discuss If patient has been diagnosed with sleep apnea, has there been significant weight gain and are there any SDB symptoms on the current CPAP/BIPAP pressure setting: Chest pain, SOB, or EUBANKS: No Stress test: no History of eating disorders: negative Associated medical conditions: see pmh Associated medications: see med list Cardiovascular risk factors: see pmh Current Outpatient Medications on File Prior to Visit Medication Sig cholecalciferol, Vitamin D3, (VITAMIN D3) 1,250 mcg (50,000 unit) cap capsule Take 1 capsule by mouth one time a week for 12 doses. Transition to 2,000-4,000 units of Vitamin D OTC after completing 12 weeks levETIRAcetam (KEPPRA) 500 mg tablet TAKE 1 TABLET BY MOUTH TWICE A DAY ondansetron orally disintegrating (ZOFRAN ODT) 4 mg disintegrating tablet Take 1 tablet by mouth every 6 hours as needed for nausea/vomiting. ondansetron (ZOFRAN) 4 mg tablet Take 1 tablet by mouth every 8 hours as needed for up to 15 doses. levonorgestrel (MIRENA) 20 mcg/24 hours (8 yrs) 52 mg IUD 1 Each by INTRAUTERINE route. lansoprazole (PREVACID) 15 mg capsule Take 1 capsule by mouth once daily. (Patient taking differently: Take 15 mg by mouth as needed.) FA/MV,CA,IRON,MIN/LYCOPENE/LUT (MULTIVITAL ORAL) Take by mouth once daily. No current facility-administered medications on file prior to visit. ALLERGIES No Known Allergies PAST MEDICAL HISTORY Diagnosis Date Class 3 severe obesity with body mass index (BMI) greater than or equal to 70 in adult, unspecified obesity type, unspecified whether serious comorbidity present (HCC) Gall stones Heart burn Heel spur 2009, 2013 Morbid obesity (HCC) Seizures (HCC) 06/17/2022 PAST SURGICAL HISTORY Procedure Laterality Date NONE Any problems with anesthesia with the above surgeries: FAMILY HISTORY Problem Relation Age of Onset other (Hep C) Mother other (HTN) Father other (HTN) Brother Cancer Maternal Grandmother breast ca Hypertension Maternal Grandmother No Known Problems Maternal Grandfather No Known Problems Paternal Grandmother (more content not included)... [facility] 03-06-2023 Instructions Coni Pina MD - 03/06/2023 2:08 PM EDT My opinion 3 hour Rule: -last meal /snack 3 hours before sleeping ,but mostly try to be done by 7 pm --eat Rich Breakfast, high in protein hard boiled eggs/protein drinks - At least 3 hours break between each meals ,except water --sleep 7 hours at night , that means going to bed early -- drink only water ( no soda or juices) /no Alcohol consumption --cut down on coffee consumption if consuming high amounts Website :You can visit to web site for low carb recipe information as well as visual guide to low carb food: Https://www.dietdoctor.com/ ( visual guide for low carb diet) Limit carb consumption to 80- 100 grams per day. Goals: formal exercise 2-5 x/week as tolerated, start with 10 mins/day to goal of 30 minutes ( -- for exercise, you should shoot for a goal of >150 min per week initially. Depending at what level you are starting, that may seem like an unachievable task. However, the best plan is to just begin to walk or bike or do another activity that you like and track your steps per day. You do not need to pay attention to the time, but you do need to try to increase your exercise every 3 weeks. Other strength exercises, using light weights or training bands may also be useful, especially when combined with regular aerobic exercise. Studies have shown that >200min per week is best to maintain weight loss, so that would be the overall end goal.) Have 3 meals a day-protein source with each meal (structured meal planning) Food journal daily and bring it to all appointments If you want you can REPLACE one of your meals with a liquid meal or frozen meal. This is easy to start and may help with your weight. 1. Liquid meal replacement (Boost, Ensure) 2. Frozen meal (Healthy Choice, Lean Cuisine - sodium under 650mg, can always add veggies to the meal) 3. Powdered protein (Premier Protein) or meal replacement (I like a plant based meal replacement called Healthy Skoop Nutrition - can mix w froz berries and almond milk) -- IN GENERAL - suggestions based on important of our sleep cycle called circadian rhythm and its influence on our gut microbiota and overall health tragetory 1) EAT MOST OF YOUR FOOD IN AM AND EARLY PM 2) NO EATING AT NIGHT 3) EXERCISE DURING DAY 4) BE CONSISTENT WITH MEAL STRUCTURE ie Meals at same time during the day. -- keep record of your food intake - it is easier for us to understand your eating habits and food preferences, looking into the amounts of protein, carbs, and fat in your diet. Good examples of apps to track calories are [facility], LOSE IT. Some patient have found FOODUCATE to help with decisions around food, however choose apps that best suits you. Semaglutide (Ozempic) Link to savings card for $25/month (not eligible if Medicare or Medicaid, commercial insurances only) https://www.Wireless Toyz/ozempic/Vitrinain gs-card.html Link to medication guide: https://www.Implanet.InGameNow/ozempic.pdf Ozempic website: https://www.CosmosID.InGameNow/ How to use the pen: https://www.CineCoup.InGameNow/diabetes/p atient-support/product-education/opal randall/htpdhji-tgn-daeclkezosov-for-use.ht ml Link to extra needle tips if needed: https://www.Vessix/dp/N80UKJ0EOV?r ef_=cm_sw_r_cp_ud_dp_YRMC8T2FY11B9SDHC Z3H What Is Ozempic? Ozempic is a brand-name prescription drug that contains semaglutide. It belongs to the drug class glucagon-like peptide-1 (GLP-1) agonists. Ozempic is available as a liquid solution self-injectable medication. It is a pre-filled, disposable, single-use injection pen. Can Ozempic Be Used for Weight Loss? While Ozempic is not a weight loss drug, Ozempic s ingredient semaglutide has recently been approved for weight loss by the FDA. This new branding of semaglutide has been named Sulaiman. The medication will be delivered as a once-weekly shot, in combination with diet and exercise. How Does Ozempic for Weight Loss Work? Ozempic is in a drug class called GLP-1 agonists that are used to control blood sugar, and can be taken to assist in weight loss. This drug works by - Slowing down how fast your stomach empties food - Blocking hormones that cause the liver to release sugar - Together, these combined actions cause the feeling of hunger to decrease, which leads to eating less, and finally, weight loss. How Long Does It Take for Ozempic to Work for Weight Loss? Results vary from person to person with Ozempic. Some people may have a quick initial weight drop; for others, it may take more time. Ozempic has been shown to help people lose weight in a safe, long-term, and healthy way. A [facility] doctor will help you with dosages of Ozempic for weight loss and might recommend slowly increasing dosage over time to maximize weight loss. The speed at which you lose weight is largely influenced by the amount of lifestyle changes you are able to make: there is no magic weight loss drug on the market. It s important to remember that weight loss takes time, and you ll have the best results if you use Ozempic in combination with exercise and a healthy diet. Ozempic for Weight Loss Dosing Ozempic dosage for weight loss will start at the lowest dosage and potentially gradually increase, per your doctor s recommendation. It is paramount to use Ozempic precisely as prescribed by your doctor. Your doctor will instruct you on how to use the self-injected pen, and make sure you are fully prepared before you start taking this medication. Ozempic for Weight Loss Prescription Ozempic is generally available through prescription for adults with type 2 diabetes (for which it is FDA-approved), so you will need to talk to a doctor. If you do not have type 2 diabetes though, your doctor may recommend what is known as an off label prescription if your blood glucose is abnormal, or if you have prediabetes or metabolic syndrome, to help with weight loss. This is because the weight-loss benefits of Ozempic have been recognized, and while Ozempic is not specifically for weight loss, you may lose some weight while taking it https://AppTweak.com.InGameNow/fpfreox-fntbtq-a oss/ Introduction Ozempic (semaglutide) may be a treatment option for you.Ozempic is used to: help lower blood sugar levels in adults with type 2 diabetes (when used with diet and exercise) help reduce the risk for certain cardiovascular problems (related to the heart or blood vessels) in adults with type 2 diabetes and cardiovascular disease Ozempic is given by subcutaneous injection (an injection under your skin). You ll use it once a week as part of your diabetes treatment plan to help meet your daily and long-term blood sugar goals. For more details on Ozempic, see this in-depth article. Ozempic may cause mild or serious side effects in some people. Keep reading to learn more. Note: Ozempic isn t used to treat type 1 diabetes or diabetic ketoacidosis, a serious diabetes complication. Talk with your doctor to learn more. What are the more common side effects of Ozempic? Like all drugs, Ozempic may cause side effects in some people. The more commonly reported side effects of Ozempic include: abdominal (belly) pain constipation diarrhea nausea or vomiting Ozempic may cause other side effects, too. Talk with your doctor about your specific risk for side effects from this drug. Learn more about Ozempic s side effects in the next sections. What are the mild side effects of Ozempic? Ozempic can cause mild side effects in some people. These may include: change in the way things taste abdominal (belly) pain burping* constipation or diarrhea dizziness headache flatulence (gas)* fatigue (lack of energy) indigestion (upset stomach) or acid reflux injection-site reactions, such as skin redness or discomfort nausea or vomiting minor increase in heart rate * For more information on this side effect, see the Side effects explained section below. In most cases, these side effects should be temporary. Some may be easily managed, too. But if you have any symptoms that are ongoing or that bother you, talk with your doctor or pharmacist. And don t stop using Ozempic unless your doctor recommends it. Ozempic may cause other mild side effects, too. To learn more, see the Ozempic Medication Guide. Note: After the Food and Drug Administration (FDA) approves a drug, it tracks and reviews side effects of the medication. If you d like to notify the FDA about a side effect you ve had with Ozempic, visit [facility]. What are the serious side effects of Ozempic? In rare cases, Ozempic may cause serious side effects. Before starting treatment, talk with your doctor about your risk for serious side effects from this drug. Serious side effects of Ozempic can include: diabetic retinopathy (damaged blood vessels in the eye) gallstones kidney problems pancreatitis* (swelling of the pancreas) increased risk of thyroid cancer* allergic reaction* hypoglycemia* (low blood sugar) * To learn more about this side effect, see the Side effects explained section below. Ozempic has a boxed warning for an increased risk of thyroid cancer. This is the most serious warning from the Food and Drug Administration (FDA). To learn more, see the Side effects explained section below. FAQs about Ozempic s side effects Get answers to some frequently asked questions about Ozempic s side effects. Can Ozempic cause weight loss? Yes, Ozempic can cause weight loss in some people. Although the drug isn t approved for weight loss, some people using Ozempic in studies lost weight. In these studies, Ozempic was either used alone or with other treatments for type 2 diabetes. Another diabetes drug, Saxenda (liraglutide), is approved for weight loss in people with type 2 diabetes. Saxenda is in the same drug class as Ozempic. (A drug class is a group of medications that work in a similar way.) Saxenda can t be used with Ozempic. If you re interested in learning more about Saxenda or other weight-management treatments, talk with your doctor. Are there foods to avoid while taking Ozempic? No, you don t have to avoid any specific foods during your Ozempic treatment. Also, the drug can be taken with or without food. However, Ozempic is used to improve blood sugar levels in adults with type 2 diabetes, and it s used along with diet and exercise. To reach your blood sugar goals while using Ozempic, you should follow the nutrition guidelines that your doctor recommends. If you have changes to your diet, activity level, or weight, your diabetes treatment plan may need to be adjusted. Talk with your doctor if you have any of these changes. How long do Ozempic side effects last? In general, mild side effects of Ozempic should be temporary or manageable while you re using the drug. However, after stopping Ozempic, it could take your body about 5 weeks after your last dose to fully clear the drug from your system. So you could have side effects during this period. And you could experience some serious side effects, such as worsening diabetic retinopathy, even after Ozempic has been fully cleared from your system. If you have questions or concerns about how long side effects from Ozempic could last, talk with your doctor. Does Ozempic cause hair loss? No, Ozempic shouldn t cause hair loss. Hair loss wasn t seen in studies of Ozempic. However, hair loss has been linked with both type 1 and type 2 diabetes. Diabetes-related hair loss isn t fully understood, but it may be caused by various factors. These may include: damaged hair follicles from long periods of high blood sugar or poor circulation stress from managing a chronic (long-term) condition having hypothyroidism (low thyroid hormone levels) along with diabetes Also, many people with diabetes take medications to treat other chronic conditions such as cardiovascular disease (CVD). In rare cases, certain drugs used to treat CVD, such as statins or angiotensin-converting enzyme (MARTHA) inhibitors, may cause hair loss. If you re experiencing hair loss, see your doctor right away. If it s related to poor blood sugar control, they may change your diabetes treatment plan. If it s not, your doctor will check for other causes and discuss treatment options with you. Side effects explained Learn more about some of the side effects Ozempic may cause. Thyroid cancer risk Ozempic has a boxed warning for the risk of thyroid cancer. Ozempic has caused thyroid cancer in animals. It s unclear if this drug also increases thyroid cancer risk in humans. However, to lower the possible risk of thyroid cancer, don t use Ozempic if: you have a rare genetic condition called multiple endocrine neoplasia type 2 you or a family member has had medullary thyroid cancer What might help While using Ozempic, tell your doctor right away if you have symptoms of thyroid cancer, such as: a lump or pain in your neck trouble swallowing shortness of breath or wheezing hoarse voice that doesn t get better If you re diagnosed with thyroid cancer, your doctor will stop your Ozempic and adjust your diabetes treatment plan. Gas and burping Flatulence (gas) and burping can occur with Ozempic, but they aren t the most common digestive system side effects. Some more common digestive system side effects include constipation, diarrhea, nausea, and vomiting. Burping is also a symptom of acid reflux or indigestion (upset stomach). These are both digestive system side effects that can occur with Ozempic, too. What might help In most cases, gas and burping are considered mild side effects. But if they bother you or don t go away during your Ozempic treatment, talk with your doctor. They may suggest diet changes or an evmk-qti-yecjyen (OTC) medication, such as Gas-X (simethicone), to help relieve gas and burping. If your burping is related to acid reflux or indigestion, your doctor may suggest an OTC antacid, such as Pepcid (famotidine) or Tums (calcium carbonate tablets). See your doctor right away if you have gas or burping along with vomiting or severe pain in your back or abdomen (belly). These could be symptoms of pancreatitis (swelling of the pancreas), which is a serious side effect of Ozempic. (See Pancreatitis below to learn more.) Dizziness Some people may experience dizziness while using Ozempic. However, this isn t a common symptom of Ozempic. Dizziness could also be a symptom of hypoglycemia (low blood sugar). Hypoglycemia is a serious side effect of Ozempic that can cause severe health problems if it s not treated. What might help Talk with your doctor right away if you feel dizzy while using Ozempic. Before starting Ozempic, ask your doctor how often you should check your blood sugar. Also, ask your doctor or pharmacist to explain the symptoms of low blood sugar and how to manage these episodes. Your doctor or pharmacist may suggest that you carry OTC glucose products so you re ready to treat low blood sugar quickly before it becomes severe. (See Hypoglycemia below to learn more.) Pancreatitis In rare cases, Ozempic may cause pancreatitis (swelling of the pancreas). This can be either acute (short-term) pancreatitis or chronic pancreatitis. Your pancreas is a gland that releases enzymes (proteins) and substances, such as insulin, needed to digest foods and use energy. When the pancreas becomes inflamed, the swelling can damage your pancreas and cause symptoms. Acute pancreatitis usually lasts for a short period of time and goes away after treatment. Chronic pancreatitis may develop with continued damage to the pancreas over time. What might help Before starting Ozempic, tell your doctor if you ve had pancreatitis or other pancreatic problems before. It may be unsafe for you to use Ozempic. If so, your doctor will prescribe another diabetes treatment. While using Ozempic, watch for pancreatitis symptoms, such as: abdomen (belly) pain that may radiate to your back nausea or vomiting bloating fever See your doctor right away if you experience any of these symptoms. If your doctor confirms you have pancreatitis, they ll stop your Ozempic and manage your condition. Hypoglycemia Ozempic may cause hypoglycemia (low blood sugar). This side effect is more common if you use Ozempic along with insulin or other diabetes drugs. Making certain lifestyle changes, such as fasting or suddenly changing your diet, can cause low blood sugar, too. If your blood sugar gets too low, it can cause symptoms or serious health problems. Examples of these problems include dizziness, blurred vision, or seizures. What might help Before starting Ozempic, tell your doctor if you take insulin or any other medications. They may adjust your insulin regimen or your dosage of other diabetes drugs to help prevent low blood sugar with Ozempic. Follow your prescribed diabetes treatment plan, including your meal plan, to keep your blood sugar in a healthy range. If you change your diet or physical activity level, tell your doctor. And tell them if you gain or lose a lot of weight. These factors can affect your blood sugar and may make you more likely to have episodes of hypoglycemia. Symptoms of hypoglycemia can vary, but common symptoms to watch for include: dizziness shakiness chills or sweating confusion or clumsiness paleness blurry vision intense hunger You should keep foods on hand that can raise your blood sugar quickly if you have an episode of hypoglycemia. Or you can try OTC glucose gels or chewable glucose tablets. If you have severe hypoglycemia, call 911 or your local emergency phone number, or have someone drive you to the emergency room. (You shouldn t drive yourself during an episode of severe hypoglycemia.) Allergic reaction Like most drugs, Ozempic can cause an allergic reaction in some people. Symptoms can be mild, such as: rash itchiness flushing (warmth, swelling, or redness in your skin) But in rare cases, Ozempic may cause a serious allergic reaction with severe symptoms, such as: swelling under your skin, typically in your eyelids, lips, hands, or feet swelling of your mouth, tongue, or throat, which can make it hard to breathe What might help If you have mild symptoms of an allergic reaction, such as a mild rash, call your doctor right away. They may suggest an OTC treatment to manage your symptoms. Examples of these treatments include an antihistamine such as Benadryl (diphenhydramine) or a hydrocortisone cream. If your doctor confirms you had a mild allergic reaction to Ozempic, they ll decide if you should continue using the drug. If you have symptoms of a severe allergic reaction, such as swelling or trouble breathing, call 911 or your local emergency number right away. These symptoms could be life threatening and require immediate medical care. If your doctor confirms you had a serious allergic reaction to Ozempic, they ll have you stop using the drug and switch you to a different treatment. Keeping track of side effects During your Ozempic treatment, consider keeping notes on any side effects you re having, especially episodes of hypoglycemia (low blood sugar). Then, you can share this information with your doctor. This is especially helpful to do when you first start taking new drugs or using a combination of treatments. Your side effect notes can include things like: what dose of drug you were taking when you had the side effect how soon after starting that dose you had the side effect what your symptoms were from the side effect how it affected your daily activities what other medications you were also taking any other information you feel is important Keeping notes and sharing them with your doctor will help your doctor learn more about how Ozempic affects you. And your doctor can use this information to adjust your treatment plan if needed Warnings for Ozempic Ozempic has multiple warnings that may affect whether or not you can safely use this drug. Boxed warning: Thyroid cancer risk Ozempic has a boxed warning for the risk of thyroid cancer. A boxed warning is the most serious warning from the Food and Drug Administration (FDA). Ozempic has caused thyroid cancer in animals. It s unclear if the drug also increases thyroid cancer risk in humans. To lower the potential risk of thyroid cancer, don t use Ozempic if: you have a rare genetic condition called multiple endocrine neoplasia type 2 you or a family member has had medullary thyroid cancer For more details, see the Side effects explained section above. Other warnings Ozempic may not be right for you if you have certain medical conditions or other factors that affect your health. Talk with your doctor about your health history before you take Ozempic. Factors to consider include those in the list below. Kidney problems. Before starting Ozempic, tell your doctor if you ve had any kidney problems. Drugs such as Ozempic have caused new or worsening kidney disease, including kidney failure, in some people. If you become dehydrated from other side effects of Ozempic, such as vomiting or diarrhea, this could also cause kidney problems. Your doctor may monitor your kidney health closely during your Ozempic treatment. If you develop new or worsening kidney problems, they may stop your treatment. Allergic reaction to GLP-1 agonists. If you ve had an allergic reaction to Ozempic or any of its ingredients, you shouldn t take Ozempic. Also tell your doctor if you ve had an allergic reaction to another GLP-1 agonist (the drug class Ozempic belongs to). If you have, you could have an allergic reaction to Ozempic, which could be severe. Your doctor can prescribe a safer treatment option for you. Diabetic retinopathy. If you have diabetic retinopathy, using Ozempic may make it worse. Tell your doctor if you have this condition before starting Ozempic. While using this drug, keep all your eye appointments and tell your doctor right away if you have any vision changes. Pancreatitis. Ozempic may cause pancreatitis. It s unclear if Ozempic is safe to use if you ve had pancreatitis or other pancreatic problems, so tell your doctor if you ve had these conditions before. They may choose another treatment option for you. Insulin or other diabetes drug use. Using Ozempic with insulin or other diabetes drugs may raise your risk for severe hypoglycemia. If untreated, this condition can cause serious health problems. Before starting Ozempic, tell your doctor about all medications you take. They may adjust your insulin regimen or your dosage of other diabetes drugs to help prevent hypoglycemia with Ozempic. But don t make changes to your diabetes treatment plan unless your doctor recommends it. Alcohol use and Ozempic Ozempic isn t known to interact with alcohol. However, Ozempic lowers your blood sugar. Alcohol may make your blood sugar drop, too. So, drinking alcohol during your Ozempic treatment may cause severe hypoglycemia (low blood sugar). Also, chronic (long-term) alcohol use is a common cause of pancreatitis (swelling of the pancreas). Using Ozempic may raise your risk for pancreatitis, too. To help prevent these health problems, avoid excessive alcohol use during your Ozempic treatment. If you drink alcohol, talk with your doctor about how much may be safe for you to drink with your condition and treatment plan. and while taking Ozempic It s unknown if Ozempic is safe to use during or while . If you re planning to become , you ll need to stop Ozempic at least 2 months before trying to conceive. This waiting period ensures your body has fully cleared the drug from your system. If you become while using Ozempic, talk with your doctor right away. If you re or planning to breastfeed, talk with your doctor about the risks and benefits of using Ozempic. What to ask your doctor If you have type 2 diabetes, Ozempic may help improve your blood sugar levels. If you also have cardiovascular disease (CVD), it can lower your risk for heart attack, stroke, or from CVD. Ozempic can cause side effects in some people. In general, Ozempic s common side effects are mild. But in rare cases, the drug could cause serious side effects. If you have questions about possible side effects with Ozempic, talk with your doctor or pharmacist. They can provide answers to help you feel confident about your diabetes treatment plan. Examples of questions you may want to ask include: What s my risk for serious side effects? Is there anything I can do to prevent diabetic retinopathy while using Ozempic? If I have kidney disease and have diarrhea with Ozempic, is it safe to drink electrolyte replacement solutions such as Pedialyte to stay hydrated? How should I manage injection-site reactions with Ozempic? I have gallstones that I manage through my diet. Should I avoid using Ozempic? For tips on managing your condition, eating wisely, and more, subscribe to our online newsletter for type 2 diabetes. METFORMIN Dosing -- Begin Metformin ER 500 mg with dinner daily x 1 week. If tolerating, you can increase to 2 tablets with dinner daily. Taking the medication with food will help. -- if you experience any GI upset (Nausea, diarrhea, bloating, gas) you can go back to 1 tablet or hold the medication until it resolves. Once you are tolerating the medication you can try increasing it again. -- we can discuss increasing the dose further at your follow up visit. -- Metformin can interfere with the absorption of B12 in your food, please add a B12 supplement and I suggest having it checked every 1-2 years Using Metformin for weight loss: Metformin helps to lower blood glucose levels by reducing the amount of glucose produced and released by the liver, and by increasing insulin sensitivity. It has now been proven to prevent or delay diabetes. Metformin and Type 2 Diabetes Prevention Diabetes Spectrum (diabetesjournals.org) Large cohort studies have shown weight loss benefits associated with metformin therapy. Emerging evidence suggests that metformin-associated weight loss is due to modulation of hypothalamic appetite-regulatory centers, alteration in the gut microbiome, and reversal of consequences of aging. Metformin is also being explored in the management of obesity s sequelae such as hepatic steatosis, obstructive sleep apnea and osteoarthritis. Effectiveness of metformin on weight loss in non-diabetic individuals with obesity - PubMed (nih.gov) Is metformin a wonder drug? - [facility] Common side effects of this medication include nausea, changes in bowel habits, abdominal discomfort, and flatulence. Taking the medication with food will help. Side effects also typically get better with time. Rarely, a severe side effect called lactic acidosis can occur. If you experience malaise, muscle aches, difficulty breathing, or severe abdominal pain, please seek immediate medical attention. When to Take Extended-Release Metformin Metformin HCL is metabolized slowly, over 24 hours, which helps reduce GI side effects. Metformin extended-release is often a good option for people who experience adverse GI symptoms with standard metformin. Metformin HCL should be taken at night, with food. Sona Youssef MD, clinical director of adult diabetes at [facility], explains why timing metformin HCL with the evening meal is so important. In normal physiology, a person's liver often makes glucose overnight, she says. So, it's not uncommon for a person to go to bed with a good blood glucose level and wake up with a higher one because their liver has been releasing sugar [all night]. Metformin turns off or slows down this process, so it can be more effective at night in treating fasting high blood sugar. https://www.[employer]/article/519 474-yfev-bq-f-qdql-vdazjjcwx-for-my-di zp-khnqfst-dm-night/ Metformin: Patient drug information Warning Rarely, metformin may cause too much lactic acid in the blood (lactic acidosis). The risk is higher in people who have kidney problems, liver problems, heart failure, use alcohol, or take other drugs like topiramate. The risk is also higher in people who are 65 or older and in people who are having surgery, an exam or test with contrast, or other procedures. If lactic acidosis happens, it can lead to other health problems and can be deadly. Kidney tests may be done while taking this drug. Do not take this drug if you have a very bad infection, low oxygen, or a lot of fluid loss (dehydration). Call your doctor right away if you have signs of too much lactic acid in the blood (lactic acidosis) like fast breathing, fast or slow heartbeat, a heartbeat that does not feel normal, very bad upset stomach or throwing up, feeling very sleepy, shortness of breath, feeling very tired or weak, very bad dizziness, feeling cold, or muscle pain or cramps. What is this drug used for? It is used to lower blood sugar in patients with high blood sugar (diabetes), treatment for PCOS, What do I need to tell my doctor BEFORE I take this drug? If you are allergic to this drug; any part of this drug; or any other drugs, foods, or substances. Tell your doctor about the allergy and what signs you had. If you have any of these health problems: Acidic blood problem, kidney disease, or liver disease. If you have had a recent heart attack or stroke. If you are not able to eat or drink like normal, including before certain procedures or surgery. If you are having an exam or test with contrast or have had one within the past 48 hours, talk with your doctor. This is not a list of all drugs or health problems that interact with this drug. Tell your doctor and pharmacist about all of your drugs (prescription or OTC, natural products, vitamins) and health problems. You must check to make sure that it is safe for you to take this drug with all of your drugs and health problems. Do not start, stop, or change the dose of any drug without checking with your doctor. What are some things I need to know or do while I take this drug? All products: Tell all of your health care providers that you take this drug. This includes your doctors, nurses, pharmacists, and dentists. Talk with your doctor before you drink alcohol. Do not drive if your blood sugar has been low. There is a greater chance of you having a crash. Check your blood sugar as you have been told by your doctor. Have blood work checked as you have been told by the doctor. Talk with the doctor. It may be harder to control blood sugar during times of stress such as fever, infection, injury, or surgery. A change in physical activity, exercise, or diet may also affect blood sugar. Follow the diet and workout plan that your doctor told you about. If diarrhea happens or you are throwing up, call your doctor. You will need to drink more fluids to keep from losing too much fluid. Be careful in hot weather or while being active. Drink lots of fluids to stop fluid loss. Long-term treatment with metformin may lead to low vitamin B-12 levels. If you have ever had low vitamin B-12 levels, talk with your doctor. If you are 65 or older, use this drug with care. You could have more side effects. There is a chance of in people of childbearing age who have not been ovulating. If you want to avoid , use control while taking this drug. Tell your doctor if you are , plan on getting , or are breast-feeding. You will need to talk about the benefits and risks to you and the baby. Extended-release tablets: You may see something that looks like the tablet in your stool. This is normal and not a cause for concern. If you have questions, talk with your doctor. What are some side effects that I need to call my doctor about right away? WARNING/CAUTION: Even though it may be rare, some people may have very bad and sometimes deadly side effects when taking a drug. Tell your doctor or get medical help right away if you have any of the following signs or symptoms that may be related to a very bad side effect: Signs of an allergic reaction, like rash; hives; itching; red, swollen, blistered, or peeling skin with or without fever; wheezing; tightness in the chest or throat; trouble breathing, swallowing, or talking; unusual hoarseness; or swelling of the mouth, face, lips, tongue, or throat. It is common to have stomach problems like upset stomach, throwing up, or diarrhea when you start taking this drug. If you have stomach problems later during treatment, call your doctor right away. This may be a sign of an acid health problem in the blood (lactic acidosis). Low blood sugar can happen. The chance may be raised when this drug is used with other drugs for diabetes. Signs may be dizziness, headache, feeling sleepy or weak, shaking, fast heartbeat, confusion, hunger, or sweating. Call your doctor right away if you have any of these signs. Follow what you have been told to do for low blood sugar. This may include taking glucose tablets, liquid glucose, or some fruit juices. What are some other side effects of this drug? All drugs may cause side effects. However, many people have no side effects or only have minor side effects. Call your doctor or get medical help if any of these side effects or any other side effects bother you or do not go away: Stomach pain or heartburn. Gas. Diarrhea, upset stomach, or throwing up. Feeling tired or weak. Headache. These are not all of the side effects that may occur. If you have questions about side effects, call your doctor. Call your doctor for medical advice about side effects. You may report side effects to your national health agency. How is this drug best taken? Use this drug as ordered by your doctor. Read all information given to you. Follow all instructions closely. All products: Take with meals. Keep taking this drug as you have been told by your doctor or other health care provider, even if you feel well. Extended-release tablets: Take with the evening meal if taking once daily. Swallow whole. Do not chew, break, or crush. If you have trouble swallowing, talk with your doctor. documented in this encounter [facility] 03-06-2023 History of Present illness Narrative Images from the original note were not included. Coni Pina MD [facility] [address] [place] [address], [facility] [address] [facility] - Fourth Floor [place] [phone] This Team Access Model visit is a virtual video visit due to COVID -19 Pandemic . It required patient-provider interaction for the medical decision making as documented below. Consent was obtained to complete today's [facility] visit. Patient presents with: New Patient Cc: referred for additional weight loss SUBJECTIVE/HPI: Deisy Almodovar is a 47 year old female with PMX of obesity who presents on March 06, 2023 for medical evaluation of non surgical weight loss. She is currently in the surgical problem Referred for additional weight loss prior to surgery She has struggled with her weight for most of her life Gained 80 lb during was on bed rest Weight really became more challenging after this Goal weight: 200 lb Previous treatments include tried everything [employer] Nutrisystem--lost 80 lb, but then lost interest Eating healthier now but just not seeing movement on the scale 60-90 grams protein/day Always start day with protein shake Still doing Nutrisystem Lifestyle Factors: Diet: Do you think that you have a healthy diet? Yes. Currently healthy after working with surg tech Overall characterization of present diet: How have you tried to lose weight in the past? yes. What worked? See above Routine Breakfast: protein shake Snacks: Lunch:nutrisystem Snack: banana or yogurt Dinner: Friday late, around 7:30 Other days around 5 cook at home Uses air fryer a lot Chicken breast Salad More vegetables and side salads into dinner Drinking only water Cut out diet coke Cut out one cup of coffee Snack: Bedtime Sleeps: 5:30 am Wake up:10:30 She doesn't really feel hungry or having cravings Exercise: Do you exercise ? Yes and exercise bike and treadmill nearly every day 20 mins Are you able to walk up a flight of stairs or a small hill? If no, why not? Patient's functional capacity is The composite complication rate of , unstable angina, [place], DVT, PE, renal failure, and stroke occurred in 16.6% of severely obese patients whose peak oxygen consumption was < 15.8 mL/kg/min but in only 2.8% of those whose cardiorespiratory fitness was >/= 15.8 mL/kg/min. By convention, 1 MET is considered equivalent to the consumption of 3.5 ml O2 kg-1 min-1 (or 3.5 ml of oxygen per kilogram of body mass per minute) and is roughly equivalent to the expenditure of 1 kcal per kilogram of body weight per hour. Sleep: Duration: > 6 hours:Yes Sleep apnea screen: has appt with Pulm in couple weeks to discuss If patient has been diagnosed with sleep apnea, has there been significant weight gain and are there any SDB symptoms on the current CPAP/BIPAP pressure setting: Chest pain, SOB, or EUBANKS: No Stress test: no History of eating disorders: negative Associated medical conditions: see pmh Associated medications: see med list Cardiovascular risk factors: see pmh Current Outpatient Medications on File Prior to Visit Medication Sig cholecalciferol, Vitamin D3, (VITAMIN D3) 1,250 mcg (50,000 unit) cap capsule Take 1 capsule by mouth one time a week for 12 doses. Transition to 2,000-4,000 units of Vitamin D OTC after completing 12 weeks levETIRAcetam (KEPPRA) 500 mg tablet TAKE 1 TABLET BY MOUTH TWICE A DAY ondansetron orally disintegrating (ZOFRAN ODT) 4 mg disintegrating tablet Take 1 tablet by mouth every 6 hours as needed for nausea/vomiting. ondansetron (ZOFRAN) 4 mg tablet Take 1 tablet by mouth every 8 hours as needed for up to 15 doses. levonorgestrel (MIRENA) 20 mcg/24 hours (8 yrs) 52 mg IUD 1 Each by INTRAUTERINE route. lansoprazole (PREVACID) 15 mg capsule Take 1 capsule by mouth once daily. (Patient taking differently: Take 15 mg by mouth as needed.) FA/MV,CA,IRON,MIN/LYCOPENE/LUT (MULTIVITAL ORAL) Take by mouth once daily. No current facility-administered medications on file prior to visit. ALLERGIES No Known Allergies PAST MEDICAL HISTORY Diagnosis Date Class 3 severe obesity with body mass index (BMI) greater than or equal to 70 in adult, unspecified obesity type, unspecified whether serious comorbidity present (HCC) Gall stones Heart burn Heel spur 2012 Morbid obesity (HCC) Seizures (HCC) 06/17/2022 PAST SURGICAL HISTORY Procedure Laterality Date NONE Any problems with anesthesia with the above surgeries: FAMILY HISTORY Problem Relation Age of Onset other (Hep C) Mother other (HTN) Father other (HTN) Brother Cancer Maternal Grandmother breast ca Hypertension Maternal Grandmother No Known Problems Maternal Grandfather No Known Problems Paternal Grandmother No Known Problems Paternal Grandfather Social History Tobacco Use Smoking status: Never Smokeless tobacco: Never Vaping Use Vaping Use: Never used Substance Use Topics Alcohol use: No Drug use: No ROS OBJECTIVE: Ht 165.1 cm (5' 5) Wt (!) 200.9 kg (443 lb) LMP 01/05/2015 BMI 73.72 kg/m BMI = Body mass index is 73.72 kg/m . Waist circumference unable to measure Neck circumference unable to measure Physical Exam Constitutional:. --no issues with communication during visit and demonstrates understanding via appropriate interaction, verbalizing understanding ans she consented for this visit visit encounter HEENT: Normocephalic and atraumatic. Eyes: Conjunctiva appear normal. No scleral icterus. Hearing: Is grossly intact. Neck: Range of motion appears normal. Thyroid: appears symmetric and not enlarged. Pulmonary/Chest: Effort normal. Psychiatric: Mood, memory, affect and judgment normal. Neurological: alert and oriented to person, place, and time. Reviewed principles of energy metabolism, caloric intake and expenditure, and rationale for treatment program. Also reinforced need for modified diet as discussed and increased physical activity. ASSESSMENT/PLAN: 1. Class 3 severe obesity with body mass index (BMI) greater than or equal to 70 in adult, unspecified obesity type, unspecified whether serious comorbidity present (HCC) - ICD9: 278.01, V85.45, ICD10: E66.01, Z68.45 (primary diagnosis) New pt to me Currently in bariatric surgery program Weight is decreasing Referred to us for medical management for ongoing weight loss prior to surgery We discussed dietary modifications--most of which she is currently following Discussed med options Will plan for Ozempic if insurance can approve this discussed r/b/sa No previous history of pancreatitis No personal or family history of medullary thyroid cancer No Family history of MEN syndrome She does have known gallstone ? symptomatic Msg sent to Dr. Woods regarding her opinion given pt with gallstone and risk of acute javi with glp-1 agonist She agrees trial of Ozempic would be ok and believes that some of her symptoms may be more likely due to reflux vs gallstone Med choices limited No Topamax-currently on Keppra for seizures, if only option, would need clearance from Neuro prior to starting No phentermine-- would avoid due to hx of seizures 2. Gallstones and inflammation of gallbladder without obstruction - ICD9: 574.00, ICD10: K80.00 Avoid foods that may trigger symptoms 3. Seizures (HCC) - ICD9: 780.39, ICD10: R56.9 On keppra Follow[address] by Dr. Adan Neurology If considering topamax for weight loss will have to be cleared with Dr. Adan 4. Gastroesophageal reflux disease without esophagitis - ICD9: 530.81, ICD10: K21.9 Has EGD scheduled Weight loss will be beneficial Continue current management Coni Pina MD I spent a total of 60 minutes on the date of the service which included preparing to see the patient, completing clinical documentation, obtaining and/or reviewing separately obtained history, performing a medically appropriate examination, counseling and educating the patient/family/caregiver, ordering medications, tests, or procedures,independently interpreting results (not separately reported), communicating results to the patient/family/caregiver and care coordination (not separately reported). documented in this encounter [facility] 02-27-2023 Note HNO ID: [id number] Author: Ayaan Cardenas MD Service: ? Author Type: Physician Type: Progress Notes Filed: 02/27/2023 2:48 PM Note Text: Cardiology consultation at the request of Deisy Sanjana. A copy of this consultation note will be provided to the requesting physician by way of shared Medical record or letter to requesting physician via [place] mail. Chief Complaint: Patient presents with: New Patient Evaluation: Clearance for bariatric surgery History of Present Illness: Deisy Almodovar is a 47 year old female with history of morbid obesity, seizure disorder who was referred for preoperative clearance prior to bariatric surgery. She denies chest pain, shortness of breath, orthopnea, cough, edema, palpitations, PND, lightheadedness or syncope. PAST MEDICAL HISTORY Diagnosis Date Class 3 severe obesity with body mass index (BMI) greater than or equal to 70 in adult, unspecified obesity type, unspecified whether serious comorbidity present (HCC) Gall stones Heart burn Heel spur 2012 Morbid obesity (HCC) Seizures (HCC) 06/17/2022 PAST SURGICAL HISTORY Procedure Laterality Date NONE FAMILY HISTORY Problem Relation Age of Onset other (Hep C) Mother other (HTN) Father other (HTN) Brother Cancer Maternal Grandmother breast ca Hypertension Maternal Grandmother No Known Problems Maternal Grandfather No Known Problems Paternal Grandmother No Known Problems Paternal Grandfather Social History Tobacco Use Smoking status: Never Smokeless tobacco: Never Vaping Use Vaping Use: Never used Substance Use Topics Alcohol use: No Drug use: No Current Outpatient Medications Medication Sig cholecalciferol, Vitamin D3, (VITAMIN D3) 1,250 mcg (50,000 unit) cap capsule Take 1 capsule by mouth one time a week for 12 doses. Transition to 2,000-4,000 units of Vitamin D OTC after completing 12 weeks levETIRAcetam (KEPPRA) 500 mg tablet TAKE 1 TABLET BY MOUTH TWICE A DAY ondansetron orally disintegrating (ZOFRAN ODT) 4 mg disintegrating tablet Take 1 tablet by mouth every 6 hours as needed for nausea/vomiting. ondansetron (ZOFRAN) 4 mg tablet Take 1 tablet by mouth every 8 hours as needed for up to 15 doses. levonorgestrel (MIRENA) 20 mcg/24 hours (8 yrs) 52 mg IUD 1 Each by INTRAUTERINE route. lansoprazole (PREVACID) 15 mg capsule Take 1 capsule by mouth once daily. (Patient taking differently: Take 15 mg by mouth as needed.) FA/MV,CA,IRON,MIN/LYCOPENE/LUT (MULTIVITAL ORAL) Take by mouth once daily. No current facility-administered medications for this visit. ALLERGIES No Known Allergies Review of Systems: General: No weight loss, malaise, fevers, chills, or night sweats HEENT: Negative for epistaxis Neck: Negative for pain and significant neck swelling Respiratory: Negative for cough, shortness of breath at rest or on exertion, wheezing Cardiac: Negative history of chest pain on exertion, dyspnea on exertion, orthopnea, paroxysmal nocturnal dyspnea, lower extremity edema, presyncope, syncope, or palpitations Gastrointestinal: Negative history of abdominal pain, nausea, vomiting, constipation, diarrhea, melena, or hematochezia Urinary: Negative history of dysuria, hematuria, or frequency Peripheral vascular: No claudication Musculoskeletal: Negative for joint aches/pain, neck pain, or back pain Neurologic: Negative history of dizziness/lightheadedness, vertigo, numbness/tingling of hands or feet Hematologic: Negative for easy bruising or easy bleeding. Endocrine: Negative history of obesity Skin: Negative history of rash and itching Other: The rest of the review of systems is unremarkable and negative or non-contributory Physical Examination: BP 160/90 (BP Site: Right Arm, BP Position: Sitting, BP Cuff Size: Regular Adult) Pulse 68 Ht 5' 5 (1.651 m) Wt (!) 450 lb (204.1 kg) LMP 01/05/2015 SpO2 94% BMI 74.88 kg/m? BMI 74.88 kg/(m2) General appearance: Well appearing, alert, appears to be in no acute distress, cooperative Head: Normocephalic, atraumatic HEENT: Extraocular movements intact; mucous membranes moist; no JVD Lungs: Breath sounds equal. Clear to auscultation bilaterally, no rales, rhonchi, or wheezes Heart: RRR; normal S1/S2; no murmurs/gallops/rubs Abdomen: Abdomen soft, non-distended, non-tender. NABS Extremities: No cyanosis, clubbing or edema Skin: No rashes noted Neurologic: Grossly nonfocal Psych: Normal mood/affect Cardiac Testing and Procedures: Electrocardiogram: 02/27/2023: Normal sinus rhythm at 73 bpm. Low voltage QRS. Lead switch. I have personally reviewed the Electrocardiogram. ASSESSMENT/PLAN: 1. Pre-operative cardiovascular examination - ICD9: V72.81, ICD10: Z01.810 Patient walks on the treadmill every day for 20 minutes without any chest pain or shortness of breath. She is able to achieve 4 METS activity without any cardiac symptoms. In the absence of signs and sy (more content not included)... [facility] 02-27-2023 History of Present illness Narrative Cardiology consultation at the request of Deisy Allan. A copy of this consultation note will be provided to the requesting physician by way of shared Medical record or letter to requesting physician via [place] mail. Chief Complaint: Patient presents with: New Patient Evaluation: Clearance for bariatric surgery History of Present Illness: Deisy Montemayor Chinmayjaleesa is a 47 year old female with history of morbid obesity, seizure disorder who was referred for preoperative clearance prior to bariatric surgery. She denies chest pain, shortness of breath, orthopnea, cough, edema, palpitations, PND, lightheadedness or syncope. PAST MEDICAL HISTORY Diagnosis Date Class 3 severe obesity with body mass index (BMI) greater than or equal to 70 in adult, unspecified obesity type, unspecified whether serious comorbidity present (HCC) Gall stones Heart burn Heel spur 2012 Morbid obesity (HCC) Seizures (HCC) 06/17/2022 PAST SURGICAL HISTORY Procedure Laterality Date NONE FAMILY HISTORY Problem Relation Age of Onset other (Hep C) Mother other (HTN) Father other (HTN) Brother Cancer Maternal Grandmother breast ca Hypertension Maternal Grandmother No Known Problems Maternal Grandfather No Known Problems Paternal Grandmother No Known Problems Paternal Grandfather Social History Tobacco Use Smoking status: Never Smokeless tobacco: Never Vaping Use Vaping Use: Never used Substance Use Topics Alcohol use: No Drug use: No Current Outpatient Medications Medication Sig cholecalciferol, Vitamin D3, (VITAMIN D3) 1,250 mcg (50,000 unit) cap capsule Take 1 capsule by mouth one time a week for 12 doses. Transition to 2,000-4,000 units of Vitamin D OTC after completing 12 weeks levETIRAcetam (KEPPRA) 500 mg tablet TAKE 1 TABLET BY MOUTH TWICE A DAY ondansetron orally disintegrating (ZOFRAN ODT) 4 mg disintegrating tablet Take 1 tablet by mouth every 6 hours as needed for nausea/vomiting. ondansetron (ZOFRAN) 4 mg tablet Take 1 tablet by mouth every 8 hours as needed for up to 15 doses. levonorgestrel (MIRENA) 20 mcg/24 hours (8 yrs) 52 mg IUD 1 Each by INTRAUTERINE route. lansoprazole (PREVACID) 15 mg capsule Take 1 capsule by mouth once daily. (Patient taking differently: Take 15 mg by mouth as needed.) FA/MV,CA,IRON,MIN/LYCOPENE/LUT (MULTIVITAL ORAL) Take by mouth once daily. No current facility-administered medications for this visit. ALLERGIES No Known Allergies Review of Systems: General: No weight loss, malaise, fevers, chills, or night sweats HEENT: Negative for epistaxis Neck: Negative for pain and significant neck swelling Respiratory: Negative for cough, shortness of breath at rest or on exertion, wheezing Cardiac: Negative history of chest pain on exertion, dyspnea on exertion, orthopnea, paroxysmal nocturnal dyspnea, lower extremity edema, presyncope, syncope, or palpitations Gastrointestinal: Negative history of abdominal pain, nausea, vomiting, constipation, diarrhea, melena, or hematochezia Urinary: Negative history of dysuria, hematuria, or frequency Peripheral vascular: No claudication Musculoskeletal: Negative for joint aches/pain, neck pain, or back pain Neurologic: Negative history of dizziness/lightheadedness, vertigo, numbness/tingling of hands or feet Hematologic: Negative for easy bruising or easy bleeding. Endocrine: Negative history of obesity Skin: Negative history of rash and itching Other: The rest of the review of systems is unremarkable and negative or non-contributory Physical Examination: BP 160/90 (BP Site: Right Arm, BP Position: Sitting, BP Cuff Size: Regular Adult) Pulse 68 Ht 5' 5 (1.651 m) Wt (!) 450 lb (204.1 kg) LMP 01/05/2015 SpO2 94% BMI 74.88 kg/m BMI 74.88 kg/(m^2) General appearance: Well appearing, alert, appears to be in no acute distress, cooperative Head: Normocephalic, atraumatic HEENT: Extraocular movements intact; mucous membranes moist; no JVD Lungs: Breath sounds equal. Clear to auscultation bilaterally, no rales, rhonchi, or wheezes Heart: RRR; normal S1/S2; no murmurs/gallops/rubs Abdomen: Abdomen soft, non-distended, non-tender. NABS Extremities: No cyanosis, clubbing or edema Skin: No rashes noted Neurologic: Grossly nonfocal Psych: Normal mood/affect Cardiac Testing and Procedures: Electrocardiogram: 02/27/2023: Normal sinus rhythm at 73 bpm. Low voltage QRS. Lead switch. I have personally reviewed the Electrocardiogram. ASSESSMENT/PLAN: 1. Pre-operative cardiovascular examination - ICD9: V72.81, ICD10: Z01.810 Patient walks on the treadmill every day for 20 minutes without any chest pain or shortness of breath. She is able to achieve 4 METS activity without any cardiac symptoms. In the absence of signs and symptoms of unstable angina, myocardial infarction, heart failure, severe aortic stenosis, malignant arrhythmias patient is at low cardiac risk for an intermediate risk surgery and is medically optimized for the same. RCRI is less than 1% which is considered low risk for perioperative MACE. 2. Elevated blood pressure without diagnosis of hypertension Patient is to monitor her blood pressure readings and if persistently above 130 over 80 can consider starting her on losartan 25 mg daily. She is also going to be tested for sleep apnea later on. I told her that undiagnosed sleep apnea can also contribute to elevated blood pressure readings. Ayaan Cardenas MD documented in this encounter [facility] 02-27-2023 Nurse Note Patient has no cardiac complaints today. Seema Alexander CMA documented in this encounter [facility] 02-26-2023 History of Present illness Narrative Radiology Service Progress Note PATIENT NAME: Deisy Almodovar DATE OF SERVICE: February 26, 2023 TIME: 7:51 AM PATIENT IDENTITY VERIFICATION COMPLETED USING TWO (2) IDENTIFIERS: Name and Date of confirmed by patient verbally. FALL SCREENING: Has the patient had 2 falls in the last year or 1 fall with injury or currently using an Ambulatory Assistive Device (Walker, Cane, Wheelchair, Crutches, etc.)? No PATIENT GENDER DATA: Female. status: : No status: NO. PATIENT RELEVANT IMPLANT DATA REVIEWED: Yes RADIOLOGY DEPARTMENT: General X-ray: Exam(s) Completed: Chest X-Ray PERIPHERAL IV DATA: Not applicable SIGNED BY: RT Delilah(R) February 26, 2023 7:51 AM documented in this encounter [facility] 02-21-2023 Note HNO ID: [id number] Author: Deisy Allan APRN.ADJUSTO WRITER OPERATOR Service: ? Author Type: Nurse Practitioner Type: Progress Notes Filed: 02/21/2023 10:46 AM Note Text: BARIATRIC SURGERY CLINIC FOLLOW UP NOTE DISTANCE HEALTH VISIT This Team Access Model visit is a virtual encounter. It required patient-provider interaction for the medical decision making as documented below. Consent was obtained to complete today's distance health visit. I have communicated my name and active licensure. The patient's identity and physical location were verified at the time of this visit. Either the patient or their legal computer help desk representative has been informed of the risks and benefits of -- and alternatives to -- treatment through a remote evaluation and consents to proceed with the evaluation remotely. HPI: Deisy Almodovar a 47 year old female for presents for medically supervised weight loss treatment of her obesity related co morbidities. This individual presents for month 8 of 6 required visits completed as a virtual telephone encounter Deisy Almodovar weight calculation is unchanged. She continues to follow nutrition recommendations and exercise regularly. Denies recent illnesses, hospitalizations, ED visits Gallbladder symptoms are well controlled right now with diet modification. She denies worsening heartburn and reflux. HISTORY REVIEWED (electronic chart updated): - medical history - medications - allergies PAST MEDICAL HISTORY Diagnosis Date Gall stones Heart burn Heel spur 2008, 2012 Morbid obesity (HCC) Seizures (HCC) 06/17/2022 Social: Social History Tobacco Use Smoking status: Never Smokeless tobacco: Never Vaping Use Vaping Use: Never used Substance Use Topics Alcohol use: No Drug use: No Medications: Current Outpatient Medications Medication Sig levETIRAcetam (KEPPRA) 500 mg tablet TAKE 1 TABLET BY MOUTH TWICE A DAY ondansetron orally disintegrating (ZOFRAN ODT) 4 mg disintegrating tablet Take 1 tablet by mouth every 6 hours as needed for nausea/vomiting. ondansetron (ZOFRAN) 4 mg tablet Take 1 tablet by mouth every 8 hours as needed for up to 15 doses. levonorgestrel (MIRENA) 20 mcg/24 hours (8 yrs) 52 mg IUD 1 Each by INTRAUTERINE route. lansoprazole (PREVACID) 15 mg capsule Take 1 capsule by mouth once daily. (Patient taking differently: Take 15 mg by mouth as needed.) FA/MV,CA,IRON,MIN/LYCOPENE/LUT (MULTIVITAL ORAL) Take by mouth once daily. No current facility-administered medications for this visit. REVIEW OF SYSTEMS General: No fatigue or fevers HEENT: Negative for frequent or significant headaches, No changes in hearing or vision, no nose bleeds or other nasal problems PAP Therapy: TBD GI:No nausea, vomiting, or diarrhea and No heartburn or reflux symptoms Muskuloskeletal: Negative for joint pain or swelling, back pain or muscle pain Skin: Negative for lesions, rash, and itching Psych: Negative for sleep disturbance, mood disorder and recent psychosocial stressors PHYSICAL EXAMINATION Wt 201.9 kg (445 lb) BMI 74.05 kg/m2 Ht 165.1 cm (5' 5) BMI 74.05 kg/m2 GENERAL APPEARANCE: Pleasant, interacts appropriately and in no apparent distress. Appropriately groomed, happy, smiling, and interactive SKIN: Skin of normal texture, temperature without rashes/lesions/ulcerations. LUNGS: unlabored on room air negative findings: normal respiratory rate no cough NEURO/PSYCH: Oriented to person, place, time; appropriate insight and judgement. Appropriate affect. Diagnostic Tests Reviewed for Today's Visit Most recent lab and imaging results The plan of treatment for Deisy Almodovar is Further Work-up: Required monthly visit: 8 of 6 months EGD: ordered- scheduled 03/10 Upper GI: none RUQ US: Mildly hydropic gallbladder with a large gallstone at the gallbladder neck which is not cleared in the decubitus position. There is suspected trace sludge and mild circumferential wall thickening. Negative biliary dilatation. No hepatosplenomegaly. No focal mass Sleep Study: Stop BANG=3. Referral to sleep medicine CXR:ordered EKG:per cardiac clearance - referral placed today H Pylori pending Labs: ordered Nicotine use <12 months: NA, ordered per insurance Tox screen: ordered per insurance Antiplatelet/anticoagulants: No Immunosuppressive therapy: No Estrogen therapy: No, IUD Evaluations Psychology: cleared 01/28 Nutrition: cleared Education class: ongoing Clearances: Cardiac (02/27), Sleep(03/19), neurology(cleared; OV 12/13) and PCP Risk Calculator: VTE Risk: BMI > 60 ISS score: not diabetic Adverse Event score: TBD Post-op Medications: Extended Lovenox: Yes BMI > 60 Actigall: Not needed, known cholelithiasis H2 samir/PPI: Currently on PPI ASSESSMENT/PLAN: 1. Class 3 severe obesity with body mass index (BMI) greater than or equal to 70 in adult, unspecified obesity type, unspecified whether serious (more content not included)... [facility] 02-21-2023 History of Present illness Narrative BARIATRIC SURGERY CLINIC FOLLOW UP NOTE DISTANCE HEALTH VISIT This Team Access Model visit is a virtual encounter. It required patient-provider interaction for the medical decision making as documented below. Consent was obtained to complete today's distance health visit. I have communicated my name and active licensure. The patient's identity and physical location were verified at the time of this visit. Either the patient or their legal computer help desk representative has been informed of the risks and benefits of -- and alternatives to -- treatment through a remote evaluation and consents to proceed with the evaluation remotely. HPI: Deisy Almodovar a 47 year old female for presents for medically supervised weight loss treatment of her obesity related co morbidities. This individual presents for month 8 of 6 required visits completed as a virtual telephone encounter Deisy Almodovar weight calculation is unchanged. She continues to follow nutrition recommendations and exercise regularly. Denies recent illnesses, hospitalizations, ED visits Gallbladder symptoms are well controlled right now with diet modification. She denies worsening heartburn and reflux. HISTORY REVIEWED (electronic chart updated): - medical history - medications - allergies PAST MEDICAL HISTORY Diagnosis Date Gall stones Heart burn Heel spur 2008, 2012 Morbid obesity (HCC) Seizures (HCC) 06/17/2022 Social: Social History Tobacco Use Smoking status: Never Smokeless tobacco: Never Vaping Use Vaping Use: Never used Substance Use Topics Alcohol use: No Drug use: No Medications: Current Outpatient Medications Medication Sig levETIRAcetam (KEPPRA) 500 mg tablet TAKE 1 TABLET BY MOUTH TWICE A DAY ondansetron orally disintegrating (ZOFRAN ODT) 4 mg disintegrating tablet Take 1 tablet by mouth every 6 hours as needed for nausea/vomiting. ondansetron (ZOFRAN) 4 mg tablet Take 1 tablet by mouth every 8 hours as needed for up to 15 doses. levonorgestrel (MIRENA) 20 mcg/24 hours (8 yrs) 52 mg IUD 1 Each by INTRAUTERINE route. lansoprazole (PREVACID) 15 mg capsule Take 1 capsule by mouth once daily. (Patient taking differently: Take 15 mg by mouth as needed.) FA/MV,CA,IRON,MIN/LYCOPENE/LUT (MULTIVITAL ORAL) Take by mouth once daily. No current facility-administered medications for this visit. REVIEW OF SYSTEMS General: No fatigue or fevers HEENT: Negative for frequent or significant headaches, No changes in hearing or vision, no nose bleeds or other nasal problems PAP Therapy: TBD GI:No nausea, vomiting, or diarrhea and No heartburn or reflux symptoms Muskuloskeletal: Negative for joint pain or swelling, back pain or muscle pain Skin: Negative for lesions, rash, and itching Psych: Negative for sleep disturbance, mood disorder and recent psychosocial stressors PHYSICAL EXAMINATION Wt 201.9 kg (445 lb) BMI 74.05 kg/m2 Ht 165.1 cm (5' 5) BMI 74.05 kg/m2 GENERAL APPEARANCE: Pleasant, interacts appropriately and in no apparent distress. Appropriately groomed, happy, smiling, and interactive SKIN: Skin of normal texture, temperature without rashes/lesions/ulcerations. LUNGS: unlabored on room air negative findings: normal respiratory rate no cough NEURO/PSYCH: Oriented to person, place, time; appropriate insight and judgement. Appropriate affect. Diagnostic Tests Reviewed for Today's Visit Most recent lab and imaging results The plan of treatment for Deisy Almodovar is Further Work-up: Required monthly visit: 8 of 6 months EGD: ordered- scheduled 03/10 Upper GI: none RUQ US: Mildly hydropic gallbladder with a large gallstone at the gallbladder neck which is not cleared in the decubitus position. There is suspected trace sludge and mild circumferential wall thickening. Negative biliary dilatation. No hepatosplenomegaly. No focal mass Sleep Study: Stop BANG=3. Referral to sleep medicine CXR:ordered EKG:per cardiac clearance - referral placed today H Pylori pending Labs: ordered Nicotine use <12 months: NA, ordered per insurance Tox screen: ordered per insurance Antiplatelet/anticoagulants: No Immunosuppressive therapy: No Estrogen therapy: No, IUD Evaluations Psychology: cleared 01/28 Nutrition: cleared Education class: ongoing Clearances: Cardiac (02/27), Sleep(03/19), neurology(cleared; OV 12/13) and PCP Risk Calculator: VTE Risk: BMI > 60 ISS score: not diabetic Adverse Event score: TBD Post-op Medications: Extended Lovenox: Yes BMI > 60 Actigall: Not needed, known cholelithiasis H2 samir/PPI: Currently on PPI ASSESSMENT/PLAN: 1. Class 3 severe obesity with body mass index (BMI) greater than or equal to 70 in adult, unspecified obesity type, unspecified whether serious comorbidity present (HCC) - ICD9: 278.01, V85.45, ICD10: E66.01, Z68.45 (primary diagnosis) Weight decreasing - Behavioral intervention and - Medical nutrition therapy with dietitian - Nutrition Counseling Practice these: - Eat 3 meals daily--can use approved/recommended protein shake as 1 meal replacement (should be <200 calories, 20-30g protein, <5g added sugar) - Keep a food journal 5-7x/week (consider [employer] or [employer] jorge l) and demonstrate meeting protein goal (60-90g protein for females, 70-105g protein for males)- Lean meats, fish, low fat dairy - cottage cheese, Dutch yogurt, light yogurt, cheese, ricotta cheese, nuts, peanut butter, beans/legumes. Eat protein first at all meals. and 64oz of caffeine-free, carbonation-free fluids at least 5 days per week - engage in formal, planned exercise 5x/week for 30 minutes of cardiovascular activity OR 150+ minutes of cardiovascular activity per week - eliminate all caffeine, carbonation, alcohol and sugar-containing beverages from diet --consider sugar-free drink mixes, water, decaf coffee and tea - Separate eating and drinking by 30 minutes - Chew your food 20-30x per bite - Sip beverages slowly--no guzzling or gulping - CBC - COMP METABOLIC PANEL - FERRITIN BLD - FOLATE SERUM - HGB A1C - IRON + TIBC - LIPID PANEL BASIC - NICOTINE & METAB, UR - PTH INTACT BLD - TOX SCREEN ROUT UR - TSH BLD - VITAMIN A/RETINOL - VITAMIN B1 (THIAMINE), WHOLE BLOOD - VITAMIN B12 BLOOD - VITAMIN D 25 HYDROXY - ZINC BLD 2. Gallstones and inflammation of gallbladder without obstruction - ICD9: 574.00, ICD10: K80.00 - symptoms well managed - discussed following a low fat, low sugar diet 3. Seizures (HCC) - ICD9: 780.39, ICD10: R56.9 - continue medical management 4. Gastroesophageal reflux disease without esophagitis - ICD9: 530.81, ICD10: K21.9 - Discussed lifestyle modifications including losing weight, limiting caffeine, no meals three hours before sleep, and head of bed elevation - well controlled; taking prevacid very rarely - EGD scheduled 03/10 Still needs labs, EGD, nicotine and tox. Still needs clearances from cardiology and sleep med. Follow up with ENTERTAINMENT CENTRE MANAGER next month to review testing results and clearance status. Deisy Allan, INSULATOR CUTTER AND FORMER.ADJUSTO WRITER OPERATOR Total time in direct patient contact = 12 min. Greater than 50% of the time was spent in counseling and/or coordination of care. This note was generated using voice recognition technology and may contain grammatical errors. Medical Decision Making: Problems: Moderate: 2+ stable chronic illnesses Data: Unique test(s) ordered: 1 Assessment requiring an independent historian(s) Risk: Minimal: Minimal risk from testing/treatment Medical Decision Making Level: 3 - Low documented in this encounter [facility] 01-28-2023 Miscellaneous Notes ----- Message from Kristi Benjamin PhD sent at 01/28/2023 4:09 PM EDT ----- Good afternoon, I have finished Deisy's psych eval. Here's what you need! Based on the information gathered through the interview process, she appears to be psychologically stable at this time with no overt evidence of psychologic contraindications for bariatric surgery. The patient does not appear to have a major uncontrolled psychiatric disorder and appears to be able to comply with the recommended medical/surgical preoperative and postoperative treatment plans. Kristi Keller documented in this encounter [facility] 01-24-2023 Note HNO ID: [id number] Author: Kristi Benjamin, PhD Service: ? Author Type: Psychologist Type: Progress Notes Filed: 01/28/2023 4:08 PM Note Text: BARIATRIC SURGERY BEHAVIORAL HEALTH EVALUATION DATE OF SERVICE: January 24, 2023 TIME OF SERVICE: [id number] BILLING CODE: Kristi Benjamin, PhD CHIEF COMPLAINT: Pre-surgical psychological evaluation DATE OF FIRST SERVICE THIS CYCLE: December 20, 2022 SESSION #: 2 The patient signed the Informed Consent for Psychological Evaluation AND Care Form, and the [facility] health care insurance benefits, fees for service, emergency procedures, and the limits of confidentiality that may pertain with any given case were discussed with the patient. IDENTIFYING INFORMATION: Ms. Deisy Almodovar is a 47 year old female. She was referred by Surgery. Ms. Almodovar is seeking gastric sleeve surgery for morbid obesity. Her surgeon is Dr. Wodos . COLLATERAL PARTIES PRESENT: none. MOTIVATION FOR SURGERY / UNDERSTANDING OF PROCEDURE / EXPECTATIONS: Ms. Almodovar notes she is motivated for surgery by improve quality of life. The patient has a excellent understanding of the surgery, risks, and benefits. She has talked with other people who have undergone the procedure. Specific areas of understanding that should be addressed include n/a. The patient has attended a weight loss surgery support group (In a Facebook group). The patient expects to lose 250 lbs. following surgery over a few years. Other expectations include increased quality of life. Educated patient regarding expected weight loss after surgical procedure and timeline of weight loss/surgery recovery. CAPACITY TO CONSENT: Ms. Almodovar evidences the following concerns regarding capacity to consent: none noted. 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 PAST SURGICAL HISTORY PAST SURGICAL HISTORY Procedure Laterality Date NONE Past surgeries? No History of psychological complications post-surgery? No MEDICATIONS Current Outpatient Medications Medication Sig ondansetron orally disintegrating (ZOFRAN ODT) 4 mg disintegrating tablet Take 1 tablet by mouth every 6 hours as needed for nausea/vomiting. ondansetron (ZOFRAN) 4 mg tablet Take 1 tablet by mouth every 8 hours as needed for up to 15 doses. levonorgestrel (MIRENA) 20 mcg/24 hours (8 yrs) 52 mg IUD 1 Each by INTRAUTERINE route. levETIRAcetam (KEPPRA) 500 mg tablet TAKE 1 TABLET BY MOUTH TWICE A DAY lansoprazole (PREVACID) 15 mg capsule Take 1 capsule by mouth once daily. (Patient taking differently: Take 15 mg by mouth as needed.) FA/MV,CA,IRON,MIN/LYCOPENE/LUT (MULTIVITAL ORAL) Take by mouth once daily. No current facility-administered medications for this visit. ALLERGIES ALLERGIES No Known Allergies EATING/WEIGHT HISTORY: Ms. Almodovar was overweight as a child. Her weight at age 17 was approximately 220 lbs. The patient reports the following factors as contributing to weight gain: inactivity, , stress , poor eating habits, and genetic predisposition. The patient reports a family history of obesity (one brother). Current Weight: 457 (first visit) 455 (second visit) Height: 5'6 Highest adult weight: 480 BMI: 73.4 The patient has tried weight loss strategies in the past including Caloric restriction, Exercise/increased activity, Nutrisystems, Weight watchers, and Plexus (the pink drink). The most weight the patient has lost is 80 lbs. using Visalus (meal replacement shakes). The patient denies a history of laxative use. The patient denies a history of vomiting to lose weight. The patient denies a history of eating disorder(s). She has not had treatment for eating disorders in the past. LIFESTYLE Patient reports eating three meals/day, with two snacks. She reported having three meals on approximately seven days. Breakfast: protein shake Lunch: [employer] meal Dinner: chicken or hamburger, salads, will eat another [employer] meal if dinner is high calories/low protein Snacks: tends to be fruit or [employer] snacks, pretzels, popcorn Is semi-consistently keeping food journal in [employer] jorge l. Eating for coping/emotional eating: Does not report a significant history of emotional eating; denies this currently. The patient notes (more content not included)... [facility] 01-15-2023 Note HNO ID: [id number] Author: Sandy Carmen RD Service: ? Author Type: Registered Dietitian Type: Progress Notes Filed: 01/15/2023 4:07 PM Note Text: Deisy Almodovar Patient seen in office Education Class: Patient will receive instruction regarding healthy food choices and eating behaviors identified as optimal when preparing for surgery, losing weight after surgery, and maintaining weight loss long-term. Patient will also receive instruction regarding the Bariatric Full Liquid diet following surgery and optimal post-operative high-protein supplement choices. Education class to be completed prior to surgery. Behaviors Accomplished: Visit # 7/NA Date: 01/15/23 Today's Weight:446lbs Last in-office weight: (w/ Dr. Woods 07/25/22 ) 471 lbs Initial Weight (in office - Dr. Woods 07/25/22): 471 lbs Behaviors that helped/hindered weight loss: helped Keeping journal daily Eating 3 meals/one snack Choose healthy foods Daily multivitamin Drink between meals Sip beverages slowly Eat slowly,chew well No high fat/fast foods D/c'd caffeinated, carbonated beverages Exercise: meeting goals Written information provided and reviewed: Preop Wt Loss Diet Post-operative high-protein supplement: 30g shake or fairlife Vitamin/mineral supplement: no menses d/t control - would recommend 45 mg, interested bariatric MV Tracking protein intake Tracking liquid intake 24 hr recall: B: protein shake (30g) L: BBQ chicken (21g) , 2c fruit salad D: 2c green beans, [employer] hamburger (g?) S: light strawberry yogurt, PB crackers, toffee crunch nutrisystem cookies F: > 64 oz P: per pt 100g 01/13 B: protein shake (30g) L: 6 ' [employer] D: 2 c salad, [employer]ystem pizza S: banana, granola bar F: > 64 oz P: 75g per pt Prior to going on vacation: 12/31 B: fairlife (30g), banana L: mixed salad, [employer] hamburger D: steamed cheesy broccoli and 2 beef hot dogs (11g) S: peanut butter crackers, granola P: 72g Protein (prior to vacation) :72g, 62g, 53g, 62g Exercise: prior to going on vacation - walking on treadmill daily for 20 minutes (~ 140 min/week) -- has resumed activity since coming home Caffeine: none Carbonation: none Alcohol: none Dining out: 1x/week Sipping slowly/frequently: Yes Taking small bites/chewing 20-30x per bite: practicing food and fluid by 30 minutes: No Per surgeon 12/19: She does not have to get to 400lbs for me to do the surgery, as long as she is losing weight, I am happy to consent whenever she is ready and has gotten her requirements done. However since we are waiting for card/pulm until February, if she can get in to see obesity medicine in the mean time to assist with more weight loss, that would be wonderful! I agree combination therapy would do well and I think even after surgery, she will need them. Patient presents for month 7 of NA supervised diet and exercise, demonstrates a 2# loss since last RD visit but also demonstrates a 25# loss since beginning the program. Verbalizes that she has been keeping a food journal via [employer] since coming home from vacation (01/12) daily. She reports that she was not keeping a food journal while on vacation. Per 24 hr recall, exceeding protein goals and meeting fluid goals. Does show a diet somewhat compliant with healthy plate method, reviewed incorporating/prioritizing lean proteins/ non starchy vegetables during meals. Upon further review of food journal, patient able to demonstrate meal tracking 5-7 days per week, in addition to meeting protein and fluid goals. Is continuing to exercise as directed/tolerated, reminded to aim for 150 min weekly.Reports taking daily MV. The patient meets NIH guidelines for weight loss surgery and has been thoroughly evaluated and educated on good dietary practices. Patient is capable of following these guidelines pre-and post-surgically. From nutrition standpoint, the patient is cleared for weight loss surgery. No additional visits with nutrition are required at this time; however, patient is welcome to return as needed/desired before or after surgery. *All requirements have been met. Additional requirements may arise in course of treatment. 01/15 *THIS PATIENT RECEIVED INSTRUCTIONS FOR VLCD, ERAS, AND DISCHARGE DIET INFORMATION WITH PLAN TO CONSENT W/ SURGEON AT NEXT APPOINTMENT- WILL RECEIVE ENSURE CLEAR BEVERAGES AT CONSENT APPOINTMENT -- will send over via [employer] message Plan: follow up with team as scheduled Goals aim for 60-90g daily in addition to 64 oz fluid - 5/7 days per week Eat 3 meals daily-protein source at each meal Endorsing formal exercise 5-7 times per week as tolerated goal of 30 minutes per session or 150 minutes/week of activity Journal daily and bring to all appointments will need 45mg iron post-op, consider [facility] 45 or celebrateONE 45 + calcium citrate in divided doses (1200-1500mg) (more content not included)... [facility] 01-15-2023 Note Education (AGGENS4) ---- NISHIDEISY Montemayor ([id number]) 1975 F Date Time Provider Department 01/15/23 3:30 PM SANDY CARMEN4 Reason for Visit: Established Patient [175] Primary Visit Diagnosis:Class 3 severe obesity with body mass index (BMI) greater than or equal to 70 in adult, unspecified obesity type, unspecified whether serious comorbidity present (HCC) [E66.01, Z68.45] During your visit today, we recorded the following information about you: Weight Height 202.4 kg 1.651 m Allergies As of Date: 01/15/2023 (No Known Allergies) Date Reviewed: 01/10/2023 Reviewed by: Deisy Allan APRN.ADJUSTO WRITER OPERATOR - Fully Assessed Prescriptions as of 01/15/2023 - ondansetron orally disintegrating (ZOFRAN ODT) 4 mg disintegrating tablet Take 1 tablet by mouth every 6 hours as needed for nausea/vomiting. - ondansetron (ZOFRAN) 4 mg tablet Take 1 tablet by mouth every 8 hours as needed for up to 15 doses. - levonorgestrel (MIRENA) 20 mcg/24 hours (8 yrs) 52 mg IUD 1 Each by INTRAUTERINE route. - levETIRAcetam (KEPPRA) 500 mg tablet TAKE 1 TABLET BY MOUTH TWICE A DAY - lansoprazole (PREVACID) 15 mg capsule Take 1 capsule by mouth once daily. - FA/MV,CA,IRON,MIN/LYCOPENE/LUT (MULTIVITAL ORAL) Take by mouth once daily. Follow-up and Disposition History for Encounter Date Provider Department Center 01/15/2023 [id number] [facility] Encounter Status:Closed by SANDY CARMEN on 01/15/23 [facility] 01-10-2023 Note HNO ID: [id number] Author: Deisy Allan APRN.MALDONADO Service: ? Author Type: Nurse Practitioner Type: Progress Notes Filed: 01/10/2023 11:20 AM Note Text: BARIATRIC SURGERY CLINIC FOLLOW UP NOTE DISTANCE HEALTH VISIT This Team Access Model visit is a virtual encounter. It required patient-provider interaction for the medical decision making as documented below. Consent was obtained to complete today's distance health visit. I have communicated my name and active licensure. The patient's identity and physical location were verified at the time of this visit. Either the patient or their legal computer help desk representative has been informed of the risks and benefits of -- and alternatives to -- treatment through a remote evaluation and consents to proceed with the evaluation remotely. HPI: Deisy Almodovar a 47 year old female for presents for medically supervised weight loss treatment of her obesity related co morbidities. This individual presents for month 7 of 6 required visits completed as a virtual telephone encounter Deisy Almodovar weight calculation has increased. She has been keeping a food journal. 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 She is exercising by walking on her treadmill for 20 minutes/day. Denies recent illnesses, hospitalizations, ED visits. Denies worsening acid reflux symptoms. Denies worsening RUQ pain or associated symptoms. HISTORY REVIEWED (electronic chart updated): - medical history - medications - allergies PAST MEDICAL HISTORY Diagnosis Date Gall stones Heart burn Heel spur 2008, 2012 Morbid obesity (HCC) Seizures (HCC) 06/17/2022 Social: Social History Tobacco Use Smoking status: Never Smokeless tobacco: Never Vaping Use Vaping Use: Never used Substance Use Topics Alcohol use: No Drug use: No Medications: Current Outpatient Medications Medication Sig ondansetron orally disintegrating (ZOFRAN ODT) 4 mg disintegrating tablet Take 1 tablet by mouth every 6 hours as needed for nausea/vomiting. ondansetron (ZOFRAN) 4 mg tablet Take 1 tablet by mouth every 8 hours as needed for up to 15 doses. levonorgestrel (MIRENA) 20 mcg/24 hours (8 yrs) 52 mg IUD 1 Each by INTRAUTERINE route. levETIRAcetam (KEPPRA) 500 mg tablet TAKE 1 TABLET BY MOUTH TWICE A DAY lansoprazole (PREVACID) 15 mg capsule Take 1 capsule by mouth once daily. (Patient taking differently: Take 15 mg by mouth as needed.) FA/MV,CA,IRON,MIN/LYCOPENE/LUT (MULTIVITAL ORAL) Take by mouth once daily. No current facility-administered medications for this visit. REVIEW OF SYSTEMS General: No fatigue or fevers HEENT: Negative for frequent or significant headaches, No changes in hearing or vision, no nose bleeds or other nasal problems PAP Therapy: TBD GI:No nausea, vomiting, or diarrhea and No heartburn or reflux symptoms Muskuloskeletal: Negative for joint pain or swelling, back pain or muscle pain Skin: Negative for lesions, rash, and itching Psych: Negative for sleep disturbance, mood disorder and recent psychosocial stressors PHYSICAL EXAMINATION Wt 204.1 kg (450 lb) BMI 74.88 kg/m2 Ht 165.1 cm (5' 5) BMI 74.88 kg/m2 GENERAL APPEARANCE: Pleasant, interacts appropriately and in no apparent distress. Appropriately groomed, happy, smiling, and interactive SKIN: Skin of normal texture, temperature without rashes/lesions/ulcerations. LUNGS: unlabored on room air negative findings: normal respiratory rate no cough NEURO/PSYCH: Oriented to person, place, time; appropriate insight and judgement. Appropriate affect. Diagnostic Tests Reviewed for Today's Visit Most recent lab and imaging results The plan of treatment for Deisy Almodovar is Further Work-up: Required monthly visit: 7 of 6 months EGD: ordered- scheduled 02/14 Upper GI: none RUQ US: Mildly hydropic gallbladder with a large gallstone at the gallbladder neck which is not cleared in the decubitus position. There is suspected trace sludge and mild circumferential wall thickening. Negative biliary dilatation. No hepatosplenomegaly. No focal mass Sleep Study: Stop BANG=3. Referral to sleep medicine CXR:ordered EKG:per cardiac clearance - referral placed today H Pylori pending Labs: ordered Nicotine use <12 months: NA, ordered per insurance Tox screen: ordered per insurance Antiplatelet/anticoagulants: No Immunosuppressive therapy: No Estrogen therapy: No, IUD Evaluations Psychology: ongoing - 01/23 Nutrition: ongoing Education class: ongoing Clearances: Cardiac (01/29), Sleep(03/19), neurology(cleared; OV 12/13) and PCP Risk Calculator: VTE Risk: BMI > 60 ISS score: not diabetic Adverse Event score: TBD Post-op Medications: Extended Lovenox: Yes BMI > 60 Actigall: Not needed, known cholelithiasis H2 samir/PPI: Currently on PPI ASSESSMENT/PLAN: 1. Class 3 severe obesit (more content not included)... [facility] 12-26-2022 Miscellaneous Notes Cardiac clearance received for bariatric surgery, date TBD. Form scanned in for new pt jorge l on 02/27 w/ Dr. Cardenas at [facility]. Barry Alexander December 26, 2022 9:21 AM documented in this encounter [facility] 12-25-2022 Miscellaneous Notes Patient called back to schedule appointment with obesity medicine. Patient scheduled for first available which was with Soni on 03/06/2023. Bhumi Godwin MA Called pt to get scheduled with obesity medicine No answer ,lvm documented in this encounter [facility] 12-20-2022 Note HNO ID: [id number] Author: Kristi Benjamin, PhD Service: ? Author Type: Psychologist Type: Progress Notes Filed: 12/20/2022 10:55 AM Note Text: BARIATRIC SURGERY BEHAVIORAL HEALTH EVALUATION DATE OF SERVICE: December 20, 2022 TIME OF SERVICE: [id number] CPT CODE: 39461 Psychiatric diagnostic evaluation BILLING CODE: Kristi Benjamin, PhD CHIEF COMPLAINT: Pre-surgical psychological evaluation DATE OF FIRST SERVICE THIS CYCLE: December 20, 2022 SESSION #: 1 The patient signed the Informed Consent for Psychological Evaluation AND Care Form, and the [facility] care insurance benefits, fees for service, emergency procedures, and the limits of confidentiality that may pertain with any given case were discussed with the patient. IDENTIFYING INFORMATION: Ms. Deisy Almodovar is a 47 year old female. She was referred by Surgery. Ms. Almodovar is seeking gastric sleeve surgery for morbid obesity. Her surgeon is Dr. Woods . COLLATERAL PARTIES PRESENT: none. MOTIVATION FOR SURGERY / UNDERSTANDING OF PROCEDURE / EXPECTATIONS: Ms. Almodovar notes she is motivated for surgery by improve quality of life. The patient has a excellent understanding of the surgery, risks, and benefits. She has talked with other people who have undergone the procedure. Specific areas of understanding that should be addressed include n/a. The patient has attended a weight loss surgery support group (In a Facebook group). The patient expects to lose 250 lbs. following surgery over a few years. Other expectations include increased quality of life. Educated patient regarding expected weight loss after surgical procedure and timeline of weight loss/surgery recovery. CAPACITY TO CONSENT: Ms. Almodovar evidences the following concerns regarding capacity to consent: none noted. 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 PAST SURGICAL HISTORY Procedure Laterality Date NONE Past surgeries? No History of psychological complications post-surgery? No MEDICATIONS Current Outpatient Medications Medication Sig ondansetron orally disintegrating (ZOFRAN ODT) 4 mg disintegrating tablet Take 1 tablet by mouth every 6 hours as needed for nausea/vomiting. ondansetron (ZOFRAN) 4 mg tablet Take 1 tablet by mouth every 8 hours as needed for up to 15 doses. levonorgestrel (MIRENA) 20 mcg/24 hours (8 yrs) 52 mg IUD 1 Each by INTRAUTERINE route. levETIRAcetam (KEPPRA) 500 mg tablet TAKE 1 TABLET BY MOUTH TWICE A DAY lansoprazole (PREVACID) 15 mg capsule Take 1 capsule by mouth once daily. (Patient taking differently: Take 15 mg by mouth as needed.) FA/MV,CA,IRON,MIN/LYCOPENE/LUT (MULTIVITAL ORAL) Take by mouth once daily. No current facility-administered medications for this visit. ALLERGIES No Known Allergies EATING/WEIGHT HISTORY: Ms. Almodovar was overweight as a child. Her weight at age 17 was approximately 220 lbs. The patient reports the following factors as contributing to weight gain: inactivity, , stress , poor eating habits, and genetic predisposition. The patient reports a family history of obesity (one brother). Current Weight: 457 Highest adult weight: 480 The patient has tried weight loss strategies in the past including Caloric restriction, Exercise/increased activity, [employer], Weight watchers, and Plexus (the pink drink). The most weight the patient has lost is 80 lbs. using Visalus (meal replacement shakes). The patient denies a history of laxative use. The patient denies a history of vomiting to lose weight. The patient denies a history of eating disorder(s). She has not had treatment for eating disorders in the past. LIFESTYLE Patient reports eating three meals/day, with two snacks. She reported having three meals on approximately seven days. Breakfast: protein shake Lunch: [employer] meal Dinner: chicken or hamburger, salads, will eat another [employer] meal if dinner is high calories/low protein Snacks: tends to be fruit or [employer] snacks, pretzels, popcorn Is semi-consistently keeping food journal in [employer] jorge l. Eating for coping/emotional eating: Does not report a significant history of emotional eating; denies this currently. The patient notes coffee/tea use of two cups/day. So (more content not included)... [facility] 12-19-2022 Note HNO ID: [id number] Author: Sandy Carmen RD Service: ? Author Type: Registered Dietitian Type: Progress Notes Filed: 12/19/2022 9:35 AM Note Text: Deisy Almodovar This patient encounter was completed virtually using a secure, HIPPA compliant video chat software program with the patient's consent. Education Class: Patient will receive instruction regarding healthy food choices and eating behaviors identified as optimal when preparing for surgery, losing weight after surgery, and maintaining weight loss long-term. Patient will also receive instruction regarding the Bariatric Full Liquid diet following surgery and optimal post-operative high-protein supplement choices. Education class to be completed prior to surgery. Behaviors Accomplished: Visit # 6/NA Date: 12/19/22 Today's Weight: 448 lbs GW per surgeon: ~400# (Dr. Woods 06/27/22) Last in-office weight: (w/ Dr. Woods 07/25/22 ) 471 lbs Initial Weight (in office - Dr. Woods 07/25/22): 471 lbs Behaviors that helped/hindered weight loss: helped Keeping journal daily Eating 3 meals/one snack Choose healthy foods Daily multivitamin Drink between meals Sip beverages slowly Eat slowly,chew well No high fat/fast foods D/c'd caffeinated, carbonated beverages 24 hr recall: B: protein shake (30g) L: turkey deli meat (21g), cucumbers, aceves tomatoes D: 2 c green beans, nutritsystem spinach and cheese (g?)pretzel melt S: strawberry yogurt, banana F: > 64 oz Protein per recall:71g per pt jorge l Protein intake:past 5-7 days: 83g, 71g, 66g, 64g, 72g, 81g, 99g, 87g Fluid intake: 64 oz consistently -- uses tumbler Exercise: recently purchased treadmill, uses 5x/week for 20 min (reports that she is increasing her HR, will increase as tolerated) Caffeine: none Carbonation: none Alcohol: none Dining out: 1x/week Sipping slowly/frequently: Yes Taking small bites/chewing 20-30x per bite: practicing food and fluid by 30 minutes: No Patient presents for month 6 of NA supervised diet and exercise, demonstrates 5# loss since last RD visit 11/08. Verbalizes that she has switched apps to the [employer] jorge l and is tracking almost daily. Per 24 hr recall, meeting protein and fluid goals. Does show a diet compliant with healthy plate method per 24 hr recall. Patient reports that she is finishing up the last of her nutrisystem meals, she is unsure if she will continue. Upon further review of food journal, patient able to demonstrate tracking at least 5-7 days per week, in addition to meeting protein and fluid goals. Does report she has had 1-2 cups of coffee at work meetings in the past - otherwise she does not endorse in caffeine routinely, reports no carbonation/alcohol in her diet. Is endorsing in formal activity for 100min/150min per week, encouraged to increase as tolerated. Reports taking daily MV. The patient meets NIH guidelines for weight loss surgery and has been thoroughly evaluated and educated on good dietary practices. Patient is capable of following these guidelines pre-and post-surgically. From nutrition standpoint, the has partially met nutrition clearance and will need to demonstrate increasing exercise to 150 min per week -- cardio based activity to receive nutrition clearance. Plan: follow up with RD in office next month for weight check - if patient is cleared will review consent diet information Goals aim for 60-90g daily in addition to 64 oz fluid - 5/7 days per week Eat 3 meals daily-protein source at each meal Endorsing formal exercise 5-7 times per week as tolerated goal of 30 minutes per session or 150 minutes/week of activity Journal daily and bring to all appointments review VLCD, ERAS, and post-op vitamins I spent 20 minutes in the visit, with more than 50% of the total [id number] time of the visit in counseling / coordination of care. Sandy Carmen RD This note was generated using voice recognition technology and may contain grammatical errors. [facility] 12-19-2022 History of Present illness Narrative Deisy Almodovar This patient encounter was completed virtually using a secure, HIPPA compliant video chat software program with the patient's consent. Education Class: Patient will receive instruction regarding healthy food choices and eating behaviors identified as optimal when preparing for surgery, losing weight after surgery, and maintaining weight loss long-term. Patient will also receive instruction regarding the Bariatric Full Liquid diet following surgery and optimal post-operative high-protein supplement choices. Education class to be completed prior to surgery. Behaviors Accomplished: Visit # 6/NA Date: 12/19/22 Today's Weight: 448 lbs GW per surgeon: ~400# (Dr. Woods 06/27/22) Last in-office weight: (w/ Dr. Woods 07/25/22 ) 471 lbs Initial Weight (in office - Dr. Woods 07/25/22): 471 lbs Behaviors that helped/hindered weight loss: helped Keeping journal daily Eating 3 meals/one snack Choose healthy foods Daily multivitamin Drink between meals Sip beverages slowly Eat slowly,chew well No high fat/fast foods D/c'd caffeinated, carbonated beverages 24 hr recall: B: protein shake (30g) L: turkey deli meat (21g), cucumbers, aceves tomatoes D: 2 c green beans, nutritsystem spinach and cheese (g?)pretzel melt S: strawberry yogurt, banana F: > 64 oz Protein per recall:71g per pt jorge l Protein intake:past 5-7 days: 83g, 71g, 66g, 64g, 72g, 81g, 99g, 87g Fluid intake: 64 oz consistently -- uses tumbler Exercise: recently purchased treadmill, uses 5x/week for 20 min (reports that she is increasing her HR, will increase as tolerated) Caffeine: none Carbonation: none Alcohol: none Dining out: 1x/week Sipping slowly/frequently: Yes Taking small bites/chewing 20-30x per bite: practicing food and fluid by 30 minutes: No Patient presents for month 6 of NA supervised diet and exercise, demonstrates 5# loss since last RD visit 11/08. Verbalizes that she has switched apps to the [employer] jorge l and is tracking almost daily. Per 24 hr recall, meeting protein and fluid goals. Does show a diet compliant with healthy plate method per 24 hr recall. Patient reports that she is finishing up the last of her nutrisystem meals, she is unsure if she will continue. Upon further review of food journal, patient able to demonstrate tracking at least 5-7 days per week, in addition to meeting protein and fluid goals. Does report she has had 1-2 cups of coffee at work meetings in the past - otherwise she does not endorse in caffeine routinely, reports no carbonation/alcohol in her diet. Is endorsing in formal activity for 100min/150min per week, encouraged to increase as tolerated. Reports taking daily MV. The patient meets NIH guidelines for weight loss surgery and has been thoroughly evaluated and educated on good dietary practices. Patient is capable of following these guidelines pre-and post-surgically. From nutrition standpoint, the has partially met nutrition clearance and will need to demonstrate increasing exercise to 150 min per week -- cardio based activity to receive nutrition clearance. Plan: follow up with RD in office next month for weight check - if patient is cleared will review consent diet information Goals aim for 60-90g daily in addition to 64 oz fluid - 5/7 days per week Eat 3 meals daily-protein source at each meal Endorsing formal exercise 5-7 times per week as tolerated goal of 30 minutes per session or 150 minutes/week of activity Journal daily and bring to all appointments review VLCD, ERAS, and post-op vitamins I spent 20 minutes in the visit, with more than 50% of the total [id number] time of the visit in counseling / coordination of care. Sandy Carmen RD This note was generated using voice recognition technology and may contain grammatical errors. documented in this encounter [facility] 12-16-2022 Miscellaneous Notes Pt Lvm about upcoming appt w/ Ariella. PT request to do this as VV appt do to timeframe and work conflict. Called back Pt no answer LVM to zac appt to better date/time or alternative option to coming into office prior before appt for weight check. documented in this encounter [facility] 12-13-2022 Instructions Keagan Blanton MD - 12/13/2022 12:42 PM EDT --It's ok to have the surgery from neurology standpoint. Try to continue keppra during the surgery and after. --I will see you in a year. We will do EEG before the appointment. If you are doing well, and EEG is normal, we can consider to reduce keppra. documented in this encounter [facility] 12-13-2022 History of Present illness Narrative Images from the original note were not included. [facility] for General Neurology New Patient Evaluation Consulting Provider: SELF Individuals who were included in, or assisted with the encounter were: Deisy Albina Blanton MD Chief Complaint/Issues: Deisy Montemayor Nishi is a 47 year old right handed female with medical history of morbid obesity, episodes of expressive aphasia who is here for episodes of expressive aphasia. HPI: I used to see her for spells of expressive aphasia. Last saw her on 09/15/2019. She reports that on 06/13/2019, she was going to a baby shower and was sitting in the car. She reports that all of a sudden, she could not talk and this lasted about ten seconds. An hour later, she was trying to say goodbye and could not form the words. This second episode lasted about ten to fifteen seconds. She went to the emergency room in [facility]. While in the ED, she had another episode lasting a minute of not being able to form words. She had a fourth episode lasting over a minute while on the teleprompter with a neurologist from [facility]. She reports that her comprehension was intact but that she could not form words. Her partner saw one episode which last for a minute or so. He tried to call her name. She said she heard it but couldn't answer. When she snapped out of it, she did not have post ictal confusion. She woke up the next morning and was talking on the phone with her brother at 9 am and had another episode of speech difficulty lasting ten seconds. She went back to the hospital and they told her maybe it was a ?migraine and she was discharged. She did not have weakness, numbness, dizziness, headache , vision loss, or seizure activity. No loss of consciousness, tongue biting or urinary incontinence. MRI brain/MRA 07/07/2019: normal. CUS 06/23/2019: WNL EEG 06/18/2019 This EEG shows evidence for a cortical dysfunction in the left and right temporal regions. No definite epileptiform discharges or EEG seizures were seen during this recording. Due to the concern of seizures, she was put on keppra. No more episodes since May 2019. No side effect from Keppra. She said that she is can to help weight loss surgery. This visit is part of the neurology clearance. She said her grandmother also has speech difficulties. General Examination: BP 132/83 (BP Site: Left Arm, BP Position: Sitting, BP Cuff Size: Large Adult) Pulse 65 Temp 36.1 C (97 F) (Temporal) Resp 14 Ht 165.1 cm (5' 5) Wt (!) 205.5 kg (453 lb) LMP 01/05/2015 SpO2 100% BMI 75.38 kg/m General: Awake, alert, interactive, no acute distress, good nutritional status, normal development, well-kept Neurological Exam Mental Status Alert, fully oriented, attentive, with normal cognition, memory, speech and affect. Cranial Nerves Extraocular movements normal. No nystagmus, no ptosis, and pupils equal. Face symmetrical. Tongue normal. Motor Examination and Coordination Motor examination with normal bulk, strength and tone. No adventitious movements or significant tremor. Reflexes Deep tendon reflexes graded by MRC Gait Arises easily. Casual gait are normal. Assessment & Plan 12/13/2022 - General Neurology, Keagan Blanton MD ASSESSMENT Deisy Almodovar is a 47 year old right handed female with medical history of morbid obesity, episodes of expressive aphasia who is here for episodes of expressive aphasia. --Spells of asphasia: MRI brain reportedly normal but the bilateral mesial temporal/hepocampal region appeared to have abnormal FLAIR signal (?MTS) which is in line with EEG report cortical dysfunction in both temporal region. This may be epileptogenic. She was started on Keppra 500 mg twice daily. She has been doing well since. I don't think these are TIAs. PLAN --It's ok to have the surgery from neurology standpoint. Try to continue keppra during the surgery and after. --I will see you in a year. We will do EEG before the appointment. If you are doing well, and EEG is normal, we can consider to reduce keppra. No diagnosis found. No follow-ups on file. Data Review Objective Current Outpatient Medications Medication Sig ondansetron orally disintegrating (ZOFRAN ODT) 4 mg disintegrating tablet Take 1 tablet by mouth every 6 hours as needed for nausea/vomiting. ondansetron (ZOFRAN) 4 mg tablet Take 1 tablet by mouth every 8 hours as needed for up to 15 doses. levonorgestrel (MIRENA) 20 mcg/24 hours (8 yrs) 52 mg IUD 1 Each by INTRAUTERINE route. levETIRAcetam (KEPPRA) 500 mg tablet TAKE 1 TABLET BY MOUTH TWICE A DAY lansoprazole (PREVACID) 15 mg capsule Take 1 capsule by mouth once daily. (Patient taking differently: Take 15 mg by mouth as needed.) FA/MV,CA,IRON,MIN/LYCOPENE/LUT (MULTIVITAL ORAL) Take by mouth once daily. No current facility-administered medications for this visit. ACTIVE PROBLEM LIST Irregular Menstrual Cycle Spells of Speech Arrest Seizures (Hcc) Class 3 Severe Obesity With Body Mass Index (Bmi) Greater Than Or Equal to 70 in Adult (Hcc) Gallstones and Inflammation of Gallbladder Without Obstruction Gastroesophageal Reflux Disease Without Esophagitis PAST MEDICAL HISTORY Diagnosis Date Gall stones Heart burn Heel spur 2008, 2012 Morbid obesity (HCC) Seizures (HCC) 06/17/2022 PAST SURGICAL HISTORY Procedure Laterality Date NONE Social History Tobacco Use Smoking status: Never Smokeless tobacco: Never Vaping Use Vaping Use: Never used Substance Use Topics Alcohol use: No Drug use: No FAMILY HISTORY Problem Relation Age of Onset other (Hep C) Mother other (HTN) Father other (HTN) Brother Cancer Maternal Grandmother breast ca Hypertension Maternal Grandmother No Known Problems Maternal Grandfather No Known Problems Paternal Grandmother No Known Problems Paternal Grandfather Review of Systems Lab and Test Review: Results for orders placed or performed in visit on 11/06/22 PT ED DIGESTIVE DISEASE Result 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 Norma program: PATIENT SAFETY AND FALL PREVENTION Outside Data/Labs: Subjective Patient-Entered Data: 12/13/22 - PHQ-2 Score: 0 PHQ-9 Score: 0 GENERAL NEUROLOGY SCORES PROMIS 10 06/17/2019 09/15/2019 12/13/2022 In general, would you say your health is: Good Good Fair In general, would you say your quality of life is: Very good Good Very good In general, how would you rate your physical health? Good Good Fair In general, how would you rate your mental health, including your mood and your ability to think? Good Good Very good In general, how would you rate your satisfaction with your social activities and relationships? Good Good Very good To what extent are you able to carry out your everyday physical activities such as walking, climbing stairs, carrying groceries, or moving a chair? Mostly Mostly Mostly In general, please rate how well you carry out your usual social activities and roles. (This includes activities at home, at work and in your community, and responsibilities as a parent, child, spouse, employee, friend, etc.) Very good Good Very good How would you rate your pain on average? 0 - No Pain 0 - No Pain 0 - No Pain How would you rate your fatigue on average? Mild Mild Mild How often have you been bothered by emotional problems such as feeling anxious, depressed or irritable? Rarely Sometimes Rarely PROMIS Adult Short Form-Global Health Score (Physical) 50.8 50.8 47.7 (Good) PROMIS Adult Short Form-Global Health Score (Mental) 48.3 43.5 53.3 (Very Good) Depression Screening 06/17/2022 12/13/2022 12/13/2022 PHQ-2 Score 0 0 0 PHQ-9 Score - 0 0 SLEEP APNEA SCORE 06/17/2019 12/13/2022 Probability of moderate-severe sleep apnea (%) SAPS V1 74.96 (Recommend sleep study) - Probability of moderate-severe sleep apnea (%) SAPS V2 - 57 (Recommend sleep study) AVERAGE SLEEP 24 HOURS 06/17/2019 Average sleep last 24 hrs 7 PROMIS CAT Sleep Disturbance 06/17/2019 12/13/2022 PROMIS Sleep Disturbance T-Score 44 (within normal limits) 46 (within normal limits) PROMIS Sleep Disturbance Percentile - 66 % I spent a total of 30 minutes on the date of the service which included preparing to see the patient, [id number] patient care, completing clinical documentation, obtaining and/or reviewing separately obtained history, performing a medically appropriate examination, counseling and educating the patient/family/caregiver, ordering medications, tests, or procedures, independently interpreting results (not separately reported), communicating results to the patient/family/caregiver, and care coordination (not separately reported). Keagan Blanton MD documented in this encounter [facility] 11-29-2022 Discharge summary Note Date/Time November 29, 2022 8:48am [facility] Medical Records Department [address] [place] [address] Emergency Department Summary 11/29/22 MR#: [id number] Acct: [id number] Name: DEISY ALMODOVAR Rep #:[id number] : 1975 47 From: Yocasta Curry PCP: Dr. Arron Hairston MD Status:REG E R Location: ED HPI HPI - GI History of Present Illness Chief Complaint: Abd Pain Informant: patient Narrative Narrative: Patient is a 47-year-old female with history of seizures on Keppra as well as known gallstones presenting with right upper quadrant abdominal pain. She states been worsening over the past week. The pain is constant but waxes and wanes in intensity. She does not report any radiation of the pain. She sees a bariatric surgeon through [facility], Dr. Woods, who was planningon taking her gallbladder out when she had her bariatric surgery. Patient is currently in the program. Patient was diagnosed with gallstones around May 2022. Patient states that since then she has lost 40 pounds and adhering to a low fat/greasy diet. She states the night it started as she had stirfry with chicken and broccoli for dinner. She denies any belching. She states she has had no change in her bowel movements. She had a bowel movement yesterday that was soft. She did call her surgeon who did call her and amoxicillin and she hasbeen taking Zofran. Patient had 1 dose of Zofran prior to arrival but continuesto have nausea. The date started she had intractable vomiting. Patient is trying to take Tylenol with no relief of her pain. Patient was seen in our ER 06/22/2022 and was treated for biliary colic at that time with no signs of acute cholecystitis. Patient states she did well with pain management with Percocet. [facility] Medical History (Updated 11/29/22 @ 11:[address] Yocasta Marr, ) Seizures Home Medications oxycodone-acetaminophen 5 mg-325 mg tablet (Endocet) 1 tab PO Q6H PRN pain 3 days #12 tabs 06/22/22 [Rx Last Taken Unknown] levetiracetam 500 mg tablet 500 mg PO BID 11/29/22 [History Last Taken Unknown] ondansetron 4 mg disintegrating tablet 4 mg PO Q6H PRN nausea and vomiting #14 tabs 11/29/22 [Rx Last Taken Unknown] oxycodone-acetaminophen 5 mg-325 mg tablet (Endocet) 1 tab PO Q6H PRN pain 3 days #12 tabs 11/29/22 [Rx Last Taken Unknown] Allergy/AdvReac Type Severity Reaction Status Date / Time No Known Allergies Allergy Verified 11/29/22 08:24 Social History Smoking Status: Never smoker ROS ROS ED Constitutional Constitutional ED: Reports chills; Denies fever(s) Cardiovascular Cardiovascular: Denies chest pain Respiratory/Chest Respiratory/Chest: Denies cough Gastrointestinal Gastrointestinal: Reports abdominal pain, nausea and vomiting; Denies constipation or diarrhea Genitourinary Genitourinary ED: Denies dysuria or hematuria Musculoskeletal Musculoskeletal: Denies arthralgias or myalgias Integumentary Denies rash Neurologic Neurologic: Denies headache(s) or weakness Psychiatric Psychiatric: Denies anxiety EXAM Physical Exam Const Vital Signs: 11/29/22 08:24 Temperature 97 F L Temperature Source Temporal Pulse Rate 85 Respiratory Rate 16 Blood Pressure 168/100 H Blood Pressure Mean 122 Pulse Ox 99 Oxygen Delivery Method Room Air Positive well nourished and well developed General Appearance ED: well developed HEENT Reports moist mucous membranes normocephalic and atraumatic Eyes PERRL and EOMs intact bilaterally Neck supple Resp normal respiratory effort and clear to auscultation bilaterally Cardio regular rate, regular rhythm and no murmurs GI non-distended GI Narrative: No clear Gauthier sign however this is limited secondary to patient's body habitus Auscultation: normoactive bowel sounds Palpation: soft and tender RLQ; Negative for guarding, rigid or rebound tenderness present Extremity full ROM Neuro Sensorium / Orientation: alert, oriented to person, oriented to place and oriented to time Motor Exam: Negative for general weakness Psych mental status grossly normal and thought process normal Skin no wounds MDM MDM MDM Narrative Medical decision making narrative: Patient is evaluated for right upper quad abdominal pain and vomiting in the setting of known gallstones. Differential includes acute cholecystitis, biliary colic and gastritis. Patient is treated with IV morphine and Zofran. Will obtain right upper quadrant ultrasound and labs to see if there findings consistent with acute cholecystitis. Patient's lab work largely normal. No signs of obstructive pathology and normalwhite blood cell count. Urinalysis did show 150 and occult blood but no red blood cells. Added on a CK which was normal. I do not suspect a kidney stone. Right upper quadrant ultrasound shows hepatomegaly with diffuse fatty infiltration and a solitary gallstone however no findings consistent with acute cholecystitis. The right kidney shows no hydronephrosis. I discussed with the patient surgeon who is comfortable with outpatient follow-up. Patient is also comfortable with this plan. She will continue to adhere to a low-fat diet. Sheis given a prescription for Percocet for further pain control outpatient as wellas another prescription for Zofran. Patient does not think she needs a pain pill prior to discharge and can just pick it up from her pharmacy. Is counseledreturn precautions. Discharged home in stable condition. Has an appointment next with her surgeon for an EGD. Will call to be seen sooner if needed. Lab Data Attestation: I reviewed the patient's lab results. Labs: Laboratory Results - last 24 hr 11/29/22 11/29/22 11/29/22 08:50 08:50 08:50 WBC 7.4 RBC 4.24 Hgb 12.9 Hct 40.6 MCV 95.8 MCH 30.4 MCHC 31.8 L RDW Std Deviation 48.8 H RDW Coeff of Chavez 13.9 Plt Count 292 MPV 10.8 Immature Gran % (Auto) 0.300 Neut % (Auto) 73.6 H Lymph % (Auto) 18.2 L Gates % (Auto) 7.2 Eos % (Auto) 0.4 Baso % (Auto) 0.3 Absolute Neuts (auto) 5.5 Absolute Lymphs (auto) 1.35 Nucleated RBC % 0 Sodium 139 Potassium 3.8 Chloride 106 Carbon Dioxide 28.0 Anion Gap 5 BUN 9 Creatinine 0.67 Est GFR (MDRD) Af Amer 121 Est GFR (MDRD) Non-Af 100 BUN/Creatinine Ratio 13.5 Glucose 95 Calcium 8.6 Total Bilirubin 0.50 Direct Bilirubin 0.16 AST 26 ALT 32 Alkaline Phosphatase 67 Total Creatine Kinase 86 Total Protein 7.4 Albumin 3.2 Globulin 4.2 Urine Color Urine Clarity Urine pH Ur Specific Buchanan Urine Protein Urine Glucose (UA) Urine Ketones Urine Occult Blood Urine Nitrite Urine Bilirubin Urine Urobilinogen Ur Leukocyte Esterase Urine RBC Urine WBC Ur Squamous Epith Cells Urine Bacteria Urine Mucus Urine Test 11/29/22 09:00 WBC RBC Hgb Hct MCV MCH MCHC RDW Std Deviation RDW Coeff of Chavez Plt Count MPV Immature Gran % (Auto) Neut % (Auto) Lymph % (Auto) Gates % (Auto) Eos % (Auto) Baso % (Auto) Absolute Neuts (auto) Absolute Lymphs (auto) Nucleated RBC % Sodium Potassium Chloride Carbon Dioxide Anion Gap BUN Creatinine Est GFR (MDRD) Af Amer Est GFR (MDRD) Non-Af BUN/Creatinine Ratio Glucose Calcium Total Bilirubin Direct Bilirubin AST ALT Alkaline Phosphatase Total Creatine Kinase Total Protein Albumin Globulin Urine Color Yellow Urine Clarity Clear Urine pH 6.0 Ur Specific Buchanan 1.015 Urine Protein 15 H Urine Glucose (UA) Normal Urine Ketones 15 H Urine Occult Blood 150 H Urine Nitrite Negative Urine Bilirubin Negative Urine Urobilinogen Normal Ur Leukocyte Esterase 25 H Urine RBC 0 SEEN Urine WBC 0-5 SEEN Ur Squamous Epith Cells 0-5 SEEN Urine Bacteria 1+ Urine Mucus 0 SEEN Urine Test Negative Radiography Diagnostic Testing: Clinical Impression(s) from Imaging Studies Gallbladder Ultrasound 11/29/22 08:41 IMPRESSION: Hepatomegaly and diffuse fatty infiltration of the liver. Solitary gallstone. Electronically Signed: Hong Anthony MD at 9:47 EDT , Discharge Plan Triage Chief Complaint: Abd Pain ED Provider: Yocasta Marr Dx/Rx/DC Orders Clinical Impression: Biliary colic, Gallstone, Fatty liver Instructions: ED Gallstones with Biliary Colic Prescriptions: New oxycodone-acetaminophen [Endocet] 5-325 mg tablet 1 tab PO Q6H PRN (Reason: pain) 3 Days Qty: 12 0RF ondansetron 4 mg tablet,disintegrating 4 mg PO Q6H PRN (Reason: nausea and vomiting) Qty: 14 0RF No Action oxycodone-acetaminophen [Endocet] 5-325 mg tablet 1 tab PO Q6H PRN (Reason: pain) 3 Days Qty: 12 0RF levetiracetam 500 mg tablet 500 mg PO BID Primary Care Provider: Arron Hairston Referrals: Arron Hairston MD [Primary Care Provider] - Activity Restrictions/Additional Instructions: Please follow-up with your surgeon as we discussed. If return if you have a progression or worsening of your symptoms. Call your surgeon if you think you need to be seen sooner. You should finish the antibiotics if you have any left and continue to adhere to a low-fat diet. Disposition Disposition: Home, Self Care What to do if you have Problems For any increased pain, shortness of breath, bleeding, nausea or vomiting, chestpain, or any unexpected problems, contact your Primary Care Provider. Call [facility] ([phone]) or report to the closest Emergency Room. Call 911 if necessary. 11/29/22 1137 <Electronically signed by Yocasta Marr DO> Cosigner Signature (if applicable): CC: Dr. Arron Hairston MD ~ Signed [facility] Work Phone: [phone] 595-173604-03-2023 Miscellaneous Notes* Telephone Encounter - Bhumi Godwin MA - 11/25/2022 4:36 PM EDT Images from the original note were not included. Left voicemail to inform patient of this. ROSEANN Seay MD You 7 hours ago (9:05 AM) SM Ok I sent those into her pharmacy. * Telephone Encounter - Bhumi Godwin MA - 11/22/2022 11:44 AM EDT Phone call from patient stating that she is having another gallbladder flare up. She complains of vomiting and pain. She is requesting an antibiotic and medication for nausea to be sent to [facility] in [place]. Bhumi Godwin MA documented in this encounterC[facility] NoteHNO ID: [id number] Author: Sandy Carmen RD Service: ? Author Type: Registered Dietitian Type: Progress Notes Filed: 11/08/2022 11:32 AM Note Text: Deisy Almodovar This patient encounter was completed virtually using a secure, HIPPA compliant video chat software program with the patient's consent. Education Class: Patient will receive instruction regarding healthy food choices and eating behaviors identified as optimal when preparing for surgery, losing weight after surgery, and maintaining weight loss long-term. Patient will also receive instruction regarding the Bariatric Full Liquid diet following surgery and optimal post-operative high-protein supplement choices. Education class to be completed prior to surgery. Behaviors Accomplished: Visit # 5/NA Date: 11/08/22 Today's Weight:453 lbs Last in-office weight: (w/ Dr. Woods 07/25/22 ) 471 lbs Initial Weight (in office - Dr. Woods 07/25/22): 471 lbs Behaviors that helped/hindered weight loss: helped Daily multivitamin Drink between meals Sip beverages slowly Eat slowly,chew well No high fat/fast foods D/c'd caffeinated, carbonated beverages 24 hr recall: B: protein shake (30g) L: nutrisystem meatball (14g) D: nutrisystem - flatbread pizza (10g) S: 2 small oranges, banana F: 68 oz Protein per recall:per RD 54g Protein intake: past 5 days: 50g, 50g, 49g, 52g, 70g Fluid intake: 64 oz consistently Exercise: walking 4x/week - 20 minutes Caffeine: none Carbonation: none Alcohol: none Dining out: 1x/week Sipping slowly/frequently: Yes Taking small bites/chewing 20-30x per bite: practicing food and fluid by 30 minutes: No Patient presents for month 5 of NA supervised diet and exercise, demonstrates a 2# weight loss since last RD visit 10/18. Verbalized that she is keeping a daily food journal via the [employer] jorge l -- it does not fully track her protein intake for her. Per 24 hr recall, not fully meeting protein goals but meeting fluid goals. The jorge l the patient is using at this time does not fully calculate protein intake - highly encouraged to look into using [employer] jorge l or lose it (an jorge l that can fully track for her). Will review further at upcoming appointment with RD. Also reviewed with patient that it would be beneficial to be seen in office next month since she has not been seen in office since July 2022. Reviewed daily goals of 60-90g in addition to 64 oz fluid. She has increased her activity since last RD visit, did encourage to continue to increase to meet 150 min/week. Continues to take daily MV. The patient meets NIH guidelines for weight loss surgery and has been thoroughly evaluated and educated on good dietary practices. Patient is capable of following these guidelines pre-and post-surgically. From nutrition standpoint, the has partially met nutrition clearance and will need to demonstrate track/calculate meals at least 5/7 days per week via food journal, meet daily protein and fluid goals 5/7 days per week (60-90g , 64 fl oz), and increase exercise to 150 min per week -- cardio based activity to receive nutrition clearance. Plan: follow up with RD in 1 month in office for weight check Goals aim for 60-90g daily in addition to 64 oz fluid - 5/7 days per week Eat 3 meals daily-protein source at each meal Endorsing formal exercise 5-7 times per week as tolerated goal of 30 minutes per session or 150 minutes/week of activity Journal daily and bring to all appointments I spent 25 minutes in the visit, with more than 50% of the total opiy-tp-mxab time of the visit in counseling / coordination of care. Sandy Carmen RD This note was generated using voice recognition technology and may contain grammatical errors.[facility]03-17-2023 History of Present illness Narrative* Sandy Carmen RD - 11/08/2022 11:00 AM EDT Deisy Almodovar This patient encounter was completed virtually using a secure, HIPPA compliant video chat software program with the patient's consent. Education Class: Patient will receive instruction regarding healthy food choices and eating behaviors identified as optimal when preparing for surgery, losing weight after surgery, and maintaining weight loss long-term. Patient will also receive instruction regarding the Bariatric Full Liquid diet following surgery and optimal post-operative high-protein supplement choices. Education class to be completed prior to surgery. Behaviors Accomplished: Visit # 5/NA Date: 11/08/22 Today's Weight:453 lbs Last in-office weight: (w/ Dr. Woods 07/25/22 ) 471 lbs Initial Weight (in office - Dr. Woods 07/25/22): 471 lbs Behaviors that helped/hindered weight loss: helped Daily multivitamin Drink between meals Sip beverages slowly Eat slowly,chew well No high fat/fast foods D/c'd caffeinated, carbonated beverages 24 hr recall: B: protein shake (30g) L: nutrisystem meatball (14g) D: nutrisystem - flatbread pizza (10g) S: 2 small oranges, banana F: 68 oz Protein per recall:per RD 54g Protein intake: past 5 days: 50g, 50g, 49g, 52g, 70g Fluid intake: 64 oz consistently Exercise: walking 4x/week - 20 minutes Caffeine: none Carbonation: none Alcohol: none Dining out: 1x/week Sipping slowly/frequently: Yes Taking small bites/chewing 20-30x per bite: practicing food and fluid by 30 minutes: No Patient presents for month 5 of NA supervised diet and exercise, demonstrates a 2# weight loss since last RD visit 10/18. Verbalized that she is keeping a daily food journal via the [employer] jorge l --it does not fully track her protein intake for her. Per 24 hr recall, not fully meeting protein goals but meeting fluid goals. The jorge l the patient is using at this time does not fully calculate protein intake - highly encouraged to look into using [employer] jorge l or lose it (an jorge l that can fully track for her). Will review further at upcoming appointment with RD. Also reviewed with patient that it would be beneficial to be seen in office next month since she has not been seen in office since 2021. Reviewed daily goals of 60-90g in addition to 64 oz fluid. She has increased her activity since last RD visit, did encourage to continue to increase to meet 150 min/week. Continues to take daily MV. The patient meets NIH guidelines for weight loss surgery and has been thoroughly evaluated and educated on good dietary practices. Patient is capable of following these guidelines pre-and post-surgically. From nutrition standpoint, the has partially met nutrition clearance and will need to demonstrate track/calculate meals at least 5/7 days per week via food journal, meet daily protein and fluid goals 5/7 days per week (60-90g , 64 fl oz), and increase exercise to 150 min per week -- cardio based activity to receive nutrition clearance. Plan: follow up with RD in 1 month in office for weight check Goals aim for 60-90g daily in addition to 64 oz fluid - 5/7 days per week Eat 3 meals daily-protein source at each meal Endorsing formal exercise 5-7 times per week as tolerated goal of 30 minutes per session or 150 minutes/week of activity Journal daily and bring to all appointments I spent 25 minutes in the visit, with more than 50% of the total tgat-us-voqt time of the visit in counseling / coordination of care. Sandy Carmen RD This note was generated using voice recognition technology and may contain grammatical errors. documented in this encounterCleveland [facility]03-09-2023 Miscellaneous Notes* Telephone Encounter - Bhumi Godwin MA - 10/31/2022 4:34 PM EST Prep/instructions sent to patient via [employer]. Bhumi Godwin MA * Telephone Encounter - Bhumi Godwin MA - 10/31/2022 1:31 PM EST Patient scheduled for EGD at [place] on 12/06/2022 @ 12:00 pm. Prep/instructions given verbally. Awaiting completion of EGD instruction sheet for that location. Once completed I will send to the patient. Bhumi Godwin MA * Telephone Encounter - Bhumi Godwin MA - 10/10/2022 4:22 PM EST Left voicemail for patient to call the office to schedule EGD. Bhumi Godwin MA * Telephone Encounter - Bhumi Godwin MA - 09/27/2022 2:10 PM EST Left voicemail for patient to call the office to schedule EGD with Dr. Woods. Bhumi Godwin MA documented in this encounterCleveland Clinic [facility]02-24-2023 NoteHNO ID: [id number] Author: Sandy Carmen RD Service: ? Author Type: Registered Dietitian Type: Progress Notes Filed: 10/18/2022 4:49 PM Note Text: Deisy Almodovar This patient encounter was completed virtually using a secure, HIPPA compliant video chat software program with the patient's consent. Education Class: Patient will receive instruction regarding healthy food choices and eating behaviors identified as optimal when preparing for surgery, losing weight after surgery, and maintaining weight loss long-term. Patient will also receive instruction regarding the Bariatric Full Liquid diet following surgery and optimal post-operative high-protein supplement choices. Education class to be completed prior to surgery. Behaviors Accomplished: Visit # 4/NA Date: 10/18/22 Today's Weight: 455 lbs Last in-office weight: (w/ Dr. Woods 07/25/22 ) 471 lbs Initial Weight (in office - Dr. Woods 07/25/22): 471 lbs Behaviors that helped/hindered weight loss: helped Eating 3 meals/one snack Daily multivitamin No high fat/fast foods D/c'd caffeinated, carbonated beverages 24 hr recall: 10/17 * all [employer] meals B: [employer]system cheese roll (7g) L: garlic chicken and ramen bow, side salad (? G) D: pizza S: 2 small oranges, pretzel bar F:84 oz Protein per recall:per pt jorge l 28g ? Exercise: walking a little each day - 3x/week for 20 min Caffeine: none Carbonation: none Alcohol: none Dining out: 1x/week Patient presents for month 4 or NA supervised diet and exercise, demonstrates a 7# weight loss since last months visit. Verbalized that she has been keeping a food journal daily, she also reports that she has started [employer] this week. [employer] does have an jorge l that she uses and it does track her daily protein intake. Per 24 hr recall, not fully meeting protein goals but meeting fluid. Patient not familiar with new jorge l yet, will review food journal at next visit. Reports no intake of caffeine/carbonation/alcohol, only dines out once weekly. Is taking daily MV. The patient meets NIH guidelines for weight loss surgery and has been thoroughly evaluated and educated on good dietary practices. Patient is capable of following these guidelines pre-and post-surgically. From nutrition standpoint, the has partially met nutrition clearance and will need to demonstrate track/calculate meals at least 5/7 days per week via food journal, meet daily protein and fluid goals 5/7 days per week (60-90g , 64 fl oz), and increase exercise to 150 min per week -- cardio based activity to receive nutrition clearance. Plan: follow up with RD in 1 month for reassessment (please schedule on a Friday) Goals Eat 3 meals daily-protein source at each meal Endorsing formal exercise 5-7 times per week as tolerated goal of 30 minutes per session or 150 minutes/week of activity Journal daily and bring to all appointments I spent 20 minutes in the visit, with more than 50% of the total zhtg-iy-blpj time of the visit in counseling / coordination of care. Sandy Carmen RD This note was generated using voice recognition technology and may contain grammatical errors.[facility]02-24-2023 History of Present illness Narrative* Sandy Carmen RD - 10/18/2022 4:30 PM EST Deisy Almodovar This patient encounter was completed virtually using a secure, HIPPA compliant video chat software program with the patient's consent. Education Class: Patient will receive instruction regarding healthy food choices and eating behaviors identified as optimal when preparing for surgery, losing weight after surgery, and maintaining weight loss long-term. Patient will also receive instruction regarding the Bariatric Full Liquid diet following surgery and optimal post-operative high-protein supplement choices. Education class to be completed prior to surgery. Behaviors Accomplished: Visit # 4/NA Date: 10/18/22 Today's Weight: 455 lbs Last in-office weight: (w/ Dr. Woods 07/25/22 ) 471 lbs Initial Weight (in office - Dr. Woods 07/25/22): 471 lbs Behaviors that helped/hindered weight loss: helped Eating 3 meals/one snack Daily multivitamin No high fat/fast foods D/c'd caffeinated, carbonated beverages 24 hr recall: 10/17 * all nutri-system meals B: nutri-system cheese roll (7g) L: garlic chicken and ramen bow, side salad (? G) D: pizza S: 2 small oranges, pretzel bar F:84 oz Protein per recall:per pt jorge l 28g ? Exercise: walking a little each day - 3x/week for 20 min Caffeine: none Carbonation: none Alcohol: none Dining out: 1x/week Patient presents for month 4 or NA supervised diet and exercise, demonstrates a 7# weight loss since last months visit. Verbalized that she has been keeping a food journal daily, she also reports that she has started nutri-system this week. [employer] does have an jorge l that she uses and it does track her daily protein intake. Per 24 hr recall, not fully meeting protein goals but meeting fluid. Patient not familiar with new jorge l yet, will review food journal at next visit. Reports no intake of caffeine/carbonation/alcohol, only dines out once weekly. Is taking daily MV. The patient meets NIH guidelines for weight loss surgery and has been thoroughly evaluated and educated on good dietary practices. Patient is capable of following these guidelines pre-and post-surgically. From nutrition standpoint, the has partially met nutrition clearance and will need to demonstrate track/calculate meals at least 5/7 days per week via food journal, meet daily protein and fluid goals 5/7 days per week (60-90g , 64 fl oz), and increase exercise to 150 min per week -- cardio based activity to receive nutrition clearance. Plan: follow up with RD in 1 month for reassessment (please schedule on a Friday) Goals Eat 3 meals daily-protein source at each meal Endorsing formal exercise 5-7 times per week as tolerated goal of 30 minutes per session or 150 minutes/week of activity Journal daily and bring to all appointments I spent 20 minutes in the visit, with more than 50% of the total ynyr-mm-ejgk time of the visit in counseling / coordination of care. Sandy Carmen RD This note was generated using voice recognition technology and may contain grammatical errors. * Bhumi Godwin MA - 10/18/2022 12:03 PM EST 12:03 pm-Left voicemail for patient to obtain current weight for video visit. Bhumi Godwin MA documented in this encounterCleveland Clinic [facility]02-24-2023 NoteHNO ID: [id number] Author: Bhumi Godwin MA Service: ? Author Type: Filing Writer Type: Progress Notes Filed: 10/18/2022 4:49 PM Note Text: 12:03 pm-Left voicemail for patient to obtain current weight for video visit. Bhumi Godwin [facility]01-27-2023 Miscellaneous Notes * Telephone Encounter - Sonia Velez - 09/20/2022 9:53 AM EST Patient has not been seen by Dr. Blanton since 09/15/2019. Unable to provide clearance without appointment. Form returned via fax with this information. * Telephone Encounter - Sia Clifford - 09/20/2022 9:21 AM EST Received a surgical clearance request for risk stratification from the bariatric center / [facility] Jody vazquez. Scanned into [employer]. documented in this encounterCleveland Clinic [facility]01-26-2023 Miscellaneous Notes* Telephone Encounter - Agueda Hardin RN - 09/19/2022 12:40 PM EST Neurology clearance letter faxed to Dr. Harvinder Hardin RN September 19, 2022 12:42 PM documented in this encounterCleveland Clinic [facility]01-26-2023 History of Present illness Narrative* Deisy Allan APRN.ADJUSTO WRITER OPERATOR - 09/19/2022 10:41 AM EST BARIATRIC SURGERY CLINIC FOLLOW UP NOTE DISTANCE HEALTH VISIT This Team Access Model visit is a virtual encounter. It required patient- provider interaction for the medical decision making as documented below. Consent was obtained to complete today's distance health visit. HPI: Deisy Almodovar a 46 year old female for presents for medically supervised weight loss treatment of her obesity related co morbidities. This individual presents for month 3 of 6 required visits completed as a virtual telephone encounter Deisy Almodovar weight calculation has decreased since her last visit. She has started keeping a food journal, using the [employer] jorge l. She has not started incorporatingexercise into her routine as of yet. Denies recent illnesses, hospitalizations, ED visits. Denies acid reflux symptoms, abdominal pain, changes to stool pattern. Sleep apnea screen: S-snore? Yes T-feel tired, fatigued, daytime sleepiness? No O-observed patient stop breathing during sleep? No P-does patient have, or being treated for high blood pressure? No B-is BMI >35? Yes A-Age >50 No N-Neck circumference >15.75 inches? Yes G-Male gender? No Stop Bang score:3 HISTORY REVIEWED (electronic chart updated): - medical history - medications - allergies PAST MEDICAL HISTORY Diagnosis Date Gall stones Heart burn Heel spur 2008, 2012 Morbid obesity (HCC) Seizures (HCC) 06/17/2022 Social: Social History Tobacco Use Smoking status: Never Smokeless tobacco: Never Vaping Use Vaping Use: Never used Substance Use Topics Alcohol use: No Drug use: No Medications: Current Outpatient Medications Medication Sig levonorgestrel (MIRENA) 20 mcg/24 hours (8 yrs) 52 mg IUD 1 Each by INTRAUTERINE route. ondansetron orally disintegrating (ZOFRAN ODT) 4 mg disintegrating tablet Take 1 tablet by mouth every 6 hours as needed for nausea/vomiting. levETIRAcetam (KEPPRA) 500 mg tablet TAKE 1 TABLET BY MOUTH TWICE A DAY lansoprazole (PREVACID) 15 mg capsule Take 1 capsule by mouth once daily. (Patient taking differently: Take 15 mg by mouth as needed.) FA/MV,CA,IRON,MIN/LYCOPENE/LUT (MULTIVITAL ORAL) Take by mouth once daily. No current facility-administered medications for this visit. REVIEW OF SYSTEMS General: No fatigue or fevers HEENT: Negative for frequent or significant headaches, No changes in hearing or vision, no nose bleeds or other nasal problems PAP Therapy: TBD GI:No nausea, vomiting, or diarrhea and No heartburn or reflux symptoms Muskuloskeletal: Negative for joint pain or swelling, back pain or muscle pain Skin: Negative for lesions, rash, and itching Psych: Negative for sleep disturbance, mood disorder and recent psychosocial stressors PHYSICAL EXAMINATION Ht 165.1 cm (5' 5) Wt (!) 209.6 kg (462 lb) LMP 04/10/2015 BMI 76.88 kg/m GENERAL APPEARANCE: Pleasant, interacts appropriately and in no apparent distress. Appropriately groomed, happy, smiling, and interactive SKIN: Skin of normal texture, temperature without rashes/lesions/ulcerations. LUNGS: unlabored on room air negative findings: normal respiratory rate no cough NEURO/PSYCH: Oriented to person, place, time; appropriate insight and judgement. Appropriate affect. Diagnostic Tests Reviewed for Today's Visit Most recent lab and imaging results The plan of treatment for Deisy Almodovar is Further Work-up: Required monthly visit: 3 of 6 months EGD: ordered- needs scheduled Upper GI: none RUQ US: Mildly hydropic gallbladder with a large gallstone at the gallbladder neck which is not cleared in the decubitus position. There is suspected trace sludge and mild circumferential wall thickening. Negative biliary dilatation. No hepatosplenomegaly. No focal mass Sleep Study: Stop BANG=3. Referral to sleep medicine CXR:ordered EKG:per cardiac clearance - referral placed today H Pylori pending Labs: ordered Nicotine use <12 months: NA, ordered per insurance Tox screen: ordered per insurance Antiplatelet/anticoagulants: No Immunosuppressive therapy: No Estrogen therapy: No, IUD Evaluations Psychology: ongoing Nutrition: ongoing Education class: ongoing Clearances: Cardiac (10/11), Sleep, neurology and PCP Risk Calculator: VTE Risk: BMI > 60 ISS score: not diabetic Adverse Event score: TBD Post-op Medications: Extended Lovenox: Yes BMI > 60 Actigall: Not needed, known cholelithiasis H2 samir/PPI: Currently on PPI ASSESSMENT/PLAN: 1. Class 3 severe obesity with body mass index (BMI) greater than or equal to 70 in adult, unspecified obesity type, unspecified whether serious comorbidity present (HCC) - ICD9: 278.01, V85.45, ICD10: E66.01, Z68.45 (primary diagnosis) Weight decreasing - Behavioral intervention and - Medical nutrition therapy with dietitian - Nutrition Counseling Practice these: - Eat 3 meals daily--can use approved/recommended protein shake as 1 meal replacement (should be <200 calories, 20-30g protein, <5g added sugar) - Keep a food journal 5-7x/week (consider [employer] or [employer] jorge l) and demonstrate meeting protein goal (60-90g protein for females, 70-105g protein for males)- Lean meats, fish, low fat dairy - cottage cheese, Dutch yogurt, light yogurt, cheese, ricotta cheese, nuts, peanut butter, beans/legumes. Eat protein first at all meals. and 64oz of caffeine-free, carbonation-free fluids at least 5 days per week - engage in formal, planned exercise 5x/week for 30 minutes of cardiovascular activity OR 150+ minutes of cardiovascular activity per week - eliminate all caffeine, carbonation, alcohol and sugar-containing beverages from diet --consider sugar-free drink mixes, water, decaf coffee and tea - Separate eating and drinking by 30 minutes - Chew your food 20-30x per bite - Sip beverages slowly--no guzzling or gulping - CONSULT TO SLEEP MEDICINE - ADULT 2. Snoring - ICD9: 786.09, ICD10: R06.83 - CONSULT TO SLEEP MEDICINE - ADULT 3. Seizures (HCC) - ICD9: 780.39, ICD10: R56.9 - On Keppra - requesting clearance from neurologist Still needs EGD, labs, chest x-ray, and clearances from: Cardiology, sleep medicine, neurology, nutrition, and psychology. 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 Deisy Allan APRN.MALDONADO Total time in direct patient contact = 16 min. Greater than 50% of the time was spent in counselingand/or coordination of care. This note was generated using voice recognition technology and may contain grammatical errors. Medical Decision Making: Problems: Low: Stable chronic illness Data: Assessment requiring an independent historian(s) Medical Decision Making Level: 3 - Low documented in this encounterCleveland Clinic [facility]ucl[facility]01-09-2023 History of Present illness Narrative* Sandy Carmen, MEG - 09/02/2022 1:00 PM EST [facility] General - Bariatric Department New Patient Nutritional Assessment--Shared Nutrition Appointment Visit conducted via zoom d/t COVID 19 Deisy Almodovar Month 2/NA Anthropometrics: 46 year old female Ht 165.1 cm (5' 5) Wt (!) 211.4 kg (466 lb) LMP 04/10/2015 BMI 77.55 kg/m Percent Body Fat: deferred Medical History: PAST MEDICAL HISTORY Diagnosis Date Gall stones Heart burn Heel spur 2008, 2012 Morbid obesity (HCC) Seizures (HCC) 06/17/2022 Medications: Current Outpatient Medications Medication Sig Dispense Refill levonorgestrel (MIRENA) 20 mcg/24 hours (8 yrs) 52 mg IUD 1 Each by INTRAUTERINE route. ondansetron orally disintegrating (ZOFRAN ODT) 4 mg disintegrating tablet Take 1 tablet by mouth every 6 hours as needed for nausea/vomiting. 20 tablet 1 levETIRAcetam (KEPPRA) 500 mg tablet TAKE 1 TABLET BY MOUTH TWICE A DAY 180 tablet 2 lansoprazole (PREVACID) 15 mg capsule Take 1 capsule by mouth once daily. (Patient taking differently: Take 15 mg by mouth as needed.) 90 capsule 1 FA/MV,CA,IRON,MIN/LYCOPENE/LUT (MULTIVITAL ORAL) Take by mouth once daily. No current facility-administered medications for this visit. Allergies: Patient has no known allergies. Weight History: See surgeon notes from initial program visit. Dietary Intake: 24 hour recall provided Breakfast- Protein shake Lunch- Salad with chicken Dinner- Pulled pork and green beans Snacks- Pretzels and yogurt Limitations of keeping a food record: None Food Allergies: None Frequency of fried foods: Nothing fried since 06/21/22 Frequency of high sugar foods: Once per week Frequency of snack-type foods: Every other day Frequency of caffeine/carbonated beverages: Just started drinking coffee last week (1 per day) /No soda since 06/21/22 Frequency of dining out meals: Once per week Physical Activity: Physical conditions limiting activity: None Current activity: Walking READINESS TO LEARN Cognitive ability: Alert and oriented Motivation to learn: Eager Interested Family support: Unable to assess - Family not present Instruction provided to: Patient Patient learns best by: Multiple Methods Factors affecting learning: Unable to assess Physical limitations affecting learning: None Nutrition Diagnosis: Overweight and obesity related to food/nutrition knowledge related deficit as evidenced by infrequent and low duration physical activity and per patient 24-hour recall. Nutrition Intervention: Start to follow meal guidelines provided and work toward goals outlined below. Nutrition Monitoring & Evaluation: Monthly supervised wt loss to evaluate weight loss efforts with pre-op goal weight of 446 # and patient protein goal of 60- 90g. 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 Consent to be seen in a group setting was obtained virtually. Goals reviewed and outlined below. [facility] Patient agreement was reviewed and Deisy Almodovar received a copy of thepatient agreement. The patient is aware by receiving this agreement, this accepts their understanding of the agreement and that surgery may not be recommended for medical and behavorial health reasons. Goals: Goals formal exercise 2-7x/week as tolerated, goal of 30 minutes Have 3 meals a day-protein source with each meal journal daily and bring to all appointments Total time in direct patient contact = 30 min. Greater than 50% of the time was spent in counselingand/or coordination of care. Sandy Carmen RD This note was generated using voice recognition technology and may contain grammatical errors. documented in this encounterC[facility]01-04-2023 Miscellaneous Notes* Telephone Encounter - Melissa Thorne - 08/28/2022 11:22 AM ESTSummary: PT LVM @ 10:32am PT LVM requesting to CN and zac 08/30 apt w/ ENTERTAINMENT CENTRE MANAGER Deisy do to she has jury duty this day. Called back PT no answer LVM did CN appt. And to callback to zac . documented in this encounterCleveland [facility]12-01-2022 History of Present illness Narrative* Santosh Woods MD - 07/25/2022 9:55 AM EST Images from the original note were not included. [facility] [address] [place] [address] Santosh Woods MD BARIATRIC SURGERY NEW PATIENT CONSULTATION HISTORY AND PHYSICAL Date: July 25, 2022 Time: 9:55 AM Referred by: Arron Hairston MD Angela Albina Almodovar is a 46 year old year old female with obesity (Body mass index is 78.45 kg/m .) who presents to the clinic today for consideration of bariatric surgery. The patient reports a long-standing history of morbid obesity due to excess calories that has not responded to diet and exercise and has negatively impacted their quality of life. The patient has struggled with obesity for several years. They have tried multiple diet and exercise regimens without long-lasting success. At this time, they believe their best chance to obtain significant and long-standing weight loss is with bariatric surgery. PMH: Seizure (Keppra) GERD (PPI prn) PSH: None PAST MEDICAL HISTORY Diagnosis Date Gall stones Heart burn Heel spur 2008, 2012 Morbid obesity (HCC) Seizures (HCC) 06/17/2022 PAST SURGICAL HISTORY Procedure Laterality Date NONE FAMILY HISTORY Problem Relation Age of Onset other (Hep C) Mother other (HTN) Father other (HTN) Brother Cancer Maternal Grandmother breast ca Hypertension Maternal Grandmother No Known Problems Maternal Grandfather No Known Problems Paternal Grandmother No Known Problems Paternal Grandfather Social History Tobacco Use Smoking status: Never Smokeless tobacco: Never Vaping Use Vaping Use: Never used Substance Use Topics Alcohol use: No Drug use: No Current Outpatient Medications Medication Sig levonorgestrel (MIRENA) 20 mcg/24 hours (8 yrs) 52 mg IUD 1 Each by INTRAUTERINE route. ondansetron orally disintegrating (ZOFRAN ODT) 4 mg disintegrating tablet Take 1 tablet by mouth every 6 hours as needed for nausea/vomiting. levETIRAcetam (KEPPRA) 500 mg tablet TAKE 1 TABLET BY MOUTH TWICE A DAY lansoprazole (PREVACID) 15 mg capsule Take 1 capsule by mouth once daily. (Patient taking differently: Take 15 mg by mouth as needed.) FA/MV,CA,IRON,MIN/LYCOPENE/LUT (MULTIVITAL ORAL) Take by mouth once daily. No current facility-administered medications for this visit. ALLERGIES No Known Allergies Review of Systems Constitutional: Negative. HENT: Negative. Eyes: Negative. Respiratory: Negative. Cardiovascular: Negative. Gastrointestinal: Negative. Genitourinary: Negative. Musculoskeletal: Negative. Skin: Negative. Neurological: Negative. Endo/Heme/Allergies: Negative. Psychiatric/Behavioral: Negative. Physical Exam Constitutional: Appearance: Normal appearance. HENT: Head: Normocephalic and atraumatic. Nose: Nose normal. Mouth/Throat: Mouth: Mucous membranes are moist. Eyes: Extraocular Movements: Extraocular movements intact. Pupils: Pupils are equal, round, and reactive to light. Cardiovascular: Rate and Rhythm: Normal rate. Pulses: Normal pulses. Pulmonary: Effort: Pulmonary effort is normal. Abdominal: Palpations: Abdomen is soft. Musculoskeletal: General: Normal range of motion. Cervical back: Normal range of motion and neck supple. Skin: General: Skin is warm and dry. Neurological: General: No focal deficit present. Mental Status: She is alert and oriented to person, place, and time. Psychiatric: Mood and Affect: Mood normal. Behavior: Behavior normal. Further Work-up: Required monthly visit: 2 of NA months EGD: surgeon Upper GI: none RUQ US: Mildly hydropic gallbladder with a large gallstone at the gallbladder neck which is not cleared in the decubitus position. There is suspected trace sludge and mild circumferential wall thickening. Negative biliary dilatation. No hepatosplenomegaly. No focal mass Sleep Study: TBD CXR:ordered today EKG:per cardiac clearance - referral placed today H Pylori pending Labs: ordered today Nicotine use <12 months: NA, ordered per insurance Tox screen: ordered per insurance Antiplatelet/anticoagulants: No Immunosuppressive therapy: No Estrogen therapy: No, IUD Evaluations Psychology: ongoing Nutrition: ongoing Education class: ongoing Clearances: Cardiac and PCP Risk Calculator: VTE Risk: BMI > 60 ISS score: not diabetic Adverse Event score: TBD Post-op Medications: Extended Lovenox: Yes BMI > 60 Actigall: Not needed, known cholelithiasis H2 samir/PPI: Currently on PPI Plan IMPRESSION: Deisy Almodovar is a 46 year old year old female who presents for consideration of bariatric surgery (Body mass index is 78.45 kg/m .). She does meet the criteria for a surgical weight loss procedure according to ASMBS/IFSO guidelines.The plan of treatment for Deisy is to continue with the consultations and tests ordered today in hopes of qualifying for pre-operative clearance for bariatric surgery. She is interested in: Sleeve gastrectomy ASSESSMENT/PLAN: 1. Class 3 severe obesity with body mass index (BMI) greater than or equal to 70 in adult, unspecified obesity type, unspecified whether serious comorbidity present (HCC) - ICD9: 278.01, V85.45, ICD10: E66.01, Z68.45 (primary diagnosis) - Plan for sleeve gastrectomy, patient starting program today - Psychology referral - Entry Tech referral - CBC - COMP METABOLIC PANEL - FERRITIN BLD - FOLATE SERUM - IRON + TIBC - LIPID PANEL BASIC - NICOTINE & METAB, UR - PTH INTACT BLD - TOX SCREEN ROUT UR - VITAMIN B1 (THIAMINE), WHOLE BLOOD - VITAMIN B12 BLOOD - VITAMIN D 25 HYDROXY - XR CHEST 2V FRONTAL/LAT - HGB A1C - TSH BLD - CONSULT TO CARDIOLOGY 2. Seizures (HCC) - ICD9: 780.39, ICD10: R56.9 -continue keppra 3. Gallstones and inflammation of gallbladder without obstruction - ICD9: 574.00, ICD10: K80.00 -Will plan for cholecystectomy at the same time of sleeve gastrectomy if possible 4. Gastroesophageal reflux disease without esophagitis - ICD9: 530.81, ICD10: K21.9 - continue PPI - EGD to evaluate for hiatal hernia Return for pre op. Nutrition Counseling Practice these: - Eat 3 meals daily--can use approved/recommended protein shake as 1 meal replacement (should be <200 calories, 20-30g protein, <5g added sugar) - Keep a food journal 5-7x/week (consider [employer] or [employer] jorge l) and demonstrate meeting protein goal (60-90g protein for females, 70-105g protein for males)- Lean meats, fish, low fat dairy - cottage cheese, Dutch yogurt, light yogurt, cheese, ricotta cheese, nuts, peanut butter, beans/legumes. Eat protein first at all meals. and 64oz of caffeine-free, carbonation-free fluids at least 5 days per week - engage in formal, planned exercise 5x/week for 30 minutes of cardiovascular activity OR 150+ minutes of cardiovascular activity per week - eliminate all caffeine, carbonation, alcohol and sugar-containing beverages from diet --consider sugar-free drink mixes, water, decaf coffee and tea - Separate eating and drinking by 30 minutes - Chew your food 20-30x per bite - Sip beverages slowly--no guzzling or gulping Information regarding probable and potential postoperative complications, dietary and medical postoperative limitations, and potential cosmetic sequelae has been received by individual. Santosh Woods MD MS Advanced Minimally Invasive and Bariatric Surgery Medical Decision Making: Problems: Moderate: 2+ stable chronic illnesses Data: Unique test(s) ordered: 3+ Discussed management or test w/ external physician/QHCP/source Risk: Moderate: Moderate risk from testing/treatment Medical Decision Making Level: 4 - Moderate * Deisy Allan APRN.MALDONADO - 07/25/2022 9:30 AM EST - Scheduled for SNA 09/02 - Needs to be scheduled with psychology Further Work-up: Required monthly visit: 2 of NA months EGD: surgeon Upper GI: surgeon BERNICE US: Mildly hydropic gallbladder with a large gallstone at the gallbladder neck which is not cleared in the decubitus position. There is suspected trace sludge and mild circumferential wall thickening. Negative biliary dilatation. No hepatosplenomegaly. No focal mass Sleep Study: TBD CXR:ordered today EKG:per cardiac clearance - referral placed today H Pylori pending Labs: ordered today Nicotine use <12 months: NA, ordered per insurance Tox screen: ordered per insurance Antiplatelet/anticoagulants: No Immunosuppressive therapy: No Estrogen therapy: No, IUD Evaluations Psychology: ongoing Nutrition: ongoing Education class: ongoing Clearances: Cardiac and PCP Risk Calculator: VTE Risk: BMI > 60 ISS score: not diabetic Adverse Event score: TBD Post-op Medications: Extended Lovenox: Yes BMI > 60 Actigall: Not needed, known cholelithiasis H2 samir/PPI: Currently on PPI Deisy Allan APRN.ADJUSTO WRITER OPERATOR documented in this encounterC[facility]11-28-2022 Miscellaneous Notes* Telephone Encounter - Santosh Woods MD - 07/22/2022 10:41 AM EST Will reassess patient this coming . Likely will not need this medication. * Telephone Encounter - Bhumi Godwin MA - 07/22/2022 10:10 AM EST Pharmacy requesting the following refill. Requested Prescriptions Pending Prescriptions Disp Refills ursodiol (ACTIGALL) 300 mg capsule [Pharmacy Med Name: URSODIOL 300 MG CAPSULE] 30 capsule 0 Sig: TAKE 1 CAPSULE BY MOUTH ONCE DAILY. WITH MEALS. Next Appointment: 07/25/2022 Patient Phone numbers: [phone] (home) Request is for script(s) to be escript to pharmacy. Bhumi Godwin MA documented in this encounterCleveland [facility]11-14-2022 Miscellaneous Notes* Telephone Encounter - Bhumi Godwin MA - 07/08/2022 1:55 PM EST Patient informed that antibiotics were sent to the pharmacy. Bhumi Godwin MA * Telephone Encounter - Bhumi Godwin MA - 07/08/2022 8:06 AM EST Phone call from patient stating that she thinks she may be in a flare. Last she woke up and had vomiting and diarrhea. She states she continues to have diarrhea and that it is a green milky color. She states she is just having a lot of stomach gurgling and an overall uncomfortable feeling in her stomach. Bhumi Godwin MA documented [facility] this [facility]11-03-[facility] Instructions* Patient Instructions* Santosh Woods MD - 06/27/2022 9:51 AM EDT Call for antibiotics if having severe right upper quadrant pain Download calorie counting jorge l -limit total calories to 1500 kCal per day -take in at least 60 grams of protein per day -try to limit carbohydrates to 100 g per day documented in this [facility]11-03-2022 History of Present illness Narrative* Santosh Woods MD - 06/27/2022 9:24 AM EDT Images from the original note were not included. [facility] [address] [place] [address] Santosh Woods MD Referred by: Dr. Zulema Abernathy History of Present Illness: Patient is a 46 year old female whose Body mass index is 80.44 kg/m . who presents to general surgery clinic for initial consultation and evaluation of abdominal pain. The patient reports a history of right upper quadrant abdominal pain/discomfort which has been ongoing for 2 weeks. Exacerbating factors include eating fatty foods. Alleviating factors include in between meals and eating bland diet. Patient reports additional symptoms including fatigue. Discomfort is 7/10. Given the patient's concerns, they were referred to our clinic for further workup, evaluation and management. Patient states that she has mild pains at this time as she is watching her diet however she was in the ED last Friday with severe pain. Few weeks ago the first flare came on after eating wings. She has been interested in bariatric surgery however her coworker looked into coverage and stated that their insurance did not have bariatric coverage however she states that she never looked into itherself. Review of Systems: Review of Systems Constitutional: Negative. HENT: Negative. Eyes: Negative. Respiratory: Negative. Cardiovascular: Negative. Gastrointestinal: Positive for abdominal pain. Genitourinary: Negative. Musculoskeletal: Negative. Skin: Negative. Neurological: Negative. Endo/Heme/Allergies: Negative. Psychiatric/Behavioral: Negative. Past Medical History: PAST MEDICAL HISTORY Diagnosis Date Gall stones Heart burn Heel spur 2008, 2012 Morbid obesity (HCC) Seizures (HCC) 06/17/2022 Past Surgical History: PAST SURGICAL HISTORY Procedure Laterality Date NONE Current Medications: Current Outpatient Medications Medication Sig oxyCODONE-acetaminophen (PERCOCET) 5-325 mg tablet TAKE 1 TABLET BY MOUTH EVERY 6 HOURS NEEDED FOR PAIN FOR 3 DAYS levonorgestrel (MIRENA) 20 mcg/24 hours (8 yrs) 52 mg IUD 1 Each by INTRAUTERINE route. ondansetron orally disintegrating (ZOFRAN ODT) 4 mg disintegrating tablet Take 1 tablet by mouth every 6 hours as needed for nausea/vomiting. levETIRAcetam (KEPPRA) 500 mg tablet TAKE 1 TABLET BY MOUTH TWICE A DAY lansoprazole (PREVACID) 15 mg capsule Take 1 capsule by mouth once daily. (Patient taking differently: Take 15 mg by mouth as needed.) FA/MV,CA,IRON,MIN/LYCOPENE/LUT (MULTIVITAL ORAL) Take by mouth once daily. ursodiol (ACTIGALL) 300 mg capsule Take 1 capsule by mouth once daily. with meals. No current facility-administered medications for this visit. Allergies: Patient has no known allergies. Family Medical History: FAMILY HISTORY Problem Relation Age of Onset other (Hep C) Mother other (HTN) Father other (HTN) Brother Cancer Maternal Grandmother breast ca Hypertension Maternal Grandmother No Known Problems Maternal Grandfather No Known Problems Paternal Grandmother No Known Problems Paternal Grandfather Social History: Social History Tobacco Use Smoking status: Never Smokeless tobacco: Never Vaping Use Vaping Use: Never used Substance Use Topics Alcohol use: No Drug use: No Physical Examination: BP 151/87 (BP Site: Left Arm, BP Position: Sitting, BP Cuff Size: Regular Adult) Pulse 82 Ht 165.1 cm (5' 5) Wt (!) 219.3 kg (483 lb 6.4 oz) LMP 04/10/2015 BMI 80.44 kg/m Body mass index is 80.44 kg/m . Physical Exam Constitutional: Appearance: Normal appearance. HENT: Head: Normocephalic and atraumatic. Nose: Nose normal. Mouth/Throat: Mouth: Mucous membranes are moist. Eyes: Extraocular Movements: Extraocular movements intact. Pupils: Pupils are equal, round, and reactive to light. Cardiovascular: Rate and Rhythm: Normal rate. Pulses: Normal pulses. Pulmonary: Effort: Pulmonary effort is normal. Abdominal: Palpations: Abdomen is soft. Musculoskeletal: General: Normal range of motion. Cervical back: Normal range of motion and neck supple. Skin: General: Skin is warm and dry. Neurological: General: No focal deficit present. Mental Status: She is alert and oriented to person, place, and time. Psychiatric: Mood and Affect: Mood normal. Behavior: Behavior normal. Radiologic/Endoscopic/Laboratory Studies to Date: I have personally reviewed and interpreted the following pertinent imaging/laboratory findings: Abdominal US on 06/21/22 shows large gallstone, no wall thickening or pericholecystic fluid or biliary dilation Labs on 06/17/22 shows normal LFTs, no sign of biliary dilation Assessment: Patient is a 46 year old female with symptomatic cholelithiasis and morbid obesity. ASSESSMENT/PLAN: 1. Obesity, Class III, BMI >= 40 - ICD9: 278.01, ICD10: E66.01 (primary diagnosis) -We will look into bariatric benefits with her insurance company, patient would benefit significantly from a sleeve gastrectomy. -If she does not have bariatric benefits, will refer to medical weight loss and look into employer adding benefits -In the meantime she will plan to change her eating habits by starting with food logging on the phone application, calorie deficit, increasing protein and vegetable intake. 2. Gallstones and inflammation of gallbladder without obstruction - ICD9: 574.00, ICD10: K80.00 I had a long conversation with the patient regarding her gallbladder disease and her obesity. I stated to her that given her clinical symptoms and imaging, she will need her gallbladder removed. However she is at a very high risk given her BMI of 80 and surgical risk at this time outweighs the riskof not removing the gallbladder. We can treat her gallbladder disease with your ursodiol, avoiding f ood triggers such as fatty foods, and when she has a severe gallbladder flare she can call our office for antibiotics for cholecystitis. I stated that if she is able to lose weight and be less than 400 pounds that I would offer her Robotic cholecystectomy. However my goal would be to get her to bariatric surgery first and then remove her gallbladder. Follow up in 1 month to discuss bariatric benefits and weight loss Santosh Woods MD MS Advanced Minimally Invasive and Bariatric Surgery Medical Decision Making: Problems: Moderate: New problem with uncertain prognosis Data: Unique source(s) for external note(s) reviewed: 1 Unique test result(s) reviewed: 2 Discussed management or test w/ external physician/QHCP/source Risk: Low: Low risk from testing/treatment Medical Decision Making Level: 4 - Moderate documented in this encounterC[facility]10-31-2022 History of Present illness Narrative* Zulema Abernathy MD - 06/24/2022 5:53 PM EDT Deisy Almodovar 1975 REFERRING PHYSICIAN: Kerry Mas APRN.C* CHIEF COMPLAINT: Consult (Abdomen pain, gallstone, mild wall thickening, [facility] ER 06/22/22) HPI: The patient is a pleasant 46 year old female presents with RUQ for a few weeks. She had presented to [facility] on 06/22/2022. Normal CBC and LFTs. However, US done at [facility] had revealed cholelithiasis with possible obstruction. Patient states that she was prescribed narcotics and feels much improved. She states that initially pain was 10 out of 10, but now states no pain - just feeling uncomfortable She has symptoms of nausea, but denies emesis. She denies fevers. She denies icterus or jaundice. US RUQ 06/21/2022 IMPRESSION: Mildly hydropic gallbladder with a large gallstone at the gallbladder neck which is not cleared in the decubitus position. There is suspected trace sludge and mild circumferential wall thickening. Negative biliary dilatation. No hepatosplenomegaly. No focal mass PAST MEDICAL HISTORY Diagnosis Date Gall stones Heart burn Heel spur 2008, 2012 Morbid obesity (HCC) BMI 76 Seizures (HCC) 06/17/2022 PAST SURGICAL HISTORY Procedure Laterality Date NONE Current Outpatient Medications Medication Sig ondansetron orally disintegrating (ZOFRAN ODT) 4 mg disintegrating tablet Take 1 tablet by mouth every 6 hours as needed for nausea/vomiting. levETIRAcetam (KEPPRA) 500 mg tablet TAKE 1 TABLET BY MOUTH TWICE A DAY lansoprazole (PREVACID) 15 mg capsule Take 1 capsule by mouth once daily. (Patient taking differently: Take 15 mg by mouth as needed.) FA/MV,CA,IRON,MIN/LYCOPENE/LUT (MULTIVITAL ORAL) Take by mouth once daily. ALLERGIES: Patient has no known allergies. PERSONAL HISTORY: Social History Tobacco Use Smoking status: Never Smokeless tobacco: Never Vaping Use Vaping Use: Never used Substance Use Topics Alcohol use: No Drug use: No FAMILY HISTORY Problem Relation Age of Onset other (Hep C) Mother other (HTN) Father other (HTN) Brother Cancer Maternal Grandmother breast ca Hypertension Maternal Grandmother No Known Problems Maternal Grandfather No Known Problems Paternal Grandmother No Known Problems Paternal Grandfather The review of systems data was entered by the nurse and reviewed by me Nursing Notes: Soni Francois LPN 06/24/2022 9:50 AM Signed REVIEW OF SYSTEMS: General: The patient denies fatigue, denies weight loss, denies weight gain, denies feeling hot, and denies feelings of cold. Eyes: The patient denies glaucoma, denies eye injury/surgery, does not wear glasses or contacts. Ear/Nose/Throat: The patient denies allergies, denies hayfever, denies ear infections, and denies bloody noses. Cardiovascular: The patient denies chest pain, denies heart disease, denies high blood pressure,denies cardiac stent, denies prior heart attack, denies irregular heart beat, denies high cholesterol, denies poor circulation, denies heart failure, other cardiac issues, denies claudication, denies cold feet, denies peripheral arterial stent. Respiratory: The patient denies tuberculosis, denies pneumonia, denies frequent cough, denies pulmonary embolism, denies shortness of breath, and denies coughing up blood. Gastrointestinal: The patient denies difficulty swallowing, denies acid reflux, denies ulcers, denies vomiting, denies jaundice/hepatitis, notes gallbladder problems, denies black or tarry stools, denies hemorrhoids, denies bleeding from rectum, denies diverticulitis, denies constipation, denies diarrhea, denies loss of stool control, and denies hernias. Kidney/Bladder: The patient denies kidney stones, denies urine infections, and denies bloody urine. Skin: The patient denies a history of skin cancer, denies bleeding/changing moles, and denies a history of skin rash. Neurologic: The patient denies a history of epilepsy/convulsions, denies headaches, denies head/spinal injuries, and denies stroke/TIA. Psychiatric: The patient denies psychiatric medications, denies depression, and denies voices, denies substance abuse. Endocrine: The patient denies thyroid disorders, denies diabetes, and denies hormonal problems. Hematologic: The patient denies a history of bruising, denies bleeding, and denies anemia, denies blood clots. Infections: The patient denies a history of measles and mumps, denies rheumatic fever, and denies sexually transmitted diseases. Musculoskeletal: The patient denies back pain/injury, denies back problems, denies sciatica, deniesknee/foot trouble, denies arthritis, or denies gout. When was patient's last Mammogram screening? 2016 Last Colonoscopy: none Soni Francois LPN PHYSICAL EXAMINATION: General: The patient is 46 year old female, well nourished, well hydrated in no acute distress. Thepatient is oriented to time, place, and person. VITALS: Blood pressure 126/78, pulse (!) 127, temperature 36.7 C (98.1 F), height 165.1 cm (5' 5),weight (!) 217.7 kg (480 lb), last menstrual period 04/10/2015, SpO2 97 %. Body mass index is 79.88kg/m . Head: Normal cephalic, atraumatic Eyes: pupils are equally round, sclera are clear/anicteric Neck is supple with no tracheal deviation Respiratory: Normal respiratory excursion and pattern. Abdominal exam: benign Extremities: no clubbing, cyanosis or edema. Neuro: non focal Psych: normal mood RADIOLOGIC STUDIES: As Noted Assessment IMPRESSION: cholelithiasis, morbid obesity PLAN: I have discussed the above with the patient. I have explained that she would be best taken care of at [facility]. I have made a referral for patient appointment for June 27 at 9:[address] Woods. The patient acknowledges the above. I have answered all questions to the patient s satisfaction and the patient has no further questions. I have confirmed and edited as necessary, the PFSH and ROS obtained by others. Consultation requested by Kerry Mas for an opinion regarding patient's cholelithiasis and abdominal pain. My final recommendations will be communicated back to the requesting physician by way ofshared Medical record or letter to requesting physician via US mail. . Diagnoses: (R10.11) Right upper quadrant abdominal pain Return to Clinic: The patient will continue as above. Medical Decision Making: Problems: Low: Stable chronic illness Data: Unique test result(s) reviewed: 1 Medical Decision Making Level: 2 - Straightforward Zulema Abernathy MD documented in [facility] encounterC[facility] Nurse Note* Soni Francois LPN - 06/24/2022 9:49 AM EDT REVIEW OF SYSTEMS: General: The patient denies fatigue, denies weight loss, denies weight gain, denies feeling hot, and denies feelings of cold. Eyes: The patient denies glaucoma, denies eye injury/surgery, does not wear glasses or contacts. Ear/Nose/Throat: The patient denies allergies, denies hayfever, denies ear infections, and denies bloody noses. Cardiovascular: The patient denies chest pain, denies heart disease, denies high blood pressure,denies cardiac stent, denies prior heart attack, denies irregular heart beat, denies high cholesterol, denies poor circulation, denies heart failure, other cardiac issues, denies claudication, denies cold feet, denies peripheral arterial stent. Respiratory: The patient denies tuberculosis, denies pneumonia, denies frequent cough, denies pulmonary embolism, denies shortness of breath, and denies coughing up blood. Gastrointestinal: The patient denies difficulty swallowing, denies acid reflux, denies ulcers, denies vomiting, denies jaundice/hepatitis, notes gallbladder problems, denies black or tarry stools, denies hemorrhoids, denies bleeding from rectum, denies diverticulitis, denies constipation, denies diarrhea, denies loss of stool control, and denies hernias. Kidney/Bladder: The patient denies kidney stones, denies urine infections, and denies bloody urine. Skin: The patient denies a history of skin cancer, denies bleeding/changing moles, and denies a history of skin rash. Neurologic: The patient denies a history of epilepsy/convulsions, denies headaches, denies head/spinal injuries, and denies stroke/TIA. Psychiatric: The patient denies psychiatric medications, denies depression, and denies voices, denies substance abuse. Endocrine: The patient denies thyroid disorders, denies diabetes, and denies hormonal problems. Hematologic: The patient denies a history of bruising, denies bleeding, and denies anemia, denies blood clots. Infections: The patient denies a history of measles and mumps, denies rheumatic fever, and denies sexually transmitted diseases. Musculoskeletal: The patient denies back pain/injury, denies back problems, denies sciatica, deniesknee/foot trouble, denies arthritis, or denies gout. When was patient's last Mammogram screening? 2016 Last Colonoscopy: none Soni Francois LPN documented in this encounterC[facility] Miscellaneous Notes* Telephone Encounter - Coco Espana LPN - 06/21/2022 1:19 PM EDT PATIENT NOTIFIED OF SAME. Call transferred to PSS to scheduled. * Telephone Encounter - Jacqueline Olea LPN - 06/21/2022 12:57 PM EDT Left a message for pt to call the office and ask to speak to a nurse. Jacqueline Olea LPN * Telephone Encounter - Kerry Mas APRN.CNP - 06/21/2022 12:48 PM EDT Can please let patient know that I received her ultrasound results. It does show a gallstone and signs of inflammation. Lets please get her set up with general surgery to further evaluate. Referral is placed. Kerry Mas APRN.MALDONADO documented in this encounterC[facility]10-28-[facility] History of Present illness Narrative* Idalmis Trejo, RT(R) - 06/21/2022 9:45 AM EDT Radiology Service Progress Note PATIENT NAME: Deisy Almodovar DATE OF SERVICE: June 21, 2022 TIME: 10:01 AM PATIENT IDENTITY VERIFICATION COMPLETED USING TWO (2) IDENTIFIERS: Name and Date of confirmedby patient verbally. FALL SCREENING: Has the patient had 2 falls in the last year or 1 fall with injury or currently using an Ambulatory Assistive Device (Walker, Cane, Wheelchair, Crutches, etc.)? No PATIENT GENDER DATA: Female. status: : No status: N/A PATIENT RELEVANT IMPLANT DATA REVIEWED: Not Applicable RADIOLOGY DEPARTMENT: Ultrasound PERIPHERAL IV DATA: Not applicable SIGNED BY: Idalmis Trejo Rdms June 21, 2022 10:01 AM documented in this encounterC[facility] History of Past illness Narrative* Problem Noted Date Resolved Date Obesity 04/27/2009 06/27/2022 documented as of this encounter (statuses as of 06/27/2022) [address]-2009 History of Past illness Narrative* Problem Noted Date Resolved Date Obesity 04/27/2009 06/27/2022 documented as of this encounter (statuses as of 07/08/2022) [address]2009 History of Past illness Narrative* Problem Noted Date Resolved Date Obesity 04/27/2009 06/27/2022 documented as of this encounter (statuses as of 07/22/2022) [address]2009 History of Past illness Narrative* Problem Noted Date Resolved Date Obesity 04/27/2009 06/27/2022 documented as of this encounter (statuses as of 07/25/2022) [address]2009 History of Past illness Narrative* Problem Noted Date Resolved Date Obesity 04/27/2009 06/27/2022 documented as of this encounter (statuses as of 08/28/2022) [address]2009 History of Past illness Narrative* Problem Noted Date Resolved Date Obesity 04/27/2009 06/27/2022 documented as of this encounter (statuses as of 08/29/2022) [address]2009 History of Past illness Narrative* Problem Noted Date Resolved Date Obesity 04/27/2009 06/27/2022 documented as of this encounter (statuses as of 09/02/2022) [address]2009 History of Past illness Narrative* Problem Noted Date Resolved Date Obesity 04/27/2009 06/27/2022 documented as of this encounter (statuses as of 09/19/2022) [address]2009 History of Past illness Narrative* Problem Noted Date Resolved Date Obesity 04/27/2009 06/27/2022 documented as of this encounter (statuses as of 09/19/2022) [address]2009 History of Past illness Narrative* Problem Noted Date Resolved Date Obesity 04/27/2009 06/27/2022 documented as of this encounter (statuses as of 09/20/2022) [address]2009 History of Past illness Narrative* Problem Noted Date Resolved Date Obesity 04/27/2009 06/27/2022 documented as of this encounter (statuses as of 10/18/2022) [address]2009 History of Past illness Narrative* Problem Noted Date Resolved Date Obesity 04/27/2009 06/27/2022 documented as of this encounter (statuses as of 11/01/2022) [address]2009 History of Past illness Narrative* Problem Noted Date Resolved Date Obesity 04/27/2009 06/27/2022 documented as of this encounter (statuses as of 11/08/2022) [address]2009 History of Past illness Narrative* Problem Noted Date Resolved Date Obesity 04/27/2009 06/27/2022 documented as of this encounter (statuses as of 11/23/2022) [address]2009 History of Past illness Narrative* Problem Noted Date Resolved Date Obesity 04/27/2009 06/27/2022 documented as of this encounter (statuses as of 11/26/2022) [address]2009 History of Past illness Narrative* Problem Noted Date Resolved Date Obesity 04/27/2009 06/27/2022 documented as of this encounter (statuses as of 11/28/2022) [address]2009 History of Past illness Narrative* Problem Noted Date Resolved Date Obesity 04/27/2009 06/27/2022 documented as of this encounter (statuses as of 12/13/2022) [address]2009 History of Past illness Narrative* Problem Noted Date Resolved Date Obesity 04/27/2009 06/27/2022 documented as of this encounter (statuses as of 12/16/2022) [address]2009 History of Past illness Narrative* Problem Noted Date Resolved Date Obesity 04/27/2009 06/27/2022 documented as of this encounter (statuses as of 12/19/2022) [address]2009 History of Past illness Narrative* Problem Noted Date Resolved Date Obesity 04/27/2009 06/27/2022 documented as of this encounter (statuses as of 12/20/2022) [address]2009 History of Past illness Narrative* Problem Noted Date Resolved Date Obesity 04/27/2009 06/27/2022 documented as of this encounter (statuses as of 12/25/2022) [address] History of Past illness Narrative* Problem Noted Date Resolved Date Obesity 04/27/2009 06/27/2022 documented as of this encounter (statuses as of 12/26/2022) [address]2009 History of Past illness Narrative* Problem Noted Date Resolved Date Obesity 04/27/2009 06/27/2022 documented as of this encounter (statuses as of 01/29/2023) [address]2009 History of Past illness Narrative* Problem Noted Date Resolved Date Obesity 04/27/2009 06/27/2022 documented as of this encounter (statuses as of 02/21/2023) [address]2009 History of Past illness Narrative* Problem Noted Date Resolved Date Obesity 04/27/2009 06/27/2022 documented as of this encounter (statuses as of 02/27/2023) [address]2009 History of Past illness Narrative* Problem Noted Date Resolved Date Obesity 04/27/2009 06/27/2022 documented as of this encounter (statuses as of 02/28/2023) [address]2009 History of Past illness Narrative* Problem Noted Date Resolved Date Obesity 04/27/2009 06/27/2022 documented as of this encounter (statuses as of 02/28/2023) [address]2009 History of Past illness Narrative* Problem Noted Date Diagnosed Date Resolved Date Obesity 04/27/2009 06/27/2022 documented as of this encounter (statuses as of 03/07/2023) [address]2009 History of Past illness Narrative* Problem Noted Date Diagnosed Date Resolved Date Obesity 04/27/2009 06/27/2022 documented as of this encounter (statuses as of 03/11/2023) [address]-2009 History of Past illness Narrative* Problem Noted Date Diagnosed Date Resolved Date Obesity 04/27/2009 06/27/2022 documented as of this encounter (statuses as of 03/11/2023) [facility]* Problem Noted Date Diagnosed Date Resolved Date Obesity 04/27/2009 06/27/2022 documented as of this encounter (statuses as of 03/20/2023) [address] History of Past illness Narrative* Problem Noted Date Diagnosed Date Resolved Date Obesity 04/27/2009 06/27/2022 documented as of this encounter (statuses as of 03/24/2023) [facility] Narrative* Problem Noted Date Diagnosed Date Resolved Date Obesity 04/27/2009 06/27/2022 documented as of this encounter (statuses as of 03/24/2023) [address]-2009 History of Past illness Narrative* Problem Noted Date Diagnosed Date Resolved Date Obesity 04/27/2009 06/27/2022 documented as of this encounter (statuses as of 03/26/2023) [address]-2009 History of Past illness Narrative* Problem Noted Date Diagnosed Date Resolved Date Obesity 04/27/2009 06/27/2022 documented as of this encounter (statuses as of 04/11/2023) [facility] Narrative* Problem Noted Date Diagnosed Date Resolved Date Obesity 04/27/2009 06/27/2022 documented as of this encounter (statuses as of 04/15/2023) [address]-2009 History of Past illness Narrative* Problem Noted Date Diagnosed Date Resolved Date Obesity 04/27/2009 06/27/2022 documented as of this encounter (statuses as of 04/16/2023) [address]-2009 History of Past illness Narrative* Problem Noted Date Diagnosed Date Resolved Date Obesity 04/27/2009 06/27/2022 documented as of this encounter (statuses as of 05/05/2023) [address]-2009 History of Past illness Narrative* Problem Noted Date Diagnosed Date Resolved Date Obesity 04/27/2009 06/27/2022 documented as of this encounter (statuses as of 05/20/2023) [address]-2009 History of Past illness Narrative* Problem Noted Date Diagnosed Date Resolved Date Obesity 04/27/2009 06/27/2022 documented as of this encounter (statuses as of 05/23/2023) [address]-2009 History of Past illness Narrative* Problem Noted Date Diagnosed Date Resolved Date Obesity 04/27/2009 06/27/2022 documented as of this encounter (statuses as of 06/12/2023) [address]-2009 History of Past illness Narrative* Problem Noted Date Diagnosed Date Resolved Date Obesity 04/27/2009 06/27/2022 documented as of this encounter (statuses as of 06/13/2023) [address]-2009 History of Past illness Narrative* Problem Noted Date Diagnosed Date Resolved Date Obesity 04/27/2009 06/27/2022 documented as of this encounter (statuses as of 06/19/2023) [address]-2009 History of Past illness Narrative* Problem Noted Date Diagnosed Date Resolved Date Obesity 04/27/2009 06/27/2022 documented as of this encounter (statuses as of 06/20/2023) [address]-2009 History of Past illness Narrative* Problem Noted Date Diagnosed Date Resolved Date Obesity 04/27/2009 06/27/2022 documented as of this encounter (statuses as of 06/29/2023) [facility]* Problem Noted Date Diagnosed Date Resolved Date Obesity 04/27/2009 06/27/2022 documented as of this encounter (statuses as of 06/29/2023) [address]-2009 History of Past illness Narrative* Problem Noted Date Diagnosed Date Resolved Date Obesity 04/27/2009 06/27/2022 documented as of this encounter (statuses as of 06/29/2023) [address]-2009 History of Past illness Narrative* Problem Noted Date Diagnosed Date Resolved Date Obesity 04/27/2009 06/27/2022 documented as of this encounter (statuses as of 07/02/2023) [address]-2009 History of Past illness Narrative* Problem Noted Date Diagnosed Date Resolved Date Obesity 04/27/2009 06/27/2022 documented as of this encounter (statuses as of 07/03/2023) [address]-2009 History of Past illness Narrative* Problem Noted Date Diagnosed Date Resolved Date Obesity 04/27/2009 06/27/2022 documented as of this encounter (statuses as of 07/11/2023) [address]-2009 History of Past illness Narrative* Problem Noted Date Diagnosed Date Resolved Date Obesity 04/27/2009 06/27/2022 documented as of this encounter (statuses as of 07/22/2023) [address]-2009 History of Past illness Narrative* Problem Noted Date Diagnosed Date Resolved Date Obesity 04/27/2009 06/27/2022 documented as of this encounter (statuses as of 07/25/2023) [address]-2009 History of Past illness Narrative* Problem Noted Date Diagnosed Date Resolved Date Obesity 04/27/2009 06/27/2022 documented as of this encounter (statuses as of 08/09/2023) [address]-2009 History of Past illness Narrative* Problem Noted Date Diagnosed Date Resolved Date Obesity 04/27/2009 06/27/2022 documented as of this encounter (statuses as of 10/17/2023) [address]-2009 History of Past illness Narrative* Problem Noted Date Diagnosed Date Resolved Date Obesity 04/27/2009 06/27/2022 documented as of this encounter (statuses as of 10/17/2023) [facility]* Diagnosis Encounter for screening mammogram for breast cancer [facility] noteNo assessment information availableWMemorial [facility] Work Phone: Evaluation note* Diagnosis Right upper quadrant abdominal pain Abdominal pain, right upper quadrant Calculus of gallbladder without cholecystitis without obstruction Calculus of gallbladder without mention of cholecystitis or obstruction Morbid obesity (HCC) Morbid obesity [facility] encounter [facility]* Diagnosis Obesity, Class III, BMI >= 40- Primary Morbid obesity Gallstones and inflammation of gallbladder without obstruction Calculus of gallbladder with acute cholecystitis, without mention of obstruction [facility] this encounter [facility]* Diagnosis Class 3 severe obesity with body mass index (BMI) greater than or equal to 70 in adult, unspecified obesity type, unspecified whether serious comorbidity present (HCC)- Primary Seizures (HCC) Other convulsions Gallstones and inflammation of gallbladder without obstruction Calculus of gallbladder with acute cholecystitis, without mention of obstruction Gastroesophageal reflux disease without esophagitis Esophageal reflux [facility]* Diagnosis Right upper quadrant abdominal pain- Primary Abdominal pain, right upper quadrant Calculus of gallbladder without cholecystitis without obstruction Calculus of gallbladder without mention of cholecystitis or obstruction documented in this encounter [facility] note* Diagnosis Class 3 severe obesity with body mass index (BMI) greater than or equal to 70 in adult, unspecified obesity type, unspecified whether serious comorbidity present (HCC)- Primary documented in this encounter [facility] note* Diagnosis Class 3 severe obesity with body mass index (BMI) greater than or equal to 70 in adult, unspecified obesity type, unspecified whether serious comorbidity present (HCC)- Primary Snoring Other dyspnea and respiratory abnormality Seizures (HCC) Other convulsions documented in this encounter [facility] note* Diagnosis Class 3 severe obesity with body mass index (BMI) greater than or equal to 70 in adult, unspecified obesity type, unspecified whether serious comorbidity present (HCC)- Primary documented in this encounter [facility] note* Diagnosis Class 3 severe obesity with body mass index (BMI) greater than or equal to 70 in adult, unspecified obesity type, unspecified whether serious comorbidity present (HCC)- Primary documented in this encounter [facility] note* Diagnosis Class 3 severe obesity with body mass index (BMI) greater than or equal to 70 in adult, unspecified obesity type, unspecified whether serious comorbidity present (HCC)- Primary documented in this encounter [facility] note* Diagnosis 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 Seizure (HCC) Other convulsions Spells of speech arrest Other speech disturbance documented in this encounter [facility] note* Diagnosis Class 3 severe obesity with body mass index (BMI) greater than or equal to 70 in adult, unspecified obesity type, unspecified whether serious comorbidity present (HCC)- Primary documented in this encounter [facility] note* Diagnosis Psychological factor affecting physical condition [F54 (ICD-10-CM)]- Primary Psychic factors associated with diseases classified elsewhere Morbid obesity (HCC) [E66.01 (ICD-10-CM)] Morbid obesity Eating disorder, unspecified type [F50.9 (ICD-10-CM)] documented in this encounter [facility] note* Diagnosis Morbid obesity (HCC) [E66.01 (ICD-10-CM)]- Primary Morbid obesity Psychological factor affecting physical condition [F54 (ICD-10-CM)] Psychic factors associated with diseases classified elsewhere documented in this encounter [facility] note* Diagnosis Class 3 severe obesity with body mass index (BMI) greater than or equal to 70 in adult, unspecified obesity type, unspecified whether serious comorbidity present (HCC)- Primary Gallstones and inflammation of gallbladder without obstruction Calculus of gallbladder with acute cholecystitis, without mention of obstruction Seizures (HCC) Other convulsions Gastroesophageal reflux disease without esophagitis Esophageal reflux documented in this encounter [facility] note* Diagnosis Pre-operative cardiovascular examination- Primary Elevated blood pressure reading without diagnosis of hypertension documented in this encounter [facility] note* Diagnosis Class 3 severe obesity with body mass index (BMI) greater than or equal to 70 in adult, unspecified obesity type, unspecified whether serious comorbidity present (HCC)- Primary documented in this encounter [facility] note* Diagnosis Class 3 severe obesity with body mass index (BMI) greater than or equal to 70 in adult, unspecified obesity type, unspecified whether serious comorbidity present (HCC)- Primary Gallstones and inflammation of gallbladder without obstruction Calculus of gallbladder with acute cholecystitis, without mention of obstruction Seizures (HCC) Other convulsions Gastroesophageal reflux disease without esophagitis Esophageal reflux documented in this encounter [facility] note* Diagnosis Gastroesophageal reflux disease without esophagitis Esophageal reflux documented in this encounter [facility] note* Diagnosis Morbid obesity (HCC)- Primary Morbid obesity History of seizure Personal history of other disorders of nervous system and sense organs documented in this encounter [facility] note* Diagnosis Class 3 severe obesity with body mass index (BMI) greater than or equal to 70 in adult, unspecified obesity type, unspecified whether serious comorbidity present (HCC)- Primary Gastroesophageal reflux disease without esophagitis Esophageal reflux Snoring Other dyspnea and respiratory abnormality documented in this encounter [facility] note* Diagnosis Class 3 severe obesity with body mass index (BMI) greater than or equal to 70 in adult, unspecified obesity type, unspecified whether serious comorbidity present (HCC) documented in this encounter [facility] note* Diagnosis Class 3 severe obesity with body mass index (BMI) greater than or equal to 70 in adult, unspecified obesity type, unspecified whether serious comorbidity present (HCC)- Primary Gallstones and inflammation of gallbladder without obstruction Calculus of gallbladder with acute cholecystitis, without mention of obstruction Gastroesophageal reflux disease without esophagitis Esophageal reflux [facility] Diagnosis Class 3 severe obesity with body mass index (BMI) greater than or equal to 70 in adult, unspecified obesity type, unspecified whether serious comorbidity present (HCC)- Primary Gastroesophageal reflux disease without esophagitis Esophageal reflux Snoring Other dyspnea and respiratory abnormality [facility]* Diagnosis Class 3 severe obesity due to excess calories with serious comorbidity and body mass index (BMI) of 60.0 to 69.9 in adult (HCC)- Primary Vitamin D deficiency Unspecified vitamin D deficiency LIDYA (obstructive sleep apnea) Obstructive sleep apnea (adult) (pediatric) [facility] Diagnosis LIDYA (obstructive sleep apnea)- Primary Obstructive sleep apnea (adult) (pediatric) Morbid obesity (HCC) Morbid obesity [facility] Diagnosis Right upper quadrant abdominal pain Abdominal pain, right upper quadrant [facility] Diagnosis Class 3 severe obesity with body mass index (BMI) greater than or equal to 70 in adult, unspecified obesity type, unspecified whether serious comorbidity present (HCC) [facility] Diagnosis Encounter for screening mammogram for breast cancer [facility] Diagnosis Class 3 severe obesity due to excess calories with serious comorbidity and body mass index (BMI) of 60.0 to 69.9 in adult (HCC)- Primary LIDYA (obstructive sleep apnea) Obstructive sleep apnea (adult) (pediatric) [facility] Diagnosis Class 3 severe obesity due to excess calories with serious comorbidity and body mass index (BMI) of 60.0 to 69.9 in adult (HCC)- Primary LIDYA (obstructive sleep apnea) Obstructive sleep apnea (adult) (pediatric) Gastroesophageal reflux disease without esophagitis Esophageal reflux [facility] Diagnosis Encounter for screening mammogram for breast cancer [facility] Diagnosis Acute non-recurrent sinusitis, unspecified location- Primary Low HDL (under 40) Lipoprotein deficiencies Gastroesophageal reflux disease without esophagitis Esophageal reflux Class 3 severe obesity due to excess calories without serious comorbidity with body mass index (BMI) of 60.0 to 69.9 in adult (HCC) Sea sickness, sequela documented in this encounter [facility] note* Diagnosis Seizure (HCC)- Primary Other convulsions documented in this encounter [facility] note* Diagnosis Encounter for screening mammogram for breast cancer documented in this encounter [facility] note* Diagnosis Seizures (HCC)- Primary Other convulsions Screening, lipid Screening for lipoid disorders Medication monitoring encounter Encounter for therapeutic drug monitoring documented in this encounter [facility] note* Diagnosis Elevated blood pressure reading without diagnosis of hypertension- Primary Screening for lipid disorders Night sweats Generalized hyperhidrosis Lightheadedness Dizziness and giddiness Medication monitoring encounter Encounter for therapeutic drug monitoring Seizures (HCC) Other convulsions documented in this encounter [facility] Discharge instructions Additional Instructions Please follow-up with your surgeon as we discussed. If return if you have a progression or worsening of your symptoms. Call your surgeon if you think you need to be seen sooner. You should finish the antibiotics if you have any left and continue to adhere to a low-fat diet.[facility] Work Phone: Reason for referral (narrative)* Diagnostic Procedure Only (Routine) - Pending Review Specialty Diagnoses / Procedures Referred By Elisa jensen Referred To Contact [facility] Diagnoses Encounter for screening mammogram for breast cancer Procedures AP SCREENING SCREENING MAMMOGRAPHY BI 2-VIEW BREAST INC CAD Arron Hairston MD [address] [place] [address] [facility] [address] [place] [address] Referral ID Status Reason Start Date Expiration Date Visits Requested Visits Authorized [id number] Pending Review Auto-Generat ed Referral 02/20/2022 03/22/2023 1 1 [facility] for referral (narrative)* Outpatient Procedure (Routine) - Pending Review Specialty Diagnoses / Procedures Referred By Elisa jensen Referred To [facility] Diagnoses Seizure (HCC) Procedures EPIL EEG ROUTINE ELECTROENCEPHALOGRAM REC COMA/SLEEP ONLY Keagan Blanton MD [address] [place] [address] [facility] [place] [address] [place] [address] Referral ID Status Reason Start Date Expiration Date Visits Requested Visits Authorized [id number] Pending Review Auto-Generat ed Referral 09/15/2023 12/14/2023 1 1 [facility] for referral (narrative)* Diagnostic Procedure Only (Routine) - Closed Specialty Diagnoses / Procedures Referred By Elisa t Referred To Contact [facility] Diagnoses Right upper quadrant abdominal pain Procedures US ABD RT UPPER QUADRANT US ABDOMINAL REAL TIME W/IMAGE LIMITED Kerry Mas APRN.ADJUSTO WRITER OPERATOR [address] [place] [address] [facility] Referral ID Status Reason Start Date Expiration Date V isits Requested Visits Authorized [id number] Closed Auto-Generate d Referral 06/17/2022 07/17/2023 1 1 [facility] for referral (narrative)* Diagnostic Procedure Only (Routine) - Closed Specialty Diagnoses / Procedures Referred By Elisa jensen Referred To Contact [facility] Diagnoses Encounter for screening mammogram for breast cancer Procedures AP SCREENING SCREENING MAMMOGRAPHY BI 2-VIEW BREAST INC Arron Candelario MD [address] [place] [address] Br Imaging [facility] [place] [address] Referral ID Status Reason Start Date Expiration Date V isits Requested Visits Authorized [id number] Closed Auto-Generate d Referral 01/29/2023 02/28/2024 1 1 [facility] for referral (narrative)* Diagnostic Procedure Only (Routine) - New Request Specialty Diagnoses / Procedures Referred By Elisa jensen Referred To Contact [facility] Diagnoses Encounter for screening mammogram for breast cancer Procedures AP SCREENING W CELIA SCREENING DIGITAL BREAST TOMOSYNTHESIS BI SCREENING MAMMOGRAPHY BI 2-VIEW BREAST INC Arron Candelario MD [address] [place] [address] [facility] [address] [place] [address] Referral ID Status Reason Start Date Expiration Date Visits Requested Visits Authorized [id number] New Request Auto-Generat ed Referral 05/19/2024 06/18/2025 1 1 [facility] for visit Narrative* Outpatient Procedure (Routine) - Closed Specialty Diagnoses / Procedures Referred By Elisa jensen Referred To Contact [facility] Diagnoses Gastroesophageal reflux disease without esophagitis Procedures EGD DIAGNOSTIC EGD DIAGNOSTIC ESOPHAGOGASTRODUODENOSC OPY TRANSORAL DIAGNOSTIC Santosh Woods MD [address] [address] [facility] Disease [address] [address] Referral ID Status Reason Start Date Expiration Date V isits Requested Visits Authorized [id number] Closed Auto-Generate d Referral 11/23/2022 11/01/2023 1 1 [facility] for visit Narrative* Diagnostic Procedure Only (Routine) - Closed Specialty Diagnoses / Procedures Referred By Elisa jensen Referred To Contact [facility] Diagnoses Right upper quadrant abdominal pain Procedures US ABD RT UPPER QUADRANT US ABDOMINAL REAL TIME W/IMAGE LIMITED Kerry Mas, ERMA.ADJUSTO WRITER OPERATOR [address] [place] [address] [place] [address] Referral ID Status Reason Start Date Expiration Date V isits Requested Visits Authorized [id number] Closed Auto-Generate d Referral 06/17/2022 07/17/2023 1 1 [facility] for visit Narrative* Diagnostic Procedure Only (Routine) - Closed Specialty Diagnoses / Procedures Referred By Elisa jensen Referred To Contact [facility] Diagnoses Encounter for screening mammogram for breast cancer Procedures AP SCREENING SCREENING MAMMOGRAPHY BI 2-VIEW BREAST INC Arron Candelario MD [address] [place] [address] [facility] [address] [place] [address] Referral ID Status Reason Start Date Expiration Date V isits Requested Visits Authorized [id number] Closed Auto-Generate d Referral 01/29/2023 02/28/2024 1 1 [facility] Diagnostic Procedure Only (Routine) - Closed Specialty Diagnoses / Procedures Referred By Contac t Referred To Contact [facility] Diagnoses Encounter for screening mammogram for breast cancer Procedures AP SCREENING W CELIA SCREENING DIGITAL BREAST TOMOSYNTHESIS BI SCREENING MAMMOGRAPHY BI 2-VIEW BREAST INC CAD Arron Hairston MD [address] [place] [address] Phone: tel: fax: [facility] [address] [place] [address] Referral ID Status Reason Start Date Expiration Date V isits Requested Visits Authorized [id number] Closed Auto-Generate d Referral 05/19/2024 06/18/2025 1 1 [facility] Summary Purpose Family History No Family History Records FoundNo Family History Records FoundNo Family History Records FoundNo Family History Records FoundNo Family History Records FoundNo Family History Records Found Advance Directives Advance Directive Response Recorded Date/ Time Living Will No June 22 11:10am Power of Senior Environmental Practice Leader No June 22, 2022 11:10am Advance Directive Response Recorded Date/ Time Living Will No November 29, 2022 9:08am Power of Senior Environmental Practice Leader No November 29 9:08am Chief Complaint and Reason for Visit Chief Complaint abd pain Chief Complaint ABD Reason for Referral Specialty Diagnoses / Procedures Referred By Contac t Referred To Contact General Surgery Diagnoses Right upper quadrant abdominal pain Morbid obesity (HCC) Calculus of gallbladder without cholecystitis without obstruction Procedures CONSULT TO GENERAL SURGERY OFFICE/OUTPATIENT [facility] 60-74 MINUTES Santosh Woods MD 1 [facility] [address] [place] [address] Referral ID Status Reason Start Date Expiration Date Visits Requested Visits Authorized [id number] Pending Review PCP Requested Referral 06/25/2022 06/25/2023 1 1 Specialty Diagnoses / Procedures Referred By Contac t Referred To Contact Cardiology Diagnoses Class 3 severe obesity with body mass index (BMI) greater than or equal to 70 in adult, unspecified obesity type, unspecified whether serious comorbidity present (HCC) Procedures CONSULT TO CARDIOLOGY OFFICE/OUTPATIENT [facility] 60-74 MINUTES Nova Olsen, INSULATOR CUTTER AND FORMER.ADJUSTO WRITER OPERATOR [address] [facility] [address] [place] [address] Referral ID Status Reason Start Date Expiration Date Visits Requested Visits Authorized [id number] Outside PCP PCP Requested Referral 2 10/22/2022 1 1 Specialty Diagnoses / Procedures Referred By Contac t Referred To Contact General Surgery Diagnoses Right upper quadrant abdominal pain Procedures CONSULT TO GENERAL SURGERY OFFICE/OUTPATIENT [facility] 60-74 MINUTES Kerry Mas, INSULATOR CUTTER AND FORMER.ADJUSTO WRITER OPERATOR [address] [place] [address] Referral ID Status Reason Start Date Expiration Date Visits Requested Visits Authorized [id number] Pending Review PCP Requested Referral 2 06/21/2023 1 1 Specialty Diagnoses / Procedures Referred By Contac t Referred To Contact Diagnoses Class 3 severe obesity with body mass index (BMI) greater than or equal to 70 in adult, unspecified obesity type, unspecified whether serious comorbidity present (HCC) Snoring Procedures CONSULT TO SLEEP MEDICINE - ADULT OFFICE/OUTPATIENT [facility] 60-74 MINUTES Nova Olsen, INSULATOR CUTTER AND FORMER.ADJUSTO WRITER OPERATOR 1 [facility] [address] [place] [address] Referral ID Status Reason Start Date Expiration Date Visits Requested Visits Authorized [id number] Outside PCP PCP Requested Referral 09/19/2022 12/18/2022 1 1 Specialty Diagnoses / Procedures Referred By Contac t Referred To Contact Coni Pina MD [address] [place] [address] Referral ID Status Reason Start Date Expiration Date Visits Re quested Visits Authorized [id number] Closed 1 1 Medications Administered Section Inactive Administered Medications - up to 3 most recent administrations Medication Order MAR Action Action Date Dose Rate Site lactated ringers iv infusion 30 mL/hr, INTRAVENOUS, CONTINUOUS, Starting on Fri03/10/23 at 1200, Until Fri03/10/23 at 1331, Preprocedure Restarted 03/10/2023 1:27 PM EDT Continued by Anesthesia 03/10/2023 1:12 PM EDT 30 mL/hr New Bag/Syringe/Bottle 03/10/2023 12:22 PM EDT 30 mL/hr 30 mL/hr Additional Source Comments INFORMATION SOURCE (unrecogn ized section and content) DATE CREATED AUTHOR 07/07/2019 [facility] DATE CREATED AUTHOR AUTHOR'S ORGANIZ ATION 12/07/2022 [facility] DATE CREATED AUTHOR AUTHOR'S ORGANIZ ATION 07/27/2023 [facility] DATE CREATED AUTHOR AUTHOR'S ORGANIZ ATION 09/22/2023 [facility] DATE CREATED AUTHOR AUTHOR'S ORGANIZ ATION 01/11/2025 [facility] DATE CREATED AUTHOR AUTHOR'S ORGANIZ ATION 01/25/2025 [facility] Source Comments (unrecognize d section and content) In the event this informatio n is protected by the Federal Confidentiality of Alcohol and Drug Abuse Patient Records regulations: The Federal rules restrict any use of the information to criminally investigate or prosecute any alcohol or drug abuse patient.[facility] the event this information is protected by the Federal Confidentiality of Alcohol and Drug Abuse Patient Records regulations: The Federal rules restrict any use of the information to criminally investigate or prosecute any alcohol or drug abuse patient.[facility] the event this information is protected by the Federal Confidentiality of Alcohol and Drug Abuse Patient Records regulations: The Federal rules restrict any use of the information to criminally investigate or prosecute any alcohol or drug abuse patient.[facility] the event this information is protected by the Federal Confidentiality of Alcohol and Drug Abuse Patient Records regulations: The Federal rules restrict any use of the information to criminally investigate or prosecute any alcohol or drug abuse patient.[facility] the event this information is protected by the Federal Confidentiality of Alcohol and Drug Abuse Patient Records regulations: The Federal rules restrict any use of the information to criminally investigate or prosecute any alcohol or drug abuse patient.[facility] the event this information is protected by the Federal Confidentiality of Alcohol and Drug Abuse Patient Records regulations: The Federal rules restrict any use of the information to criminally investigate or prosecute any alcohol or drug abuse patient.[facility] the event this information is protected by the Federal Confidentiality of Alcohol and Drug Abuse Patient Records regulations: The Federal rules restrict any use of the information to criminally investigate or prosecute any alcohol or drug abuse patient.[facility] the event this information is protected by the Federal Confidentiality of Alcohol and Drug Abuse Patient Records regulations: The Federal rules restrict any use of the information to criminally investigate or prosecute any alcohol or drug abuse patient.[facility] the event this information is protected by the Federal Confidentiality of Alcohol and Drug Abuse Patient Records regulations: The Federal rules restrict any use of the information to criminally investigate or prosecute any alcohol or drug abuse patient.[facility] the event this information is protected by the Federal Confidentiality of Alcohol and Drug Abuse Patient Records regulations: The Federal rules restrict any use of the information to criminally investigate or prosecute any alcohol or drug abuse patient.[facility] the event this information is protected by the Federal Confidentiality of Alcohol and Drug Abuse Patient Records regulations: The Federal rules restrict any use of the information to criminally investigate or prosecute any alcohol or drug abuse patient.[facility] the event this information is protected by the Federal Confidentiality of Alcohol and Drug Abuse Patient Records regulations: The Federal rules restrict any use of the information to criminally investigate or prosecute any alcohol or drug abuse patient.[facility] the event this information is protected by the Federal Confidentiality of Alcohol and Drug Abuse Patient Records regulations: The Federal rules restrict any use of the information to criminally investigate or prosecute any alcohol or drug abuse patient.[facility] the event this information is protected by the Federal Confidentiality of Alcohol and Drug Abuse Patient Records regulations: The Federal rules restrict any use of the information to criminally investigate or prosecute any alcohol or drug abuse patient.[facility] the event this information is protected by the Federal Confidentiality of Alcohol and Drug Abuse Patient Records regulations: The Federal rules restrict any use of the information to criminally investigate or prosecute any alcohol or drug abuse patient.[facility] the event this information is protected by the Federal Confidentiality of Alcohol and Drug Abuse Patient Records regulations: The Federal rules restrict any use of the information to criminally investigate or prosecute any alcohol or drug abuse patient.[facility] the event this information is protected by the Federal Confidentiality of Alcohol and Drug Abuse Patient Records regulations: The Federal rules restrict any use of the information to criminally investigate or prosecute any alcohol or drug abuse patient.[facility] the event this information is protected by the Federal Confidentiality of Alcohol and Drug Abuse Patient Records regulations: The Federal rules restrict any use of the information to criminally investigate or prosecute any alcohol or drug abuse patient.[facility] the event this information is protected by the Federal Confidentiality of Alcohol and Drug Abuse Patient Records regulations: The Federal rules restrict any use of the information to criminally investigate or prosecute any alcohol or drug abuse patient.[facility] the event this information is protected by the Federal Confidentiality of Alcohol and Drug Abuse Patient Records regulations: The Federal rules restrict any use of the information to criminally investigate or prosecute any alcohol or drug abuse patient.[facility] the event this information is protected by the Federal Confidentiality of Alcohol and Drug Abuse Patient Records regulations: The Federal rules restrict any use of the information to criminally investigate or prosecute any alcohol or drug abuse patient.[facility] the event this information is protected by the Federal Confidentiality of Alcohol and Drug Abuse Patient Records regulations: The Federal rules restrict any use of the information to criminally investigate or prosecute any alcohol or drug abuse patient.[facility] the event this information is protected by the Federal Confidentiality of Alcohol and Drug Abuse Patient Records regulations: The Federal rules restrict any use of the information to criminally investigate or prosecute any alcohol or drug abuse patient.[facility] the event this information is protected by the Federal Confidentiality of Alcohol and Drug Abuse Patient Records regulations: The Federal rules restrict any use of the information to criminally investigate or prosecute any alcohol or drug abuse patient.[facility] the event this information is protected by the Federal Confidentiality of Alcohol and Drug Abuse Patient Records regulations: The Federal rules restrict any use of the information to criminally investigate or prosecute any alcohol or drug abuse patient.[facility] the event this information is protected by the Federal Confidentiality of Alcohol and Drug Abuse Patient Records regulations: The Federal rules restrict any use of the information to criminally investigate or prosecute any alcohol or drug abuse patient.[facility] the event this information is protected by the Federal Confidentiality of Alcohol and Drug Abuse Patient Records regulations: The Federal rules restrict any use of the information to criminally investigate or prosecute any alcohol or drug abuse patient.[facility] the event this information is protected by the Federal Confidentiality of Alcohol and Drug Abuse Patient Records regulations: The Federal rules restrict any use of the information to criminally investigate or prosecute any alcohol or drug abuse patient.[facility] the event this information is protected by the Federal Confidentiality of Alcohol and Drug Abuse Patient Records regulations: The Federal rules restrict any use of the information to criminally investigate or prosecute any alcohol or drug abuse patient.[facility] the event this information is protected by the Federal Confidentiality of Alcohol and Drug Abuse Patient Records regulations: The Federal rules restrict any use of the information to criminally investigate or prosecute any alcohol or drug abuse patient.[facility] the event this information is protected by the Federal Confidentiality of Alcohol and Drug Abuse Patient Records regulations: The Federal rules restrict any use of the information to criminally investigate or prosecute any alcohol or drug abuse patient.[facility] the event this information is protected by the Federal Confidentiality of Alcohol and Drug Abuse Patient Records regulations: The Federal rules restrict any use of the information to criminally investigate or prosecute any alcohol or drug abuse patient.[facility] the event this information is protected by the Federal Confidentiality of Alcohol and Drug Abuse Patient Records regulations: The Federal rules restrict any use of the information to criminally investigate or prosecute any alcohol or drug abuse patient.[facility] the event this information is protected by the Federal Confidentiality of Alcohol and Drug Abuse Patient Records regulations: The Federal rules restrict any use of the information to criminally investigate or prosecute any alcohol or drug abuse patient.[facility] HospitalIn the event this information is protected by the Federal Confidentiality of Alcohol and Drug Abuse Patient Records regulations: The Federal rules restrict any use of the information to criminally investigate or prosecute any alcohol or drug abuse patient.[facility] HospitalIn the event this information is protected by the Federal Confidentiality of Alcohol and Drug Abuse Patient Records regulations: The Federal rules restrict any use of the information to criminally investigate or prosecute any alcohol or drug abuse patient.[facility] HospitalIn the event this information is protected by the Federal Confidentiality of Alcohol and Drug Abuse Patient Records regulations: The Federal rules restrict any use of the information to criminally investigate or prosecute any alcohol or drug abuse patient.[facility] HospitalIn the event this information is protected by the Federal Confidentiality of Alcohol and Drug Abuse Patient Records regulations: The Federal rules restrict any use of the information to criminally investigate or prosecute any alcohol or drug abuse patient.[facility] HospitalIn the event this information is protected by the Federal Confidentiality of Alcohol and Drug Abuse Patient Records regulations: The Federal rules restrict any use of the information to criminally investigate or prosecute any alcohol or drug abuse patient.[facility] HospitalIn the event this information is protected by the Federal Confidentiality of Alcohol and Drug Abuse Patient Records regulations: The Federal rules restrict any use of the information to criminally investigate or prosecute any alcohol or drug abuse patient.[facility] HospitalIn the event this information is protected by the Federal Confidentiality of Alcohol and Drug Abuse Patient Records regulations: The Federal rules restrict any use of the information to criminally investigate or prosecute any alcohol or drug abuse patient.[facility] HospitalIn the event this information is protected by the Federal Confidentiality of Alcohol and Drug Abuse Patient Records regulations: The Federal rules restrict any use of the information to criminally investigate or prosecute any alcohol or drug abuse patient.[facility] HospitalIn the event this information is protected by the Federal Confidentiality of Alcohol and Drug Abuse Patient Records regulations: The Federal rules restrict any use of the information to criminally investigate or prosecute any alcohol or drug abuse patient.[facility] HospitalIn the event this information is protected by the Federal Confidentiality of Alcohol and Drug Abuse Patient Records regulations: The Federal rules restrict any use of the information to criminally investigate or prosecute any alcohol or drug abuse patient.[facility] HospitalIn the event this information is protected by the Federal Confidentiality of Alcohol and Drug Abuse Patient Records regulations: The Federal rules restrict any use of the information to criminally investigate or prosecute any alcohol or drug abuse patient.[facility] HospitalIn the event this information is protected by the Federal Confidentiality of Alcohol and Drug Abuse Patient Records regulations: The Federal rules restrict any use of the information to criminally investigate or prosecute any alcohol or drug abuse patient.[facility] HospitalIn the event this information is protected by the Federal Confidentiality of Alcohol and Drug Abuse Patient Records regulations: The Federal rules restrict any use of the information to criminally investigate or prosecute any alcohol or drug abuse patient.[facility] HospitalIn the event this information is protected by the Federal Confidentiality of Alcohol and Drug Abuse Patient Records regulations: The Federal rules restrict any use of the information to criminally investigate or prosecute any alcohol or drug abuse patient.[facility] HospitalIn the event this information is protected by the Federal Confidentiality of Alcohol and Drug Abuse Patient Records regulations: The Federal rules restrict any use of the information to criminally investigate or prosecute any alcohol or drug abuse patient.[facility] HospitalIn the event this information is protected by the Federal Confidentiality of Alcohol and Drug Abuse Patient Records regulations: The Federal rules restrict any use of the information to criminally investigate or prosecute any alcohol or drug abuse patient.[facility] HospitalIn the event this information is protected by the Federal Confidentiality of Alcohol and Drug Abuse Patient Records regulations: The Federal rules restrict any use of the information to criminally investigate or prosecute any alcohol or drug abuse patient.[facility] HospitalIn the event this information is protected by the Federal Confidentiality of Alcohol and Drug Abuse Patient Records regulations: The Federal rules restrict any use of the information to criminally investigate or prosecute any alcohol or drug abuse patient.[facility] HospitalIn the event this information is protected by the Federal Confidentiality of Alcohol and Drug Abuse Patient Records regulations: The Federal rules restrict any use of the information to criminally investigate or prosecute any alcohol or drug abuse patient.[facility] HospitalIn the event this information is protected by the Federal Confidentiality of Alcohol and Drug Abuse Patient Records regulations: The Federal rules restrict any use of the information to criminally investigate or prosecute any alcohol or drug abuse patient.[facility] HospitalIn the event this information is protected by the Federal Confidentiality of Alcohol and Drug Abuse Patient Records regulations: The Federal rules restrict any use of the information to criminally investigate or prosecute any alcohol or drug abuse patient.[facility] HospitalIn the event this information is protected by the Federal Confidentiality of Alcohol and Drug Abuse Patient Records regulations: The Federal rules restrict any use of the information to criminally investigate or prosecute any alcohol or drug abuse patient.[facility] HospitalIn the event this information is protected by the Federal Confidentiality of Alcohol and Drug Abuse Patient Records regulations: The Federal rules restrict any use of the information to criminally investigate or prosecute any alcohol or drug abuse patient.[facility] HospitalIn the event this information is protected by the Federal Confidentiality of Alcohol and Drug Abuse Patient Records regulations: The Federal rules restrict any use of the information to criminally investigate or prosecute any alcohol or drug abuse patient.[facility] HospitalIn the event this information is protected by the Federal Confidentiality of Alcohol and Drug Abuse Patient Records regulations: The Federal rules restrict any use of the information to criminally investigate or prosecute any alcohol or drug abuse patient.[facility] HospitalIn the event this information is protected by the Federal Confidentiality of Alcohol and Drug Abuse Patient Records regulations: The Federal rules restrict any use of the information to criminally investigate or prosecute any alcohol or drug abuse patient.[facility] HospitalIn the event this information is protected by the Federal Confidentiality of Alcohol and Drug Abuse Patient Records regulations: The Federal rules restrict any use of the information to criminally investigate or prosecute any alcohol or drug abuse patient.[facility] HospitalIn the event this information is protected by the Federal Confidentiality of Alcohol and Drug Abuse Patient Records regulations: The Federal rules restrict any use of the information to criminally investigate or prosecute any alcohol or drug abuse patient.[facility] HospitalIn the event this information is protected by the Federal Confidentiality of Alcohol and Drug Abuse Patient Records regulations: The Federal rules restrict any use of the information to criminally investigate or prosecute any alcohol or drug abuse patient.[facility] HospitalIn the event this information is protected by the Federal Confidentiality of Alcohol and Drug Abuse Patient Records regulations: The Federal rules restrict any use of the information to criminally investigate or prosecute any alcohol or drug abuse patient.[facility] HospitalIn the event this information is protected by the Federal Confidentiality of Alcohol and Drug Abuse Patient Records regulations: The Federal rules restrict any use of the information to criminally investigate or prosecute any alcohol or drug abuse patient.[facility] HospitalIn the event this information is protected by the Federal Confidentiality of Alcohol and Drug Abuse Patient Records regulations: The Federal rules restrict any use of the information to criminally investigate or prosecute any alcohol or drug abuse patient.[facility] HospitalIn the event this information is protected by the Federal Confidentiality of Alcohol and Drug Abuse Patient Records regulations: The Federal rules restrict any use of the information to criminally investigate or prosecute any alcohol or drug abuse patient.[facility] HospitalIn the event this information is protected by the Federal Confidentiality of Alcohol and Drug Abuse Patient Records regulations: The Federal rules restrict any use of the information to criminally investigate or prosecute any alcohol or drug abuse patient.[facility] HospitalIn the event this information is protected by the Federal Confidentiality of Alcohol and Drug Abuse Patient Records regulations: The Federal rules restrict any use of the information to criminally investigate or prosecute any alcohol or drug abuse patient.[facility] HospitalIn the event this information is protected by the Federal Confidentiality of Alcohol and Drug Abuse Patient Records regulations: The Federal rules restrict any use of the information to criminally investigate or prosecute any alcohol or drug abuse patient.[facility] HospitalIn the event this information is protected by the Federal Confidentiality of Alcohol and Drug Abuse Patient Records regulations: The Federal rules restrict any use of the information to criminally investigate or prosecute any alcohol or drug abuse patient.[facility] HospitalIn the event this information is protected by the Federal Confidentiality of Alcohol and Drug Abuse Patient Records regulations: The Federal rules restrict any use of the information to criminally investigate or prosecute any alcohol or drug abuse patient.[facility] HospitalIn the event this information is protected by the Federal Confidentiality of Alcohol and Drug Abuse Patient Records regulations: The Federal rules restrict any use of the information to criminally investigate or prosecute any alcohol or drug abuse patient.[facility] HospitalIn the event this information is protected by the Federal Confidentiality of Alcohol and Drug Abuse Patient Records regulations: The Federal rules restrict any use of the information to criminally investigate or prosecute any alcohol or drug abuse patient.[facility] HospitalIn the event this information is protected by the Federal Confidentiality of Alcohol and Drug Abuse Patient Records regulations: The Federal rules restrict any use of the information to criminally investigate or prosecute any alcohol or drug abuse patient.[facility] Care Teams (unrecognized sec tion and content) Associate Project Manager Relationship Specialty Start Date End Date Arron Hairston MD [address] [place] [address] PCP - General Family Practice 07/24/20 Associate Project Manager Relationship Specialty Start Date End Date Arron Hairston MD [address] [facility] [place] [address] PCP - General Family Medicine 07/24/20 Associate Project Manager Relationship Specialty Start Date End Date Arron Hairston MD [address] [facility] [place] [address] PCP - General Family Medicine 07/24/20 Associate Project Manager Relationship Specialty Start Date End Date Arron Hairston MD [address] [facility] [place] [address] PCP - General Family Medicine 07/24/20 Associate Project Manager Relationship Specialty Start Date End Date Arron Hairston MD [address] [facility] [place] [address] PCP - General Family Medicine 07/24/20 Associate Project Manager Relationship Specialty Start Date End Date Arron Hairston MD [address] [facility] [place] [address] PCP - General Family Medicine 07/24/20 Associate Project Manager Relationship Specialty Start Date End Date Arron Hairston MD [address] [facility] [place] [address] PCP - General Family Medicine 07/24/20 Associate Project Manager Relationship Specialty Start Date End Date Arron Hairston MD [address] [facility] [place] [address] PCP - General Family Medicine 07/24/20 Associate Project Manager Relationship Specialty Start Date End Date Arron Hairston MD [address] [facility] [place] [address] PCP - General Family Medicine 07/24/20 Associate Project Manager Relationship Specialty Start Date End Date Arron Hairston MD [address] [facility] [place] [address] PCP - General Family Medicine 07/24/20 Associate Project Manager Relationship Specialty Start Date End Date Arron Hairston MD [address] [facility] [place] [address] PCP - General Family Medicine 07/24/20 Associate Project Manager Relationship Specialty Start Date End Date Arron Hairston MD [address] [facility] [place] [address] PCP - General Family Medicine 07/24/20 Associate Project Manager Relationship Specialty Start Date End Date Arron Hairston MD [address] [facility] [place] [address] PCP - General Family Medicine 07/24/20 Associate Project Manager Relationship Specialty Start Date End Date Arron Hairston MD [address] [facility] [place] [address] PCP - General Family Medicine 07/24/20 Associate Project Manager Relationship Specialty Start Date End Date Arron Hairston MD [address] [facility] [place] [address] PCP - General Family Medicine 07/24/20 Team Status: Active Member Role Status Dates No Primary Care Physician Family Provider Active Dr. Arron Hairston MD Primary Care Provider Active Team Status: Inactive Member Role Status Dates Dr. Arron Haisrton MD Primary Care Provider Active Dr. Yocasta Marr , Emergency Provider Active Associate Project Manager Relationship Specialty Start Date End Date Arron Hairston MD [address] [facility] [place] [address] PCP - General Family Medicine 07/24/20 Associate Project Manager Relationship Specialty Start Date End Date Arron Hairston MD [address] [facility] [place] [address] PCP - General Family Medicine 07/24/20 Associate Project Manager Relationship Specialty Start Date End Date Arron Hairston MD [address] [facility] [place] [address] PCP - General Family Medicine 07/24/20 Associate Project Manager Relationship Specialty Start Date End Date Arron Hairston MD [address] [facility] [place] [address] PCP - General Family Medicine 07/24/20 Associate Project Manager Relationship Specialty Start Date End Date Arron Hairston MD [address] [facility] [place] [address] PCP - General Family Medicine 07/24/20 Associate Project Manager Relationship Specialty Start Date End Date Arron Hairston MD [address] [facility] [place] [address] PCP - General Family Medicine 07/24/20 Associate Project Manager Relationship Specialty Start Date End Date Arron Hairston MD [address] [facility] [place] [address] PCP - General Family Medicine 07/24/20 Associate Project Manager Relationship Specialty Start Date End Date Arron Hairston MD [address] [facility] [place] [address] PCP - General Family Medicine 07/24/20 Associate Project Manager Relationship Specialty Start Date End Date Arron Hairston MD [address] [facility] [place] [address] PCP - General Family Medicine 07/24/20 Associate Project Manager Relationship Specialty Start Date End Date Arron Hairston MD [address] [facility] [place] [address] PCP - General Family Medicine 07/24/20 Associate Project Manager Relationship Specialty Start Date End Date Arron Hairston MD [address] [facility] [place] [address] PCP - General Family Medicine 07/24/20 Associate Project Manager Relationship Specialty Start Date End Date Arron Hairston MD [address] [place], [place] [address] PCP - General Family Medicine 07/24/20 Associate Project Manager Relationship Specialty Start Date End Date Arron Hairston MD [address] [place], [place] [address] PCP - General Family Medicine 07/24/20 Associate Project Manager Relationship Specialty Start Date End Date Arron Hairston MD [address] [place], [place] [address] PCP - General Family Medicine 07/24/20 Associate Project Manager Relationship Specialty Start Date End Date Arron Hairston MD [address] [place] [address] PCP - General Family Medicine 07/24/20 Associate Project Manager Relationship Specialty Start Date End Date Arron Hairston MD [address] [place], [place] [address] PCP - General Family Medicine 07/24/20 Associate Project Manager Relationship Specialty Start Date End Date Arron Hairston MD [address] [place] [address] PCP - General Family Medicine 07/24/20 Associate Project Manager Relationship Specialty Start Date End Date Arron Hairston MD [address] [place] [place], [place] [address] PCP - General Family Medicine 07/24/20 Associate Project Manager Relationship Specialty Start Date End Date Arron Hairston MD [address] [place], [place] [address] PCP - General Family Medicine 07/24/20 Associate Project Manager Relationship Specialty Start Date End Date Arron Hairston MD [address] [place] [address] PCP - General Family Medicine 07/24/20 Associate Project Manager Relationship Specialty Start Date End Date Arron Hairston MD [address] [place] [address] PCP - General Family Medicine 07/24/20 Associate Project Manager Relationship Specialty Start Date End Date Arron Hairston MD [address] [place] [address] PCP - General Family Medicine 07/24/20 Associate Project Manager Relationship Specialty Start Date End Date Arron Hairston MD [address] [place] [address] PCP - General Family Medicine 07/24/20 Associate Project Manager Relationship Specialty Start Date End Date Arron Hairston MD [address] [place] [address] PCP - General Family Medicine 07/24/20 Associate Project Manager Relationship Specialty Start Date End Date Arron Hairston MD [address] [place] [address] PCP - General Family Medicine 07/24/20 Associate Project Manager Relationship Specialty Start Date End Date Arron Hairston MD [address] [place], [place] [address] PCP - General Family Medicine 07/24/20 Associate Project Manager Relationship Specialty Start Date End Date Arron Hairston MD [address] [place], [place] [address] PCP - General Family Medicine 07/24/20 Associate Project Manager Relationship Specialty Start Date End Date Arron Hairston MD [address] [place], [place] [address] PCP - General Family Medicine 07/24/20 Associate Project Manager Relationship Specialty Start Date End Date Arron Hairston MD [address] [place], [place] [address] PCP - General Family Medicine 07/24/20 Kerry Mas APRN.ADJUSTO WRITER OPERATOR [address] [place] [address] Restaurant Supervisor Family Medicine 08/02/24 Staci Garza INSULATOR CUTTER AND FORMER.ADJUSTO WRITER OPERATOR [address] [place] [address] Restaurant Supervisor Family Medicine 08/02/24 Associate Project Manager Relationship Specialty Start Date End Date Arron Hairston MD [address] [place], [place] [address] PCP - General Family Medicine 07/24/20 Kerry Mas INSULATOR CUTTER AND FORMER.ADJUSTO WRITER OPERATOR [address] [place] [address] Restaurant Supervisor Family Medicine 08/02/24 Staci Garza INSULATOR CUTTER AND FORMER.ADJUSTO WRITER OPERATOR [address] [place] [address] Restaurant Supervisor Family Medicine 08/02/24 Associate Project Manager Relationship Specialty Start Date End Date Arron Hairston MD [address] [place], [place] [address] PCP - General Family Medicine 07/24/20 Kerry Mas APRN.ADJUSTO WRITER OPERATOR [address] [place] [address] Restaurant Supervisor Family Medicine 08/02/24 Staci Garza APRN.ADJUSTO WRITER OPERATOR [address] [facility] [place] [address] Restaurant Supervisor Family Medicine 08/02/24 Associate Project Manager Relationship Specialty Start Date End Date Arron Hairston MD [address] [facility] [place] [address] PCP - General Family Medicine 07/24/20 Kerry Mas APRN.ADJUSTO WRITER OPERATOR [address] [place] [address] Restaurant Supervisor Family Medicine 08/02/24 Staci Garza APRN.ADJUSTO WRITER OPERATOR [address] [facility] [place] [address] [facility] 08/02/24 Associate Project Manager Relationship Specialty Start Date End Date Arron Hairston MD [address] [facility] [place] [address] PCP - General Family Medicine 07/24/20 Kerry Mas APRN.ADJUSTO WRITER OPERATOR [address] [place] [address] Restaurant Supervisor Family Medicine 08/02/24 Staci Garza APRN.ADJUSTO WRITER OPERATOR [address] [facility] [place] [address] Restaurant Supervisor Family Medicine 08/02/24 Associate Project Manager Relationship Specialty Start Date End Date Arron Hairston MD [address] [facility] [place] [address] PCP - General Family Medicine 07/24/20 Kerry Mas APRN.ADJUSTO WRITER OPERATOR [address] [place] [address] Restaurant Supervisor Family Medicine 08/02/24 Staci Garza APRN.ADJUSTO WRITER OPERATOR [address] [facility] [place] [address] Restaurant Supervisor Family Medicine 08/02/24 Associate Project Manager Relationship Specialty Start Date End Date Arron Hairston MD [address] [facility] [place] [address] PCP - General Family Medicine 07/24/20 Kerry Mas APRN.ADJUSTO WRITER OPERATOR [address] [place] [address] Restaurant Supervisor Family Medicine 08/02/24 Staci Garza APRN.ADJUSTO WRITER OPERATOR [address] [facility] [place] [address] Restaurant Supervisor Family Medicine 08/02/24 Associate Project Manager Relationship Specialty Start Date End Date Arron Hairston MD [address] [facility] [place] [address] PCP - General Family Medicine 07/24/20 Kerry Mas APRN.ADJUSTO WRITER OPERATOR [address] [place] [address] Restaurant Supervisor Family Medicine 08/02/24 Staci Garza APRN.ADJUSTO WRITER OPERATOR [address] [facility] [place] [address] [facility] 08/02/24 Associate Project Manager Relationship Specialty Start Date End Date Arron Hairston MD [address] [facility] [place] [address] PCP - General Family Medicine 07/24/20 Kerry Mas, ERMA.ADJUSTO WRITER OPERATOR [address] [place] [address] [facility] 08/02/24 Staci Garza APRN.ADJUSTO WRITER OPERATOR [address] [place] [address] [facility] 08/02/24 Reason for Visit (unrecogniz ed section and content) Reason Comments Refill Request Reason Comments Consult Abdomen pain, gallst one, mild wall thickening, [facility] 06/22/22 Specialty Diagnoses / Procedures Referred By Elisa jensen Referred To Contact General Surgery Diagnoses Right upper quadrant abdominal pain Procedures CONSULT TO GENERAL SURGERY OFFICE/OUTPATIENT NEW HIGH MDM 60-74 MINUTES Kerry Mas, ERMA.ADJUSTO WRITER OPERATOR [address] [place] [address] Referral ID Status Reason Start Date Expiration Date Visits Requested Visits Authorized [id number] Pending Review PCP Requested Referral 2 06/21/2023 1 1 Reason Comments New Patient Evaluation Reason Comments Patient Update Reason Comments Established Patient Reason Comments Results Reason Comments Appointment Reason Comments New Patient Evaluation Reason Comments Medical Clearance Reason Comments Forms Reason Comments Established Patient Reason Comments Appointment EGD Reason Comments Gallbladder flare up Reason Comments Established Patient Follow-Up Clearance. Seizures Reason Comments Patient Question Reason Comments Cardiac Clearance Reason Comments Medical Clearance Psychology Reason Comments New Patient Evaluation Clearance for bar iatric surgery Reason Comments Other Reason Comments Med Change Request Reason Comments New Patient Reason Comments Sleep Apnea Reason Comments Obesity Reason Comments FYI-No Action Needed Reason Comments Weight Problem Reason Comments Polysomnogram Reason Comments Results Reason Comments Follow Up Reason Comments Patient Update Insurance change 08/25-[employer] Reason Comments MDT Reason Comments Telemedicine Reason Onset Date Comments Refill Request 09/06/2024 Reason Onset Date Comments Refill Request 09/05/2024 Reason Onset Date Comments Refill Request 11/11/2024 Reason Comments Seizures Reason Comments Dizziness Reason Comments Orders Reason Comments Acute Visit Intermittent episode s of dizziness; night sweats, periods of elevated blood pressure, itchy skin Goals (unrecognized section and content) Goals may be documented in a n alternate sectionGoals may be documented in an alternate section FOR RECORDS PERTAINING TO PATIENTS WHO ARE OR HAVE BEEN ENROLLED IN A CHEMICAL DEPENDENCY/SUBSTANCEABUSE PROGRAM, SOME INFORMATION MAY BE OMITTED. This clinical summary was aggregated from multiple sources. Caution should be exercised in using it in the provision of clinical care. This summary normalizes information from multiple sources, and as a consequence, information in this document may materially change the coding, format and clinical context of patient data. In addition, data may be omitted in some cases. CLINICAL DECISIONS SHOULD BE BASED ON THE PRIMARY CLINICAL RECORDS. [facility] [employer] [facility] provides no warranty or guarantee of the accuracy or completeness of information in this document.
[2025-03-05] MEDS: 0.9% Normal Saline (1000mL) 1,000 ML 150 ML IV (18:25)
[2025-03-05 18:33] LABS: Mucous, Urine 0 SEEN /hpf (<or=2+)
[2025-03-05 18:35] LABS: Color, Urine Yellow (Yellow); Glucose, Dipstick Normal (Normal); Ketone-Dipstick Negative (Negative); Leukocyte Esterase-Dipstick 25 /ul (Negative); Nitrite-Dipstick Negative (Negative); Occult Blood-Urine 250 /ul (Negative); Protein-Dipstick Negative (Negative); Specific Gravity, Urine 1.005 (1.002-1.030); Urine Bilirubin Dipstick Negative (Negative)
[2025-03-05 18:48] VITALS: BP 140/71; BP 162/102; BP 168/101; PULSE 105; PULSE 70; PULSE 75
[2025-03-05 18:54] LABS: Red Blood Cells-Urine 0-5 SEEN /hpf (0-5); Squamous Epithelial Cells - UA 0-5 SEEN /hpf (5-10)
[2025-03-05 19:17] LABS: D-Dimer Quantitative (DVT/PE) 0.44 FEU/ug/m (0.27-0.49)
[2025-03-05 19:37] LABS: Troponin T High Sensitivity < 6 ng/L (<=14)
[2025-03-05 19:42] VITALS: BP 133/75; PULSE 62; RESP 14; O2SAT 100
[2025-03-05 19:52] VITALS: BP 133/89; PULSE 64; RESP 20; TEMP 36.6; O2SAT 98
[2025-03-05 19:55] VITALS: BP 138/89; PULSE 68; RESP 16; TEMP 36.6; O2SAT 99
== END 2025-03-05 19:59 | disposition home or self-care (01) ==
PROVIDERS: Emergency Provider Emergency Medicine; PCP Family Medicine; Visit Provider Emergency Medicine
DX: R42 Dizziness and giddiness (principal); R56.9 Unspecified convulsions; Z79.899 Other long term (current) drug therapy; R06.00 Dyspnea, unspecified
CPT/HCPCS: 70450; 81001; 84484; 85379; 93005; 96361; 96374; 99285; A4216; J2405